=== PATIENT | male | born 1935 | race Caucasian/White ===

== ENCOUNTER 2016-05-31 16:35 | Observation (INO) | payer OTHER ==
[~2016-05-31] VITALS: Ht 180.3 cm; Wt 80.8 kg
[~2016-05-31 16:35] MED LIST: ASPEC325 PO; LISI-461 PO; OXYC-57 PO; SIMV10TA2 PO
[2016-05-31 17:05] LABS: BASO % 1.2 %; BASO ABS # 0.08 K/uL (0-0.2); COMPLETE YES; EOS % 6.4 %; HEMATOCRIT 39.4 % (42-52); IG% 0.3 %; LYMPH % 27.6 %; LYMPH ABS # 1.85 K/uL (1.2-3.4); MEAN CELL VOLUME 88.3 fL (80-100); MEAN CORPUSCULAR HEMOGLOBIN 29.6 pg (25-34); MEAN CORPUSCULAR HGB CONC 33.5 g/dl (32-36); MEAN PLATELET VOLUME 9.4 fL (7.4-10.4); MONO % 8.2 %; NEUT % 56.3 %; PLATELET COUNT 193 K/uL (130-400); RED BLOOD COUNT 4.46 M/uL (4.7-6.1)
[2016-05-31] MEDS ORDERED: ASPI81TA28 PO (17:20)
[2016-05-31] MEDS ORDERED: FEXO1TAB49 PO (17:20)
[2016-05-31] MEDS ORDERED: HYDR12.55 PO (17:20)
[2016-05-31] MEDS ORDERED: LOSA100T65 PO (17:20)
[2016-05-31] MEDS ORDERED: ATOR-24 PO (17:20)
[2016-05-31] MEDS ORDERED: METO-217 PO (17:20)
[2016-05-31 17:21] LABS: BLOOD UREA NITROGEN 20 mg/dl (7-18); CALCIUM 8.5 mg/dl (8.5-10.1); CARBON DIOXIDE 31 mmol/L (21-32); CHLORIDE 106 mmol/L (98-107); GLUCOSE 102 mg/dl (70-99); POTASSIUM 3.7 mmol/L (3.5-5.1); SODIUM 142 mmol/L (136-145)
[2016-05-31 17:22] LABS: BUN/CREATININE RATIO 15.3 (10-20)
--- NOTE | 2016-05-31 17:23 | EMERGENCY ROOM VISIT NOTE ---
History First contact with patient: 16:43 Chief Complaint: CHEST PAIN Stated Complaint: SOB, WEAKNESS, BALANCE, R FOOT TINGLY- REFERRED Nursing Triage Summary: Intermittent chest tightness for the past couple days, denies radiation of pain. SOB with exertion. Hx of abdominal aneurysm. Denies back pain. "Today my knees felt weak and like my balance is gone. My right toes tingle. My head feels woozy." History of Present Illness The patient is a 80 year old male former smoker with hx of Pulmonary Fibrosis (follows with Dr. Grimm) AAA (Follows with Dr. Rapp), Carotid a. stenosis, who presents to the Emergency Room with complaints of SOB on exertion. Patient was walking up some stairs this morning at a store and fell increasingly short of breath. HE also reports occasional Chest tightness for the last 2 wks with no known aggravating factors. Chest discomfort was central 1/10, intensity, non- pleuritic and would last a few minutes. Patient denies presyncope, syncope, Orthopnea, PNS. Patient took full dose ASA prior to arrival. Pt denies headache, change in vision, fevers, chills ,cough, nausea, vomiting, diarrhea, pain with urination, and melena. Prior to arrival today, He contacted Dr. Rapp due to lack of improvement with symptoms, who encouraged him to contact PCP. PCP advised him to go into ED for an EKG. Review of Systems See HPI for pertinent positives & negatives. A total of 10 systems reviewed and were otherwise negative. Past Medical/Surgical History Medical Problems: (1) Essential hypertension (2) History of abdominal aortic aneurysm (AAA) (3) History of coronary stenosis (4) History of pulmonary fibrosis (5) Hyperglycemia (6) Hyperlipidemia (7) Transient ischemic attack Social History Smoking Status: Former Smoker Alcohol Use: none Marital Status: Housing Status: lives alone Occupation Status: retired Current/Historical Medications Scheduled Aspirin (Aspirin Ec), 81 MG PO DAILY Atorvastatin (Lipitor), 40 MG PO DAILY Fexofenadine Hcl (Desiree Allergy), 1 TAB PO DAILY Hydrochlorothiazide (Hydrochlorothiazide), 1 TAB PO DAILY Losartan Potassium (Cozaar), 1 TAB PO DAILY Metoprolol Succinate (Toprol Xl), 50 MG PO DAILY Allergies Coded Allergies: No Known Allergies (Unverified , 05/31/16) Physical Exam Vital Signs Date Time Temp Pulse Resp B/P Pulse Ox O2 Delivery O2 Flow Rate FiO2 05/31/16 19:30 16 156/91 98 Room Air 05/31/16 17:41 98 Room Air 05/31/16 17:41 59 18 130/80 97 Room Air 05/31/16 16:53 66 05/31/16 16:40 36.9 70 18 151/88 97 Room Air Physical Exam GENERAL: alert, well appearing, well nourished, no distress, non-toxic EYE EXAM: normal conjunctiva, PERRL and EOM's grossly intact NECK: supple, no nuchal rigidity, no adenopathy, non-tender LUNGS: Clear to auscultation. Normal chest wall mechanics HEART: no murmurs, S1 normal and S2 normal ABDOMEN: abdomen soft, non-tender, normo-active bowel sounds, no masses, no rebound or guarding. SKIN: no rashes and no bruising UPPER EXTREMITIES: upper extremities are grossly normal. LOWER EXTREMITIES: No pitting edema. Medical Decision & Procedures ER Provider Diagnostic Interpretation: SINGLE VIEW CHEST CLINICAL HISTORY: Atypical chest pain. Dyspnea. FINDINGS: An AP, portable, upright chest radiograph is compared to study dated 08/04/2014 and correlated with chest CT dated 10/17/2014. The examination is degraded by portable technique and apical lordotic positioning. The heart is enlarged and there is atherosclerotic calcification of the thoracic aorta. Again seen are changes of chronic interstitial lung disease. Emphysema is also suspected. The interstitium appears markedly thickened as compared to previous, likely representing superimposed congestive failure and interstitial edema. Bibasilar airspace opacities are observed. No large pleural effusion or pneumothorax is seen. The skeletal structures are osteopenic. Degenerative changes noted throughout the thoracic spine and in the shoulders. IMPRESSION: 1. Again seen are changes of chronic interstitial lung disease and possibly emphysema. 2. Cardiomegaly. Superimposed congestive failure and interstitial edema is suspected. Clinical correlation will be required. 3. There are airspace opacities in the lower lobes. This could be related to pulmonary edema. Chronic clinically for evidence of a superimposed infectious/inflammatory pneumonitis. Laboratory Results 05/31/16 16:54 Red Blood Count 4.46, Mean Corpuscular Volume 88.3, Mean Corpuscular Hemoglobin 29.6, Mean Corpuscular Hemoglobin Concent 33.5, Mean Platelet Volume 9.4, Neutrophils (%) (Auto) 56.3, Lymphocytes (%) (Auto) 27.6, Monocytes (%) (Auto) 8.2, Eosinophils (%) (Auto) 6.4, Basophils (%) (Auto) 1.2, Neutrophils # (Auto) 3.77, Lymphocytes # (Auto) 1.85, Monocytes # (Auto) 0.55, Eosinophils # (Auto) 0.43, Basophils # (Auto) 0.08 05/31/16 16:54 Test 05/31/16 16:54 White Blood Count 6.70 K/uL (4.8-10.8) Red Blood Count 4.46 M/uL (4.7-6.1) Hemoglobin 13.2 g/dL (14.0-18.0) Hematocrit 39.4 % (42-52) Mean Corpuscular Volume 88.3 fL (80-100) Mean Corpuscular Hemoglobin 29.6 pg (25-34) Mean Corpuscular Hemoglobin Concent 33.5 g/dl (32-36) Platelet Count 193 K/uL (130-400) Mean Platelet Volume 9.4 fL (7.4-10.4) Neutrophils (%) (Auto) 56.3 % Lymphocytes (%) (Auto) 27.6 % Monocytes (%) (Auto) 8.2 % Eosinophils (%) (Auto) 6.4 % Basophils (%) (Auto) 1.2 % Neutrophils # (Auto) 3.77 K/uL (1.4-6.5) Lymphocytes # (Auto) 1.85 K/uL (1.2-3.4) Monocytes # (Auto) 0.55 K/uL (0.11-0.59) Eosinophils # (Auto) 0.43 K/uL (0-0.5) Basophils # (Auto) 0.08 K/uL (0-0.2) RDW Standard Deviation 46.1 fL (36.4-46.3) RDW Coefficient of Variation 14.2 % (11.5-14.5) Immature Granulocyte % (Auto) 0.3 % Immature Granulocyte # (Auto) 0.02 K/uL (0.00-0.02) Anion Gap 5.0 mmol/L (3-11) Est Creatinine Clear Calc Drug Dose 48.2 ml/min Estimated GFR () 59.7 Estimated GFR (Non- 51.5 BUN/Creatinine Ratio 15.3 (10-20) Calcium Level 8.5 mg/dl (8.5-10.1) Total Bilirubin 0.9 mg/dl (0.2-1) Direct Bilirubin 0.3 mg/dl (0-0.2) Aspartate Amino Transf (AST/SGOT) 14 U/L (15-37) Alanine Aminotransferase (ALT/SGPT) 21 U/L (12-78) Alkaline Phosphatase 109 U/L (45-117) Total Protein 7.3 gm/dl (6.4-8.2) Albumin 3.8 gm/dl (3.4-5.0) Medical Decision Differential diagnoses includes but is not limited to pneumonia, bronchitis, COPD/Asthma exacerbation, pneumothorax, pulmonary embolism, congestive heart failure, acute coronary syndrome, Pulmonary fibrosis 80 yo M p/w with acute worsening of SOB on exertion prior to arrival and 2 wk hx of mild episodic chest discomfort , afebrile, vss, EKG unremarkable Chest Discomfort, SOB on Exertion Troponin: negative CXR: chronic interstitial lung disease and possibly emphysema. There are airspace opacities in the lower lobes. This could be related to pulmonary edema CBC 13.2/39.4 within baseline range BMP: unremarkable -Chest discomfort does not appear to be due to ACS based on initial EKG an troponin. Based on exertional Chest pain, and multiple risk factors, Stable Angina cannot be ruled out.PE less likely based on presentation. Discussed case with Dr. Johnson on the inpatient service who agreed to admit Impression Primary Impression: Chest pain on exertion Additional Impression: Dyspnea on exertion Departure Information Dispostion Admitted as an inpatient Referrals Kiley Capellan, C.R.N.P. (PCP) Patient Instructions My [facility] Resident Tracking Resident Involvement: Resident Care Provided Care Provided: Adult ED Problem Qualifiers
--- NOTE | 2016-05-31 17:26 | DIAGNOSTIC IMAGING REPORT ---
SINGLE VIEW CHEST CLINICAL HISTORY: Atypical chest pain. Dyspnea. FINDINGS: An AP, portable, upright chest radiograph is compared to study dated 08/04/2014 and correlated with chest CT dated 10/17/2014. The examination is degraded by portable technique and apical lordotic positioning. The heart is enlarged and there is atherosclerotic calcification of the thoracic aorta. Again seen are changes of chronic interstitial lung disease. Emphysema is also suspected. The interstitium appears markedly thickened as compared to previous, likely representing superimposed congestive failure and interstitial edema. Bibasilar airspace opacities are observed. No large pleural effusion or pneumothorax is seen. The skeletal structures are osteopenic. Degenerative changes noted throughout the thoracic spine and in the shoulders. IMPRESSION: 1. Again seen are changes of chronic interstitial lung disease and possibly emphysema. 2. Cardiomegaly. Superimposed congestive failure and interstitial edema is suspected. Clinical correlation will be required. 3. There are airspace opacities in the lower lobes. This could be related to pulmonary edema. Chronic clinically for evidence of a superimposed infectious/inflammatory pneumonitis. Electronically signed by: Neal Ashley M.D. 05/31/2016 5:25 PM Dictated Date/Time: 05/31/2016 5:22 PM
[2016-05-31 17:30] LABS: ALKALINE PHOSPHATASE 109 U/L (45-117); ALT/SGPT 21 U/L (12-78); AST/SGOT 14 U/L (15-37); CKMB/CK RATIO 1.3 (0-3.0)
--- NOTE | 2016-05-31 19:35 | EMERGENCY ROOM VISIT NOTE ---
History Report prepared by Kellen: Erwin Trejo Under the Supervision of: Dr. Ilia Estrada D.O. First contact with patient: 16:43 Chief Complaint: CHEST PAIN Stated Complaint: SOB, WEAKNESS, BALANCE, R FOOT TINGLY- REFERRED Nursing Triage Summary: Intermittent chest tightness for the past couple days, denies radiation of pain. SOB with exertion. Hx of abdominal aneurysm. Denies back pain. "Today my knees felt weak and like my balance is gone. My right toes tingle. My head feels woozy." History of Present Illness The patient is a 80 year old male who presents to the Emergency Room with complaints of an episode of shortness of breath occurring earlier today. He notes he was walking up steps earlier when he became short of breath. He notes this was accompanied with chest tightness which he rates a 1/10 and notes it does not radiate. He reports he has been having off and on chest tightness like this over the last couple of weeks at rest and with exertion. The patient notes his knees felt weak earlier, but denies any LOC, arm or jaw pain, tingling in his arms or legs, or any urinary symptoms. He notes he feels at baseline currently. He admits to taking 81 mg of Aspirin everyday, and took a full dose today. The patient called Dr. Ledesma who recommended calling his PCP. His PCP recommended presenting to the ER for evaluation and an EKG. He reports a history of pulmonary fibrosis, coronary stenosis, and AAA. Source of History: patient Onset: earlier today Position: other (lungs) Quality: other (shortness of breath) Timing: other (episode) Modifying Factors (Worsening): exertion Modifying Factors (Relieving): rest Associated Symptoms: + chest pain (tightness), + weakness, No LOC, No numbness, No urinary symptoms Review of Systems See HPI for pertinent positives & negatives. A total of 10 systems reviewed and were otherwise negative. Past Medical & Surgical Medical Problems: (1) Essential hypertension (2) History of abdominal aortic aneurysm (AAA) (3) History of coronary stenosis (4) History of pulmonary fibrosis (5) Hyperglycemia (6) Hyperlipidemia (7) Transient ischemic attack Family History No pertinent family history stated. Social History Smoking Status: Former Smoker Marital Status: Current/Historical Medications Scheduled Aspirin (Aspirin Ec), 81 MG PO DAILY Atorvastatin (Lipitor), 40 MG PO DAILY Fexofenadine Hcl (Desiree Allergy), 1 TAB PO DAILY Hydrochlorothiazide (Hydrochlorothiazide), 1 TAB PO DAILY Losartan Potassium (Cozaar), 1 TAB PO DAILY Metoprolol Succinate (Toprol Xl), 50 MG PO DAILY Allergies Coded Allergies: No Known Allergies (Unverified , 05/31/16) Physical Exam Vital Signs Date Time Temp Pulse Resp B/P Pulse Ox O2 Delivery O2 Flow Rate FiO2 05/31/16 19:30 16 156/91 98 Room Air 05/31/16 17:41 98 Room Air 05/31/16 17:41 59 18 130/80 97 Room Air 05/31/16 16:53 66 05/31/16 16:40 36.9 70 18 151/88 97 Room Air Physical Exam GENERAL: Sitting up in bed, alert, well appearing, well nourished, no distress, non-toxic EYE EXAM: normal conjunctiva OROPHARYNX: no exudate, no erythema, lips, buccal mucosa, and tongue normal and mucous membranes are moist NECK: supple, no nuchal rigidity, no adenopathy, non-tender LUNGS: Clear to auscultation. Normal chest wall mechanics HEART: no murmurs, S1 normal and S2 normal ABDOMEN: abdomen soft, non-tender, normo-active bowel sounds, no masses, no rebound or guarding. BACK: Back is symmetrical on inspection and there is no deformity, no midline tenderness, no CVA tenderness. SKIN: no rashes and no bruising UPPER EXTREMITIES: Radial pulses are equal bilaterally. LOWER EXTREMITIES: No pitting edema. NEURO EXAM: Normal sensorium, cranial nerves II-XII grossly intact, normal speech, no gross weakness of arms, no gross weakness of legs. Gross sensation intact. Medical Decision & Procedures ER Provider Diagnostic Interpretation: Radiology results have been interpreted by the radiologist and reviewed by me. SINGLE VIEW CHEST FINDINGS: An AP, portable, upright chest radiograph is compared to study dated 08/04/2014 and correlated with chest CT dated 10/17/2014. The examination is degraded by portable technique and apical lordotic positioning. The heart is enlarged and there is atherosclerotic calcification of the thoracic aorta. Again seen are changes of chronic interstitial lung disease. Emphysema is also suspected. The interstitium appears markedly thickened as compared to previous, likely representing superimposed congestive failure and interstitial edema. Bibasilar airspace opacities are observed. No large pleural effusion or pneumothorax is seen. The skeletal structures are osteopenic. Degenerative changes noted throughout the thoracic spine and in the shoulders. IMPRESSION: 1. Again seen are changes of chronic interstitial lung disease and possibly emphysema. 2. Cardiomegaly. Superimposed congestive failure and interstitial edema is suspected. Clinical correlation will be required. 3. There are airspace opacities in the lower lobes. This could be related to pulmonary edema. Chronic clinically for evidence of a superimposed infectious/inflammatory pneumonitis. Electronically signed by: Neal Ashley M.D. 05/31/2016 5:25 PM Dictated Date/Time: 05/31/2016 5:22 PM Laboratory Results 05/31/16 16:54 Red Blood Count 4.46, Mean Corpuscular Volume 88.3, Mean Corpuscular Hemoglobin 29.6, Mean Corpuscular Hemoglobin Concent 33.5, Mean Platelet Volume 9.4, Neutrophils (%) (Auto) 56.3, Lymphocytes (%) (Auto) 27.6, Monocytes (%) (Auto) 8.2, Eosinophils (%) (Auto) 6.4, Basophils (%) (Auto) 1.2, Neutrophils # (Auto) 3.77, Lymphocytes # (Auto) 1.85, Monocytes # (Auto) 0.55, Eosinophils # (Auto) 0.43, Basophils # (Auto) 0.08 05/31/16 16:54 Test 05/31/16 16:54 White Blood Count 6.70 K/uL (4.8-10.8) Red Blood Count 4.46 M/uL (4.7-6.1) Hemoglobin 13.2 g/dL (14.0-18.0) Hematocrit 39.4 % (42-52) Mean Corpuscular Volume 88.3 fL (80-100) Mean Corpuscular Hemoglobin 29.6 pg (25-34) Mean Corpuscular Hemoglobin Concent 33.5 g/dl (32-36) Platelet Count 193 K/uL (130-400) Mean Platelet Volume 9.4 fL (7.4-10.4) Neutrophils (%) (Auto) 56.3 % Lymphocytes (%) (Auto) 27.6 % Monocytes (%) (Auto) 8.2 % Eosinophils (%) (Auto) 6.4 % Basophils (%) (Auto) 1.2 % Neutrophils # (Auto) 3.77 K/uL (1.4-6.5) Lymphocytes # (Auto) 1.85 K/uL (1.2-3.4) Monocytes # (Auto) 0.55 K/uL (0.11-0.59) Eosinophils # (Auto) 0.43 K/uL (0-0.5) Basophils # (Auto) 0.08 K/uL (0-0.2) RDW Standard Deviation 46.1 fL (36.4-46.3) RDW Coefficient of Variation 14.2 % (11.5-14.5) Immature Granulocyte % (Auto) 0.3 % Immature Granulocyte # (Auto) 0.02 K/uL (0.00-0.02) Anion Gap 5.0 mmol/L (3-11) Est Creatinine Clear Calc Drug Dose 48.2 ml/min Estimated GFR () 59.7 Estimated GFR (Non- 51.5 BUN/Creatinine Ratio 15.3 (10-20) Calcium Level 8.5 mg/dl (8.5-10.1) Total Bilirubin 0.9 mg/dl (0.2-1) Direct Bilirubin 0.3 mg/dl (0-0.2) Aspartate Amino Transf (AST/SGOT) 14 U/L (15-37) Alanine Aminotransferase (ALT/SGPT) 21 U/L (12-78) Alkaline Phosphatase 109 U/L (45-117) Total Protein 7.3 gm/dl (6.4-8.2) Albumin 3.8 gm/dl (3.4-5.0) Laboratory results per my review. ECG Indication: chest pain Rate (beats per minute): 66 Rhythm: sinus rhythm Findings: left axis deviation, no ectopy ED Course ED COURSE: Vital signs were reviewed and showed hypertensive. The patients medical record was reviewed The above diagnostic studies were performed and reviewed. ED treatments and interventions as stated above. 1707: The patient was evaluated in room A2. A complete history and physical examination was performed. 1818: I reviewed the patient's case with Dr. Johnson. She will evaluate the patient for further management. 1820: Upon reevaluation, the patient is doing well.I discussed my findings with the patient and he understands and agrees with the treatment plan. Based on the patients age, coexisting illnesses, exam and lab findings the decision to treat as an inpatient was made. The patient remained stable while under my care. The patient will be evaluated for further management. Medical Decision Differential diagnoses includes but is not limited to acute coronary syndrome, myocardial infarction, pericarditis, pulmonary embolus, aortic dissection, pneumonia, pneumothorax, musculoskeletal, shingles, esophageal. Patient is an 80-year-old male who present to the ER for exertional chest pain shortness breath. This started today while walking up the steps. He has been having chest pain which he notes is worsened with exertion or prominently over the past couple weeks. He denies any history of and CAD. Vitals are stable. EKG shows no obvious signs of ischemia. Troponin was negative. Hemoglobin was unremarkable. Patient was chest pain-free while here. He took aspirin prior to arrival. With his exertional symptoms I elected to discuss this patient with internal medicine for observation. Patient was seen in conjunction with my resident and I independently evaluated and obtain a history from him. Consults Time Called: 1804 Consulting Physician: Dr. Johnson, [facility] Returned Call: 1817 I reviewed the patient's case with Dr. Johnson. She will evaluate the patient for further management. Impression Primary Impression: Chest pain on exertion Additional Impressions: Dyspnea on exertion Precordial chest pain Scribe Attestation The scribe's documentation has been prepared under my direction and personally reviewed by me in its entirety. I confirm that the note above accurately reflects all work, treatment, procedures, and medical decision making performed by me. Departure Information Dispostion Being Evaluated By Hospitalist Referrals Kiley Capellan, C.R.N.P. (PCP) Patient Instructions My [facility] Problem Qualifiers
[2016-05-31] MEDS ORDERED: NITROGLYCERIN 0.4 MG SL PER TAB CHARGE SL PRN (20:30)
[2016-05-31] MEDS ORDERED: ACETAMINOPHEN 325 MG TAB PO PRN (20:30)
[2016-05-31] MEDS ORDERED: ONDANSETRON INJ 2 MG/ML 2 ML VIAL IV PRN (20:30)
[2016-05-31] MEDS ORDERED: ZOLPIDEM TARTRATE 5 MG TAB PO PRN (20:30)
[2016-05-31] MEDS ORDERED: LEVALBUTEROL/IPRATROPIUM NEB INH PRN (20:45)
[2016-05-31] MEDS ORDERED: IPRATROPIUM BROMIDE NEB SOLN 0.02% 2.5 ML VIAL INH PRN ×2 (21:15)
[2016-05-31] MEDS ORDERED: LEVALBUTEROL 1.25MG/0.5ML NEB INH PRN ×2 (21:15)
[2016-05-31] MEDS ORDERED: IV FLUIDS COMPLETED PRN (21:15)
[2016-05-31 21:25] LABS: CKMB/CK RATIO 1.7 (0-3.0)
--- NOTE | 2016-05-31 22:12 | History and Physical ---
History & Physical Date & Time of Service: May 31, 2016 at 22:12 Chief Complaint: Dyspnea On Exertion, Precordial Chest Pain Primary Care Physician: Kiley Capellan C.R.N.PEnriqueta History of Present Illness Source: patient The patient is an 80-year-old male who presents to the emergency department with shortness of breath, accompanied by chest tightness, that occurred while he was walking up steps earlier in the day. This has happened to him other times during the past few weeks, but the events of today were more significant as far as duration and intensity, and prompted him to call Dr. Rapp, who then recommended him calling his PCP, who then recommended him to come to the emergency department for evaluation. The patient reports he did have some transient generalized lower extremity weakness earlier in the day. He usually takes aspirin 81 mg daily, however, he took a full dose today. Past Medical/Surgical History Medical Problems: (1) Essential hypertension Status: Chronic (2) Hyperglycemia Status: Chronic (3) Hyperlipidemia Status: Chronic (4) Transient ischemic attack Status: Resolved Social History Smoking Status: Former Smoker Smokeless Tobacco Use: No Alcohol Use: none Drug Use: none Marital Status: Housing status: lives with family Occupational Status: retired Immunizations History of Influenza Vaccine: Unknown History of Tetanus Vaccine?: Unknown History of Pneumococcal: Unknown History of Hepatitis B Vaccine: Unknown Multi-Drug Resistant Organisms History of MDRO: No Allergies Coded Allergies: No Known Allergies (Unverified , 05/31/16) Home Medications Scheduled Aspirin (Aspirin Ec), 81 MG PO DAILY Atorvastatin (Lipitor), 40 MG PO DAILY Fexofenadine Hcl (Desiree Allergy), 1 TAB PO DAILY Hydrochlorothiazide (Hydrochlorothiazide), 1 TAB PO DAILY Losartan Potassium (Cozaar), 1 TAB PO DAILY Metoprolol Succinate (Toprol Xl), 50 MG PO DAILY Review of Systems The patient denies palpitations, lower extremity swelling, vision change, hearing change, sore throat, fevers, chills, sweats, weight change, fatigue, nausea, vomiting, abdominal pain, pelvic pain, blood in urine or stool, dysuria , urinary frequency or urgency, lightheadedness, dizziness, headache, memory loss, rash, abnormal bruising or bleeding, imbalance, focal weakness, numbness or tingling in arms or legs, arthralgias or myalgias, back or neck pain, night sweats, or allergy symptoms. The review of systems is otherwise negative other than for that already noted above, and at least 10 systems have been reviewed. Physical Exam Vital Signs Date Time Temp Pulse Resp B/P Pulse Ox O2 Delivery O2 Flow Rate FiO2 05/31/16 21:49 65 16 168/103 96 Room Air 05/31/16 20:57 57 05/31/16 20:39 58 12 174/96 98 Room Air 05/31/16 19:30 16 156/91 98 Room Air 05/31/16 17:41 98 Room Air 05/31/16 17:41 59 18 130/80 97 Room Air 05/31/16 16:53 66 05/31/16 16:40 36.9 70 18 151/88 97 Room Air The patient is awake, well-developed and adequately nourished, alert and oriented 3, normocephalic and atraumatic, lying in bed and in no acute distress. HEENT--PERRL, EOMI, mucous membranes and oropharynx normal. Neck--supple, no JVD or bruits, thyroid normal, trachea midline, no adenopathy. Heart--normal S1 and S2, no extra beats, no murmurs, rubs or gallops. Lungs--dry crackles at the bases correction up bilaterally, no respiratory distress , no accessory muscle use. Abdomen--normal bowel sounds and soft, nontender and nondistended, no hernias or masses, no organomegaly. Extremities--no cyanosis, clubbing or edema. There are good distal pulses b/l. Dermatologic--normal skin turgor, normal color, warm and dry, no abnormal lymph nodes, no rash. Neurologic--cranial nerves II through XII grossly intact, motor and sensory examination normal. Rheumatologic--normal range of motion, nontender, muscles and joints. Psychiatric--normal affect. Diagnostics Laboratory Results Results Past 24 Hours Test 05/31/16 16:54 05/31/16 20:56 Range/Units White Blood Count 6.70 4.8-10.8 K/uL Red Blood Count 4.46 4.7-6.1 M/uL Hemoglobin 13.2 14.0-18.0 g/dL Hematocrit 39.4 42-52 % Mean Corpuscular Volume 88.3 80-100 fL Mean Corpuscular Hemoglobin 29.6 25-34 pg Mean Corpuscular Hemoglobin Concent 33.5 32-36 g/dl Platelet Count 193 130-400 K/uL Mean Platelet Volume 9.4 7.4-10.4 fL Neutrophils (%) (Auto) 56.3 % Lymphocytes (%) (Auto) 27.6 % Monocytes (%) (Auto) 8.2 % Eosinophils (%) (Auto) 6.4 % Basophils (%) (Auto) 1.2 % Neutrophils # (Auto) 3.77 1.4-6.5 K/uL Lymphocytes # (Auto) 1.85 1.2-3.4 K/uL Monocytes # (Auto) 0.55 0.11-0.59 K/uL Eosinophils # (Auto) 0.43 0-0.5 K/uL Basophils # (Auto) 0.08 0-0.2 K/uL RDW Standard Deviation 46.1 36.4-46.3 fL RDW Coefficient of Variation 14.2 11.5-14.5 % Immature Granulocyte % (Auto) 0.3 % Immature Granulocyte # (Auto) 0.02 0.00-0.02 K/uL Sodium Level 142 136-145 mmol/L Potassium Level 3.7 3.5-5.1 mmol/L Chloride Level 106 98-107 mmol/L Carbon Dioxide Level 31 21-32 mmol/L Anion Gap 5.0 3-11 mmol/L Blood Urea Nitrogen 20 7-18 mg/dl Creatinine 1.30 0.60-1.40 mg/dl Est Creatinine Clear Calc Drug Dose 48.2 ml/min Estimated GFR () 59.7 Estimated GFR (Non- 51.5 BUN/Creatinine Ratio 15.3 10-20 Random Glucose 102 70-99 mg/dl Calcium Level 8.5 8.5-10.1 mg/dl Total Bilirubin 0.9 0.2-1 mg/dl Direct Bilirubin 0.3 0-0.2 mg/dl Aspartate Amino Transf (AST/SGOT) 14 15-37 U/L Alanine Aminotransferase (ALT/SGPT) 21 12-78 U/L Alkaline Phosphatase 109 45-117 U/L Total Creatine Kinase 54 48 39-308 U/L Creatine Kinase MB 0.7 0.8 0.5-3.6 ng/ml Creatine Kinase MB Ratio 1.3 1.7 0-3.0 Troponin I < 0.015 < 0.015 0-0.045 ng/ml Total Protein 7.3 6.4-8.2 gm/dl Albumin 3.8 3.4-5.0 gm/dl Diagnostic Radiology Patient Name: RITESH INTERIANO Unit Number: [id number] Dictated: 05/31/161721 Transcribed: 05/31/161721 EV Printed Date/Time: [~ rep prt dt]/[~ rep prt tm] [~ rep ct labl] - [~ rep ct ivnm] [facility] [place] [place] [address] Dictated: 05/31/161721 Transcribed: 05/31/161721 EV Printed Date/Time: [~ rep prt dt]/[~ rep prt tm] [~ rep ct labl] - [~ rep ct ivnm] SINGLE VIEW CHEST CLINICAL HISTORY: Atypical chest pain. Dyspnea. FINDINGS: An AP, portable, upright chest radiograph is compared to study dated 08/04/2014 and correlated with chest CT dated 10/17/2014. The examination is degraded by portable technique and apical lordotic positioning. The heart is enlarged and there is atherosclerotic calcification of the thoracic aorta. Again seen are changes of chronic interstitial lung disease. Emphysema is also suspected. The interstitium appears markedly thickened as compared to previous, likely representing superimposed congestive failure and interstitial edema. Bibasilar airspace opacities are observed. No large pleural effusion or pneumothorax is seen. The skeletal structures are osteopenic. Degenerative changes noted throughout the thoracic spine and in the shoulders. IMPRESSION: 1. Again seen are changes of chronic interstitial lung disease and possibly emphysema. 2. Cardiomegaly. Superimposed congestive failure and interstitial edema is suspected. Clinical correlation will be required. 3. There are airspace opacities in the lower lobes. This could be related to pulmonary edema. Chronic clinically for evidence of a superimposed infectious/inflammatory pneumonitis. Electronically signed by: Neal Ashley M.D. 05/31/2016 5:25 PM Dictated Date/Time: 05/31/2016 5:22 PM The status of this report is Signed. Draft = Not yet reviewed or approved by Radiologist. Signed = Reviewed and approved by Radiologist. <AttendingPhy></AttendingPhy> <FamilyPhy>Kiley Capellan C.REnriquetaNEnriquetaP.</FamilyPhy> <PrimaryPhy>Kiley Capellan C.R.N.P.</PrimaryPhy> <UnitNumber>[id number]</ UnitNumber> <VisitNumber>[id number]</VisitNumber> <PatientName>RITESH INTERIANO</PatientName> <DateOfBirth>1935</DateOfBirth> <Location>[facility]</ Location> <ServiceDate>05/31/16</ServiceDate> <MNE>ESINDI</MNE> <OrderingPhy> Mitul Segura MD</OrderingPhy> <OrderingPhyMNE>f rep ord dr lovett</OrderingPhyMNE > <DictatingPhyMNE>f rep dict dr lovett</DictatingPhyMNE> <CCListMNE>f rep ct mne</ CCListMNE> <AdmittingPhyMNE>f pt admit dr lovett</AdmittingPhyMNE> <AttendingPhyMNE >f pt attend dr lovett</AttendingPhyMNE> <ConsultingPhyMNE>f pt consult dr lovett</ConsultingPhyMNE> <FamilyPhyMNE>f pt fam dr lovett</FamilyPhyMNE> <OtherPhyMNE>f pt other dr lovett</OtherPhyMNE> < PrimaryPhyMNE>f pt prim care dr lovett</PrimaryPhyMNE> <ReferringPhyMNE>f pt referring dr lovett</ReferringPhyMNE> EKG EKG shows normal sinus rhythm at 66 bpm, left axis deviation, cannot rule out old inferior MO, no change compared to 04/07/2011 Impression Assessment and Plan Chest pressure/dyspnea on exertion/hypertension--the patient will be admitted to the telemetry unit for serial cardiac enzymes, cardiac rhythm monitoring and a 2-D echocardiogram with Dopplers. We'll continue metoprolol succinate 50 mg by mouth daily, losartan potassium 100 mg by mouth daily and aspirin 81 mg by mouth daily. Hold HCTZ. Pulmonary fibrosis--the patient looks and feels much better than his chest x- ray looks. Pulse ox was 98% on room air and he was resting comfortably when examined. His symptoms of chest tightness and dyspnea on exertion may be related to progressive pulmonary fibrosis. If his cardiac workup is negative, he would at the very least deserve a trial of inhalers prior to any exertional activity. Hypercholesterolemia--continue atorvastatin 40 mg by mouth daily. Seasonal allergy--continue fexofenadine 180 mg by mouth daily. Level of Care Telemetry Advanced Directives Existing Advance Directive: No Existing Living Will: No Existing Power of Fisheries Diver: No Resuscitation Status FULL RESUSCITATION VTE Prophylaxis VTE Risk Assessment Done? Y/N: Yes Risk Level: Moderate Given or contraindicated: SCD's
[2016-06-01 04:32] LABS: BASO % 0.8 %; BASO ABS # 0.06 K/uL (0-0.2); COMPLETE YES; EOS % 6.7 %; HEMATOCRIT 38.5 % (42-52); IG% 0.1 %; LYMPH % 20.9 %; LYMPH ABS # 1.66 K/uL (1.2-3.4); MEAN CELL VOLUME 86.5 fL (80-100); MEAN CORPUSCULAR HEMOGLOBIN 29.2 pg (25-34); MEAN CORPUSCULAR HGB CONC 33.8 g/dl (32-36); MEAN PLATELET VOLUME 9.3 fL (7.4-10.4); MONO % 8.1 %; NEUT % 63.4 %; PLATELET COUNT 171 K/uL (130-400); RED BLOOD COUNT 4.45 M/uL (4.7-6.1); WHITE BLOOD COUNT 7.94 K/uL (4.8-10.8)
[2016-06-01 04:47] LABS: BLOOD UREA NITROGEN 18 mg/dl (7-18); BUN/CREATININE RATIO 16.3 (10-20); CALCIUM 8.7 mg/dl (8.5-10.1); CARBON DIOXIDE 29 mmol/L (21-32); CHLORIDE 107 mmol/L (98-107); GLUCOSE 98 mg/dl (70-99); MAGNESIUM 2.1 mg/dl (1.8-2.4); POTASSIUM 3.7 mmol/L (3.5-5.1); SODIUM 142 mmol/L (136-145)
[2016-06-01 04:52] LABS: CKMB/CK RATIO 1.7 (0-3.0)
[2016-06-01 08:04] VITALS: BP 129/73; PULSE 71; TEMP 36.8; O2SAT 97; Ht 180.3 cm; Wt 80.8 kg
[2016-06-01] MEDS: LOSARTAN POTASSIUM 50 MG TAB PO SCH (08:55)
[2016-06-01] MEDS: FEXOFENADINE HCL 180 MG TAB PO SCH (08:55)
[2016-06-01] MEDS: METOPROLOL SUCC 50MG EXT REL TAB PO SCH (08:55)
[2016-06-01] MEDS: ASPIRIN 81 MG ECTAB PO SCH (08:55)
[2016-06-01] MEDS: ATORVASTATIN 40 MG TAB PO SCH (08:55)
[2016-06-01 12:15] VITALS: BP 131/78; PULSE 57; TEMP 36.6; O2SAT 96
--- NOTE | 2016-06-01 12:46 | ECHOCARDIOGRAM REPORT ---
*NOTICE TO RECEIVING DEMOCRAT AGENCY This information is strictly Confidential and protected under [place] law. [place] law prohibits you from making any further disclosure of this information unless further disclosure is expressly permitted by the written consent of the person to whom it pertains or is authorized by law. A general authorization for the release of medical or other information is not sufficient for this purpose. Hospital accepts no responsibility if the information is made available to any other person, INCLUDING THE PATIENT. Interpretation Summary * Name: RITESH INTERIANO Study Date: 06/01/2016 06:51 AM BP: 129/73 mmHg * Patient Location: C.EDINP\S\EDINP 1\S\12 HR: 63 * : 1935 (M/d/yyy) Gender: Male Height: 71 in * Age: 80 yrs Ethnicity: [place] Weight: 178 lb * Ordering Physician: Jesus Alberto Smith * Referring Physician: Kiley Capellan * Performed By: Myrna Peters RCS * * Reason For Study: CHEST PAIN * BSA: 2.0 m2 * -- Conclusions -- * There is mild concentric left ventricular hypertrophy. * Left ventricular systolic function is normal. * Grade I diastolic dysfunction, (abnormal relaxation pattern). * The left atrium is moderately dilated. * Mild to moderate aortic regurgitation. * Right ventricular systolic pressure is normal. * Mild aortic root dilatation. * Compared to a study from 09/2010, there is only minimal change Procedure Details * A complete two-dimensional transthoracic echocardiogram was performed (2D, M-mode, Doppler and color flow Doppler). Left Ventricle * The left ventricle is normal in size. * There is mild concentric left ventricular hypertrophy. * The basal septum is thickened and angulated consistent with sigmoid septum. * Left ventricular systolic function is normal. * Grade I diastolic dysfunction, (abnormal relaxation pattern). * Ejection Fraction = 55-60%. Right Ventricle * The right ventricle is grossly normal size. * The right ventricular systolic function is qualitatively normal. Atria * The left atrium is moderately dilated. * Right atrial size is normal. Mitral Valve * The mitral valve leaflets appear thickened, but open well. * There is trace mitral regurgitation. Tricuspid Valve * The tricuspid valve is not well visualized, but is grossly normal. * There is trace tricuspid regurgitation. * Right ventricular systolic pressure is normal. Aortic Valve * Left coronary cusp is calcified and poorly mobile * No hemodynamically significant valvular aortic stenosis. * Mild to moderate aortic regurgitation. Great Vessels * Mild aortic root dilatation. Pericardium/Pleural * There is no pericardial effusion. MMode 2D Measurements and Calculations IVSd 1.5 cm IVSs 1.6 cm LVIDd 3.6 cm LVIDs 2.8 cm LVPWd 1.5 cm LVPWs 1.5 cm IVS/LVPW 1.0 FS 22.0 % EDV(Teich) 56.2 ml ESV(Teich) 30.8 ml EF(Teich) 45.2 % EDV(cubed) 48.5 ml ESV(cubed) 23.1 ml EF(cubed) 52.5 % % IVS thick 7.6 % % LVPW thick 0.44 % LV mass(C)d 205.6 grams LV mass(C)dI 102.4 grams/m\S\2 LV mass(C)s 159.0 grams LV mass(C)sI 79.2 grams/m\S\2 SV(Teich) 25.4 ml SI(Teich) 12.6 ml/m\S\2 SV(cubed) 25.4 ml SI(cubed) 12.7 ml/m\S\2 Ao root diam 4.1 cm Ao root area 13.3 cm\S\2 LA dimension 4.5 cm LA/Ao 1.1 LVOT diam 2.5 cm LVOT area 4.9 cm\S\2 Doppler Measurements and Calculations MV E max jose 50.7 cm/sec MV A max jose 83.0 cm/sec MV E/A 0.61 MV P1/2t max jose 64.9 cm/sec MV P1/2t 70.0 msec MVA(P1/2t) 3.1 cm\S\2 MV dec slope 271.8 cm/sec\S\2 MV dec time 0.31 sec Ao V2 max 80.9 cm/sec Ao max PG 2.6 mmHg Ao max PG (full) 0.55 mmHg ROCÍO(V,A) 4.4 cm\S\2 ROCÍO(V,D) 4.4 cm\S\2 LV V1 max PG 2.1 mmHg LV V1 max 72.0 cm/sec PA V2 max 75.3 cm/sec PA max PG 2.3 mmHg TR max jose 260.7 cm/sec
--- NOTE | 2016-06-01 15:26 | Hospitalist Progress Note ---
Hospitalist Progress Note Date of Service Jun 01, 2016. Subjective Pt evaluation today including: conversation w/ patient, conversation w/ family , physical exam, chart review Voiding: no voiding problems All Other Systems: Reviewed and Negative Medications Medications (Trade) Dose Ordered Sig/Himanshu Route Start Time Stop Time Status Last Admin Dose Admin Aspirin (Ecotrin Tab) 81 mg DAILY PO 06/01/16 09:00 07/01/16 08:59 06/01/16 08:55 81 MG Atorvastatin Calcium (Lipitor Tab) 40 mg DAILY PO 06/01/16 09:00 07/01/16 08:59 06/01/16 08:55 40 MG Fexofenadine HCl (Desiree Tab) 180 mg DAILY PO 06/01/16 09:00 07/01/16 08:59 06/01/16 08:55 180 MG Losartan Potassium (coZAAR TAB) 100 mg DAILY PO 06/01/16 09:00 07/01/16 08:59 06/01/16 08:55 100 MG Metoprolol Succinate (Toprol Xl Tab) 50 mg DAILY PO 06/01/16 09:00 07/01/16 08:59 06/01/16 08:55 50 MG Objective Vital Signs Date Time Temp Pulse Resp B/P Pulse Ox O2 Delivery O2 Flow Rate FiO2 06/01/16 12:15 36.6 57 16 131/78 96 Room Air 06/01/16 10:39 56 06/01/16 08:04 36.8 71 18 129/73 97 Room Air 06/01/16 07:30 58 06/01/16 04:38 38.2 06/01/16 04:11 62 06/01/16 03:21 66 16 142/88 92 Room Air 06/01/16 00:19 73 05/31/16 23:23 63 18 149/85 98 Room Air 05/31/16 22:26 57 15 162/93 95 Room Air 05/31/16 21:49 65 16 168/103 96 Room Air 05/31/16 20:57 57 05/31/16 20:39 58 12 174/96 98 Room Air 05/31/16 19:30 16 156/91 98 Room Air 05/31/16 17:41 98 Room Air 05/31/16 17:41 59 18 130/80 97 Room Air 05/31/16 16:53 66 05/31/16 16:40 36.9 70 18 151/88 97 Room Air Physical Exam General Appearance: WD/WN, no apparent distress Eyes: normal inspection, PERRL ENT: normal ENT inspection, hearing grossly normal Neck: supple, no adenopathy Respiratory/Chest: chest non-tender, lungs clear, normal breath sounds Cardiovascular: regular rate, rhythm, no edema, no gallop Abdomen: normal bowel sounds, non tender, soft Extremities: normal range of motion, non-tender 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/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 as tested, oriented x 3 Laboratory Results Last 24 Hours Test 05/31/16 16:54 05/31/16 20:56 06/01/16 04:20 06/01/16 12:25 White Blood Count 6.70 K/uL 7.94 K/uL Red Blood Count 4.46 M/uL 4.45 M/uL Hemoglobin 13.2 g/dL 13.0 g/dL Hematocrit 39.4 % 38.5 % Mean Corpuscular Volume 88.3 fL 86.5 fL Mean Corpuscular Hemoglobin 29.6 pg 29.2 pg Mean Corpuscular Hemoglobin Concent 33.5 g/dl 33.8 g/dl Platelet Count 193 K/uL 171 K/uL Mean Platelet Volume 9.4 fL 9.3 fL Neutrophils (%) (Auto) 56.3 % 63.4 % Lymphocytes (%) (Auto) 27.6 % 20.9 % Monocytes (%) (Auto) 8.2 % 8.1 % Eosinophils (%) (Auto) 6.4 % 6.7 % Basophils (%) (Auto) 1.2 % 0.8 % Neutrophils # (Auto) 3.77 K/uL 5.04 K/uL Lymphocytes # (Auto) 1.85 K/uL 1.66 K/uL Monocytes # (Auto) 0.55 K/uL 0.64 K/uL Eosinophils # (Auto) 0.43 K/uL 0.53 K/uL Basophils # (Auto) 0.08 K/uL 0.06 K/uL RDW Standard Deviation 46.1 fL 44.2 fL RDW Coefficient of Variation 14.2 % 14.0 % Immature Granulocyte % (Auto) 0.3 % 0.1 % Immature Granulocyte # (Auto) 0.02 K/uL 0.01 K/uL Sodium Level 142 mmol/L 142 mmol/L Potassium Level 3.7 mmol/L 3.7 mmol/L Chloride Level 106 mmol/L 107 mmol/L Carbon Dioxide Level 31 mmol/L 29 mmol/L Anion Gap 5.0 mmol/L 6.0 mmol/L Blood Urea Nitrogen 20 mg/dl 18 mg/dl Creatinine 1.30 mg/dl 1.10 mg/dl Est Creatinine Clear Calc Drug Dose 48.2 ml/min 57.0 ml/min Estimated GFR () 59.7 73.1 Estimated GFR (Non- 51.5 63.1 BUN/Creatinine Ratio 15.3 16.3 Random Glucose 102 mg/dl 98 mg/dl Calcium Level 8.5 mg/dl 8.7 mg/dl Total Bilirubin 0.9 mg/dl Direct Bilirubin 0.3 mg/dl Aspartate Amino Transf (AST/SGOT) 14 U/L Alanine Aminotransferase (ALT/SGPT) 21 U/L Alkaline Phosphatase 109 U/L Total Creatine Kinase 54 U/L 48 U/L 42 U/L 41 U/L Creatine Kinase MB 0.7 ng/ml 0.8 ng/ml 0.7 ng/ml 0.8 ng/ml Creatine Kinase MB Ratio 1.3 1.7 1.7 2.0 Troponin I < 0.015 ng/ml < 0.015 ng/ml < 0.015 ng/ml < 0.015 ng/ml Total Protein 7.3 gm/dl Albumin 3.8 gm/dl Magnesium Level 2.1 mg/dl Diagnostic Results Interpretation Summary * Name: RITESH INTERIANO Study Date: 06/01/2016 06:51 AM BP: 129/73 mmHg * Patient [facility]: [facility] 1\S\12 HR: 63 * : 1935 (M/d/yyyy) Gender: Male Height: 71 in * Age: 80 yrs Ethnicity: [place] Weight: 178 lb * Ordering Physician: Jesus Alberto Smith * Referring Physician: Kiley Capellan * Performed By: Myrna Peters RCS * * Reason For Study: CHEST PAIN * BSA: 2.0 m2 * -- Conclusions -- * There is mild concentric left ventricular hypertrophy. * Left ventricular systolic function is normal. * Grade I diastolic dysfunction, (abnormal relaxation pattern). * The left atrium is moderately dilated. * Mild to moderate aortic regurgitation. * Right ventricular systolic pressure is normal. * Mild aortic root dilatation. * Compared to a study from 09/2010, there is only minimal change Procedure Details Assessment and Plan Chest pressure/dyspnea on exertion/hypertension--the patient will be admitted to the telemetry unit for serial cardiac enzymes, cardiac rhythm monitoring and a 2-D echocardiogram with Dopplers. We'll continue metoprolol succinate 50 mg by mouth daily, losartan potassium 100 mg by mouth daily and aspirin 81 mg by mouth daily. Hold HCTZ.. Serial trops are negative. Echo results noted. Will setup Exercise NST tomorrow. Pulmonary fibrosis--the patient looks and feels much better than his chest x- ray looks. Pulse ox was 98% on room air and he was resting comfortably when examined. His symptoms of chest tightness and dyspnea on exertion may be related to progressive pulmonary fibrosis. If his cardiac workup is negative, he would at the very least deserve a trial of inhalers prior to any exertional activity. Hypercholesterolemia--continue atorvastatin 40 mg by mouth daily. Seasonal allergy--continue fexofenadine 180 mg by mouth daily.
[2016-06-01 15:55] VITALS: BP 109/70; PULSE 60; TEMP 36.4; O2SAT 95
[2016-06-01 19:33] VITALS: BP 108/65; PULSE 62; TEMP 36.6; O2SAT 97
[2016-06-02 00:44] VITALS: BP 104/72; PULSE 55; TEMP 36.6; O2SAT 95
[2016-06-02 03:58] VITALS: BP 121/73; PULSE 62; TEMP 36.6; O2SAT 98
[2016-06-02 07:32] LABS: BASO % 1.1 %; BASO ABS # 0.08 K/uL (0-0.2); COMPLETE YES; EOS % 7.9 %; HEMATOCRIT 38.1 % (42-52); IG% 0.4 %; LYMPH % 26.3 %; LYMPH ABS # 1.99 K/uL (1.2-3.4); MEAN CELL VOLUME 87.6 fL (80-100); MEAN CORPUSCULAR HEMOGLOBIN 29.9 pg (25-34); MEAN CORPUSCULAR HGB CONC 34.1 g/dl (32-36); MEAN PLATELET VOLUME 9.5 fL (7.4-10.4); NEUT % 55.3 %; PLATELET COUNT 189 K/uL (130-400); RED BLOOD COUNT 4.35 M/uL (4.7-6.1); WHITE BLOOD COUNT 7.56 K/uL (4.8-10.8)
[2016-06-02 07:54] VITALS: BP 115/55; PULSE 58; TEMP 36.5; O2SAT 96
[2016-06-02 08:00] VITALS: O2SAT 96
[2016-06-02 08:04] LABS: CREATININE 1.1 mg/dl (0.60-1.40)
[2016-06-02 08:05] LABS: CALCIUM 8.7 mg/dl (8.5-10.1); POTASSIUM 3.8 mmol/L (3.5-5.1)
[2016-06-02] MEDS: ASPIRIN 81 MG ECTAB PO SCH (08:29)
[2016-06-02] MEDS: LOSARTAN POTASSIUM 50 MG TAB PO SCH (08:30)
[2016-06-02] MEDS: METOPROLOL SUCC 50MG EXT REL TAB PO SCH (08:30)
[2016-06-02] MEDS: FEXOFENADINE HCL 180 MG TAB PO SCH (08:30)
[2016-06-02] MEDS: ATORVASTATIN 40 MG TAB PO SCH (08:30)
--- NOTE | 2016-06-02 11:02 | Discharge Instructions ---
Discharge Instructions Date of Service Jun 02, 2016. Admission Reason for Admission: Dyspnea On Exertion, Precordial Chest Pain Discharge Discharge Diagnosis / Problem: Chest pain, Hyperlipidemia, Hypertension Benign Discharge Goals Goal(s): Learn about illness Activity Recommendations Activity Limitations: resume your previous activity Lifting Limitations: none Exercise/Sports Limitations: none May Resume Sexual Activity: when tolerated Shower/Bathe: no limitations Driving or Machine Use: no limitations . Instructions / Follow-Up Instructions / Follow-Up PCP in one week Current Hospital Diet Patient's current hospital diet: AHA Diet (Heart Healthy) Discharge Diet Recommended Diet: AHA Diet (Heart Healthy) Pending Studies Studies pending at discharge: no Laboratory Results 06/02/16 06:53 Red Blood Count 4.35, Mean Corpuscular Volume 87.6, Mean Corpuscular Hemoglobin 29.9, Mean Corpuscular Hemoglobin Concent 34.1, Mean Platelet Volume 9.5, Neutrophils (%) (Auto) 55.3, Lymphocytes (%) (Auto) 26.3, Monocytes (%) (Auto) 9.0, Eosinophils (%) (Auto) 7.9, Basophils (%) (Auto) 1.1, Neutrophils # (Auto) 4.18, Lymphocytes # (Auto) 1.99, Monocytes # (Auto) 0.68, Eosinophils # (Auto) 0.60, Basophils # (Auto) 0.08 06/02/16 06:53 Test 05/31/16 16:54 06/01/16 12:25 06/02/16 06:53 Total Bilirubin 0.9 mg/dl (0.2-1) Direct Bilirubin 0.3 mg/dl (0-0.2) Aspartate Amino Transf (AST/SGOT) 14 U/L (15-37) Alanine Aminotransferase (ALT/SGPT) 21 U/L (12-78) Alkaline Phosphatase 109 U/L (45-117) Total Protein 7.3 gm/dl (6.4-8.2) Albumin 3.8 gm/dl (3.4-5.0) Total Creatine Kinase 41 U/L (39-308) Creatine Kinase MB 0.8 ng/ml (0.5-3.6) Creatine Kinase MB Ratio 2.0 (0-3.0) Troponin I < 0.015 ng/ml (0-0.045) White Blood Count 7.56 K/uL (4.8-10.8) Red Blood Count 4.35 M/uL (4.7-6.1) Hemoglobin 13.0 g/dL (14.0-18.0) Hematocrit 38.1 % (42-52) Mean Corpuscular Volume 87.6 fL (80-100) Mean Corpuscular Hemoglobin 29.9 pg (25-34) Mean Corpuscular Hemoglobin Concent 34.1 g/dl (32-36) Platelet Count 189 K/uL (130-400) Mean Platelet Volume 9.5 fL (7.4-10.4) Neutrophils (%) (Auto) 55.3 % Lymphocytes (%) (Auto) 26.3 % Monocytes (%) (Auto) 9.0 % Eosinophils (%) (Auto) 7.9 % Basophils (%) (Auto) 1.1 % Neutrophils # (Auto) 4.18 K/uL (1.4-6.5) Lymphocytes # (Auto) 1.99 K/uL (1.2-3.4) Monocytes # (Auto) 0.68 K/uL (0.11-0.59) Eosinophils # (Auto) 0.60 K/uL (0-0.5) Basophils # (Auto) 0.08 K/uL (0-0.2) RDW Standard Deviation 45.5 fL (36.4-46.3) RDW Coefficient of Variation 14.1 % (11.5-14.5) Immature Granulocyte % (Auto) 0.4 % Immature Granulocyte # (Auto) 0.03 K/uL (0.00-0.02) Anion Gap 6.0 mmol/L (3-11) Est Creatinine Clear Calc Drug Dose 57.0 ml/min Estimated GFR () 73.1 Estimated GFR (Non- 63.1 BUN/Creatinine Ratio 17.0 (10-20) Calcium Level 8.7 mg/dl (8.5-10.1) Magnesium Level 2.0 mg/dl (1.8-2.4) Medical Emergencies . Who to Call and When: Medical Emergencies: If at any time you feel your situation is an emergency, please call 911 immediately. . Non-Emergent Contact Non-Emergency issues call your: Primary Care Provider . . "Provider Documentation" section prepared by Dhiraj Beal. VTE Core Measure Inpt VTE Proph given/why not?: SCD's
--- NOTE | 2016-06-02 11:07 | Discharge Summary ---
Discharge Summary Date of Service Jun 02, 2016. Discharge Summary Admission Date: May 31, 2016 at 20:31 Discharge Date: Jun 02, 2016 Discharge Disposition: Home Principal Diagnosis: Chest pain Problems/Secondary Diagnoses: Hyperlipidemia Hypertension Immunizations: Have You Had Influenza Vaccine: Unknown History of Tetanus Vaccine?: Unknown History of Pneumococcal: Unknown History of Hepatitis B Vaccine: Unknown Procedures: Interpretation Summary * Name: RITESH INTERIANO Study Date: 06/01/2016 06:51 AM BP: 129/73 mmHg * Patient Location: [facility]\S\EDINP 1\S\12 HR: 63 * : 1935 (M/d/yyyy) Gender: Male Height: 71 in * Age: 80 yrs Ethnicity: [place] Weight: 178 lb * Ordering Physician: Jesus Alberto Smith * Referring Physician: Kiley Capellan * Performed By: Myrna Peters RCS * * Reason For Study: CHEST PAIN * BSA: 2.0 m2 * -- Conclusions -- * There is mild concentric left ventricular hypertrophy. * Left ventricular systolic function is normal. * Grade I diastolic dysfunction, (abnormal relaxation pattern). * The left atrium is moderately dilated. * Mild to moderate aortic regurgitation. * Right ventricular systolic pressure is normal. * Mild aortic root dilatation. * Compared to a study from 09/2010, there is only minimal change Procedure Details * A complete two-dimensional transthoracic echocardiogram was performed (2D, M-mode, Doppler and color flow Doppler). Left Ventricle * The left ventricle is normal in size. * There is mild concentric left ventricular hypertrophy. * The basal septum is thickened and angulated consistent with sigmoid septum. * Left ventricular systolic function is normal. * Grade I diastolic dysfunction, (abnormal relaxation pattern). * Ejection Fraction = 55-60%. Right Ventricle * The right ventricle is grossly normal size. * The right ventricular systolic function is qualitatively normal. Atria * The left atrium is moderately dilated. * Right atrial size is normal. Mitral Valve * The mitral valve leaflets appear thickened, but open well. * There is trace mitral regurgitation. Tricuspid Valve * The tricuspid valve is not well visualized, but is grossly normal. * There is trace tricuspid regurgitation. * Right ventricular systolic pressure is normal. Aortic Valve * Left coronary cusp is calcified and poorly mobile * No hemodynamically significant valvular aortic stenosis. * Mild to moderate aortic regurgitation. Great Vessels * Mild aortic root dilatation. Pericardium/Pleural * There is no pericardial effusion. Consultations: Cardiology Medication Reconciliation Continued Medications: Aspirin (Aspirin Ec) 81 Mg Tab 81 MG PO DAILY Atorvastatin (Lipitor) 40 Mg Tab 40 MG PO DAILY, TAB Fexofenadine Hcl (Desiree Allergy) 180 Mg Tab 1 TAB PO DAILY for 14 Days, #14 TAB 2 Refills Hydrochlorothiazide (Hydrochlorothiazide) 12.5 Mg Tab 1 TAB PO DAILY for 90 Days, #90 TAB 3 Refills Losartan Potassium (Cozaar) 100 Mg Tab 1 TAB PO DAILY for 90 Days, #90 TAB 3 Refills Metoprolol Succinate (Toprol Xl) 50 Mg Tabcr 50 MG PO DAILY, #30 TAB Discharge Exam Physical Exam: General Appearance: WD/WN, no apparent distress Eyes: normal inspection, PERRL, EOMI ENT: normal ENT inspection, hearing grossly normal, TMs normal Neck: supple, no adenopathy, thyroid normal Respiratory/Chest: chest non-tender, lungs clear, normal breath sounds, no respiratory distress Cardiovascular: regular rate, rhythm, no edema, no gallop, no JVD, no murmur Abdomen / GI: normal bowel sounds, non tender, soft, no organomegaly Extremities: normal inspection, no calf tenderness 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 We'll continue metoprolol succinate 50 mg by mouth daily, losartan potassium 100 mg by mouth daily and aspirin 81 mg by mouth daily. Hold HCTZ.. Serial trops are negative. Echo results noted. Stress test was negative for ischemia. Pulmonary fibrosis--the patient looks and feels much better than his chest x- ray looks. Pulse ox was 98% on room air and he was resting comfortably when examined. His symptoms of chest tightness and dyspnea on exertion may be related to progressive pulmonary fibrosis. If his cardiac workup is negative, he would at the very least deserve a trial of inhalers prior to any exertional activity. Hypercholesterolemia--continue atorvastatin 40 mg by mouth daily. Seasonal allergy--continue fexofenadine 180 mg by mouth daily. Total Time Spent: Greater than 30 minutes This includes examination of the patient, discharge planning, medication reconciliation, and communication with other providers. Discharge Instructions Please refer to the electronic Patient Visit Report (Discharge Instructions) for additional information. Follow-Up PCP in one to two weeks
[2016-06-02 11:26] VITALS: BP 115/55; PULSE 58; TEMP 36.5; O2SAT 96
--- NOTE | 2016-06-02 17:55 | EXERCISE STRESS ECHO ---
*NOTICE TO RECEIVING [employer] This information is strictly Confidential and protected under [place] law. [place] law prohibits you from making any further disclosure of this information unless further disclosure is expressly permitted by the written consent of the person to whom it pertains or is authorized by law. A general authorization for the release of medical or other information is not sufficient for this purpose. Hospital accepts no responsibility if the information is made available to any other person, INCLUDING THE PATIENT. Interpretation Summary * Name: RITESH INTERIANO Study Date: 06/02/2016 09:00 AM BP: 150/93 mmHg * Patient Location: C.2T\S\E220\S\1 HR: 55 * : 1935 (M/d/yyy) Gender: Male Height: 71 in * Age: 80 yrs Ethnicity: CA Weight: 178 lb * Ordering Physician: Dhiraj Beal * Referring Physician: Kiley Capellan * Performed By: Myrna Peters RCS * * Reason For Study: CHEST PAIN * BSA: 2.0 m2 * -- Conclusions -- * No evidence of inducible ischemia at the workload achieved. Procedure Details * ECHOEX, CPT #29648 Stress Parameters * The stress portion of this study was personally supervised by the undersigned interpreting physician. * Rest heart rate was '55' BPM. * Rest blood pressure was '150/93' * Maximum heart rate achieved was 133 bpm. * Maximum heart rate was 95 % of maximum age-predicted heart rate. * Maximum blood pressure was '179/79' * Total exercise time was '04:07' * Maximum exercise MET level achieved was '5.90' METS * Maximum treadmill speed was '2.50' miles per hour. * Maximum treadmill elevation was '12.00'% grade. Left Ventricular Findings with Stress * Patient exercised for 4 minutes and achieved 95% of MPHR (5.9 METS) Normal baseline EKG without changes during exercise Normal baseline echocardiogram withotu inducible wall motion abnormalities No symptoms Normal BP response Low workload achieved Ramsey treadmill score: 4 (moderate risk)
== END 2016-06-02 11:45 | disposition home or self-care (01) ==
LOC: ENRESERVTM → ENRESERVDT → C.EDB 16:37 → C.EDINP 20:31 → C.2T 06-01 12:15
PROVIDERS: ADMIT Hospitalist; ATTEND Hospitalist
DX: R07.9 Chest pain, unspecified (principal); R06.00 Dyspnea, unspecified; E78.5 Hyperlipidemia, unspecified; J84.10 Pulmonary fibrosis, unspecified; E78.00 Pure hypercholesterolemia, unspecified; I10 Essential (primary) hypertension; Z86.73 Personal history of transient ischemic attack (TIA), and cerebral infarction without residual deficits; Z79.82 Long term (current) use of aspirin; Z87.891 Personal history of nicotine dependence

== ENCOUNTER → 2016-06-07 | Outpatient (CLI) | payer OTHER ==
[~2016-06-07] MED LIST changes: -ASPEC325 PO; +ASPI81TA28 PO; +ATOR-24 PO; +FEXO1TAB49 PO; +HYDR12.55 PO; -LISI-461 PO; +LOSA100T65 PO; +METO-217 PO; -OXYC-57 PO; -SIMV10TA2 PO
== END | disposition home or self-care (01) ==
LOC: C.LABBFT 08:53
PROVIDERS: ATTEND Nurse Practitioner
DX: E78.00 Pure hypercholesterolemia, unspecified (principal)

== ENCOUNTER → 2016-06-09 | Outpatient (CLI) | payer OTHER ==
[2016-06-09 13:00] LABS: BASO % 0.9 %; BASO ABS # 0.06 K/uL (0-0.2); COMPLETE YES; EOS % 8.3 %; HEMATOCRIT 39.5 % (42-52); IG% 0.1 %; LYMPH ABS # 1.61 K/uL (1.2-3.4); MEAN CORPUSCULAR HEMOGLOBIN 30.1 pg (25-34); MEAN CORPUSCULAR HGB CONC 34.2 g/dl (32-36); MEAN PLATELET VOLUME 9.7 fL (7.4-10.4); MONO % 7.7 %; PLATELET COUNT 221 K/uL (130-400); RED BLOOD COUNT 4.49 M/uL (4.7-6.1)
[2016-06-09 13:03] LABS: ALT/SGPT 17 U/L (12-78); AST/SGOT 13 U/L (15-37); BLOOD UREA NITROGEN 19 mg/dl (7-18); BUN/CREATININE RATIO 17.3 (10-20); CALCIUM 8.4 mg/dl (8.5-10.1); CARBON DIOXIDE 28 mmol/L (21-32); CHLORIDE 106 mmol/L (98-107); CHOLESTEROL 116 mg/dl (0-200); GLUCOSE 162 mg/dl (70-99); POTASSIUM 3.6 mmol/L (3.5-5.1); SODIUM 142 mmol/L (136-145); TRIGLYCERIDES 120 mg/dl (0-150); VERY LOW DENSITY LIPOPROT CALC 24 mg/dl
[2016-06-09 13:12] LABS: ALB/GLOB RATIO 1.2 (0.9-2); ALKALINE PHOSPHATASE 110 U/L (45-117); CHOLESTEROL/HDL RATIO 2.8; HDL CHOLESTEROL 42 mg/dl; LDL CHOLESTEROL CALCULATED 50 mg/dl
[2016-06-09 13:24] LABS: ESTIMATED AVERAGE GLUCOSE 126 mg/dl; HA1C FLAG Normal (Normal)
[2016-06-09 18:10] LABS: RATIO 6.9 mcg/mg (0-30.0)
== END | disposition home or self-care (01) ==
LOC: C.LABBFT 11:01
PROVIDERS: ATTEND Nurse Practitioner
DX: R73.01 Impaired fasting glucose (principal); R97.20 Elevated prostate specific antigen [PSA]; E07.9 Disorder of thyroid, unspecified; D64.9 Anemia, unspecified

== ENCOUNTER → 2016-07-11 | Outpatient (CLI) | payer OTHER ==
[~2016-07-11] MED LIST changes: +OPTIRAY 320 IV PRN
--- NOTE | 2016-07-11 09:24 | DIAGNOSTIC IMAGING REPORT ---
CT ANGIOGRAPHY OF THE ABDOMEN AND PELVIS WITH AND WITHOUT CONTRAST CT DOSE: 1294.15 mGy.cm CLINICAL HISTORY: Abdominal aortic aneurysm status post repair. TECHNIQUE: Unenhanced, arterial and delayed phase imaging of the abdomen and pelvis was performed. Injection of 119 cc Optiray 320 IV was uneventful. Sagittal and coronal reconstructions were viewed as well as maximal intensity projections on an independent 3-D workstation. COMPARISON STUDY: CTA of the abdomen and pelvis July 10, 2015. FINDINGS: Visualized portions of the lung bases demonstrate traction bronchiectasis with honeycombing. This is slightly increased. Groundglass opacities are noted. The heart is mildly enlarged. There is moderate coronary artery calcification. A hypervascular right hepatic lobe lesion is unchanged exam of November 28, 2011. This is considered benign. The spleen, adrenal glands, right kidney and pancreas are unremarkable. Scarring within the mid to lower pole of the left kidney is unchanged. There is no evidence for a bowel obstruction. There is no lymphadenopathy. There are post procedural finds consistent with placement of a bifurcated aortoiliac stent graft. Multiple foci of contrast are noted on the delayed images and are similar to exam of July 10, 2015. There is no evidence for rupture. The findings favor a type II endoleak in part due to a patent left lumbar artery. The aneurysm sac measures 5.5 x 5.4 cm. It previously measured 5.4 x 5.1 cm. The iliac limbs are patent. Skeletal structures are unremarkable. There is colonic diverticulosis without evidence for acute diverticulitis. Moderate stenosis at origin the right renal artery is similar to prior exam. Mild stenosis of the proximal left renal artery is unchanged. IMPRESSION: Status post placement of a bifurcated aortoiliac stent graft. 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 Slight increase in aneurysm sac size, now measuring 5.5 x 5.4 cm. No rupture. Electronically signed by: Gallo Frye M.D. 07/11/2016 9:22 AM Dictated Date/Time: 07/11/2016 9:05 AM
== END | disposition home or self-care (01) ==
LOC: C.CTS 08:39
PROVIDERS: ATTEND Surgery Vascular Surgery
DX: I71.4 Abdominal aortic aneurysm, without rupture (principal)

== ENCOUNTER → 2017-03-09 | Outpatient (CLI) | payer OTHER ==
[~2017-03-09] MED LIST changes: +DOXY100T PO; -OPTIRAY 320 IV PRN; +VNTHFA/IN INH
--- NOTE | 2017-03-09 15:26 | DIAGNOSTIC IMAGING REPORT ---
CHEST 2 VIEWS ROUTINE CLINICAL HISTORY: J06.9 Acute upper respiratory [id number] dyspnea COMPARISON STUDY: 05/31/2016 FINDINGS: Heart top limits normal in terms of size. Unchanging stable emphysematous change with diffuse interstitial fibrotic change throughout both hemithoraces. No well-defined focal infiltrative process. Diaphragms are improved in visibility compared to the prior study and appears smooth. IMPRESSION: Emphysematous and diffuse chronic fibrotic-type change. No acute process although it is possible that a superimposed interstitial inflammatory process may be present and obscured by the baseline chronic interstitial change The above report was generated using voice recognition software. It may contain grammatical, syntax or spelling errors. Electronically signed by: Dick Molina M.D. 03/09/2017 3:25 PM Dictated Date/Time: 03/09/2017 3:24 PM
== END | disposition home or self-care (01) ==
LOC: C.RAD1850 14:56
PROVIDERS: ATTEND Internal Medicine
DX: J02.9 Acute pharyngitis, unspecified (principal)

== ENCOUNTER 2017-03-20 15:07 | Inpatient (IN) | payer OTHER ==
[~2017-03-20] VITALS: Ht 180.3 cm; Wt 77.2 kg
[~2017-03-20 15:07] MED LIST changes: -DOXY100T PO; -VNTHFA/IN INH
[2017-03-20] MEDS ORDERED: VNTHFA/IN INH ×2 (15:47)
[2017-03-20] MEDS ORDERED: DOXY100T PO (15:47)
--- NOTE | 2017-03-20 16:13 | DIAGNOSTIC IMAGING REPORT ---
CHEST ONE VIEW PORTABLE CLINICAL HISTORY: pulm fibrosis, SOB, weak, WBC elevated COMPARISON STUDY: 03/09/2017 FINDINGS: The cardiac and mediastinal contours remain stable. There are bilateral diffuse interstitial fibrotic changes, similar to the preceding study. There are no pleural effusions. There are no acute focal areas of parenchymal consolidation.[ IMPRESSION: Radiographic evidence of chronic interstitial lung disease, similar to the preceding study. Electronically signed by: Homar Barfield M.D. 03/20/2017 4:12 PM Dictated Date/Time: 03/20/2017 4:10 PM
[2017-03-20] MEDS ORDERED: SODIUM CHLORIDE 0.9% 1000ML 1,000 ML IV STA (16:34)
--- NOTE | 2017-03-20 17:08 | EMERGENCY ROOM VISIT NOTE ---
History First contact with patient: 15:33 Chief Complaint: ABNORMAL LABS Stated Complaint: SENT BY LEE HUGO ABNORMAL LABS History of Present Illness The patient is a 81M who presents to the Emergency Room that was sent here by his PCP (Lee Hugo) for an elevated creatinine level. Creatinine was 2.43. Patient reports that he has been feeling sick since early March. By sick he means tired with decreased energy. He was started on oral steroid by his PCP for a possible pneumonia which he has completed at least 3 days prior. Since starting the Prednisone he reports an inability to sleep and some delirium at night. He is accompanied by his daughter and other family member who corroborate the history. The patient reports that his mouth is dry and that he may not be drinking enough water. According to his daughter he has been drinking one bottle of water per day as well as some Britney Cha. Patient cannot localize any specific body part that his bothering him. PT denies chest pain, denies cough, denies SOB, denies palpitations, denies fevers, denies chills, denies nausea, denies vomiting, denies diarrhea, denies dysuria, denies rash. PMHx: Pt is on 2LNC 24hours a day at home, this oxygen requirement has not changed. Meds: Taking his meds regularly which include HCTZ, Losartan and Metoprolol. Review of Systems See HPI for pertinent positives and negatives. A total of ten systems were reviewed and were otherwise negative. Constitutional: No fever, No chills Respiratory: + dyspnea on exertion (chronic, new new changes), No cough, No sputum Cardiovascular: No chest pain Abdomen: No pain, No nausea, No vomiting, No diarrhea, No constipation Musculoskeletal: No swelling, No calf pain Genitourinary - Male: No dysuria, No urinary frequency, No urinary urgency, No urinary hesitancy, No urinary retention Endocrine: + fatigue Integumentary: No rash Past Medical/Surgical History Medical Problems: (1) Essential hypertension (2) History of abdominal aortic aneurysm (AAA) (3) History of coronary stenosis (4) History of pulmonary fibrosis (5) Hyperglycemia (6) Hyperlipidemia (7) Transient ischemic attack Social History Smoking Status: Former Smoker Alcohol Use: none Drug Use: none Marital Status: Housing Status: lives alone Occupation Status: retired Current/Historical Medications Scheduled Aspirin (Aspirin Ec), 81 MG PO DAILY Atorvastatin (Lipitor), 40 MG PO HS Doxycycline Hyclate (Doxycycline Hyclate), 100 MG PO Q12 Fexofenadine Hcl (Desiree Allergy), 1 TAB PO DAILY Hydrochlorothiazide (Hydrochlorothiazide), 12.5 TAB PO QAM Losartan Potassium (Cozaar), 100 MG PO DAILY Metoprolol Succinate (Toprol Xl), 50 MG PO DAILY Scheduled PRN Albuterol Hfa (Ventolin Hfa), 2 PUFFS INH Q4 PRN for SOB/Wheezing Physical Exam Vital Signs Date Time Temp Pulse Resp B/P (MAP) Pulse Ox O2 Delivery O2 Flow Rate FiO2 03/20/17 15:11 36.2 59 20 101/64 100 Room Air Physical Exam Gen: No acute distress. Pleasant mood and affect. HEENT: Head - normocephalic and atraumatic. Pupils are equal, round, and reactive to light. Extraocular eye muscles are intact and sclera are anicteric. Ears - bilaterally patent canals with noninjected tympanic membranes and no evidence of hemotympanum. Nose - dry mucosa without discharge. Mouth - dry buccal mucosa. Oropharynx is nonerythematous and there is no tonsillar exudate or edema noted. Neck: Supple; no JVD, nuchal rigidity, cervical lymphadenopathy, or auscultated bruits. Heart: Regular rate and rhythm. There is a normal S1 and S2 with no murmurs, clicks, or gallops appreciated. Lungs: No wheezes, rales, or rhonchi in any lung field. Coarse lung sounds in all lung young. Abdomen: Soft, completely nontender, nondistended, with good bowel sounds. There are no palpable pulsatile masses or hepatosplenomegaly. There is no guarding, rigidity, or rebound noted. Extremities: No evidence of cyanosis, clubbing, or edema. There are easily palpable peripheral pulses. Neuro:The patient is awake and alert, oriented to day, time, and place. Muscle strength is 5/5 in all 4 extremities. The patient has equal brick carrier strength and equal pedal push and pull. There are no cerebellar signs. Medical Decision & Procedures ER Provider Diagnostic Interpretation: CHEST ONE VIEW PORTABLE CLINICAL HISTORY: pulm fibrosis, SOB, weak, WBC elevated COMPARISON STUDY: 03/09/2017 FINDINGS: The cardiac and mediastinal contours remain stable. There are bilateral diffuse interstitial fibrotic changes, similar to the preceding study. There are no pleural effusions. There are no acute focal areas of parenchymal consolidation.[ IMPRESSION: Radiographic evidence of chronic interstitial lung disease, similar to the preceding study. Medications Administered Medications (Trade) Dose Ordered Sig/Himanshu Route Start Time Stop Time Status Last Admin Dose Admin Sodium Chloride 1,000 ml @ 200 mls/hr Q5H STAT IV 03/20/17 16:34 03/20/17 21:33 03/20/17 17:11 200 MLS/HR Medical Decision The patient's care and disposition was discussed with Dr. Little, Attending ED Physician. This is a 81M with LYSSA 2/2 dehydration. Differential diagnosis include dehydration, prednisone induced LYSSA, hypotension and viral illness. Triage Nursing notes were reviewed. ED Course included an extensive history and physical exam, labs, and X-ray. Patient was given water and fluids in the ER. After an extensive discussion with the patient and family, the are agreeable to hospital admission for LYSSA. Elevated WBC is likely from recent Prednisone use. Last echo was in May 2016 with an EF of 55-60%. Recent laboratory work was also significant for a PSA of 9.3. X-ray showed continued evidence of an interstitial lung disease and no acute process. ABx were not started. UA pending, however patient has no urinary symptoms. The pt was informed about the findings as listed above. All questions were answered. Discussed the case with Dr. Philipp MONTEIRO hospitalist. Impression Primary Impression: Acute renal failure Departure Information Dispostion Admitted as an inpatient Referrals Lee Hugo C.R.N.PEnriqueta (PCP) Patient Instructions [facility] Resident Involvement: Resident Care Provided Care Provided: Adult Hospital Medicine
--- NOTE | 2017-03-20 17:35 | History and Physical ---
History & Physical Date & Time of Service: Mar 20, 2017 at 17:24 Chief Complaint: Sent By Kiley Capellan Abnormal Labs Primary Care Physician: Kiley Capellan, Cristela History of Present Illness Source: patient, family This is a 81 yo M with PMHx of pulmonary fibrosis, interstitial lung disease, AAA, HTN, HLD, IgG monoclonal gammopathy who presents after routine labwork and was sent by his PCPs office for elevated Cr of 2.43 up from baseline of 1.1- 1.3. The patient has been recently treated for URI with a week of medrol taper and doxycycline course x 10 days which finished this weekend. Pt does feel better since completing this therapeutic course in regards to breathing. He is maintained on 2 L O2 via NC at baseline. Pt has poor PO intake due to metallic taste in his mouth since the beginning of the URI. He denies any difficulty with swallowing, food sticking, or early satiety. He admits to drinking little to no water, and has been taking HCTZ 12.5 mg daily as scheduled. Here in the ER, CXR reviewed and shows pulmonary fibrosis. Cr. elevated 2.43. No other electrolyte abnormalities. Past Medical/Surgical History Medical Problems: (1) LYSSA (acute kidney injury) (2) Essential hypertension (3) History of abdominal aortic aneurysm (AAA) (4) History of coronary stenosis (5) History of pulmonary fibrosis (6) Hyperglycemia (7) Hyperlipidemia (8) Transient ischemic attack Social History Smoking Status: Former Smoker Smokeless Tobacco Use: No Alcohol Use: none Drug Use: none Marital Status: Housing status: lives alone Occupational Status: retired Immunizations History of Influenza Vaccine: Unknown History of Tetanus Vaccine?: Unknown History of Pneumococcal: Unknown History of Hepatitis B Vaccine: Unknown Multi-Drug Resistant Organisms History of MDRO: No Allergies Coded Allergies: No Known Allergies (Unverified , 03/20/17) Home Medications Scheduled Aspirin (Aspirin Ec), 81 MG PO DAILY Atorvastatin (Lipitor), 40 MG PO HS Fexofenadine Hcl (Desiree Allergy), 1 TAB PO DAILY Hydrochlorothiazide (Hydrochlorothiazide), 12.5 TAB PO QAM Losartan Potassium (Cozaar), 100 MG PO DAILY Metoprolol Succinate (Toprol Xl), 50 MG PO DAILY Scheduled PRN Albuterol Hfa (Ventolin Hfa), 2 PUFFS INH Q4 PRN for SOB/Wheezing Review of Systems Constitutional: + weight loss (15 lbs in past month), No fever, No chills, No weakness, No fatigue Eyes: No redness, No diplopia ENT: No nasal symptoms, No sore throat, No trouble swallowing Respiratory: No cough, No sputum, No wheezing, No shortness of breath, No dyspnea on exertion, No dyspnea at rest Cardiovascular: No chest pain, No edema Abdomen: No pain, No nausea, No vomiting, No diarrhea, No constipation Musculoskeletal: No joint pain, No swelling, No calf pain Genitourinary - Male: + problem reported (urine very dark), No hematuria, No urinary frequency, No urinary urgency Neurologic: No weakness, No numbness/tingling Psychiatric: No depression symptoms, No anxiety Endocrine: No fatigue Integumentary: No rash, No itch Physical Exam Vital Signs Date Time Temp Pulse Resp B/P (MAP) Pulse Ox O2 Delivery O2 Flow Rate FiO2 03/20/17 15:11 36.2 59 20 101/64 100 Room Air General Appearance: WD/WN, no apparent distress, + thin Head: normocephalic, atraumatic Eyes: PERRL, EOMI ENT: hearing grossly normal, pharynx normal Neck: supple, no JVD Respiratory/Chest: no respiratory distress, no accessory muscle use, + pertinent finding (on 2 L via NC, good aeration throughout, mild rhonchi in the Left base. ) Cardiovascular: regular rate, rhythm, no murmur Abdomen/GI: normal bowel sounds, non tender, soft Back: normal inspection Extremities/Musculoskelatal: normal inspection, no calf tenderness, no pedal edema Neurologic/Psych: alert, normal mood/affect, oriented x 3 Skin: normal color, warm/dry Diagnostics Diagnostic Radiology CHEST ONE VIEW PORTABLE CLINICAL HISTORY: pulm fibrosis, SOB, weak, WBC elevated COMPARISON STUDY: 03/09/2017 FINDINGS: The cardiac and mediastinal contours remain stable. There are bilateral diffuse interstitial fibrotic changes, similar to the preceding study. There are no pleural effusions. There are no acute focal areas of parenchymal consolidation.[ IMPRESSION: Radiographic evidence of chronic interstitial lung disease, similar to the preceding study. Electronically signed by: Homar Barfield M.D. 03/20/2017 4:12 PM Dictated Date/Time: 03/20/2017 4:10 PM The status of this report is Signed. Impression Assessment and Plan This is a 81 yo M with PMHx of pulmonary fibrosis, interstitial lung disease, AAA, HTN, HLD, IgG monoclonal gammopathy who presents after routine labwork and was sent by his PCPs office for elevated Cr of 2.43 up from baseline of 1.1- 1.3. The patient has been recently treated for URI with a week of medrol taper and doxycycline course x 10 days which finished this weekend. LYSSA on CKD stage III - Admit to med/surg - Cr elevated at 2.43 up from baseline of 1.1-1.3 - Continue on NSS at 150 mL/hr for 12 hr, follow am PRP Pulmonary Fibrosis, Interstitial lung disease, emphysema - Finished course of medrol dose pack and doxycycline this weekend - no need for further treatment - CXR reviewed - Can continue supportive care with O2 at 2L, incentive spirometry and flutter valve, ventolin - Follows with Dr. Leslie as an outpatient HTN Hx AAA Hx TIA - Hold HCTZ for now - Continue losartan 100 mg daily , metoprolol succ 50 mg QAM, asa 81 mg IgG monoclonal gammopathy- stable DVT ppx: teds, scds, ambulatory CODE STATUS: DNR Disposition: From home, lives alone, PT/OT to eval, likely can return home. Level of Care Med/Surg Resuscitation Status DO NOT RESUSCITATE VTE Prophylaxis VTE Risk Assessment Done? Y/N: Yes Risk Level: Low Given or contraindicated: T.E.D. Stockings, SCD's Note Attending Attestation & Admission Note: Pt seen/examined, chart reviewed, care plan d/w MITUL Godoy. I agree w/ the coulter components of her admission documentation except would HOLD losartan due to low-normal BPs and acute kidney injury. 81yo male with chronic hypoxic resp failure on home o2 due to pulmonary fibrosis and CKD stage 3 who presented after he was called that his creatinine was elevated on routine blood work. He reports he was just treated with doxycycline & prednisone for possible pneumonia / PF exacerbation. During my assessment he states that his pulmonary symptoms have improved after the abx/steroid course. He also mentioned that he ate a "good dinner" tonight in the hospital and that he is overall already feeling better. PMH, PSH, allergies, meds, sochx, famhx, ros - reviewed VSS except BPs low normal o2 sats stable on NC O2 gen - nad neck - no JVD heart - RRR lungs - basilar fine rales b/l, no wheeze, good airation abd - soft, NT ext - no edema Cr 2.4, previous 1.3 hemoglobin a1c noted to be 6.7% PSA noted to be 9.3 A/P: 1. acute kidney injury in setting of CKD stage 3 - LYSSA likely due to volume contraction in the setting of poor oral intake during recent illness, HCTZ use, ARB use. cannot rule out an obstructive cause from prostate issues. check renal u/s. gentle hydration. bmp in am. hold ARB and HCTZ. 2. HTN - bps are low normal likely due to volume contraction; hold ARB and HCTZ. 3. elevated hemoglobin a1c - this is c/w early T2DM. Check BSGs for now; institute novolog if needed. Doubt he will need oral meds at d/c. 4. chronic hypoxic resp failure 2nd to pulm fibrosis - stable on home o2 amount. Tano Segal MD
[2017-03-20] MEDS ORDERED: ACETAMINOPHEN 325 MG TAB PO PRN (17:45)
[2017-03-20] MEDS ORDERED: ALBUTEROL HFA 8 GM INHALER INH PRN (17:45)
[2017-03-20] MEDS ORDERED: POLYETHYLENE (MIRALAX) 17 GM PACK PO PRN (17:45)
[2017-03-20] MEDS ORDERED: ONDANSETRON INJ 2 MG/ML 2 ML VIAL IV PRN (17:45)
--- NOTE | 2017-03-20 18:27 | EMERGENCY ROOM VISIT NOTE ---
ED Visit Note First contact with patient: 15:31 The patient was seen and examined with the resident physician Dr. Watson. I agree with the history, physical and findings. Please see the note for disposition and details.
[2017-03-20 18:41] VITALS: BP 128/75; PULSE 66; TEMP 36.5; O2SAT 91
[2017-03-20] MEDS: SODIUM CHLORIDE 0.9% 1000ML 1,000 ML IV SCH (18:53)
[2017-03-20 19:18] VITALS: BP 128/75; PULSE 66; TEMP 36.5; O2SAT 92; Ht 180.3 cm; Wt 77.2 kg
[2017-03-20] MEDS: ATORVASTATIN 40 MG TAB PO SCH (21:21)
[2017-03-20 23:38] VITALS: BP 103/66; PULSE 67; TEMP 36.3; O2SAT 99
[2017-03-21] MEDS: SODIUM CHLORIDE 0.9% 1000ML 1,000 ML IV SCH ×2 (02:35→11:56)
[2017-03-21 06:59] LABS: BASO % 0.2 %; BASO ABS # 0.02 K/uL (0-0.2); EOS % 1.8 %; EOS ABS # 0.18 K/uL (0-0.5); HEMATOCRIT 39.1 % (42-52); IG# 0.04 K/uL (0.00-0.02); LYMPH % 19.5 %; LYMPH ABS # 1.91 K/uL (1.2-3.4); MEAN CELL VOLUME 88.9 fL (80-100); MEAN CORPUSCULAR HEMOGLOBIN 29.5 pg (25-34); MEAN CORPUSCULAR HGB CONC 33.2 g/dl (32-36); MEAN PLATELET VOLUME 10.5 fL (7.4-10.4); MONO ABS # 1.08 K/uL (0.11-0.59); NEUT % 67.1 %; NEUT ABS # 6.55 K/uL (1.4-6.5); PLATELET COUNT 186 K/uL (130-400); RED CELL DISTRIBUTION WIDTH CV 14.5 % (11.5-14.5); RED CELL DISTRIBUTION WIDTH SD 47.2 fL (36.4-46.3); WHITE BLOOD COUNT 9.78 K/uL (4.8-10.8)
[2017-03-21 07:28] LABS: CALCIUM 8.4 mg/dl (8.5-10.1); CREATININE 1.87 mg/dl (0.60-1.40); POTASSIUM 3.7 mmol/L (3.5-5.1)
[2017-03-21 07:49] VITALS: BP 98/62; PULSE 64; TEMP 36.2; O2SAT 98
[2017-03-21 08:40] VITALS: BP 117/70; PULSE 64
[2017-03-21] MEDS: FEXOFENADINE HCL 180 MG TAB PO SCH (08:43)
[2017-03-21] MEDS: METOPROLOL SUCC 50MG EXT REL TAB PO SCH (08:43)
[2017-03-21] MEDS: ASPIRIN 81 MG ECTAB PO SCH (08:43)
[2017-03-21] MEDS ORDERED: LOSARTAN POTASSIUM 50 MG TAB PO SCH (09:00)
[2017-03-21 10:59] VITALS: BP 115/72; PULSE 64; O2SAT 99
--- NOTE | 2017-03-21 12:36 | Hospitalist Progress Note ---
Hospitalist Progress Note Date of Service Mar 21, 2017. Objective Vital Signs Date Time Temp Pulse Resp B/P (MAP) Pulse Ox O2 Delivery O2 Flow Rate FiO2 03/21/17 08:40 64 117/70 (86) 03/21/17 08:20 Nasal Cannula 2.0 03/21/17 07:49 36.2 64 20 98/62 (74) 98 Nasal Cannula 2.0 03/21/17 00:00 Nasal Cannula 2.0 03/20/17 23:38 36.3 67 20 103/66 (78) 99 Room Air 03/20/17 19:18 36.5 66 22 128/75 92 Nasal Cannula 2.0 03/20/17 18:41 36.5 66 22 128/75 (92) 91 Nasal Cannula 2.0 03/20/17 18:11 61 18 113/68 99 Nasal Cannula 2.0 03/20/17 15:11 36.2 59 20 101/64 100 Room Air Laboratory Results Last 24 Hours Test 03/21/17 00:35 03/21/17 06:28 03/21/17 07:38 03/21/17 11:07 Urine Color YELLOW Urine Appearance CLEAR Urine pH 5.0 Urine Specific [place] 1.017 Urine Protein NEG Urine Glucose (UA) NEG Urine Ketones NEG Urine Occult Blood NEG Urine Nitrite NEG Urine Bilirubin NEG Urine Urobilinogen NEG Urine Leukocyte Esterase NEG Urine WBC (Auto) 1-5 /hpf Urine RBC (Auto) 0-4 /hpf Urine Hyaline Casts (Auto) 1-5 /lpf Urine Epithelial Cells (Auto) 0-5 /lpf Urine Bacteria (Auto) NEG White Blood Count 9.78 K/uL Red Blood Count 4.40 M/uL Hemoglobin 13.0 g/dL Hematocrit 39.1 % Mean Corpuscular Volume 88.9 fL Mean Corpuscular Hemoglobin 29.5 pg Mean Corpuscular Hemoglobin Concent 33.2 g/dl Platelet Count 186 K/uL Mean Platelet Volume 10.5 fL Neutrophils (%) (Auto) 67.1 % Lymphocytes (%) (Auto) 19.5 % Monocytes (%) (Auto) 11.0 % Eosinophils (%) (Auto) 1.8 % Basophils (%) (Auto) 0.2 % Neutrophils # (Auto) 6.55 K/uL Lymphocytes # (Auto) 1.91 K/uL Monocytes # (Auto) 1.08 K/uL Eosinophils # (Auto) 0.18 K/uL Basophils # (Auto) 0.02 K/uL RDW Standard Deviation 47.2 fL RDW Coefficient of Variation 14.5 % Immature Granulocyte % (Auto) 0.4 % Immature Granulocyte # (Auto) 0.04 K/uL Sodium Level 140 mmol/L Potassium Level 3.7 mmol/L Chloride Level 106 mmol/L Carbon Dioxide Level 31 mmol/L Anion Gap 3.0 mmol/L Blood Urea Nitrogen 54 mg/dl Creatinine 1.87 mg/dl Est Creatinine Clear Calc Drug Dose 33.0 ml/min Estimated GFR () 38.2 Estimated GFR (Non- 33.0 BUN/Creatinine Ratio 28.7 Random Glucose 100 mg/dl Calcium Level 8.4 mg/dl Bedside Glucose 104 mg/dl 114 mg/dl Assessment and Plan Mr. Estrada is an 81 year old man here for LYSSA LYSSA on CKD stage III - Cr elevated at 2.43 up from baseline of 1.1-1.3, trending down - Continue on NSS at 100 mL/hr and repeat prp in am Pulmonary Fibrosis, Interstitial lung disease, emphysema - Finished course of medrol dose pack and doxycycline this weekend - no need for further treatment - CXR reviewed - Can continue supportive care with O2 at 2L, incentive spirometry and flutter valve, ventolin - Follows with Dr. Leslie as an outpatient Hx TIA, AAA - Hold HCTZ, losartan for now - Continue metoprolol succ 50 mg QAM, asa 81 mg IgG monoclonal gammopathy- stable DVT ppx: teds, scds, ambulatory CODE STATUS: DNR Disposition: From home, lives alone, PT/OT to eval, likely can return home.
--- NOTE | 2017-03-21 13:35 | DIAGNOSTIC IMAGING REPORT ---
RENAL ULTRASOUND HISTORY: acute renal failure, eval for obstruction COMPARISON: Abdomen and pelvis CT 07/10/2015. FINDINGS: Right kidney: 10.3 cm. No hydronephrosis. Normal corticomedullary differentiation and cortical thickness. Left kidney: 10.7 cm. The lower pole is partially obscured by overlying bowel gas. No hydronephrosis. Normal corticomedullary differentiation and cortical thickness. Bladder: No bladder wall thickening. The bilateral ureteral jets were identified. Mildly enlarged prostate gland. IMPRESSION: No hydronephrosis. Electronically signed by: Pipe Matthews M.D. 03/21/2017 1:33 PM Dictated Date/Time: 03/21/2017 1:32 PM
[2017-03-21 14:54] VITALS: BP 96/65; PULSE 59; TEMP 36.7; O2SAT 100
[2017-03-21] MEDS ORDERED: NURSING VERBAL MED ORDER ONE (19:00)
[2017-03-21] MEDS: ATORVASTATIN 40 MG TAB PO SCH (21:07)
[2017-03-21 23:54] VITALS: BP 115/63; PULSE 54; TEMP 36.4; O2SAT 99
[2017-03-22 06:03] LABS: BASO % 0.3 %; BASO ABS # 0.03 K/uL (0-0.2); EOS % 1.9 %; EOS ABS # 0.17 K/uL (0-0.5); HEMATOCRIT 38.6 % (42-52); HEMOGLOBIN 12.8 g/dL (14.0-18.0); IG# 0.02 K/uL (0.00-0.02); LYMPH % 20.9 %; LYMPH ABS # 1.86 K/uL (1.2-3.4); MEAN CELL VOLUME 89.4 fL (80-100); MEAN CORPUSCULAR HEMOGLOBIN 29.6 pg (25-34); MEAN CORPUSCULAR HGB CONC 33.2 g/dl (32-36); MEAN PLATELET VOLUME 10.6 fL (7.4-10.4); MONO % 12.2 %; MONO ABS # 1.08 K/uL (0.11-0.59); NEUT % 64.5 %; NEUT ABS # 5.72 K/uL (1.4-6.5); PLATELET COUNT 166 K/uL (130-400); RED CELL DISTRIBUTION WIDTH CV 14.4 % (11.5-14.5); RED CELL DISTRIBUTION WIDTH SD 47.5 fL (36.4-46.3); WHITE BLOOD COUNT 8.88 K/uL (4.8-10.8)
[2017-03-22 06:38] LABS: CALCIUM 8.4 mg/dl (8.5-10.1); CREATININE 1.67 mg/dl (0.60-1.40); POTASSIUM 3.7 mmol/L (3.5-5.1)
[2017-03-22 07:31] VITALS: BP 124/79; PULSE 60
[2017-03-22] MEDS: METOPROLOL SUCC 50MG EXT REL TAB PO SCH (07:32)
[2017-03-22] MEDS: ASPIRIN 81 MG ECTAB PO SCH (07:33)
[2017-03-22] MEDS: FEXOFENADINE HCL 180 MG TAB PO SCH (07:33)
[2017-03-22 08:04] VITALS: BP 123/78; PULSE 59; TEMP 36.5; O2SAT 95
--- NOTE | 2017-03-22 09:46 | Discharge Instructions ---
Discharge Instructions Date of Service Mar 22, 2017. Admission Reason for Admission: LYSSA Discharge Discharge Diagnosis / Problem: LYSSA Discharge Goals Goal(s): Improve disease control Activity Recommendations Activity Limitations: resume your previous activity . Instructions / Follow-Up Instructions / Follow-Up Please have your blood work drawn tomorrow, results will go to your primary care provider. Please keep your appointments next week with your pcp and tail board man as you will need to follow up with them within about a week. Please hold your losartan and hctz until 01/22 and then call your primary care provider's office to see if they would like you to restart the medications based on the results of your lab work. Current Hospital Diet Patient's current hospital diet: AHA Diet (Heart Healthy) Discharge Diet Recommended Diet: AHA Diet (Heart Healthy) Procedures Procedures Performed: chest x ray renal US Pending Studies Studies pending at discharge: no Laboratory Results Hemoglobin A1c Test 03/20/17 09:45 Range/Units Estimated Average Glucose 146 mg/dl Hemoglobin A1c 6.7 H 4.5-5.6 % Lipid Panel Test 03/20/17 09:45 Range/Units Triglycerides Level 114 0-150 mg/dl Cholesterol Level 84 0-200 mg/dl HDL Cholesterol 41 mg/dl Cholesterol/HDL Ratio 2.0 LDL Cholesterol, Calculated 20 mg/dl Medical Emergencies . Who to Call and When: Medical Emergencies: If at any time you feel your situation is an emergency, please call 911 immediately. . Non-Emergent Contact Non-Emergency issues call your: Primary Care Provider Call Non-Emergent contact if: you have any medication questions . Past History Medical & Surgical History: (1) LYSSA (acute kidney injury) . "Provider Documentation" section prepared by Shruthi Roque. . VTE Core Measure Inpt VTE Proph given/why not?: Yunior Dotson, SCD's
[2017-03-22 11:23] VITALS: BP 123/78; PULSE 59; TEMP 36.5; O2SAT 95
--- NOTE | 2017-03-22 16:40 | Discharge Summary ---
Discharge Summary Date of Service Mar 22, 2017. Discharge Summary Admission Date: Mar 20, 2017 at 18:22 Discharge Date: Mar 22, 2017 Discharge Disposition: Home Principal Diagnosis: LYSSA Problems/Secondary Diagnoses: LYSSA on CKD stage III, Pulmonary Fibrosis, Interstitial lung disease, emphysema, Hx TIA, AAA, IgG monoclonal gammopathy- stable DVT ppx: teds, scds, ambulatory CODE STATUS: DNR Immunizations: Have You Had Influenza Vaccine: Unknown History of Tetanus Vaccine?: Unknown History of Pneumococcal: Unknown History of Hepatitis B Vaccine: Unknown Procedures: CHEST ONE VIEW PORTABLE CLINICAL HISTORY: pulm fibrosis, SOB, weak, WBC elevated COMPARISON STUDY: 03/09/2017 FINDINGS: The cardiac and mediastinal contours remain stable. There are bilateral diffuse interstitial fibrotic changes, similar to the preceding study. There are no pleural effusions. There are no acute focal areas of parenchymal consolidation.[ IMPRESSION: Radiographic evidence of chronic interstitial lung disease, similar to the preceding study. RENAL ULTRASOUND HISTORY: acute renal failure, eval for obstruction COMPARISON: Abdomen and pelvis CT 07/10/2015. FINDINGS: Right kidney: 10.3 cm. No hydronephrosis. Normal corticomedullary differentiation and cortical thickness. Left kidney: 10.7 cm. The lower pole is partially obscured by overlying bowel gas. No hydronephrosis. Normal corticomedullary differentiation and cortical thickness. Bladder: No bladder wall thickening. The bilateral ureteral jets were identified. Mildly enlarged prostate gland. IMPRESSION: No hydronephrosis. Medication Reconciliation Continued Medications: Albuterol Hfa (Ventolin Hfa) 200 Puffs/09320 Mcg Aers 2 PUFFS INH Q4 PRN for SOB/Wheezing Aspirin (Aspirin Ec) 81 Mg Tab 81 MG PO DAILY Atorvastatin (Lipitor) 40 Mg Tab 40 MG PO HS Fexofenadine Hcl (Desiree Allergy) 180 Mg Tab 1 TAB PO DAILY for 14 Days, #14 TAB 2 Refills Metoprolol Succinate (Toprol Xl) 50 Mg Tabcr 50 MG PO DAILY, #30 TAB Discontinued Medications: Hydrochlorothiazide (Hydrochlorothiazide) 12.5 Mg Tab 12.5 TAB PO QAM Losartan Potassium (Cozaar) 100 Mg Tab 100 MG PO DAILY Discharge Exam ROS Constitutional: no chills, aches, sweats or fever Respiratory: no sob,cough, sputum, or wheezing Cardiac: no chest pain, palpitations, edema, orthopnea or lightheadedness GI: no abdominal pain, nausea, vomiting, diarrhea or constipation : no dysuria or hesitancy Extremities: no joint pain or weakness Skin: no rash All other systems reviewed and negative PE General: no distress Eyes: normal inspection, PERLL Respiratory: chest non tender, clear to auscultation, normal breath sounds, no respiratory distress, no accessory muscle use Cardiac: regular rate and rhythm, no rub or gallop, no murmur, no edema, no jvd GI/: active bowel sounds, no abd pain or tenderness, soft, non distended Extremities: normal range of motion, normal strength, non tender Neuro/Psych: alert and oriented x 3, normal mood and affect Skin: normal color, dry Hospital Course This is a 81 yo M with PMHx of pulmonary fibrosis, interstitial lung disease, AAA, HTN, HLD, IgG monoclonal gammopathy who presented after routine lab work and was sent by his PCP's office for elevated Cr of 2.43 up from baseline of 1.1 -1.3. The patient has been recently treated for URI with a week of medrol taper and doxycycline course x 10 days which finished this weekend. Pt does feel better since completing this therapeutic course in regards to breathing. He is maintained on 2 L O2 via NC at baseline. Pt has poor PO intake due to metallic taste in his mouth since the beginning of the URI. He denies any difficulty with swallowing, food sticking, or early satiety. He admits to drinking little to no water, and has been taking HCTZ 12.5 mg daily as scheduled. LYSSA on CKD stage III - Cr elevated at 2.43 up from baseline of 1.1-1.3, trending down after IVF - 1.67 today - given script for repeat prp 03/24 with results to primary - renal ultrasound was unremarkable Pulmonary Fibrosis, Interstitial lung disease, emphysema - Finished course of medrol dose pack and doxycycline this weekend - no need for further treatment - CXR reviewed - Supportive care with O2 at 2L, patient wears 2L at night, no longer requiring daytime O2 at discharge - incentive spirometry and flutter valve, ventolin - Follows with Dr. Leslie as an outpatient Hx TIA, AAA - Hold HCTZ, losartan for now - can resume after repeat labwork and discussing with primary - Continue metoprolol succ 50 mg QAM, asa 81 mg IgG monoclonal gammopathy- stable Total Time Spent: Greater than 30 minutes This includes examination of the patient, discharge planning, medication reconciliation, and communication with other providers. Discharge Instructions Please refer to the electronic Patient Visit Report (Discharge Instructions) for additional information. Follow-Up Patient verbalized that he had follow up appts with his primary and pulmonology providers next week. Additional Copies To Marco A Leslie DO; Kiley Capellan, C[email or web address].
== END 2017-03-22 14:21 | disposition home or self-care (01) | DRG 683 ==
LOC: C.EDB 15:08 → ENRESERV 18:00 → C.MS2W 18:22
PROVIDERS: ADMIT Internal Medicine; ATTEND Hospitalist
DX: N17.9 Acute kidney failure, unspecified (principal); J96.11 Chronic respiratory failure with hypoxia; I12.9 Hypertensive chronic kidney disease with stage 1 through stage 4 chronic kidney disease, or unspecified chronic kidney disease; I71.4 Abdominal aortic aneurysm, without rupture; Z86.73 Personal history of transient ischemic attack (TIA), and cerebral infarction without residual deficits; J84.10 Pulmonary fibrosis, unspecified; E78.5 Hyperlipidemia, unspecified; D47.2 Monoclonal gammopathy; N18.3 Chronic kidney disease, stage 3 (moderate); J43.9 Emphysema, unspecified

== ENCOUNTER → 2017-03-20 | Outpatient (CLI) | payer OTHER ==
[2017-03-20 12:59] LABS: BASO % 0.2 %; BASO ABS # 0.02 K/uL (0-0.2); EOS % 1.2 %; EOS ABS # 0.15 K/uL (0-0.5); HEMATOCRIT 46.4 % (42-52); HEMOGLOBIN 15.4 g/dL (14.0-18.0); IG# 0.09 K/uL (0.00-0.02); LYMPH % 15.4 %; LYMPH ABS # 1.89 K/uL (1.2-3.4); MEAN CELL VOLUME 89.9 fL (80-100); MEAN CORPUSCULAR HEMOGLOBIN 29.8 pg (25-34); MEAN CORPUSCULAR HGB CONC 33.2 g/dl (32-36); MEAN PLATELET VOLUME 10.7 fL (7.4-10.4); MONO ABS # 1.11 K/uL (0.11-0.59); NEUT % 73.5 %; NEUT ABS # 9.05 K/uL (1.4-6.5); PLATELET COUNT 249 K/uL (130-400); RED CELL DISTRIBUTION WIDTH CV 14.7 % (11.5-14.5); RED CELL DISTRIBUTION WIDTH SD 48.3 fL (36.4-46.3); WHITE BLOOD COUNT 12.31 K/uL (4.8-10.8)
[2017-03-20 13:00] LABS: HEMOGLOBIN A1C 6.7 % (4.5-5.6)
[2017-03-20 13:09] LABS: BLOOD UREA NITROGEN 67 mg/dl (7-18); CALCIUM 9.4 mg/dl (8.5-10.1); CARBON DIOXIDE 29 mmol/L (21-32); CREATININE 2.43 mg/dl (0.60-1.40); GLUCOSE 147 mg/dl (70-99); POTASSIUM 3.9 mmol/L (3.5-5.1); SODIUM 138 mmol/L (136-145)
[2017-03-20 13:17] LABS: CHOLESTEROL 84 mg/dl (0-200); LDL CHOLESTEROL CALCULATED 20 mg/dl
== END | disposition home or self-care (01) ==
LOC: C.LABBFT 09:42
PROVIDERS: ATTEND Nurse Practitioner
DX: I65.29 Occlusion and stenosis of unspecified carotid artery (principal); R97.20 Elevated prostate specific antigen [PSA]; R73.01 Impaired fasting glucose; D64.9 Anemia, unspecified

== ENCOUNTER → 2017-03-23 | Outpatient (CLI) | payer OTHER ==
[~2017-03-23] MED LIST changes: +DOXY100T PO; +VNTHFA/IN INH
[2017-03-23 18:23] LABS: BLOOD UREA NITROGEN 33 mg/dl (7-18); CARBON DIOXIDE 28 mmol/L (21-32); CREATININE 1.63 mg/dl (0.60-1.40); GLUCOSE 171 mg/dl (70-99); POTASSIUM 3.9 mmol/L (3.5-5.1); SODIUM 139 mmol/L (136-145)
== END | disposition home or self-care (01) ==
LOC: C.LABBFT 11:42
PROVIDERS: ATTEND Nurse Practitioner Family
DX: N17.9 Acute kidney failure, unspecified (principal)

== ENCOUNTER → 2017-03-29 | Outpatient (CLI) | payer OTHER ==
[~2017-03-29] MED LIST changes: -DOXY100T PO; -HYDR12.55 PO; -LOSA100T65 PO
[2017-03-29 13:04] LABS: BLOOD UREA NITROGEN 14 mg/dl (7-18); CALCIUM 8.2 mg/dl (8.5-10.1); CARBON DIOXIDE 31 mmol/L (21-32); CREATININE 1.27 mg/dl (0.60-1.40); GLUCOSE 92 mg/dl (70-99); POTASSIUM 3.7 mmol/L (3.5-5.1); SODIUM 138 mmol/L (136-145)
== END | disposition home or self-care (01) ==
LOC: C.LABBFT 09:51
PROVIDERS: ATTEND Nurse Practitioner
DX: N17.9 Acute kidney failure, unspecified (principal)

== ENCOUNTER → 2017-04-02 | Outpatient (CLI) | payer OTHER ==
--- NOTE | 2017-04-03 06:27 | PAP/PSG TECHNICIAN REPORT ---
[facility] Pan Washer Hand Polysomnogram Report Study name: None Report date: 04/03/2017 Study date: 04/02/2017 Referring Physician: Dr. Leslie Name: RITESH ESTRADA Interpreting Physician: Marco A Leslie D.O. Date of : 1935 Pan Washer Hand: Leon Bustillo RPSGT. Sex: Male Age: 81 StudyType: PSG Weight: 179 lbs Height: 81 years, Height 5' 11" BMI: 24.96 Medications: ASPIRIN 81 MG, ATORVASTATIN CALCIUM 40 MG, FEXOFENADINE HCL 180 MG, METOPROLOL SUCCINATE ER 50 MG, VENTOLIN HFA 108 90 BASE Patient History PATIENT HAS HISTORY OF PULMONARY FIBROSIS, FATIGUE, SNORING AND DAYTIME SLEEPINESS. HE HAD A 6 MINUTE WALK TEST WHERE HIS OXYGEN LEVEL WENT DOWN TO 86 PERCENT. HE IS HERE TODAY FOR AN EVALUATION FOR MARK. ESS = 17 RM 8 Parameters Monitored NPSG: E1-M2, E2-M1, Fp1-M2, Fp2-M1, F3-M2, F4-M2, F4-M1, C3-M2, C4-M2, C4-M1, O1-M2, O2-M2, O2-M1, T3-M2, T4-M1, P3-M2, P4-M1, CHIN1, CHIN2, HR, EKG, Legs, PFLOW, SNOR, FLOW, CFLOW, Tidal Volume, THOR, ABDO, SpO2, PLTH, CPRESS, ETCO2 Wave, ETCO2, pH Sleep Architecture Sleep Stages Time at Lights Off 9:51:52 PM STAGES Time (min.) TST (%) Time at Lights On 5:30:22 AM Wake 179.0 -- Total Recording Time (TRT) 459.00 min. N1 11.5 4 Total Sleep Period (TSP) 429.0 min. N2 185.0 66 Total Sleep Time (TST) 279.5min. N3 0.0 0 Awake Time 179.0 min. REM 83.0 30 Wake after Sleep Onset 149.5 min. Sleep Efficiency (SE) 61 % Sleep Onset Latency (FREDERICK) 29.5 min. Number of Stage 1 Shifts None Awakenings 12 Stage Changes 39 Number of REM periods 3 REM 83.0 30 REM Latency 121.0 min. NREM 196.5 70 Body Position Analysis Supine Right Left Side Prone Vertical Total Sleep Time (min.) 1.4 196.0 83.5 279.50 0.0 0.0 Total Sleep Time (%) 0% 70% 30% 100 0% N/A% Total Sleep Time REM (min.) 0.0 56.0 27.0 None 0.0 0.0 Total Sleep Time NREM (min.) 0.0 140.0 56.5 None 0.0 0.0 Intermittent Wake (min.) 1.4 104.0 73.6 None 0.0 0.0 Total Sleep Period (%) 0% None None None None None Arousals Myoclonus (PLM) * Events Count Index Events Count Index Spontaneous 25 5 Events Awake (PLMW) 126 42.2 Respiratory 4 0.9 Events Asleep w/ Arousal (PLMA) 11 2.4 PLM 11 2 Events Asleep w/o Arousal (PLMS) 322 69.1 Snoring 3 1 Total Asleep 333 71.5 Total 43 9 Total 459 60 Respiratory Analysis * CA OA MA CH H RERA Total Count 0 0 0 0 75 0 75 Index 0.0 0.0 0.0 0 16.1 0 16.1 Mean Duration 0.0 0.0 0.0 0.00 21.1 0.0 21.1 Longest Duration 0.0 0.0 0.0 0.00 0.0 0.0 58.0 Respiratory Event Summary Total Supine ~Supine Right Left Prone REM NREM Apneas Count 0 N/A 0 0 0 N/A 0 0 Index 0.0 N/A 0 0.0 0.0 N/A 0 0 Hypopneas (4% Desat) Count 75 N/A 75 29 46 N/A 29 46 Index 16.1 N/A 16 8.9 33.1 N/A 21.0 14.0 Apneas & All Hypopneas Count 75 N/A 75 29 46 N/A 29 46 Index 16.1 N/A 16 9 33 N/A 21.0 14.0 Respiratory Events (Tank [employer] Engine [employer]+All Hyp+RERA) Count 75 N/A 75 29 46 N/A 29 46 Index 16.1 N/A 16 8.9 33.1 N/A 21.0 14.0 Respiratory Related Arousal Count 4 N/A 4 0 4 N/A 1 3 Index 0.9 N/A 1 0 3 N/A 1 1 Snoring Analysis Supine Right Left Prone REM NREM Total Snore duration 4.6 min Snores count N/A 34 106 N/A 30 110 140 Snore mean duration 2.0 Sec Snores index N/A 10 76 N/A 21.7 33.6 30.1 TST with snoring (%) 1.6% Desaturation Event Summary: Minimum %SpO2 Event Count Mean/Min/Max Duration(sec.) Desaturation Index % Time In Bed > 90 28 33.8 / 12.5 / 74.3 51.1 7.5 86 - 90 76 30.9 / 9.8 / 95.7 15.1 69.2 81 - 85 12 27.1 / 10.5 / 79.4 7.9 20.9 76 - 80 2 39.3 / 16.0 / 62.5 13.1 2.1 71 - 75 0 N/A 0.0 0.4 66 - 70 0 N/A 0.0 0.0 61 - 65 0 N/A 0.0 0.0 56 - 60 0 N/A 0.0 0.0 51 - 55 0 N/A 0.0 0.0 < 50 0 N/A 0.0 0.0 Total REM NREM Awake <50% 0.0 min. 0.0 min. 0.0 min. 0.0 min. 51 - 60% 0.0 min. 0.0 min. 0.0 min. 0.0 min. 61 - 70% 0.0 min. 0.0 min. 0.0 min. 0.0 min. 71 - 80% 10.8 min. 5.1 min. 1.6 min. 4.1 min. 81 - 90% 394.3 min. 75.4 min. 192.2 min. 126.7 min. 91 - 100% 32.9 min. 2.4 min. 2.7 min. 27.7 min. Average 87 85 87 88 Minimum SpO2 72 73 77 72 Desaturation Event Index 12.7 20.2 14.4 7.4 # Desat. Events below 89% 95 28 47 20 Time(%) with Saturation below 89% 73.5 16.0 36.1 21.3 Time(min.) with Saturation below 89% 321.8 70.2 158.3 93.3 Time (mins) REM (mins) NREM (mins) % of TST SpO2 Below 90% 75 28 N47 93.9 SpO2 Below 88% 42 0 0 59 Heart Rate Analysis Min (bpm) Max (bpm) Average (bpm) Awake 39 155 74 NREM 60 83 70 REM 60 83 71 Overall 60 83 70 Supplemental O2 Values Minimum O2 level: None Value Start Time End Time Pan Washer Hand Comments Mr. Estrada slept in the right, left and supine positions. PVC's and PAC's noted. Leg movements noted. No bruxism noted. Snoring was noted and scored as a 2 on a scale of 1 through 5. (0=no snoring, 5=snoring loud enough to be heard through a closed door or down the hill way) Mr. Estrada awoke to use the restroom 3 times during the night. Mr. Estrada stated I did not sleep as well as I do when I am in my own bed. The final report will be interpreted and signed by a sleep physician. The completed physician report will then be placed in the patient medical record. Therapy (cm H2O) 0 TIB (min.) 458.5 TST (min.) 279.5 Sleep Onset (min.) 29.5 REM Onset From Sleep (min.) 121.0 Sleep Efficiency % 61 Wakefulness (%) 39 Wakefulness (min.) 179.0 NREM 1 (%) 4 NREM 1 (min.) 11.5 NREM 2 (%) 66 NREM 2 (min.) 185.0 NREM 3 (%) 0 NREM 3 (min.) 0.0 REM (%) 30 REM (min.) 83.0 # Arousals 43 Arousal Index 9 # Snore 140 Snore Index 30.1 AHI 16.1 AHI Supine N/A AHI Non-Supine 16 NREM AHI 14.0 REM AHI 21.0 RDI 16.1 # Obstructive Apnea 0 # Central Apnea 0 # Mixed Apnea 0 # Hypopneas 75 RERAs 0 Total Respiratory Events 76 Time Below SpO2 89% (min.) 228.5 Mean NREM SpO2 (%) 87 Mean REM SpO2 (%) 85 Mean Sleep SpO2 (%) 87 Min NREM SpO2 (%) 77 Min REM SpO2 (%) 73 Position Supine (min.) 1.4 Position Non-supine (min.) 279.5 LM Index Sleep 71.5 LM Index NREM 88.2 LM Index REM 31.8 Mean Heart Rate (bpm) 70 Min Heart Rate (bpm) 60
--- NOTE | 2017-04-05 07:30 | Sleep Study ---
Sleep Study Report Date of Service: 04/02/2017 Sleep Study Report CLINICAL DATA: The patient is an 81-year-old male who has snoring, fatigue, and daytime somnolence. His [place] Sleepiness Scale score is 17. He has a known history of nocturnal hypoxia. This was an in-lab overnight polysomnography. SLEEP ARCHITECTURE: The total sleep period was 429 minutes. The total sleep time was 279.5 minutes. The sleep efficiency was moderately reduced to 61 percent. The sleep latency was prolonged to 29.5 minutes. Wake after sleep onset was increased to 149.5 minutes. The REM latency was increased to 121 minutes. Sleep consisted of stage N1 4 percent, stage N2 66 percent, stage N3 0 percent, stage REM 30 percent. AROUSAL DATA: The patient had 43 arousals including 25 spontaneous arousals, 4 respiratory arousals, 11 PLM arousals, and 3 snoring arousals. The arousal index was 9. PLM DATA: Patient had a total of 333 periodic limb movements for a PLM index of 71.5. There were 11 arousals associated with limb movements for a PLM arousal index of 2.4. EKG: The underlying cardiac rhythm was normal sinus. There was a mild number of extrasystoles that included some PACs and PVCs. The cardiac rates 60-83 beats per minute with an average of 70 beats per minute. RESPIRATORY DATA: The patient had a total of 75 respiratory events, all hypopneas. Hypopneas were scored according to the 4 percent desaturation rule. The mean duration of the hypopneas was 21.1. The apnea-hypopnea index was 16.1. This represents moderate sleep apnea. OXIMETRY DATA: The average saturation for the night was 87 percent. The minimum saturation was 72 percent. There was a total of 321.8 minutes with saturations less than 89 percent. CRITICAL CARE SPECIALIST COMMENTS: The patient slept in the right, left, and supine positions. PVCs and PACs noted. Leg movements noted. No bruxism noted. Snoring was noted and scored as a 2 on a scale of 1 through 5. The patient awaken to use the restroom 3 times during the night. IMPRESSIONS: 1. Moderate obstructive sleep apnea 2. Periodic limb movement disorder COMMENTS: The patient had poor sleep efficiency. He had delayed sleep onset and increased awakenings during the night. His sleep was restless. He did have frequent periodic limb movements but with few arousals. He did have moderate apnea with the majority occurring in the 2nd half of the night. His oxygen saturations were low for most of the night. Some of that may be related to his underlying pulmonary disease but it is suspected sleep apnea contributes to that. RECOMMENDATIONS: 1. It is advised that the patient be given a trial of nasal CPAP. 2. No treatment is necessary at present for the underlying limb movements. Sleep apnea should be treated 1st. Then further evaluation and clinical correlation can be done regarding the limb movements. Copies To 1: Marco A Leslie DO; Kiley Capellan, C.R.N.P.
== END | disposition home or self-care (01) ==
LOC: C.NEUR 21:00
PROVIDERS: ATTEND Internal Medicine Pulmonary Disease
DX: G47.33 Obstructive sleep apnea (adult) (pediatric) (principal); G47.61 Periodic limb movement disorder

== ENCOUNTER → 2017-04-21 | Outpatient (CLI) | payer OTHER ==
[2017-04-21 12:31] LABS: BLOOD UREA NITROGEN 16 mg/dl (7-18); CARBON DIOXIDE 31 mmol/L (21-32); CREATININE 1.35 mg/dl (0.60-1.40); GLUCOSE 113 mg/dl (70-99); POTASSIUM 3.7 mmol/L (3.5-5.1); SODIUM 139 mmol/L (136-145)
== END | disposition home or self-care (01) ==
LOC: C.LAB1850 10:20
PROVIDERS: ATTEND Internal Medicine Cardiovascular Disease
DX: I10 Essential (primary) hypertension (principal); E78.00 Pure hypercholesterolemia, unspecified; N17.9 Acute kidney failure, unspecified; R60.9 Edema, unspecified; R06.09 Other forms of dyspnea

== ENCOUNTER → 2017-05-29 | Outpatient (CLI) | payer OTHER | END | disposition home or self-care (01) | LOC: C.LAB1850 10:53 | PROVIDERS: ATTEND Urology | DX: R97.20 Elevated prostate specific antigen [PSA] (principal); N40.1 Benign prostatic hyperplasia with lower urinary tract symptoms ==

== ENCOUNTER → 2017-07-19 | Outpatient (CLI) | payer OTHER ==
[~2017-07-19] MED LIST changes: +OPTIRAY 320 IV PRN
--- NOTE | 2017-07-19 09:06 | DIAGNOSTIC IMAGING REPORT ---
CT ANGIOGRAM OF THE ABDOMEN AND PELVIS COMBO CLINICAL HISTORY: Followup abdominal aortic aneurysm repair. COMPARISON STUDY: CT angiogram of the abdomen and pelvis dated 07/11/2016. TECHNIQUE: Before and following the IV administration of 92 cc of Optiray-320, CT angiogram of the abdomen and pelvis was performed from the lung bases to the proximal femurs. Images are reviewed in the axial, sagittal, and coronal planes. IV contrast was administered without complication. 3-D reformats were created and assessed. A dose lowering protocol was utilized adhering to the principles of ALARA FINDINGS: Lower chest: The heart is enlarged and without pericardial effusion. The coronary arteries are densely calcified. Fibrotic changes with traction bronchiectasis, subpleural reticulation common trunk or septal thickening, and groundglass changes are again seen at both lung bases. No superimposed airspace consolidation or pleural effusion is identified. There is a small hiatal hernia. Liver: The contrast-enhanced liver is normal in size, contour, and attenuation. A 12 mm hypervascular focus in the inferior right lobe of the liver seen on image #125 and likely represents a flash filling hemangioma. This is unchanged from prior studies. A similar appearing 4 mm focus of hyper enhancement is identified in the left lobe on image #95. There is no intrahepatic biliary ductal dilation. The hepatic veins and portal veins are patent. Gallbladder: Unremarkable. Spleen: Normal in size and attenuation. Pancreas: Unremarkable. Adrenal glands: Unremarkable. Kidneys: No renal calculi are identified on the unenhanced images. The kidneys are atrophic, with cortical scarring in the left lower pole. No hydronephrosis is seen. There is symmetric renal cortical enhancement and contrast excretion. Bowel: No bowel obstruction is identified. There is advanced sigmoid diverticulosis without CT evidence of acute diverticulitis. The appendix is well-visualized and normal. Peritoneum: There is no intraperitoneal free air or abdominal ascites. There is a small fat containing umbilical hernia. Abdominal aorta and iliac vessels: There is advanced atherosclerotic disease identified involving abdominal aorta. The patient is status post aortobiiliac stent graft repair of an infrarenal abdominal aneurysm. The residual aneurysm sac measures 5.7 x 5.8 cm. The stent graft is widely patent. There is a type II endoleak identified, likely related to a left lumbar vessel seen on axial postcontrast arterial phase image #213. There is also a large type II endoleak seen related to the inferior mesenteric artery on image #204. There is significant contrast within the aneurysm sac on the delayed phase images, and the sac has clearly enlarged as compared to earlier prior examinations.. The iliac vessels are widely patent. Major branches of the abdominal aorta: The celiac trunk and superior mesenteric artery are widely patent. Hepatic arterial anatomy is conventional. The splenic artery is patent. Inferior mesenteric artery may fill via retrograde flow. A single right renal artery is widely patent. There are 2 left renal arteries. The more superior artery is widely patent. The more inferior left renal artery is thrombosed at its origin with distal reconstitution. Adenopathy: None. Pelvic viscera: The prostate gland is enlarged and heterogeneous, measuring 5.4 cm in transverse diameter. There is median lobe hypertrophy. The bladder wall is thickened and trabeculated indicating chronic outlet obstruction. Skeletal structures: The skeletal structures are osteopenic. There is moderate lumbosacral spondylosis. No lytic or blastic lesions are seen. IMPRESSION: 1. Again seen are postoperative changes from aortobiiliac stent graft repair of an abdominal aortic aneurysm. The aneurysm sac measures 5.7 x 5.8 cm and has progressively enlarged as compared to prior examinations. 2. There are large type II endoleaks as detailed above, likely related to a left lumbar vessel and the inferior mesenteric artery. 3. 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 4. Cardiomegaly and fibrotic changes at both lung bases are unchanged. 5. Advanced sigmoid diverticulosis without CT evidence of acute diverticulitis. 6. Additional findings as above. Electronically signed by: Neal Ashley M.D. 07/19/2017 9:05 AM Dictated Date/Time: 07/19/2017 8:38 AM
== END | disposition home or self-care (01) ==
LOC: C.CTS 07:49
PROVIDERS: ATTEND Physician Assistant
DX: I71.4 Abdominal aortic aneurysm, without rupture (principal); Z95.828 Presence of other vascular implants and grafts; K57.30 Diverticulosis of large intestine without perforation or abscess without bleeding; N28.0 Ischemia and infarction of kidney; I51.7 Cardiomegaly

== ENCOUNTER → 2017-07-26 | Outpatient (CLI) | payer OTHER ==
[~2017-07-26] MED LIST changes: -OPTIRAY 320 IV PRN
[2017-07-26 12:24] LABS: HEMATOCRIT 40.9 % (42-52); HEMOGLOBIN 13.5 g/dL (14.0-18.0); MEAN CELL VOLUME 89.1 fL (80-100); MEAN CORPUSCULAR HEMOGLOBIN 29.4 pg (25-34); MEAN PLATELET VOLUME 9.9 fL (7.4-10.4); PLATELET COUNT 219 K/uL (130-400); RED CELL DISTRIBUTION WIDTH CV 14.6 % (11.5-14.5); RED CELL DISTRIBUTION WIDTH SD 47.4 fL (36.4-46.3); WHITE BLOOD COUNT 8.86 K/uL (4.8-10.8)
[2017-07-26 12:45] LABS: BLOOD UREA NITROGEN 14 mg/dl (7-18); CARBON DIOXIDE 30 mmol/L (21-32); CREATININE 1.31 mg/dl (0.60-1.40); GLUCOSE 114 mg/dl (70-99); POTASSIUM 3.9 mmol/L (3.5-5.1); SODIUM 139 mmol/L (136-145)
== END | disposition home or self-care (01) ==
LOC: C.LABBFT 09:34
PROVIDERS: ATTEND Nurse Practitioner
DX: I10 Essential (primary) hypertension (principal)

== ENCOUNTER 2020-12-19 12:19 | Inpatient (IN) ==
--- NOTE | 2020-12-19 12:28 | Emergency Department Note ---
Impression & Plan Acute dehydration, Thrombocytopenia, Lymphoma, Weakness ED Provider Note NAME: RITESH INTERIANO AGE: 85 SEX: M : 1935 ARRIVES VIA: Ambulance INFORMANT: Patient, ED PROVIDER(S): Te Little MD Chief Complaint: Weakness HPI: She does present with daughter at bedside due to concern for weakness. The patient does have chronic weakness but is felt more fatigued over the last week. The patient was noted to have lower hemoglobin and thus had a transfusion completed and thought that he would have significant improvement. He has not. The patient did have recent chemotherapy on Monday. Patient does follow with oncology as the patient does have a history of lymphoma. Patient's daughter believes that the patient is not drinking as much. The patient has been more sedentary but this has been secondary to his weakness. Patient does have history of pulmonary fibrosis and is on 3 L chronically. The patient did receive a Lupron injection pack post chemotherapy. Patient denies any vomiting. Patient denies any cough. He is vaccinated for Covid. Patient denies any diarrhea or difficulty with urination. Patient denies any abdominal pain or chest pain. The patient does have chronic shortness of breath. ROS: See HPI for pertinent positives and negatives. A total of 10 systems were reviewed and otherwise negative. Past medical history: See below Surgical history: See below Social history: See below Physical Exam: GENERAL: Thin in appearance, NAD, wearing glasses, wearing a mask, non-toxic. Nasal cannula in place. EYE EXAM: Normal conjunctiva. PERRL, no anisocoria and EOM's grossly intact w/o pain. NECK: Supple, no nuchal rigidity, no adenopathy, non-tender. No signs of meningi smus. LUNGS: Crackles throughout. Normal chest wall mechanics. HEART: NSR, no MRG. ABDOMEN: Abdomen soft, non-tender, normo-active bowel sounds, no masses, no rebound or guarding. BACK: No CVA TTP. SKIN: No rashes and no bruising. UPPER EXTREMITIES: Upper extremities are grossly normal. LOWER EXTREMITIES: Grossly normal, no edema. NEURO EXAM: A&O x3, cranial nerves II-XII grossly intact, normal speech, moves all 4 extremities on command w/o issue. Differential diagnoses: Infection, dehydration, metabolic abnormality, hypo/hyperglycemia, electrolyte disturbance, anemia, hypoxia, cardiac sources, intracerebral event, toxicologic, neurologic, as well as other pathologies. Course: Patient was seen and evaluated the bedside. Full history physical exam was performed. Imaging Studies: See Below Cardiac monitoring: An order was placed for continuous cardiac monitoring. The monitor shows a rate of 92 with sinus rhythm. EKG interpreted by me Normal sinus rhythm, rate of 78, normal intervals, right axis deviation. Change in axis from comparison EKG September 01, 2020. MDM: Patient did present due to concern for weakness. Blood work is obtained. Patient does have a significant white count but the patient did receive Lupron. The patient denies infectious symptoms and has no abdominal pain. The patient does have some anemia this appears improved compared to 4 days ago. Patient does have thrombocytopenia which is an acute change. Patient is not complained of any easy bruising or bleeding. The patient does have prerenal azotemia. The patient did receive IV fluids. Mild hypokalemia. Patient troponin is not detectable. Pro-Uriel is borderline elevated. Urinalysis does not show evidence of obvious infection. Covid negative. Chest x-ray does not show any acute change. I did speak with the on-call hospitalist after discussion with the patient the patient's family member. I did discuss that it would be important to discuss goals of care as well as outpatient PT/OT versus possible placement. Past Med/Surg History Medical History Allergic rhinitis Benign prostatic hyperplasia with urinary obstruction and other lower urinary tract symptoms Carotid artery stenosis monitors annually, follows with Dr. 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 History of cataract surgery RT/LEFT History of colonoscopy History of tonsillectomy and adenoidectomy History of tooth extraction History of vascular surgery Aortogram with embolization of internal iliac arteries S/P AAA repair S/p AAA repair using bifurcation graft PEVAR initially in 2011 S/P lymph node biopsy (05/26/20) Right Groin Excisional Lymph Node Biopsy (05/26/20): MAC at [facility] Family History Father Alzheimer disease Lung disease Brother Bone cancer Cancer Grandmother Diabetes Aunt Diabetes Mother Carotid artery disease Other No family history of adverse response to anesthesia Social History Smoking Status: Former smoker Tobacco Type: Smokeless Tobacco (Dip or Chew) Age Quit Using Tobacco: 55; packs per day: 1; Years Smoked: 30; Second Hand Exposure: No; Hx Alcohol Use: No Hx Substance Use: No Preferred Language: Maori Communication Ability: Effective Hearing Ability: Use of Hearing Aid Assistant Shift Supervisor Required: No Beliefs That Will Affect Care: None marital status: Current Living Situation: Alone current occupational status: retired Feels Safe at Home: Yes caffeine: Yes during the past year weight has: decreased > 10 lbs Physical Activity Frequency: 1-2 Times per Week Seatbelt Use: always Sunscreen Use: No Assistive Devices: Denture - Upper, Glasses, Hearing Aid - Left and Oxygen - at Night Allergies Allergies Allergy/AdvReac Type Severity Reaction Status Date / Time No Known Allergies Allergy Verified 12/19/20 15:01 Home Meds Home Medications Medication Instructions Recorded Confirmed aspirin 81 mg tablet,delayed 81 mg PO QAM #0 05/31/16 12/19/20 release (Aspirin Low Dose) prednisone 20 mg tablet 100 mg PO DAILY 12/16/20 12/19/20 amlodipine 2.5 mg tablet 2.5 mg PO DAILY 12/19/20 12/19/20 Previous Rx's Medication Instructions Recorded albuterol sulfate 90 mcg/actuation 2 puff INHALATION Q4H PRN #6.7 g 03/09/20 aerosol inhaler (Ventolin HFA) losartan 100 mg tablet 100 mg PO QAM #90 tab 06/18/20 metoprolol succinate 50 mg 75 mg PO QAM #90 tab 10/23/20 tablet,extended release 24 hr atorvastatin 40 mg tablet 40 mg PO PM #90 tab 11/24/20 Results & Data (ED) Vital Signs Vital Signs - 24 hr 12/19/20 12:20 12/19/20 12:29 12/19/20 12:34 Temperature 36.7 C Temperature Source Oral Pulse Rate 84 76 Pulse Rate from SpO2 Sensor 74 Respiratory Rate 21 19 Respiratory Effort / Characteristics Non-Labored Spontaneous Respiratory Depth Normal Respiratory Pattern Regular Blood Pressure 134/73 Blood Pressure Mean 93 Blood Pressure Position Sitting Pulse Oximetry 99 99 98 Oxygen Delivery Method Nasal Cannula Nasal Cannula Nasal Cannula Oxygen Flow Rate 3 3 3 Sepsis Recent Fever Within 48 Hours No Sepsis New/Unexplained Change in Mental Status No Sepsis Action Taken by Nursing No Action Required 12/19/20 12:40 12/19/20 12:48 12/19/20 12:50 Temperature Temperature Source Pulse Rate 79 82 84 Pulse Rate from SpO2 Sensor 73 83 Respiratory Rate 22 18 19 Respiratory Effort / Characteristics Respiratory Depth Respiratory Pattern Blood Pressure Blood Pressure Mean Blood Pressure Position Pulse Oximetry 98 99 93 Oxygen Delivery Method Nasal Cannula Nasal Cannula Nasal Cannula Oxygen Flow Rate 3 3 3 Sepsis Recent Fever Within 48 Hours Sepsis New/Unexplained Change in Mental Status Sepsis Action Taken by Nursing 12/19/20 13:00 12/19/20 13:10 12/19/20 13:20 Temperature Temperature Source Pulse Rate 78 79 79 Pulse Rate from SpO2 Sensor 78 78 79 Respiratory Rate 20 19 14 Respiratory Effort / Characteristics Respiratory Depth Respiratory Pattern Blood Pressure Blood Pressure Mean Blood Pressure Position Pulse Oximetry 98 99 96 Oxygen Delivery Method Nasal Cannula Nasal Cannula Nasal Cannula Oxygen Flow Rate 3 3 3 Sepsis Recent Fever Within 48 Hours Sepsis New/Unexplained Change in Mental Status Sepsis Action Taken by Nursing 12/19/20 13:30 12/19/20 13:40 12/19/20 13:50 Temperature Temperature Source Pulse Rate 79 78 75 Pulse Rate from SpO2 Sensor 79 78 75 Respiratory Rate Respiratory Effort / Characteristics Respiratory Depth Respiratory Pattern Blood Pressure 139/77 Blood Pressure Mean 97 Blood Pressure Position Pulse Oximetry 95 96 99 Oxygen Delivery Method Nasal Cannula Nasal Cannula Nasal Cannula Oxygen Flow Rate 3 3 3 Sepsis Recent Fever Within 48 Hours Sepsis New/Unexplained Change in Mental Status Sepsis Action Taken by Nursing 12/19/20 14:00 12/19/20 14:10 12/19/20 14:20 Temperature Temperature Source Pulse Rate 81 101 H Pulse Rate from SpO2 Sensor 81 90 101 H Respiratory Rate Respiratory Effort / Characteristics Respiratory Depth Respiratory Pattern Blood Pressure Blood Pressure Mean Blood Pressure Position Pulse Oximetry 97 95 82 L Oxygen Delivery Method Nasal Cannula Nasal Cannula Oxygen Flow Rate 3 3 Sepsis Recent Fever Within 48 Hours Sepsis New/Unexplained Change in Mental Status Sepsis Action Taken by Nursing 12/19/20 14:30 12/19/20 14:40 12/19/20 14:50 Temperature Temperature Source Pulse Rate 91 H 90 85 Pulse Rate from SpO2 Sensor 91 H 89 78 Respiratory Rate 22 22 21 Respiratory Effort / Characteristics Respiratory Depth Respiratory Pattern Blood Pressure Blood Pressure Mean Blood Pressure Position Pulse Oximetry 90 96 97 Oxygen Delivery Method Nasal Cannula Nasal Cannula Nasal Cannula Oxygen Flow Rate 4 3 3 Sepsis Recent Fever Within 48 Hours Sepsis New/Unexplained Change in Mental Status Sepsis Action Taken by Nursing 12/19/20 15:00 12/19/20 15:10 12/19/20 15:20 Temperature Temperature Source Pulse Rate 90 104 H 81 Pulse Rate from SpO2 Sensor 86 82 Respiratory Rate 15 20 20 Respiratory Effort / Characteristics Respiratory Depth Respiratory Pattern Blood Pressure Blood Pressure Mean Blood Pressure Position Pulse Oximetry 93 96 97 Oxygen Delivery Method Nasal Cannula Nasal Cannula Nasal Cannula Oxygen Flow Rate 3 3 3 Sepsis Recent Fever Within 48 Hours Sepsis New/Unexplained Change in Mental Status Sepsis Action Taken by Nursing 12/19/20 15:30 12/19/20 15:40 12/19/20 15:50 Temperature Temperature Source Pulse Rate 81 85 84 Pulse Rate from SpO2 Sensor 82 86 84 Respiratory Rate 16 20 21 Respiratory Effort / Characteristics Respiratory Depth Respiratory Pattern Blood Pressure 137/81 Blood Pressure Mean 99 Blood Pressure Position Pulse Oximetry 100 100 99 Oxygen Delivery Method Nasal Cannula Nasal Cannula Oxygen Flow Rate 3 3 Sepsis Recent Fever Within 48 Hours Sepsis New/Unexplained Change in Mental Status Sepsis Action Taken by Nursing 12/19/20 16:00 12/19/20 16:10 12/19/20 16:20 Temperature Temperature Source Pulse Rate 82 84 87 Pulse Rate from SpO2 Sensor 80 84 87 Respiratory Rate 21 22 24 Respiratory Effort / Characteristics Respiratory Depth Respiratory Pattern Blood Pressure Blood Pressure Mean Blood Pressure Position Pulse Oximetry 100 100 99 Oxygen Delivery Method Nasal Cannula Nasal Cannula Nasal Cannula Oxygen Flow Rate 3 3 3 Sepsis Recent Fever Within 48 Hours Sepsis New/Unexplained Change in Mental Status Sepsis Action Taken by Nursing 12/19/20 16:30 12/19/20 16:40 12/19/20 16:50 Temperature Temperature Source Pulse Rate 86 87 90 Pulse Rate from SpO2 Sensor 87 Respiratory Rate 23 19 16 Respiratory Effort / Characteristics Respiratory Depth Respiratory Pattern Blood Pressure Blood Pressure Mean Blood Pressure Position Pulse Oximetry 96 96 96 Oxygen Delivery Method Nasal Cannula Nasal Cannula Nasal Cannula Oxygen Flow Rate 3 3 3 Sepsis Recent Fever Within 48 Hours Sepsis New/Unexplained Change in Mental Status Sepsis Action Taken by Correction Medications Current Medication List: was personally reviewed by me Laboratory Data Attestation: I reviewed the patient's lab results. Result diagrams: 12/19/20 13:10 12/19/20 13:10 Lab Results 12/19/20 12/19/20 12/19/20 Range/Units 13:10 13:10 14:25 WBC 25.68 H (4.8-10.8) K/uL RBC 3.33 L (4.7-6.1) M/uL Hgb 9.7 L (14.0-18.0) g/dL Hct 30.8 L (42-52) % MCV 92.5 (80-100) fL MCH 29.1 (25-34) pg MCHC 31.5 L (32-36) g/dL RDW Std Deviation 55.8 H (36.4-46.3) fL RDW Coeff of Bello 16.4 H (11.5-14.5) % Plt Count 46 L (130-400) K/uL MPV 10.4 (7.4-10.4) fL Neutrophils % (Manual) 98.2 % Lymphocytes % (Manual) 0.9 % Monocytes % (Manual) 0.9 % Neutrophils # (Manual) 25.22 H (1.4-6.5) K/uL Total Absolute Neuts 25.22 H (1.4-6.5) K/uL Lymphocytes # (Manual) 0.23 L (1.2-3.4) K/uL Total Abs Lymphocytes 0.23 L (1.2-3.4) K/uL Monocytes # (Manual) 0.23 (0.11-0.59) K/uL Platelet Estimate Decreased L (Normal) Echinocytes 1+ Sodium 142 (136-145) mmol/L Potassium 3.4 L (3.5-5.1) mmol/L Chloride 109 H (98-107) mmol/L Carbon Dioxide 31 (21-32) mmol/L Anion Gap 2.0 L (3-11) BUN 28 H (7-18) mg/dl Creatinine 0.74 (0.6-1.4) mg/dl Est Cr Clr Drug Dosing 71.3 ml/min Est GFR ( Amer) 97.5 ml/min Est GFR (Non-Af Amer) 84.1 ml/min BUN/Creatinine Ratio 37.9 H (10-20) Glucose 177 H (70-99) mg/dl Calcium 8.3 L (8.5-10.1) mg/dl Magnesium 1.6 L (1.8-2.4) mg/dl Total Bilirubin 1.1 H (0.2-1) mg/dl AST 24 (15-37) U/L ALT 13 (12-78) U/L Alkaline Phosphatase 119 H (45-117) U/L Total Creatine Kinase (39-308) U/L Troponin I < 0.015 (0-0.045) ng/ml C-Reactive Protein (0-0.29) mg/dl Total Protein 4.7 L (6.4-8.2) gm/dl Albumin 2.2 L (3.4-5.0) gm/dl Globulin 2.5 (2.5-4.0) gm/dl Albumin/Globulin Ratio 0.9 (0.9-2) Procalcitonin (0-0.5) ng/ml TSH 0.963 (0.300-4.500) uIu/ml Urine Color Yellow Urine Appearance Clear (Clear) Urine pH 6.0 (4.5-7.5) Ur Specific [place] 1.014 (1.000-1.030) Urine Protein Negative (Negative) Urine Glucose (UA) Negative (Negative) Urine Ketones Negative (Negative) Urine Blood 1+ H (Negative) Urine Nitrite Negative (Negative) Urine Bilirubin Negative (Negative) Urine Urobilinogen Negative (Negative) Ur Leukocyte Esterase Negative (Negative) Urine WBC (Auto) 1-5 (0-5) /hpf Urine RBC (Auto) 5-10 H (0-4) /hpf U Hyaline Cast (Auto) 0 (0-5) /lpf U Epithel Cells (Auto) 5-10 H (0-5) /lpf Urine Bacteria (Auto) Negative (Negative) COVID-19 Eval Order SARS-CoV-2 (PCR) (Negative) 12/19/20 12/19/20 12/19/20 Range/Units 15:29 15:29 15:30 WBC (4.8-10.8) K/uL RBC (4.7-6.1) M/uL Hgb (14.0-18.0) g/dL Hct (42-52) % MCV (80-100) fL MCH (25-34) pg MCHC (32-36) g/dL RDW Std Deviation (36.4-46.3) fL RDW Coeff of Bello (11.5-14.5) % Plt Count (130-400) K/uL MPV (7.4-10.4) fL Neutrophils % (Manual) % Lymphocytes % (Manual) % Monocytes % (Manual) % Neutrophils # (Manual) (1.4-6.5) K/uL Total Absolute Neuts (1.4-6.5) K/uL Lymphocytes # (Manual) (1.2-3.4) K/uL Total Abs Lymphocytes (1.2-3.4) K/uL Monocytes # (Manual) (0.11-0.59) K/uL Platelet Estimate (Normal) Echinocytes Sodium (136-145) mmol/L Potassium (3.5-5.1) mmol/L Chloride (98-107) mmol/L Carbon Dioxide (21-32) mmol/L Anion Gap (3-11) BUN (7-18) mg/dl Creatinine (0.6-1.4) mg/dl Est Cr Clr Drug Dosing ml/min Est GFR ( Amer) ml/min Est GFR (Non-Af Amer) ml/min BUN/Creatinine Ratio (10-20) Glucose (70-99) mg/dl Calcium (8.5-10.1) mg/dl Magnesium (1.8-2.4) mg/dl Total Bilirubin (0.2-1) mg/dl AST (15-37) U/L ALT (12-78) U/L Alkaline Phosphatase (45-117) U/L Total Creatine Kinase 27 L (39-308) U/L Troponin I (0-0.045) ng/ml C-Reactive Protein 8.83 H (0-0.29) mg/dl Total Protein (6.4-8.2) gm/dl Albumin (3.4-5.0) gm/dl Globulin (2.5-4.0) gm/dl Albumin/Globulin Ratio (0.9-2) Procalcitonin 1.27 H (0-0.5) ng/ml TSH (0.300-4.500) uIu/ml Urine Color Urine Appearance (Clear) Urine pH (4.5-7.5) Ur Specific [place] (1.000-1.030) Urine Protein (Negative) Urine Glucose (UA) (Negative) Urine Ketones (Negative) Urine Blood (Negative) Urine Nitrite (Negative) Urine Bilirubin (Negative) Urine Urobilinogen (Negative) Ur Leukocyte Esterase (Negative) Urine WBC (Auto) (0-5) /hpf Urine RBC (Auto) (0-4) /hpf U Hyaline Cast (Auto) (0-5) /lpf U Epithel Cells (Auto) (0-5) /lpf Urine Bacteria (Auto) (Negative) COVID-19 Eval Order Covid19 at [facility] SARS-CoV-2 (PCR) (Negative) 12/19/20 Range/Units 15:30 WBC (4.8-10.8) K/uL RBC (4.7-6.1) M/uL Hgb (14.0-18.0) g/dL Hct (42-52) % MCV (80-100) fL MCH (25-34) pg MCHC (32-36) g/dL RDW Std Deviation (36.4-46.3) fL RDW Coeff of Bello (11.5-14.5) % Plt Count (130-400) K/uL MPV (7.4-10.4) fL Neutrophils % (Manual) % Lymphocytes % (Manual) % Monocytes % (Manual) % Neutrophils # (Manual) (1.4-6.5) K/uL Total Absolute Neuts (1.4-6.5) K/uL Lymphocytes # (Manual) (1.2-3.4) K/uL Total Abs Lymphocytes (1.2-3.4) K/uL Monocytes # (Manual) (0.11-0.59) K/uL Platelet Estimate (Normal) Echinocytes Sodium (136-145) mmol/L Potassium (3.5-5.1) mmol/L Chloride (98-107) mmol/L Carbon Dioxide (21-32) mmol/L Anion Gap (3-11) BUN (7-18) mg/dl Creatinine (0.6-1.4) mg/dl Est Cr Clr Drug Dosing ml/min Est GFR ( Amer) ml/min Est GFR (Non-Af Amer) ml/min BUN/Creatinine Ratio (10-20) Glucose (70-99) mg/dl Calcium (8.5-10.1) mg/dl Magnesium (1.8-2.4) mg/dl Total Bilirubin (0.2-1) mg/dl AST (15-37) U/L ALT (12-78) U/L Alkaline Phosphatase (45-117) U/L Total Creatine Kinase (39-308) U/L Troponin I (0-0.045) ng/ml C-Reactive Protein (0-0.29) mg/dl Total Protein (6.4-8.2) gm/dl Albumin (3.4-5.0) gm/dl Globulin (2.5-4.0) gm/dl Albumin/Globulin Ratio (0.9-2) Procalcitonin (0-0.5) ng/ml TSH (0.300-4.500) uIu/ml Urine Color Urine Appearance (Clear) Urine pH (4.5-7.5) Ur Specific [place] (1.000-1.030) Urine Protein (Negative) Urine Glucose (UA) (Negative) Urine Ketones (Negative) Urine Blood (Negative) Urine Nitrite (Negative) Urine Bilirubin (Negative) Urine Urobilinogen (Negative) Ur Leukocyte Esterase (Negative) Urine WBC (Auto) (0-5) /hpf Urine RBC (Auto) (0-4) /hpf U Hyaline Cast (Auto) (0-5) /lpf U Epithel Cells (Auto) (0-5) /lpf Urine Bacteria (Auto) (Negative) COVID-19 Eval Order SARS-CoV-2 (PCR) NEGATIVE (Negative) Administered Medications Magnesium Sulfate/Dextrose (Magnesium Sulfate / D5w) 1 gm in 100 mls @ 50 mls/hr IV Q2H JESSICA Stop: 12/19/20 19:59 Last Admin: 12/19/20 16:01 Dose: 50 mls/hr Documented by: [id number] Discontinued Medications Sodium Chloride (Nss 1000ml) 1,000 mls @ 999 mls/hr IV .Q1H1M JESSICA Stop: 12/19/20 14:00 Last Infusion: 12/19/20 14:12 Dose: 0 mls/hr Documented by: [id number] Admin: 12/19/20 13:11 Dose: 999 mls/hr Documented by: [id number] Sodium Chloride (Nss 1000ml) 1,000 mls @ 999 mls/hr IV .Q1H1M ONE Stop: 12/19/20 16:05 Last Admin: 12/19/20 16:06 Dose: Not Given Documented by: [id number] Imaging Data Radiologist's Impression: Chest X-Ray 12/19/20 12:46 XR chest 1V portable HISTORY: weakness COMPARISON: Chest CT 10/27/2020. FINDINGS: No pneumothorax. No pleural effusions. The heart remains borderline enlarged. There is a left subclavian Port-A-Cath which terminates at the distal SVC. This remains unchanged. Diffuse interstitial thickening most pronounced within the lung bases persists and is consistent with chronic fibrotic change. No new focal lung consolidations to suggest pneumonia. No evidence for pulmonary edema. IMPRESSION: No significant change compared to the prior study. No acute process. Chronic fibrotic change persists. ACT 112: Negative or not required by law. Electronically signed by: Pipe Matthews M.D. 12/19/2020 12:59 PM Discharge Plan Visit Data Chief Complaint: Weakness Stated Complaint: WEAKNESS ED Provider: Te Little Discharge Problem: Acute dehydration, Thrombocytopenia, Lymphoma, Weakness Patient Disposition: Admitted As Inpatient Forms Stand Alone Forms: [facility] Prescriptions Prescriptions: No Action aspirin [Aspirin Low Dose] 81 mg Tablet,Delayed Release (Dr/Ec) 81 mg PO QAM Qty: 0 RF: 0 albuterol sulfate [Ventolin HFA] 90 mcg/actuation HFA aerosol inhaler 2 puff INHALATION Q4H PRN (Reason: Shortness Of Breath Or Wheezing) Qty: 6.7 RF: 5 losartan 100 mg tablet 100 mg PO QAM Qty: 90 RF: 3 metoprolol succinate 50 mg tablet extended release 24 hr 75 mg PO QAM Qty: 90 RF: 3 atorvastatin 40 mg tablet 40 mg PO PM Qty: 90 RF: 3 prednisone 20 mg tablet 100 mg PO DAILY RF: 0 amlodipine 2.5 mg tablet 2.5 mg PO DAILY RF: 0 Referrals Referrals: Kiley Azul CRNP [Primary Care Provider] -
[2020-12-19] MEDS ORDERED: SODIUM CHLORIDE 0.9% 1000ML 1,000 ML IV SCH (13:00)
--- NOTE | 2020-12-19 13:01 | XRay Report ---
XR chest 1V portable HISTORY: weakness COMPARISON: Chest CT 10/27/2020. FINDINGS: No pneumothorax. No pleural effusions. The heart remains borderline enlarged. There is a le ft subclavian Port-A-Cath which terminates at the distal SVC. This remains unchanged. Diffuse interst itial thickening most pronounced within the lung bases persists and is consistent with chronic fibrot ic change. No new focal lung consolidations to suggest pneumonia. No evidence for pulmonary edema. IMPRESSION: No significant change compared to the prior study. No acute process. Chronic fibrotic change persists . ACT 112: Negative or not required by law. Electronically signed by: Pipe Matthews M.D. 12/19/2020 12:59 PM
[2020-12-19 13:46] LABS: Alanine Aminotransferase 13 U/L (12-78); Albumin Level 2.2 gm/dl (3.4-5.0); Aspartate Aminotransferase 24 U/L (15-37); BUN Creatinine Ratio 37.9 (10-20); Bilirubin,Total 1.1 mg/dl (0.2-1); Blood Urea Nitrogen 28 mg/dl (7-18); Calcium 8.3 mg/dl (8.5-10.1); Carbon Dioxide 31 mmol/L (21-32); Chloride 109 mmol/L (98-107); Creatinine Clr Calc Pharmacy 71.3 ml/min; Est GFR (African American) 97.5 ml/min; Est GFR (Non-African American) 84.1 ml/min; Glucose 177 mg/dl (70-99); Magnesium 1.6 mg/dl (1.8-2.4); Potassium 3.4 mmol/L (3.5-5.1); Sodium 142 mmol/L (136-145)
[2020-12-19 13:52] LABS: ALC (manual) 0.23 K/uL (1.2-3.4); ANC (manual) 25.22 K/uL (1.4-6.5); Echinocytes 1+; Hematocrit (blood only) 30.8 % (42-52); Hemoglobin 9.7 g/dL (14.0-18.0); Lymphocytes # (manual) 0.23 K/uL (1.2-3.4); Lymphocytes % (manual) 0.9 %; Mean Corpuscular Hemoglobin 29.1 pg (25-34); Mean Corpuscular Hgb Conc 31.5 g/dL (32-36); Mean Corpuscular Volume 92.5 fL (80-100); Mean Platelet Volume 10.4 fL (7.4-10.4); Monocytes # (manual) 0.23 K/uL (0.11-0.59); Monocytes % (manual) 0.9 %; Neutrophils # (manual) 25.22 K/uL (1.4-6.5); Neutrophils % (manual) 98.2 %; Platelet Count 46 K/uL (130-400); Platelet Estimate Decreased (Normal); RDW Coefficient of Variation 16.4 % (11.5-14.5); RDW Standard Deviation 55.8 fL (36.4-46.3); Red Blood Count 3.33 M/uL (4.7-6.1); White Blood Count 25.68 K/uL (4.8-10.8)
[2020-12-19 13:57] LABS: Albumin Globulin Ratio 0.9 (0.9-2); Alkaline Phosphatase 119 U/L (45-117); Globulin 2.5 gm/dl (2.5-4.0); Thyroid Stimulating Hormone 0.963 uIu/ml (0.300-4.500); Total Protein 4.7 gm/dl (6.4-8.2); Troponin I < 0.015 ng/ml (0-0.045)
[2020-12-19 14:48] LABS: Appearance Urine Clear (Clear); Bacteria Urine Automated Negative (Negative); Bilirubin Urine Negative (Negative); Blood Urine 1+ (Negative); Cast Urine Automated 0 /lpf (0-5); Color Urine Yellow; Glucose Urine UA Negative (Negative); Ketones Urine Negative (Negative); Leukocyte Esterase Urine Negative (Negative); Nitrite Urine Negative (Negative); Protein Urine Negative (Negative); Specific Gravity Urine 1.014 (1.000-1.030); Urobilinogen Urine Negative (Negative)
[2020-12-19] MEDS ORDERED: SODIUM CHLORIDE 0.9% 1000ML 1,000 ML IV ONE (15:05)
--- NOTE | 2020-12-19 15:26 | History & Physical Report ---
Date of Service December 19, 2020 Assessment & Plan (1) Weakness: Plan: Most likely chemotherapy induced and should improve over the next 1-2 days. But given he has tolerated chemotherapy well thus far and leucocytosis with elevated procalcitonin will cover for infection (see below). No infective signs or symptoms therefore isf not bacteremia would assume it is safe to stop antibiotics. PT/OT (2) Leucocytosis: Plan: Suspect secondary to Udencya + prednisone however given weakness blood cultures and procalcitonin added. Given procalcitonin elevated and patient has a port will cover with empiric antibiotics (Vancomycin and cefepime) pending blood culture negative @ 48 hours. Patient is not septic (3) Thrombocytopenia: Plan: Suspect secondary to his R-CHOP chemotherapy. Will hold off anticoagulation for VTE Prophylaxis while Plt < 50. (4) Hypertension: Plan: Continue his routine amlodipine losartan and metoprolol (5) Rectal cancer: Plan: Underwent chemoradiation with Xeloda on 05/24, completed 07/24, deemed unresectable (6) Lymphoma: Plan: Now finished R-chop therapy as above (7) Pulmonary fibrosis, unspecified: Plan: Baseline 3LPM O2. Do not suspect exacerbation of this currently (8) Chronic respiratory failure with hypoxia: Plan: Baseline 3LPM O2 as above Plan: VTE Prophylaxis - SCDs, chemical deferred due to thrombocytopenia Diet - regular, boost nutrition drinks per dietary recommendations Disposition - admit to med/tele Admission and Anticipated Discharge Date Admission Date: December 19, 2020 History of Present Illness Chief Complaint: Generalized weakness Primary Care Provider: ALEKSANDRA Vargas Josiah Estrada is an 85 year old male with pulmonary fibrosis, rectal cancer and B cell lymphoma who presents to the ER with generalized weakness and fatigue. patient seen in the ER with his daughter who provides the majority of his history. He was seen by his oncologist 4 days ago for the same and was felt to be secondary to anemia from the chemotherapy but despite 2 units RBC transfusion he feels no better than before and his generalized weakness and fatigue have become worse. he has a left sided mediport in place for his chemotherapy. He is currently undergoing R-CHOP chemotherapy for the B cell lymphoma after prior chemoradiation for his rectal cancer in May to July this year. Started R-CHOP in August and had his last cycle this week. He receives Udenyca the day after he finished chemotherapy (he thinks , 2 days ago). He also takes prednisone 100mg PO after the chemotherapy but reports his last dose of that was today. He denies any fever, chills, change in hearing, vision, speech or one sided weaknses. No change in his peripheral neuropathy. No diarrhea, abdominal pain, nausea, vomiting, nasal congestion, sinus pain or urinary symptoms. He has a chronic cough with his pulmonary fibrosis but it is no worse than usual. Mainly weakn in upper > lower limbs but also having difficulty walking. Usually uses a cane to walk. Allergies Allergy/AdvReac Type Severity Reaction Status Date / Time No Known Allergies Allergy Verified 12/19/20 15:01 Home Medications Medication Instructions Recorded Confirmed Type aspirin 81 mg tablet,delayed 81 mg PO QAM #0 05/31/16 12/19/20 History release (Aspirin Low Dose) albuterol sulfate 90 mcg/actuation 2 puff INHALATION Q4H PRN #6.7 g 03/09/20 12/19/20 Rx aerosol inhaler (Ventolin HFA) losartan 100 mg tablet 100 mg PO QAM #90 tab 06/18/20 12/19/20 Rx metoprolol succinate 50 mg 75 mg PO QAM #90 tab 10/23/20 12/19/20 Rx tablet,extended release 24 hr atorvastatin 40 mg tablet 40 mg PO PM #90 tab 11/24/20 12/19/20 Rx prednisone 20 mg tablet 100 mg PO DAILY 12/16/20 12/19/20 History amlodipine 2.5 mg tablet 2.5 mg PO DAILY 12/19/20 12/19/20 History Past Med/Surg History Medical History (Updated 12/19/20 @ 19:03 by Tano Sanon MD) Allergic rhinitis Benign prostatic hyperplasia with urinary obstruction and other lower urinary tract symptoms Carotid artery stenosis monitors annually, follows with Dr. 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 History of cataract surgery RT/LEFT History of colonoscopy History of tonsillectomy and adenoidectomy History of tooth extraction History of vascular surgery Aortogram with embolization of internal iliac arteries S/P AAA repair S/p AAA repair using bifurcation graft PEVAR initially in 2011 S/P lymph node biopsy (05/26/20) Right Groin Excisional Lymph Node Biopsy (05/26/20): MAC at [facility] Family History Father Alzheimer disease Lung disease Brother Bone cancer Cancer Grandmother Diabetes Aunt Diabetes Mother Carotid artery disease Other No family history of adverse response to anesthesia Social History Smoking Status: Former smoker Tobacco Type: Smokeless Tobacco (Dip or Chew) Age Quit Using Tobacco: 55; packs per day: 1; Years Smoked: 30; Second Hand Exposure: No; Hx Alcohol Use: No Hx Substance Use: No Preferred Language: [place]rugu[place] Communication Ability: Effective Hearing Ability: Use of Hearing Aid Academic Success Coordinator Required: No Beliefs That Will Affect Care: None marital status: Current Living Situation: Alone current occupational status: retired Other Information That Helps Us Care for You: No Feels Safe at Home: Yes caffeine: Yes during the past year weight has: decreased > 10 lbs Physical Activity Frequency: 1-2 Times per Week Seatbelt Use: always Sunscreen Use: No Assistive Devices: Cane Review of Systems Review of Systems: All systems reviewed & are unremarkable except as noted in HPI & below Physical Exam Constitutional: well developed and + frail appearing; no acute distress Eyes: PERRL, conjunctivae normal, anicteric sclerae Neck: trachea midline, no thyromegaly Respiratory: normal respiratory effort Auscultation: + crackles (fine throughout, loudest bases); no diminished lung sounds, no rhonchi and no wheezes Cardiovascular: Rate/Rhythm: regular rate and regular rhythm Heart Sounds: normal S1 and normal S2 Vessels: posterior tibial pulses present, dorsalis pedis pulses present and radial pulses present; no JVD Extremities: + edema (2+ b/l equal to knees) Gastrointestinal (Abdomen): normal bowel sounds, soft, nontender, no hepat osplenomegaly Musculoskeletal: Extremities: + clubbing; full ROM of extremities, no cyanosis and no petechiae Skin: no rashes, warm and dry (no areas of cellulitis) Neurologic: moves all extremities and awake; no focal motor deficits and not confused Psychiatric: A+Ox3, euthymic affect Genitourinary: no CVA tenderness Lymphatic: no cervical or axillary lymphadenopathy Results & Data Results & Data ([facility]) Vital Signs (Past 12 Hours) Vital Signs Temp Pulse Resp BP Pulse Ox 12/19/20 14:40 90 22 96 12/19/20 14:30 91 H 22 90 12/19/20 14:20 101 H 82 L 12/19/20 14:10 95 12/19/20 14:00 81 97 12/19/20 13:50 75 99 12/19/20 13:40 78 96 12/19/20 13:30 79 139/77 95 12/19/20 13:20 79 14 96 12/19/20 13:10 79 19 99 12/19/20 13:00 78 20 98 12/19/20 12:50 84 19 93 12/19/20 12:48 82 18 99 12/19/20 12:40 79 22 98 12/19/20 12:34 76 19 98 12/19/20 12:29 99 12/19/20 12:20 36.7 C 84 21 134/73 99 Diagnostic Findings XR chest 1V portable HISTORY: weakness COMPARISON: Chest CT 10/27/2020. FINDINGS: No pneumothorax. No pleural effusions. The heart remains borderline enlarged. There is a left subclavian Port-A-Cath which terminates at the distal SVC. This remains unchanged. Diffuse interstitial thickening most pronounced within the lung bases persists and is consistent with chronic fibrotic change. No new focal lung consolidations to suggest pneumonia. No evidence for pulmonary edema. IMPRESSION: No significant change compared to the prior study. No acute process. Chronic fibrotic change persists. Medications Administered ER medications Given: NSS 1L bolus ECG Indication: altered mental status Rate (beats per minute): 78 Rhythm: normal sinus Findings: + other (right axis deviation) Comparison ECG Date: from (September 01, 2020) Change: the following changes noted (axis shifted right) Code Status & VTE Plan Code Status DNR/DNI per patient wishes VTE Prophylaxis Plan VTE Prophylaxis will be ordered: Yes Reason for no VTE drug order: Contraindicated PG Care Time/CCT Total # of Minutes Spent Total Time Spent with Patient: Total time spent is greater than 50% in coordination of care (as documented) at patient's floor/unit and/or counseling patient: Coding Level of Care Code 51829 Initial Inpt Care Lvl 3 Diagnoses Leucocytosis D72.829 Thrombocytopenia D69.6 Weakness R53.1 Hypertension I10 Rectal cancer C20 Lymphoma C85.90 Lymphoma site: unspecified region Lymphoma type: unspecified type Pulmonary fibrosis, unspecified J84.10 Chronic respiratory failure with hypoxia J96.11 (1) Lymphoma Lymphoma site: unspecified region Lymphoma type: unspecified type Qualified Code(s): C85.90 - Non-Hodgkin lymphoma, unspecified, unspecified site
[2020-12-19] MEDS: MAGNESIUM SULFATE / D5W 1 GM/100 ML BAG IV SCH ×2 (16:01→18:17)
[2020-12-19 16:08] LABS: C Reactive Protein 8.83 mg/dl (0-0.29)
[2020-12-19] MEDS ORDERED: VANCOMYCIN CONSULT ACTIVE PRN (18:57)
[2020-12-19] MEDS ORDERED: VANCOMYCIN HCL 1,500 MG in SODIUM CHLORIDE 0.9% 500 ML IV STA (19:19)
[2020-12-19] MEDS ORDERED: CEFEPIME 2,000 MG in SYRINGE 0 ML IV STA (19:20)
--- NOTE | 2020-12-19 21:51 | Pharmacy Report ---
Pharmacy Abx Initial Consult - Date of Service December 19, 2020 - Pharmacy Dosing Scope Date of Consult: 12/19/20 Consultation requested by: Dr. Sanon Pharmacy is consulted to initiate VANCOMYCIN IV dosing therapy, order appropriate labs and adjust drug dose/frequency. - Subjective The patient is a 85 year old M admitted on . - Objective Height: 5 ft 10 in Weight: 69.1 kg Vital Signs (Past 12hrs): Vital Signs Temp Pulse Resp BP Pulse Ox 12/19/20 19:40 78 22 94 12/19/20 19:30 83 21 92 12/19/20 19:20 80 20 97 12/19/20 19:10 79 18 95 12/19/20 19:00 79 19 94 12/19/20 18:50 83 18 92 12/19/20 18:42 107 H 28 H 72 L 12/19/20 18:30 91 H 20 92 12/19/20 18:20 83 22 91 12/19/20 18:10 85 21 92 12/19/20 18:00 83 19 124/87 92 12/19/20 17:50 80 19 92 12/19/20 17:40 87 23 96 12/19/20 17:30 89 20 130/73 96 12/19/20 17:20 91 H 21 98 12/19/20 17:10 86 18 96 12/19/20 17:00 86 20 96 12/19/20 16:50 90 16 96 12/19/20 16:40 87 19 96 12/19/20 16:30 86 23 96 12/19/20 16:20 87 24 99 12/19/20 16:10 84 22 100 12/19/20 16:00 82 21 100 12/19/20 15:50 84 21 99 12/19/20 15:40 85 20 100 12/19/20 15:30 81 16 137/81 100 12/19/20 15:20 81 20 97 12/19/20 15:10 104 H 20 96 12/19/20 15:00 90 15 93 12/19/20 14:50 85 21 97 12/19/20 14:40 90 22 96 12/19/20 14:30 91 H 22 90 12/19/20 14:20 101 H 82 L 12/19/20 14:10 95 12/19/20 14:00 81 97 12/19/20 13:50 75 99 10/16/21 13:40 78 96 12/19/20 13:30 79 139/77 95 12/19/20 13:20 79 14 96 12/19/20 13:10 79 19 99 12/19/20 13:00 78 20 98 12/19/20 12:50 84 19 93 12/19/20 12:48 82 18 99 12/19/20 12:40 79 22 98 12/19/20 12:34 76 19 98 12/19/20 12:29 99 12/19/20 12:20 36.7 C 84 21 134/73 99 Lab Results (24hrs): Laboratory Tests (24 Hours) 12/19/20 12/19/20 12/19/20 15:29 15:29 13:10 WBC Creatinine 0.74 Est Cr Clr Drug Dosing 71.3 Total Creatine Kinase 27 L C-Reactive Protein 8.83 H Procalcitonin 1.27 H 12/19/20 13:10 WBC 25.68 H Creatinine Est Cr Clr Drug Dosing Total Creatine Kinase C-Reactive Protein Procalcitonin Micro Results: 12/19/20 15:35 Aerobic Blood Culture - Pending Blood Anaerobic Blood Culture - Pending 12/19/20 15:29 Aerobic Blood Culture - Pending Blood Anaerobic Blood Culture - Pending - Risk Factors for Resistance * Immunocompromised (chronic steroid therapy, chemotherapy, immunomodulators) - Assessment & Plan Assessment 85 year old M ordered VANCOMYCIN for empiric coverage. Presents with weakness s/p recent chemo. Plan Vancomycin IV * Loading dose: 1500mg (22 mg/kg) * Maintenance dose: 750 mg IV (11 mg/kg) every 12 hours * Trough level ordered for 12/21/20 @ 0800. * AUC/KANIKA is the preferred PK/PD target for vancomycin * AUC guided dosing is effective and associated with decreased risk of nephrotoxicity compared to traditional trough targets * The above maintenance dose is predicted to achieve target AUC/KANIKA of 400-600 mg/L.hr and may be associated with a ~10% risk of nephrotoxicity Pharmacy will continue to follow and will adjust dose/frequency as necessary. Thank you.
[2020-12-19] MEDS ORDERED: CEFEPIME CONSULT ACTIVE PRN (23:29)
[2020-12-19] MEDS ORDERED: ACETAMINOPHEN 325 MG TAB PO PRN (23:29)
[2020-12-20] MEDS: ATORVASTATIN 40 MG TAB PO SCH ×2 (01:28→20:35)
[2020-12-20] MEDS: CEFEPIME 2,000 MG in SYRINGE 0 ML IV SCH ×3 (05:13→20:41)
[2020-12-20 07:08] LABS: Hematocrit (blood only) 31.7 % (42-52); Mean Corpuscular Hemoglobin 29.5 pg (25-34); Mean Corpuscular Hgb Conc 31.5 g/dL (32-36); Mean Corpuscular Volume 93.5 fL (80-100); Mean Platelet Volume 10.8 fL (7.4-10.4); Platelet Count 33 K/uL (130-400); RDW Coefficient of Variation 16.2 % (11.5-14.5); RDW Standard Deviation 55.3 fL (36.4-46.3); Red Blood Count 3.39 M/uL (4.7-6.1); White Blood Count 10.79 K/uL (4.8-10.8)
[2020-12-20 07:10] LABS: ALC (manual) 0.19 K/uL (1.2-3.4); Dohle Bodies 1+; Lymphocytes # (manual) 0.19 K/uL (1.2-3.4); Lymphocytes % (manual) 1.8 %; Neutrophils % (manual) 98.2 %; Platelet Estimate Decreased (Normal)
[2020-12-20 07:33] LABS: BUN Creatinine Ratio 28.9 (10-20); Calcium 8.1 mg/dl (8.5-10.1); Creatinine Clr Calc Pharmacy 64.4 ml/min; Est GFR (African American) 93.5 ml/min; Est GFR (Non-African American) 80.6 ml/min; Phosphorus 2.3 mg/dl (2.5-4.9)
[2020-12-20] MEDS: amLODIPine BESYLATE 5 MG TAB PO SCH (07:46)
[2020-12-20] MEDS: METOPROLOL SUCC 25MG EXT REL TAB PO SCH (07:46)
[2020-12-20] MEDS: LOSARTAN POTASSIUM 50 MG TAB PO SCH (07:46)
[2020-12-20] MEDS: ASPIRIN 81 MG ECTAB PO SCH (07:46)
[2020-12-20 08:03] LABS: Magnesium 1.7 mg/dl (1.8-2.4); Potassium 3.5 mmol/L (3.5-5.1)
[2020-12-20] MEDS: VANCOMYCIN HCL 750 MG in SODIUM CHLORIDE 0.9% 250 ML IV SCH ×2 (09:11→20:42)
--- NOTE | 2020-12-20 09:49 | Electrocardiogram Report ---
Test Reason : Blood Pressure : / mmHG Vent. Rate : 078 BPM Atrial Rate : 078 BPM P-R Int : 152 ms QRS Dur : 090 ms QT Int : 368 ms P-R-T Axes : 030 092 045 degrees QTc Int : 419 ms Normal sinus rhythm Rightward axis Borderline ECG When compared with ECG of 01-SEP-2020 16:59, QRS axis Shifted right Confirmed by Jose Miranda ([id number]) on 12/20/2020 9:49:28 AM Referred By: REFERRED SELF Confirmed By:Jose Miranda
[2020-12-20] MEDS: HEPARIN 100 UNIT/ML 5ML FLUSH FLUSH PRN ×2 (10:56→22:17)
--- NOTE | 2020-12-20 22:01 | Hospitalist Progress Note ---
Date of Service December 20, 2020 Assessment & Plan (1) Bacteremia: Plan: 1 of 4 sets positive, aerobic, gram positive in clusters continue both Vanco and Cefepime for now follow up final blood culture results, see if other culture becomes positive repeat blood cultures tomorrow, draw one from port WBC down to 10k from 26k (leukocytosis could have been due to Prednisone and Udencya) consult ID no obvious source of infection other than maybe skin and being immunocompromised on chemotherapy (2) Weakness: Plan: Most likely chemotherapy induced, could be due to bacteremia PT/OT consulted (3) Leucocytosis: Plan: Suspect secondary to Udencya + prednisone now more likely due to bacteremia if it is not a contaminant (4) Thrombocytopenia: Plan: Suspect secondary to his R-CHOP chemotherapy. Will hold off anticoagulation for VTE Prophylaxis while Plt < 50. plts 33k today (5) Hypertension: Plan: Continue his routine amlodipine losartan and metoprolol (6) Rectal cancer: Plan: Underwent chemoradiation with Xeloda on 05/24, completed 07/24, deemed unresectable (7) Lymphoma: Plan: Now finished R-chop therapy as above (8) Pulmonary fibrosis, unspecified: Plan: Baseline 3LPM O2. Do not suspect exacerbation of this currently he is on 5L, no distress (9) Chronic respiratory failure with hypoxia: Plan: Baseline 3LPM O2 as above Plan: VTE Prophylaxis - SCDs, chemical deferred due to thrombocytopenia Diet - regular, boost nutrition drinks per dietary recommendations Disposition - admit to med/tele Admission and Anticipated Discharge Date Admission Date: December 19, 2020 Subjective patient feels a lot better today, more strength, breathing well, no fever eating well, no BM today, no nausea reviewed chart, 1 set of blood cultures positive for gram positive cocci in clusters could be infected port? skin around port is not erythematous, not tender no cough, always short of breath with fibrosis of lungs, on 3L chronically updated his daughter over the phone, will plan for repeat blood cultures, one from port, ID consult Review of Systems Review of Systems: All systems reviewed & are unremarkable except as noted in Subjective Constitutional: + fatigue and + weakness; no fever and no sweats Respiratory: + cough and + dyspnea on exertion; no dyspnea and no sputum production Cardiovascular: + edema; no chest pain Gastrointestinal: no abdominal pain, no nausea, no vomiting, no constipation and no diarrhea/loose stools Physical Exam Physical Exam: General: well developed, thin male, frail appearing, no acute distress, comfortable Neck: supple, trachea midline, normal thyroid Lungs: dry crackles bilaterally, decreased breath sounds, normal respiratory effort, no accessory muscle use, no distress Heart: regular S1 and S2, no murmur, peripheral pulses normal, capillary refill normal, no edema Abdomen: soft, NT, ND, + BS, no hepatomegaly, normal to percussion Extremities: normal in appearance, no cyanosis, no petechiae, strength is 5/5 bilaterally Neuro: awake, cooperative, moves all extremities, no focal motor deficits, CN II-XII intact, sensation in extremities intact, normal speech Skin: warm, dry, no rash, normal turgor, specifically no signs of cellulitis around port Psych: Awake, alert oriented x 3, euthymic affect Results & Data Results & Data ([facility]) Vital Signs (Past 12 Hours) Vital Signs Temp Pulse Pulse Resp BP Pulse Ox 12/20/20 19:14 36.3 C L 84 16 103/63 93 12/20/20 15:39 36.7 C 88 20 122/77 90 12/20/20 15:00 83 Laboratory Results Laboratory Results - last 24 hr 12/19/20 12/20/20 12/20/20 15:29 05:56 05:56 WBC 10.79 D RBC 3.39 L Hgb 10.0 L Hct 31.7 L MCV 93.5 MCH 29.5 MCHC 31.5 L RDW Std Deviation 55.3 H RDW Coeff of Bello 16.2 H Plt Count 33 L MPV 10.8 H Neutrophils % (Manual) 98.2 Lymphocytes % (Manual) 1.8 Neutrophils # (Manual) 10.60 H Total Absolute Neuts 10.60 H Lymphocytes # (Manual) 0.19 L Total Abs Lymphocytes 0.19 L Hypersegmented Neuts 1+ Dohle Bodies 1+ Platelet Estimate Decreased L Sodium 143 Potassium Chloride 108 H Carbon Dioxide 31 Anion Gap 4.0 BUN 24 H Creatinine 0.82 Est Cr Clr Drug Dosing 64.4 Est GFR ( Amer) 93.5 Est GFR (Non-Af Amer) 80.6 BUN/Creatinine Ratio 28.9 H Glucose 172 H Calcium 8.1 L Phosphorus 2.3 L Magnesium Bld Cult Staph aureus PCR Negative Blood Culture MRSA PCR Negative 12/20/20 07:36 WBC RBC Hgb Hct MCV MCH MCHC RDW Std Deviation RDW Coeff of Bello Plt Count MPV Neutrophils % (Manual) Lymphocytes % (Manual) Neutrophils # (Manual) Total Absolute Neuts Lymphocytes # (Manual) Total Abs Lymphocytes Hypersegmented Neuts Dohle Bodies Platelet Estimate Sodium Potassium 3.5 Chloride Carbon Dioxide Anion Gap BUN Creatinine Est Cr Clr Drug Dosing Est GFR ( Amer) Est GFR (Non-Af Amer) BUN/Creatinine Ratio Glucose Calcium Phosphorus Magnesium 1.7 L Bld Cult Staph aureus PCR Blood Culture MRSA PCR Microbiology 12/19/20 15:29 Blood Aerobic Blood Culture - Preliminary Gram positive cocci clusters 12/19/20 15:29 Blood Anaerobic Blood Culture - Preliminary No growth in Anaerobic bottle after 24 hours. 12/19/20 15:35 Blood Aerobic Blood Culture - Preliminary No growth in Aerobic bottle after 24 hours. 12/19/20 15:35 Blood Anaerobic Blood Culture - Preliminary No growth in Anaerobic bottle after 24 hours. Medications Administered Current Inpatient Medications Acetaminophen (Acetaminophen 325 Mg Tab) 650 mg PO Q4H PRN PRN Reason: Pain or Fever Stop: 01/18/21 23:28 Amlodipine Besylate (Amlodipine Besylate 5 Mg Tab) 2.5 mg PO DAILY JESSICA Stop: 01/19/21 08:59 Last Admin: 12/20/20 07:46 Dose: 2.5 mg Documented by: Aspirin (Aspirin 81 Mg Ectab) 81 mg PO QAM JESSICA Stop: 01/19/21 08:59 Last Admin: 12/20/20 07:46 Dose: 81 mg Documented by: Atorvastatin Calcium (Atorvastatin 40 Mg Tab) 40 mg PO PM JESSICA Stop: 01/18/21 23:28 Last Admin: 12/20/20 20:35 Dose: 40 mg Documented by: Heparin Sodium (Porcine) (Heparin 100 Unit/Ml 5ml Flush) 5 ml FLUSH PRN PRN PRN Reason: Flush Stop: 01/19/21 10:45 Last Admin: 12/20/20 10:56 Dose: 5 ml Documented by: Vancomycin HCl 750 mg/ Sodium (Chloride) 265 mls @ 200 mls/hr IV Q12H JESSICA Stop: 12/22/20 07:59 Last Admin: 12/20/20 20:42 Dose: 200 mls/hr Documented by: Cefepime HCl 2,000 mg/ Syringe 20 mls @ 5 mls/min IV Q8H [facility]; Protocol Stop: 12/22/20 03:59 Last Admin: 12/20/20 20:41 Dose: 5 mls/min Documented by: Losartan Potassium (Losartan Potassium 50 Mg Tab) 100 mg PO QAM [facility] Stop: 01/19/21 08:59 Last Admin: 12/20/20 07:46 Dose: 100 mg Documented by: Metoprolol Succinate (Metoprolol Succ 25mg Ext Rel Tab) 75 mg PO QAM [facility] Stop: 01/19/21 08:59 Last Admin: 12/20/20 07:46 Dose: 75 mg Documented by: Miscellaneous Information (Vancomycin Consult Active) 1 ea N/A UD PRN PRN Reason: Consult Stop: 01/18/21 18:56 Miscellaneous Information (Cefepime Consult Active) 0 ea N/A UD PRN PRN Reason: Consult Stop: 01/18/21 23:28 PG Care Time/CCT Total # of Minutes Spent Total Time Spent with Patient: Total time spent is greater than 50% in coordination of care (as documented) at patient's floor/unit and/or counseling patient: Coding Level of Care Code 31306 Subseq Hosp Care Lvl 2 Diagnoses Weakness R53.1 Leucocytosis D72.829 Thrombocytopenia D69.6 Hypertension I10 Rectal cancer C20 Lymphoma C85.90 Lymphoma site: unspecified region Lymphoma type: unspecified type Pulmonary fibrosis, unspecified J84.10 Chronic respiratory failure with hypoxia J96.11 Bacteremia R78.81 (1) Lymphoma Lymphoma site: unspecified region Lymphoma type: unspecified type Qualified Code(s): C85.90 - Non-Hodgkin lymphoma, unspecified, unspecified site
[2020-12-21] MEDS: CEFEPIME 2,000 MG in SYRINGE 0 ML IV SCH ×3 (04:39→19:43)
[2020-12-21] MEDS: HEPARIN 100 UNIT/ML 5ML FLUSH FLUSH PRN ×4 (04:39→21:23)
[2020-12-21] MEDS ORDERED: VANCOMYCIN TROUGH ONE (07:30)
[2020-12-21] MEDS: VANCOMYCIN HCL 750 MG in SODIUM CHLORIDE 0.9% 250 ML IV SCH ×2 (08:04→19:55)
[2020-12-21] MEDS: amLODIPine BESYLATE 5 MG TAB PO SCH (08:05)
[2020-12-21] MEDS: ASPIRIN 81 MG ECTAB PO SCH (08:05)
[2020-12-21] MEDS: LOSARTAN POTASSIUM 50 MG TAB PO SCH (08:05)
[2020-12-21] MEDS: METOPROLOL SUCC 25MG EXT REL TAB PO SCH (08:06)
[2020-12-21 08:46] LABS: Hematocrit (blood only) 26.9 % (42-52); Hemoglobin 8.4 g/dL (14.0-18.0); Mean Corpuscular Hgb Conc 31.2 g/dL (32-36); Mean Corpuscular Volume 92.8 fL (80-100); Mean Platelet Volume 11.5 fL (7.4-10.4); RDW Coefficient of Variation 15.9 % (11.5-14.5); RDW Standard Deviation 53.7 fL (36.4-46.3); White Blood Count 1.25 K/uL (4.8-10.8)
[2020-12-21 08:49] LABS: BUN Creatinine Ratio 28.9 (10-20); Calcium 8.3 mg/dl (8.5-10.1); Creatinine Clr Calc Pharmacy 69.7 ml/min; Est GFR (African American) 97.5 ml/min; Est GFR (Non-African American) 84.1 ml/min; Potassium 2.9 mmol/L (3.5-5.1)
[2020-12-21 09:02] LABS: Platelet Count 27 K/uL (130-400)
[2020-12-21 09:03] LABS: ALC (manual) 0.09 K/uL (1.2-3.4); ANC (manual) 1.08 K/uL (1.4-6.5); Eosinophils # (manual) 0.08 K/uL (0-0.5); Eosinophils % (manual) 6.1 %; Lymphocytes # (manual) 0.09 K/uL (1.2-3.4); Monocytes # (manual) 0.01 K/uL (0.11-0.59); Monocytes % (manual) 0.9 %; Neutrophils # (manual) 1.08 K/uL (1.4-6.5); Platelet Estimate SIGNIFIC DECREASED (Normal)
--- NOTE | 2020-12-21 09:21 | Pharmacy Report ---
Pharmacy Vanc AUC Short Note - Date of Service December 21, 2020 - Assessment & Plan Assessment 85 year old M receiving vancomycin for treatment of positive blood cultures. Pertinent microbiologic data includes: blood culture (12/19) culture growing Staph species. Serology is negative for MSSA or MRSA. Day # 3 of antimicrobial therapy. Plan Vancomycin * AUC/KANIKA is the preferred PK/PD target for vancomycin * AUC guided dosing is effective and associated with decreased risk of nephrotoxicity compared to traditional trough targets * Trough level of 13.2 mcg/mL is predicted to achieve target AUC/KANIKA of 400-600 mg/L.hr and may be associated with a 11 % risk of nephrotoxicity * Continue dose of 750 mg IV every 12 hours * Trough to be ordered based upon clinical picture Pharmacy will continue to follow and will adjust dose/frequency as necessary. Thank you.
[2020-12-21] MEDS ORDERED: MAGNESIUM SULFATE / D5W 1 GM/100 ML BAG IV ONE (10:10)
[2020-12-21] MEDS: POTASSIUM CHLORIDE CRTAB 20 MEQ TABCR PO SCH ×2 (10:59→19:58)
--- NOTE | 2020-12-21 17:18 | Hospitalist Progress Note ---
Date of Service December 21, 2020 Assessment & Plan (1) Weakness: Plan: Most likely chemotherapy induced, hemoglobin is dropping lowered to 8.4 May also be related to hypokalemia which is being replaced PT/OT consulted-recommend rehab if weakness not improving by the time of discharge Encouraged continued p.o. intake (2) Bacteremia: Plan: Cultures from admission with 1 of 4 sets positive, aerobic, Staphylococcus species, PCR is negative for MSSA or MRSA Repeat blood cultures-no growth to date on 12/21 Most likely a contaminant, remains afebrile continue both Vanco and Cefepime for now, but can discontinue cefepime tomorrow if original cultures remain negative for gram-negative rods. Continue vancomycin until repeat blood cultures are no growth to date x48 hours WBC down to normal from 26k (leukocytosis could have been due to Prednisone and Udencya) consult ID-pending no obvious source of infection (3) Leucocytosis: Plan: Suspect secondary to Udencya + prednisone Now resolved Could be due to bacteremia if applicable species in blood turns out to not be a contaminant (4) Pancytopenia due to antineoplastic chemotherapy: Plan: All cell line counts continue to drop today, secondary to recent chemotherapy Transfusional support as needed if hemoglobin drops less than 8 or if platelets less than 15,000 or has bleeding before then Follow CBC (5) Hypokalemia: Plan: Potassium level down to 2.9 today, unclear reason as he reports that he is eating and drinking well Replace with potassium chloride 40 mEq p.o. twice daily today Follow BMP and magnesium in the morning Also give 1 g magnesium sulfate (6) Thrombocytopenia: Plan: Suspect secondary to his R-CHOP chemotherapy. Will hold off anticoagulation for VTE Prophylaxis while Plt < 50. plts down further to 27 k today Hold aspirin (7) Hypertension: Plan: Blood pressures are normal to low normal Continue his routine amlodipine losartan and metoprolol with hold parameters (8) Rectal cancer: Plan: Underwent chemoradiation with Xeloda on 05/24, completed 07/24, deemed unresectable (9) Lymphoma: Plan: Now finished R-chop therapy as above Follow blood counts and transfuse as needed (10) Pulmonary fibrosis, unspecified: Plan: Baseline 3LPM O2. Do not suspect exacerbation of this currently he is on 5L, no distress-could probably be weaned down (11) Chronic respiratory failure with hypoxia: Plan: Baseline 3LPM O2 as above Plan: VTE Prophylaxis - SCDs, chemical deferred due to thrombocytopenia Diet - regular, boost nutrition drinks per dietary recommendations Disposition -, but can downgrade to medical/surgical floor Admission and Anticipated Discharge Date Admission Date: December 19, 2020 Subjective Patient reports feeling better today than yesterday. He is little bit stronger. Denies chest pains or shortness of breath, no cough, no abdominal pain or nausea. He has not moved his bowels in 3 or 4 days. He is eating well and drinking, making urine. He remains afebrile. Telemetry with normal sinus rhythm with rates in the 70s and PVCs. Review of Systems Review of Systems: All systems reviewed & are unremarkable except as noted in HPI & below (no bleeding from anywhere) Physical Exam Constitutional: WD/WN, vitals as above Eyes: PERRL, conjunctivae normal, anicteric sclerae ENMT: external ear and nose normal, oropharynx normal Neck: trachea midline, no thyromegaly Respiratory: normal respiratory effort, lungs clear to auscultation Cardiovascular: RRR, no murmur, no edema Chest (Breasts): Chest: normal inspection of chest Gastrointestinal (Abdomen): normal bowel sounds, soft, nontender, no hepatosplenomegaly Musculoskeletal: Extremities: extremities normal to inspection; no cyanosis and no clubbing Skin: no rashes, warm and dry Neurologic: moves all extremities and awake; no focal motor deficits Psychiatric: A+Ox3, euthymic affect Lymphatic: no lymphedema Results & Data Results & Data ([facility]) Vital Signs (Past 12 Hours) Vital Signs Temp Pulse Pulse Resp BP Pulse Ox 12/21/20 15:19 36.8 C 84 20 100/57 L 100 12/21/20 14:19 77 12/21/20 11:16 36.8 C 80 17 124/78 96 12/21/20 07:48 37.0 C 83 18 121/72 98 12/21/20 06:17 72 Laboratory Results 12/21/20 12/21/20 12/21/20 Range/Units 07:41 07:41 07:41 WBC 1.25 L (4.8-10.8) K/uL RBC 2.90 L (4.7-6.1) M/uL Hgb 8.4 L (14.0-18.0) g/dL Hct 26.9 L (42-52) % MCV 92.8 (80-100) fL MCH 29.0 (25-34) pg MCHC 31.2 L (32-36) g/dL RDW Std Deviation 53.7 H (36.4-46.3) fL RDW Coeff of Bello 15.9 H (11.5-14.5) % Plt Count 27 L* (130-400) K/uL MPV 11.5 H (7.4-10.4) fL Neutrophils % (Manual) 86.0 % Lymphocytes % (Manual) 7.0 % Monocytes % (Manual) 0.9 % Eosinophils % (Manual) 6.1 % Neutrophils # (Manual) 1.08 L (1.4-6.5) K/uL Total Absolute Neuts 1.08 L (1.4-6.5) K/uL Lymphocytes # (Manual) 0.09 L (1.2-3.4) K/uL Total Abs Lymphocytes 0.09 L (1.2-3.4) K/uL Monocytes # (Manual) 0.01 L (0.11-0.59) K/uL Eosinophils # (Manual) 0.08 (0-0.5) K/uL Hypersegmented Neuts 1+ Platelet Estimate SIGNIFIC DECREASED (Normal) Sodium 143 (136-145) mmol/L Potassium 2.9 L D (3.5-5.1) mmol/L Chloride 107 (98-107) mmol/L Carbon Dioxide 32 (21-32) mmol/L Anion Gap 5.0 (3-11) BUN 22 H (7-18) mg/dl Creatinine 0.74 (0.6-1.4) mg/dl Est Cr Clr Drug Dosing 69.7 ml/min Est GFR ( Amer) 97.5 ml/min Est GFR (Non-Af Amer) 84.1 ml/min BUN/Creatinine Ratio 28.9 H (10-20) Glucose 160 H (70-99) mg/dl Calcium 8.3 L (8.5-10.1) mg/dl Vancomycin Trough 13.2 (See Comment) mcg/ml PG Care Time/CCT Total # of Minutes Spent Total Time Spent with Patient: Total time spent is greater than 50% in coordination of care (as documented) at patient's floor/unit and/or counseling patient: Coding Level of Care Code 84651 Subseq Hosp Care Lvl 3 Diagnoses Bacteremia R78.81 Weakness R53.1 Leucocytosis D72.829 Thrombocytopenia D69.6 Hypertension I10 Rectal cancer C20 Lymphoma C85.90 Lymphoma site: unspecified region Lymphoma type: unspecified type Pulmonary fibrosis, unspecified J84.10 Chronic respiratory failure with hypoxia J96.11 Hypokalemia E87.6 Pancytopenia due to antineoplastic chemotherapy D61.810; T45.1X5A (1) Lymphoma Lymphoma site: unspecified region Lymphoma type: unspecified type Qualified Code(s): C85.90 - Non-Hodgkin lymphoma, unspecified, unspecified site
[2020-12-21] MEDS ORDERED: ALBUTEROL HFA 8 GM INHALER INH PRN (17:55)
[2020-12-21] MEDS: ATORVASTATIN 40 MG TAB PO SCH (21:26)
[2020-12-22] MEDS: HEPARIN 100 UNIT/ML 5ML FLUSH FLUSH PRN ×4 (08:20→22:28)
[2020-12-22] MEDS: amLODIPine BESYLATE 5 MG TAB PO SCH (08:35)
[2020-12-22] MEDS: LOSARTAN POTASSIUM 50 MG TAB PO SCH (08:36)
[2020-12-22] MEDS: METOPROLOL SUCC 25MG EXT REL TAB PO SCH (08:36)
[2020-12-22] MEDS: VANCOMYCIN HCL 750 MG in SODIUM CHLORIDE 0.9% 250 ML IV SCH ×2 (08:43→20:55)
[2020-12-22 09:25] LABS: Mean Platelet Volume 11.9 fL (7.4-10.4); Platelet Count 24 K/uL (130-400)
[2020-12-22 09:27] LABS: Hematocrit (blood only) 23.6 % (42-52); Hemoglobin 7.4 g/dL (14.0-18.0); Mean Corpuscular Hgb Conc 31.4 g/dL (32-36); Mean Corpuscular Volume 92.5 fL (80-100); RDW Coefficient of Variation 15.5 % (11.5-14.5); Red Blood Count 2.55 M/uL (4.7-6.1); White Blood Count 0.19 K/uL (4.8-10.8)
[2020-12-22 09:37] LABS: BUN Creatinine Ratio 30.3 (10-20); Calcium 8.2 mg/dl (8.5-10.1); Creatinine Clr Calc Pharmacy 72.6 ml/min; Est GFR (African American) 99.2 ml/min; Est GFR (Non-African American) 85.6 ml/min; Potassium 3.3 mmol/L (3.5-5.1)
[2020-12-22] MEDS ORDERED: POTASSIUM CHLORIDE CRTAB 20 MEQ TABCR PO STA (09:40)
[2020-12-22] MEDS ORDERED: SODIUM CHLORIDE 0.9% 250 ML IV PRN (09:43)
[2020-12-22] MEDS ORDERED: INFLUENZA VACCINE HIGH DOSE PF 65+ 0.7 ML SYR IM ONE (12:00)
--- NOTE | 2020-12-22 12:22 | Hospitalist Progress Note ---
Date of Service December 22, 2020 Assessment & Plan (1) Weakness: Plan: Most likely chemotherapy induced, hemoglobin is dropping even lower down to 7.4 today and he is feeling worse May also be related to hypokalemia which is still being replaced PT/OT consulted-recommend rehab if weakness not improving by the time of discharge-we will have to reassess after blood transfusion Encouraged continued p.o. intake (2) Bacteremia: Plan: Cultures from admission with 1 of 4 sets positive, aerobic, Staphylococcus species, PCR is negative for MSSA or MRSA Repeat blood cultures-no growth to date from 12/21 Most likely a contaminant, remains afebrile We will now discontinue Vanco and Cefepime WBC was 26k on admission (leukocytosis could have been due to Prednisone and Udencya) and he now has leukopenia consult ID-pending no obvious source of infection (3) Leucocytosis: Plan: Suspect secondary to Udencya + prednisone Now resolved and actually with leukopenia secondary to chemotherapy (4) Pancytopenia due to antineoplastic chemotherapy: Plan: All cell line counts continue to drop today, secondary to recent chemotherapy on 12/15 We will provide transfusional support today with 1 unit PRBCs as hemoglobin dropped down to 7.4 -Transfuse platelets if less than 15,000 or has bleeding before then-of note, he does have an endovascular leak from his AAA that is known and followed by vascular surgery Consider repeat imaging of the abdomen if develops abdominal pain or hemoglobin drops more than expected Follow CBC (5) Hypokalemia: Plan: Potassium level down to 2.9 for unclear reason as he reports that he is eating and drinking well Improved somewhat but still mildly low today after replacement Give another potassium chloride 40 mEq p.o. x1 Replace with potassium chloride 40 mEq p.o. twice daily today Follow BMP and magnesium in the morning (6) Thrombocytopenia: Plan: Suspect secondary to his R-CHOP chemotherapy. Will hold off anticoagulation for VTE Prophylaxis while Plt < 50. plts stabilized today at 24K Continue to hold aspirin (7) Hypertension: Plan: Blood pressures are normal to low normal Continue his routine amlodipine losartan and metoprolol with hold parameters (8) Rectal cancer: Plan: Underwent chemoradiation with Xeloda on 05/24, completed 07/24, deemed unr esectable (9) Lymphoma: Plan: Now finished R-chop therapy as above Follow blood counts and transfuse as needed (10) Pulmonary fibrosis, unspecified: Plan: Baseline 3LPM O2. Do not suspect exacerbation of this currently he is on 5L, no distress-could probably be weaned down (11) Chronic respiratory failure with hypoxia: Plan: Baseline 3LPM O2 as above (12) History of abdominal aortic aneurysm (AAA): Plan: With type II endovascular leak noted on vascular surgery notes from 09/2020 Plan is to repeat duplex of the aorta in 6 months unless he develops symptoms of worsening week before then such as abdominal pain, sudden pain in the lower extremities, blue toes, etc. CT abdomen/pelvis in 10/27/2020 showed abdominal aortic aneurysm sac was similar in size to previous, however did show a large leak Will discuss with his vascular surgeon, Dr. Rapp to see if any role to repeat imaging of the abdomen now as his platelet count is low and hemoglobin dropping Plan: VTE Prophylaxis - SCDs, chemical deferred due to thrombocytopenia Diet - regular, boost nutrition drinks per dietary recommendations Disposition-continued stay on medical/surgical floor, will need repeat PT/OT evaluation tomorrow to see if needs SNF versus home with home health. He does live alone but his daughters live nearby and come to check on him every day Admission and Anticipated Discharge Date Admission Date: December 19, 2020 Subjective Patient feeling weaker today. No abdominal pains, no chest pains. His daughter was at the bedside. We discussed the history of his AAA and multiple repairs. Remains afebrile. Review of Systems Review of Systems: All systems reviewed & are unremarkable except as noted in HPI & below Physical Exam Constitutional: + thin; no acute distress Neck: trachea midline, no thyromegaly Respiratory: normal respiratory effort Auscultation: + crackles (Bibasilar); no wheezes Cardiovascular: RRR, no murmur, no edema Chest (Breasts): Chest: normal inspection of chest Gastrointestinal (Abdomen): normal bowel sounds, soft, nontender, no hepatosplenomegaly Percussion/Palpation: no abdominal mass Musculoskeletal: Extremities: extremities normal to inspection; no cyanosis and no clubbing Skin: no rashes, warm and dry Neurologic: moves all extremities and awake; no focal motor deficits Psychiatric: A+Ox3, euthymic affect Lymphatic: no lymphedema Results & Data Results & Data ([facility]) Vital Signs (Past 12 Hours) Vital Signs Temp Pulse Pulse Resp BP BP Pulse Ox 12/22/20 11:54 36.5 C 80 18 104/64 94 12/22/20 11:39 37.0 C 86 18 97/58 L 90 12/22/20 11:19 36.8 C 88 18 92/55 L 97 12/22/20 07:57 36.7 C 78 16 113/64 100 Laboratory Results 12/22/20 08:21 12/22/20 08:21 PG Care Time/CCT Total # of Minutes Spent Total Time Spent with Patient: Total time spent is greater than 50% in coordination of care (as documented) at patient's floor/unit and/or counseling patient: Coding Level of Care Code 72632 Subseq Hosp Care Lvl 3 Diagnoses Weakness R53.1 Bacteremia R78.81 Leucocytosis D72.829 Pancytopenia due to antineoplastic chemotherapy D61.810; T45.1X5A Hypokalemia E87.6 Thrombocytopenia D69.6 Hypertension I10 Rectal cancer C20 Lymphoma C85.90 Lymphoma site: unspecified region Lymphoma type: unspecified type Pulmonary fibrosis, unspecified J84.10 Chronic respiratory failure with hypoxia J96.11 History of abdominal aortic aneurysm (AAA) Z86.79 (1) Lymphoma Lymphoma site: unspecified region Lymphoma type: unspecified type Qualified Code(s): C85.90 - Non-Hodgkin lymphoma, unspecified, unspecified site
[2020-12-22] MEDS: ATORVASTATIN 40 MG TAB PO SCH (21:04)
[2020-12-23 06:58] LABS: Hematocrit (blood only) 26.5 % (42-52); Hemoglobin 8.5 g/dL (14.0-18.0); Mean Corpuscular Hgb Conc 32.1 g/dL (32-36); Mean Corpuscular Volume 90.4 fL (80-100); Platelet Count 26 K/uL (130-400); RDW Coefficient of Variation 15.1 % (11.5-14.5); RDW Standard Deviation 50.4 fL (36.4-46.3); Red Blood Count 2.93 M/uL (4.7-6.1); White Blood Count 0.21 K/uL (4.8-10.8)
[2020-12-23 07:04] LABS: BUN Creatinine Ratio 26.8 (10-20); Calcium 8.2 mg/dl (8.5-10.1); Creatinine Clr Calc Pharmacy 74.7 ml/min; Est GFR (African American) 100.3 ml/min; Est GFR (Non-African American) 86.6 ml/min; Magnesium 1.4 mg/dl (1.8-2.4); Potassium 3.6 mmol/L (3.5-5.1)
[2020-12-23] MEDS: VANCOMYCIN HCL 750 MG in SODIUM CHLORIDE 0.9% 250 ML IV SCH ×2 (08:23→21:06)
[2020-12-23] MEDS ORDERED: POTASSIUM CHLORIDE CRTAB 20 MEQ TABCR PO STA (09:18)
[2020-12-23] MEDS: METOPROLOL SUCC 25MG EXT REL TAB PO SCH (09:27)
[2020-12-23] MEDS ORDERED: FILGRASTIM 480 MCG/1.6 ML VIAL SC ONE (09:30)
[2020-12-23] MEDS: HEPARIN 100 UNIT/ML 5ML FLUSH FLUSH PRN ×3 (10:08→22:59)
[2020-12-23] MEDS: MAGNESIUM SULFATE / D5W 1 GM/100 ML BAG IV SCH ×2 (11:04→13:19)
--- NOTE | 2020-12-23 12:06 | Hospitalist Progress Note ---
Date of Service December 23, 2020 Assessment & Plan (1) Weakness: Plan: Most likely chemotherapy induced, hemoglobin dropped down to 7.4 and he was feeling worse--> now improvement with PRBC transfusion x 1 unit on 12/22 May also be related to hypokalemia which was replaced PT/OT consulted-recommend rehab if weakness not improving by the time of discharge-we will have to reassess after blood transfusion-awaiting re- evaluation but suspect needs rehab and he is agreeable to this Encouraged continued p.o. intake (2) Bacteremia: Plan: Cultures from admission with 1 of 4 sets positive, aerobic, Staphylococcus species, PCR is negative for MSSA or MRSA Repeat blood cultures-no growth to date from 12/21 Most likely a contaminant, remains afebrile Have since discontinued Cefepime ID consult recommends obtaining BCx from port as first set of cultures not labeled as to source--> drawn on 12/22 and NGTD -continue IV Vanco until BCxs neg x 48 hrs from port Port does not appear infected Check ECHO WBC was 26k on admission (leukocytosis could have been due to Prednisone and Udencya) and he now has leukopenia no obvious source of infection (3) Leucocytosis: Plan: Suspect secondary to Udencya + prednisone Now resolved and actually with leukopenia secondary to chemotherapy (4) Pancytopenia due to antineoplastic chemotherapy: Plan: All cell line counts continued to drop, secondary to recent chemotherapy on 12/15 received 1 unit PRBC 12/22 and hgb up to 8.5 today Plts remain low but stable at 26k and no bleeding -Transfuse platelets if less than 15,000 or has bleeding before then-of note, he does have an endovascular leak from his AAA that is known and followed by vascular surgery--> discussed case with Vascular Surgery PA who said he is not considered to be bleeding from this type of leak and does not need platelet transfusion for this Consider repeat imaging of the abdomen if develops abdominal pain or other symptoms of enlarging AAA sac -give Neupogen 480mcg SQ x 1 today as per my d/w Dr. Richardson Follow CBC (5) Hypokalemia: Plan: Potassium level down to 2.9 for unclear reason as he reports that he is eating and drinking well Improved now after replacement Follow BMP and magnesium in the morning (6) Thrombocytopenia: Plan: Suspect secondary to his R-CHOP chemotherapy. Will hold off anticoagulation for VTE Prophylaxis while Plt < 50. plts stabilized today at 26K Continue to hold aspirin (7) Hypertension: Plan: Blood pressures are normal to low normal HOLD amlodipine and losartan and continue metoprolol with hold parameters (8) Rectal cancer: Plan: Underwent chemoradiation with Xeloda on 05/24, completed 07/24, deemed unresectable (9) Lymphoma: Plan: Now finished R-chop therapy as above Follow blood counts and transfuse as needed f/u with Oncology after discharge (10) Pulmonary fibrosis, unspecified: Plan: Baseline 3LPM O2. Do not suspect exacerbation of this currently he is on 5L, no distress-could probably be weaned down (11) Chronic respiratory failure with hypoxia: Plan: Baseline 3LPM O2 as above (12) History of abdominal aortic aneurysm (AAA): Plan: With type II endovascular leak noted on vascular surgery notes from 09/2020 Plan is to repeat duplex of the aorta in 6 months unless he develops symptoms of worsening week before then such as abdominal pain, sudden pain in the lower extremities, blue toes, etc. CT abdomen/pelvis in 10/27/2020 showed abdominal aortic aneurysm sac was similar in size to previous, however did show a large leak I did discuss with his vascular surgeon PA as above, no eval needed at this time as is asymptomatic Plan: VTE Prophylaxis - SCDs, chemical deferred due to thrombocytopenia and AAA with endovascular leak Diet - regular, boost nutrition drinks per dietary recommendations Disposition-continued stay on medical/surgical floor, will need repeat PT/OT evaluation today but likely needs acute rehab-discussed [facility] Assistant Curator Admission and Anticipated Discharge Date Admission Date: December 19, 2020 Subjective Pt reports feeling a little better today but still very weak all over, is agreeable to rehab placement. He is eating and drinking , moving his bowels No abd pain or foot pain Review of Systems Review of Systems: All systems reviewed & are unremarkable except as noted in HPI & below Physical Exam Constitutional: WD/WN, vitals as above + thin; no acute distress Neck: trachea midline, no thyromegaly Respiratory: normal respiratory effort Auscultation: + crackles (Bibasilar); no wheezes Cardiovascular: RRR, no murmur, no edema Chest (Breasts): Chest: normal inspection of chest Gastrointestinal (Abdomen): normal bowel sounds, soft, nontender, no hepatosplenomegaly Percussion/Palpation: no abdominal mass Musculoskeletal: Extremities: extremities normal to inspection; no cyanosis and no clubbing Skin: no rashes, warm and dry Neurologic: moves all extremities and awake; no focal motor deficits Psychiatric: A+Ox3, euthymic affect Lymphatic: no lymphedema Results & Data Results & Data ([facility]) Vital Signs (Past 12 Hours) Vital Signs Temp Pulse Resp BP Pulse Ox 12/23/20 09:10 93 H 101/68 12/23/20 08:39 95 12/23/20 08:38 100 H 105/71 88 L 12/23/20 07:24 37.1 C 89 18 100/56 L 98 Laboratory Results 12/23/20 12/23/20 12/22/20 Range/Units 06:03 06:03 10:10 WBC 0.21 L* (4.8-10.8) K/uL RBC 2.93 L (4.7-6.1) M/uL Hgb 8.5 L (14.0-18.0) g/dL Hct 26.5 L (42-52) % MCV 90.4 (80-100) fL MCH 29.0 (25-34) pg MCHC 32.1 (32-36) g/dL RDW Std Deviation 50.4 H (36.4-46.3) fL RDW Coeff of Bello 15.1 H (11.5-14.5) % Plt Count 26 L* (130-400) K/uL MPV 12.0 H (7.4-10.4) fL Immature Gran % (Auto) Cancelled Neut % (Auto) Cancelled Lymph % (Auto) Cancelled Towns % (Auto) Cancelled Eos % (Auto) Cancelled Baso % (Auto) Cancelled Neut # (Auto) Cancelled Lymph # (Auto) Cancelled Towns # (Auto) Cancelled Eos # (Auto) Cancelled Baso # (Auto) Cancelled Immature Gran # (Auto) Cancelled Neutrophils % (Manual) Cancelled Band Neutrophils % Cancelled Lymphocytes % (Manual) Cancelled Prolymphocyte % Cancelled Reactive Lymphs % (Man) Cancelled Monocytes % (Manual) Cancelled Eosinophils % (Manual) Cancelled Basophils % (Manual) Cancelled Metamyelocytes % (Man) Cancelled Myelocytes % (Man) Cancelled Promyelocytes % (Man) Cancelled Blast Cells % (Manual) Cancelled Plasma Cell % (Manual) Cancelled Other Cells % Cancelled Nucleated RBC % Cancelled Neutrophils # (Manual) Cancelled Band Neutrophils # Cancelled Total Absolute Neuts Cancelled Lymphocytes # (Manual) Cancelled Prolymphocyte # Cancelled Reactive Lymphs # Cancelled Total Abs Lymphocytes Cancelled Monocytes # (Manual) Cancelled Eosinophils # (Manual) Cancelled Basophils # (Manual) Cancelled Metamyelocytes # (Man) Cancelled Myelocytes # (Manual) Cancelled Promyelocytes # (Man) Cancelled Blast Cells # (Man) Cancelled Plasma Cell # (Manual) Cancelled Other Cells # Cancelled Nucleated RBCs # (Man) Cancelled Hypersegmented Neuts Cancelled Hyposegmented Neuts Cancelled Hypogranular Neuts Cancelled Large Granular Lymphs Cancelled # Lrg Granular Lymphs Cancelled Hairy Cells Cancelled Smudge Cells Cancelled Toxic Granulation Cancelled Toxic Vacuolation Cancelled Dohle Bodies Cancelled Emanuel Rods Cancelled Hypogranular Platelets Cancelled Clumped Platelets Cancelled Giant Platelets Cancelled Platelet Satelliting Cancelled RBC Morphology Cancelled Polychromasia Cancelled Hypochromasia Cancelled Poikilocytosis Cancelled Basophilic Stippling Cancelled Anisocytosis Cancelled Microcytosis Cancelled Macrocytosis Cancelled Spherocytes Cancelled Pappenheimer Bodies Cancelled Sickle Cells Cancelled Target Cells Cancelled Tear Drop Cells Cancelled Ovalocytes Cancelled Stomatocytes Cancelled [place] Bodies Cancelled Echinocytes Cancelled Acanthocytes (Spur) Cancelled Rouleaux Cancelled RBC Agglutinates Cancelled Schistocytes Cancelled RBC Morph Comment Cancelled Sezary Cell Cancelled Sodium 138 (136-145) mmol/L Potassium 3.6 (3.5-5.1) mmol/L Chloride 104 (98-107) mmol/L Carbon Dioxide 33 H (21-32) mmol/L Anion Gap 1.0 L (3-11) BUN 18 (7-18) mg/dl Creatinine 0.69 (0.6-1.4) mg/dl Est Cr Clr Drug Dosing 74.7 ml/min Est GFR ( Amer) 100.3 ml/min Est GFR (Non-Af Amer) 86.6 ml/min BUN/Creatinine Ratio 26.8 H (10-20) Glucose 122 H (70-99) mg/dl Calcium 8.2 L (8.5-10.1) mg/dl Magnesium 1.4 L (1.8-2.4) mg/dl Crossmatch See Detail PG Care Time/CCT Total # of Minutes Spent Total Time Spent with Patient: Total time spent is greater than 50% in coordination of care (as documented) at patient's floor/unit and/or counseling patient: Coding Level of Care Code 92136 Subseq Hosp Care Lvl 2 Diagnoses Weakness R53.1 Bacteremia R78.81 Leucocytosis D72.829 Pancytopenia due to antineoplastic chemotherapy D61.810; T45.1X5A Hypokalemia E87.6 Thrombocytopenia D69.6 Hypertension I10 Rectal cancer C20 Lymphoma C85.90 Lymphoma site: unspecified region Lymphoma type: unspecified type Pulmonary fibrosis, unspecified J84.10 Chronic respiratory failure with hypoxia J96.11 History of abdominal aortic aneurysm (AAA) Z86.79 (1) Lymphoma Lymphoma site: unspecified region Lymphoma type: unspecified type Qualified Code(s): C85.90 - Non-Hodgkin lymphoma, unspecified, unspecified site
--- NOTE | 2020-12-23 15:01 | XCELERA ---
[id number]
[2020-12-23] MEDS ORDERED: VANCOMYCIN TROUGH ONE (19:30)
[2020-12-23] MEDS: LOSARTAN POTASSIUM 50 MG TAB PO SCH (20:32)
[2020-12-23] MEDS: amLODIPine BESYLATE 5 MG TAB PO SCH (20:32)
[2020-12-23] MEDS: ATORVASTATIN 40 MG TAB PO SCH (21:07)
--- NOTE | 2020-12-23 21:46 | Pharmacy Report ---
Pharmacy Abx Dose Short Note - Date of Service December 23, 2020 - Assessment & Plan Assessment * 85 year old M receiving VANCOMYCIN IV for treatment of CoN staph bacteremia possible port infection * 1 bottle of 1 set of BLCXs from 12/19 growing CoN staph not lungdunensis, repeat cx's from 12/21 showing no growth to date * Today is Day # 4 IV vanco * Renal fxn stable Plan Vancomycin * Trough level of 22.5 mcg/mL is supratherapeutic. Level was drawn at the appropriate time. Prior dose hung on schedule * Will change dose to 1000mg IV Q 18 hours * New maint dose should prodcue a trough of 15-20 and AUC/KANIKA of ~519 * Will recheck level in 2-3 days if therapy to continue Pharmacy will continue to follow and will adjust dose/frequency as necessary. Thank you.
[2020-12-23 22:35] VITALS: O2SAT 92
[2020-12-24 07:08] VITALS: TEMP 97.7
[2020-12-24] MEDS ORDERED: VANCOMYCIN TROUGH ONE (07:30)
[2020-12-24 09:32] VITALS: BP 93/56; PULSE 93
[2020-12-24] MEDS: METOPROLOL SUCC 25MG EXT REL TAB PO SCH (09:32)
[2020-12-24 09:33] LABS: Hematocrit (blood only) 26.5 % (42-52); Hemoglobin 8.4 g/dL (14.0-18.0); Mean Corpuscular Hgb Conc 31.7 g/dL (32-36); Mean Corpuscular Volume 91.4 fL (80-100); RDW Coefficient of Variation 15.3 % (11.5-14.5); RDW Standard Deviation 50.9 fL (36.4-46.3); White Blood Count 1.19 K/uL (4.8-10.8)
[2020-12-24 09:34] LABS: Mean Platelet Volume 11.3 fL (7.4-10.4); Platelet Count 36 K/uL (130-400)
[2020-12-24 09:58] LABS: BUN Creatinine Ratio 24.7 (10-20); Calcium 8.3 mg/dl (8.5-10.1); Creatinine Clr Calc Pharmacy 67.8 ml/min; Est GFR (African American) 96.4 ml/min; Est GFR (Non-African American) 83.2 ml/min; Magnesium 1.9 mg/dl (1.8-2.4); Potassium 3.8 mmol/L (3.5-5.1)
[2020-12-24 10:26] LABS: Toxic Granulation 2+
[2020-12-24 10:49] LABS: ALC (manual) 0.12 K/uL (1.2-3.4); Basophils # (manual) 0.05 K/uL (0-0.2); Basophils % (manual) 4.4 %; Eosinophils # (manual) 0.05 K/uL (0-0.5); Eosinophils % (manual) 4.4 %; Lymphocytes # (manual) 0.12 K/uL (1.2-3.4); Lymphocytes % (manual) 10.5 %; Metamyelocytes # (manual) 0.01 K/uL (0-0); Metamyelocytes % (manual) 0.9 %; Monocytes # (manual) 0.15 K/uL (0.11-0.59); Monocytes % (manual) 12.3 %; Neutrophils % (manual) 67.5 %
--- NOTE | 2020-12-24 13:46 | Discharge Summary ---
Date of Service December 24, 2020 Admission HPI Per Admitting Provider Josiah Estrada is an 85 year old male with pulmonary fibrosis, rectal cancer and B cell lymphoma who presents to the ER with generalized weakness and fatigue. patient seen in the ER with his daughter who provides the majority of his history. He was seen by his oncologist 4 days ago for the same and was felt to be secondary to anemia from the chemotherapy but despite 2 units RBC transfusion he feels no better than before and his generalized weakness and fatigue have become worse. he has a left sided mediport in place for his chemotherapy. He is currently undergoing R-CHOP chemotherapy for the B cell lymphoma after prior chemoradiation for his rectal cancer in May to July this year. Started R-CHOP in August and had his last cycle this week. He receives Udenyca the day after he finished chemotherapy (he thinks , 2 days ago). He also takes prednisone 100mg PO after the chemotherapy but reports his last dose of that was today. He denies any fever, chills, change in hearing, vision, speech or one sided weaknses. No change in his peripheral neuropathy. No diarrhea, abdominal pain, nausea, vomiting, nasal congestion, sinus pain or urinary symptoms. He has a chronic cough with his pulmonary fibrosis but it is no worse than usual. Mainly weakn in upper > lower limbs but also having difficulty walking. Usually uses a cane to walk. Principal Diagnosis Generalized weakness, Pancytopenia secondary to antineoplastic therapy Discharge Exam Constitutional WD/WN, vitals as above + thin; no acute distress Neck trachea midline, no thyromegaly Respiratory normal respiratory effort Auscultation: + crackles (Bibasilar); no wheezes Cardiovascular RRR, no murmur, no edema Chest (Breasts) Chest: normal inspection of chest Gastrointestinal (Abdomen) normal bowel sounds, soft, nontender, no hepatosplenomegaly Percussion/Palpation: no abdominal mass Musculoskeletal Extremities: extremities normal to inspection; no cyanosis and no clubbing Skin no rashes, warm and dry Neurologic moves all extremities and awake; no focal motor deficits Psychiatric A+Ox3, euthymic affect Lymphatic no lymphedema Discharge Data Allergies Allergy/AdvReac Type Severity Reaction Status Date / Time No Known Allergies Allergy Verified 12/19/20 15:01 Consultations 12/19/20 15:04 ED Decision to Admit Stat 12/20/20 22:01 Consult Infectious Diseases Routine Hospital Course (1) Weakness: Most likely chemotherapy induced, hemoglobin dropped down to 7.4 and he was feeling worse--> now improvement with PRBC transfusion x 1 unit on 12/22 May also be related to hypokalemia which was replaced PT/OT consulted-recommend rehab as weakness not improved (2) Bacteremia: Cultures from admission with 1 of 4 sets Coag neg Staphylococcus species, PCR is negative for MSSA or MRSA Repeat blood cultures-no growth to date from 12/21 and a repeat BCx from port on 12/22 also negative rowth to date ECHO without obvious vegetation Port does not appear infected Most likely a contaminant, remains afebrile Have since discontinued Cefepime and now can discontinue Vanco ID consult appreciated WBC was 26k on admission (leukocytosis could have been due to Prednisone and Udencya) and he now has leukopenia no obvious source of infection (3) Leucocytosis: Suspect secondary to Udencya + prednisone Now resolved and actually with leukopenia secondary to chemotherapy (4) Pancytopenia due to antineoplastic chemotherapy: All cell line counts continued to drop, secondary to recent chemotherapy on 12/15 Now counts recovering received 1 unit PRBC 12/22 and hgb up to 8.4 Plts remain low but improving up to 36 on day of discharge--> no bleeding -Transfuse platelets if less than 15,000 or has bleeding before then-of note, he does have an endovascular leak from his AAA that is known and followed by vascular surgery--> discussed case with Vascular Surgery PA who said he is not considered to be bleeding from this type of leak and does not need platelet transfusion for this Consider repeat imaging of the abdomen if develops abdominal pain or other symptoms of enlarging AAA sac -gave Neupogen 480mcg SQ x 1 and WBC count now improving Follow CBC in 2-3 days as outpt Maintain neutropenic precautions (5) Hypokalemia: Potassium level down to 2.9 for unclear reason as he reports that he is eating and drinking well Improved now after replacement (6) Thrombocytopenia: Suspect secondary to his R-CHOP chemotherapy. Will hold off anticoagulation for VTE Prophylaxis while Plt < 50. plts improving as above Continue to hold aspirin until plts>50k (7) Hypertension: Blood pressures are normal to low normal HOLD amlodipine and losartan and continue metoprolol with hold parameters (8) Rectal cancer: Underwent chemoradiation with Xeloda on 05/24, completed 07/24, deemed unresectable (9) Lymphoma: Now finished R-chop therapy as above Follow blood counts and transfuse as needed f/u with Oncology after discharge Pt and family not interested in Palliative Medicine consultation at this time (10) Pulmonary fibrosis, unspecified: Baseline 3LPM O2. Do not suspect exacerbation of this currently he is on 5L, no distress-could probably be weaned down (11) Chronic respiratory failure with hypoxia: Baseline 3LPM O2 as above (12) History of abdominal aortic aneurysm (AAA): With type II endovascular leak noted on vascular surgery notes from 09/2020 Plan is to repeat duplex of the aorta in 6 months(03/2021) unless he develops symptoms of worsening week before then such as abdominal pain, sudden pain in the lower extremities, blue toes, etc. CT abdomen/pelvis in 10/27/2020 showed abdominal aortic aneurysm sac was similar in size to previous, however did show a large leak I did discuss with his vascular surgeon PA as above, no eval needed at this time as is asymptomatic VTE Prophylaxis - SCDs, chemical deferred due to thrombocytopenia and AAA with endovascular leak Diet - regular, boost nutrition drinks per dietary recommendations Disposition-dc to acute rehab Total Time Total Time Spent Total Time Spent (In Minutes): 40 min Discharge Plan Discharge Items Patient Disposition: Transfer Inpatient Rehab Fac Reason For Visit: SIRS, GENERALIZED WEAKNESS Discharge Diagnosis: Generalized weakness, pancytopenia secondary to antineoplastic therapy Condition on Discharge: Fair Activity: As commented below Lifting: Gradually increase as tolerated Bathing: No limitations Exercise/Sports: Gradually increase as tolerated Weightbearing: Full weightbearing Non-emergency contact: Primary Care Provider and Oncologist Call non-emergency contact if: you have any medication questions and your symptoms worsen Follow-up/Referrals: Kiley Azul CRNP [Primary Care Provider] - (Follow up after discharge from rehab.) Diet: Regular Addtl Attending Provider Instructions: Please check a CBC in 2-3 days. Follow up with Oncology within 1 week. Please HOLD your blood pressure medications except for the metoprolol until your blood pressure increases. It is low due to your low blood count. Also, please HOLD your aspirin until your platelets come back up above 50. Pending Studies at Discharge: Yes (Final blood cultures) Stand-Alone Forms: My [facility] Skilled Items Patient informed of condition?: Yes DNR: Yes Discharge Level of Care: Acute rehab Communicable Disease: No Discharge Prognosis: Improving Lines: None Urinary Catheter: No Medications and DC Order Prescriptions: Continued albuterol sulfate [Ventolin HFA] 90 mcg/actuation HFA aerosol inhaler 2 puff INHALATION Q4H PRN (Reason: Shortness Of Breath Or Wheezing) Qty: 6.7 RF: 5 metoprolol succinate 50 mg tablet extended release 24 hr 75 mg PO QAM Qty: 90 RF: 3 atorvastatin 40 mg tablet 40 mg PO PM Qty: 90 RF: 3 Discontinued aspirin [Aspirin Low Dose] 81 mg Tablet,Delayed Release (Dr/Ec) 81 mg PO QAM Qty: 0 RF: 0 losartan 100 mg tablet 100 mg PO QAM Qty: 90 RF: 3 prednisone 20 mg tablet 100 mg PO DAILY RF: 0 amlodipine 2.5 mg tablet 2.5 mg PO DAILY RF: 0 Discharge Orders: Discharge Order (Routine); Ordered 12/24/20 Ordered By: Erlinda Johnson Admission Data Admit Date/Time: 12/19/20 15:34 Attending Provider: Erlinda Johnson Admit Provider: Tano Sanon Primary Care Provider: Kiley Azul Other Providers: Tano Sanon ; Eriberto Astorga ; Daniel Michel ; Tyrone Justice I. ; Kareem Duran II ; Gayle Torres ; Dick Styles ; Cole Velazco ; [facility] Coding Level of Care Code D/C DAY MANAGEMENT >30 MINS Diagnoses Weakness R53.1 Bacteremia R78.81 Leucocytosis D72.829 Pancytopenia due to antineoplastic chemotherapy D61.810; T45.1X5A Hypokalemia E87.6 Thrombocytopenia D69.6 Hypertension I10 Rectal cancer C20 Lymphoma C85.90 Lymphoma site: unspecified region Lymphoma type: unspecified type Pulmonary fibrosis, unspecified J84.10 Chronic respiratory failure with hypoxia J96.11 History of abdominal aortic aneurysm (AAA) Z86.79
[2020-12-24] MEDS ORDERED: VANCOMYCIN HCL 1,000 MG in SODIUM CHLORIDE 0.9% 250 ML IV SCH (14:00)
--- NOTE | 2021-01-08 06:46 | Coding Query ---
PRESENT ON ADMISSION QUERY To promote full compliance with coding requirements relating to pateint care, physician participation is requested in all cases of counter top maker uncertainty. Please assist us with the question(s) below: Please place an X within the parenthesis (x). The following diagnosis listed in this patient's medical record require physician assistance to determine if they were present on admission (POA) or not. Please advise for each diagnosis whether it was present on admission, not present on admission, or if it was clinically undetermined. 1. PANCYTOPENIA (x ) Present On Admission ( ) Not Present On Admission ( ) Clinically Undetermined Thank you Dakota Khanna *Definition of the present on admission (POA)-Present on admission is defined as present at the time the order for inpatient admission occurs. Conditions that develop during an outpatient encounter prior to a written order for inpatient admission (including emergency department, observation, or outpatient surgery) are considered present on admission. VANCED
== END 2020-12-24 16:36 | DRG 809 ==
LOC: ED 12:19 → 2N 15:34 → SUATTDRO 15:34 → 2N 22:22 → 3E 12-21 22:30

== ENCOUNTER 2020-12-24 20:31 | Inpatient (IN) ==
[2020-12-24] MEDS ORDERED: SODIUM CHLORIDE 0.9% 1000ML 2,000 ML IV ONE (20:50)
[2020-12-24] MEDS ORDERED: ACETAMINOPHEN 1,000 MG/100 ML VIAL IV STA (20:50)
[2020-12-24] MEDS ORDERED: CEFEPIME 2,000 MG/20 ML VIAL IV STA (20:52)
[2020-12-24] MEDS ORDERED: VANCOMYCIN CONSULT ACTIVE PRN (20:52)
[2020-12-24] MEDS ORDERED: VANCOMYCIN HCL 1,250 MG in SODIUM CHLORIDE 0.9% 500 ML IV ONE (20:52)
[2020-12-24] MEDS ORDERED: HYDROCORTISONE SOD SUCCINATE 100 MG/2 ML VIAL IV STA (21:07)
[2020-12-24 21:11] LABS: Hematocrit (blood only) 29.5 % (42-52); Hemoglobin 9.3 g/dL (14.0-18.0); Mean Corpuscular Hemoglobin 29.1 pg (25-34); Mean Corpuscular Hgb Conc 31.5 g/dL (32-36); Mean Corpuscular Volume 92.2 fL (80-100); RDW Coefficient of Variation 15.4 % (11.5-14.5); RDW Standard Deviation 52.3 fL (36.4-46.3); White Blood Count 2.76 K/uL (4.8-10.8)
[2020-12-24 21:13] LABS: HCO3 VBG 26 mmol/L; PCO2 VBG 43 mmHg (38-50); PO2 VBG 18 mmHg
[2020-12-24 21:14] LABS: Oxygen Saturation VBG < 60.0 %
[2020-12-24 21:18] LABS: iSTAT Hemoglobin 8.5 g/dl (14.0-18.0); iSTAT Ionized Calcium 1.11 mmol/l (1.12-1.32); iSTAT Potassium 4.3 mmol/L (3.3-5.0)
[2020-12-24 21:25] LABS: INR 1.3 (0.9-1.1); Partial Thromboplastin Ratio 1.1; Partial Thromboplastin Time 28.2 Seconds (21.0-31.0); Prothrombin Time 13.3 Seconds (9.0-12.0)
[2020-12-24] MEDS ORDERED: OPTIRAY 320 125ml IV ONE ×2 (21:26→21:38)
[2020-12-24 21:33] LABS: BUN Creatinine Ratio 21.8 (10-20); Calcium 8.3 mg/dl (8.5-10.1); Creatinine Clr Calc Pharmacy 38.5 ml/min; Est GFR (African American) 72.2 ml/min; Est GFR (Non-African American) 62.3 ml/min; Magnesium 1.6 mg/dl (1.8-2.4); Potassium 4.4 mmol/L (3.5-5.1)
[2020-12-24 21:38] LABS: Albumin Globulin Ratio 0.7 (0.9-2); Bilirubin,Total 1.1 mg/dl (0.2-1); Troponin I 0.231 ng/ml (0-0.045)
[2020-12-24 21:59] LABS: Mean Platelet Volume 11.4 fL (7.4-10.4); Platelet Count 49 K/uL (130-400)
[2020-12-24 22:09] LABS: Adenovirus PCR Not Detected (NotDetected); Bordetella parapertussis PCR Not Detected (NotDetected); Bordetella pertussis PCR Not Detected (NotDetected); Chlamydia pneumoniae PCR Not Detected (NotDetected); Coronavirus 229E PCR Not Detected (NotDetected); Coronavirus CoV-2 (COVID19)PCR Not Detected (NotDetected); Coronavirus HKU1 PCR Not Detected (NotDetected); Coronavirus NL63 PCR Not Detected (NotDetected); Coronavirus OC43PCR Not Detected (NotDetected); Human Metapneumovirus PCR Not Detected (NotDetected); Influenza A PCR Not Detected (NotDetected); Influenza B PCR Not Detected (NotDetected); Mycoplasma pneumoniae PCR Not Detected (NotDetected); Parainfluenza Virus 1 PCR Not Detected (NotDetected); Parainfluenza Virus 2 PCR Not Detected (NotDetected); Parainfluenza Virus 3 PCR Not Detected (NotDetected); Parainfluenza Virus 4 PCR Not Detected (NotDetected); Respiratory Syncytial VirusPCR Not Detected (NotDetected); Rhinovirus/Enterovirus PCR Not Detected (NotDetected)
[2020-12-24] MEDS ORDERED: STAT IV Infusion **Titration per Protocol STA ×2 (22:10→23:38)
[2020-12-24] MEDS ORDERED: SODIUM CHLORIDE 0.9% 1000ML 1,000 ML IV SCH (22:15)
[2020-12-24] MEDS ORDERED: NOREPINEPHRINE/D5W 8 MG/508 ML BAG IV SCH (22:15)
[2020-12-24 22:16] LABS: ALC (manual) 0.19 K/uL (1.2-3.4); ANC (manual) 2.45 K/uL (1.4-6.5); Basophils # (manual) 0.02 K/uL (0-0.2); Basophils % (manual) 0.9 %; Dohle Bodies 1+; Lymphocytes # (manual) 0.19 K/uL (1.2-3.4); Monocytes % (manual) 3.5 %; Neutrophils # (manual) 2.45 K/uL (1.4-6.5); Neutrophils % (manual) 88.6 %; Toxic Granulation 1+
[2020-12-24 22:30] LABS: Appearance Urine Cloudy (Clear); Bacteria Urine Automated Negative (Negative); Bilirubin Urine Negative (Negative); Blood Urine Negative (Negative); Color Urine Dark Yellow; Epithelial Cell Urine Auto >30 /lpf (0-5); Glucose Urine UA Negative (Negative); Ketones Urine Trace (Negative); Leukocyte Esterase Urine Trace (Negative); Nitrite Urine Negative (Negative); Protein Urine 2+ (Negative); RBC Urine Automated 0-4 /hpf (0-4); Specific Gravity Urine 1.023 (1.000-1.030); Urobilinogen Urine Negative (Negative); pH Urine 5.5 (4.5-7.5)
[2020-12-24 22:58] LABS: Renal Epithelial Cells Urine 0-5 /lpf (0-5)
[2020-12-24] MEDS ORDERED: PHENYLEPHRINE 100MCG/ML 5ML SYR IV PRN (23:07)
[2020-12-24] MEDS: ALBUMIN 25% 12.5 GM/50 ML VIAL IV SCH ×2 (23:28→23:58)
--- NOTE | 2020-12-24 23:35 | History & Physical Report ---
Date of Service December 24, 2020 Assessment & Plan (1) Septic shock: Plan: Septic shock- Continue IV fluid resuscitation Continue Levophed begun in the ED Broad-spectrum antibiotic coverage with vancomycin IV and Zosyn IV Follow blood cultures and sensitivity Follow urine culture and sensitivity Virus panel negative, including negative for COVID-19 Consult rn clinical quality and ICU team (2) History of abdominal aortic aneurysm (AAA): Plan: Appears stable on CT angiography (3) Pneumonia: Plan: Empiric broad-spectrum IV antibiotics as noted above (4) Hypoxia: Plan: Patient is a DNR/DNI. Presently 93% on high flow nasal cannula 30 L/min and FiO2 ratio 50 (5) Pancytopenia due to antineoplastic chemotherapy: Plan: Broad-spectrum antibiotic coverage as noted above (6) Pulmonary fibrosis, unspecified: Plan: See above (7) Rectal cancer: (8) Lymphoma: (9) Elevated troponin I level: Plan: Troponin 0.231 upon admission. Most recent echocardiogram at last admission showed ejection fraction of 60% Likely a type II MD due to supply demand mismatch due to septic shock and tachycardia Follow laboratory serially History of Present Illness Chief Complaint: The patient is brought to the emergency department with productive cough, shortness of breath and generalized weakness. Primary Care Provider: ALEKSANDRA Vargas The patient is an 85-year-old male with a past medical history of pancytopenia due to antineoplastic chemotherapy, bacteremia, chronic respiratory failure with hypoxia, pulmonary fibrosis, thrombocytopenia, weakness, hypertension, rectal cancer and lymphoma. He was most recently admitted to [facility] from 12/19- 12/24. His family reports that when he got home he quickly declined, and was brought back into the ED with the above symptoms. In the emergency department he was found to be in sepsis with low blood pressure. He responded partially to IV fluid rehydration, was placed on Levophed, and will be admitted to the ICU. The patient is a DNR/DNI. In addition in the ED he was administered vancomycin IV and cefepime IV Allergies Allergy/AdvReac Type Severity Reaction Status Date / Time No Known Allergies Allergy Verified 12/19/20 15:01 Home Medications Medication Instructions Recorded Confirmed Type albuterol sulfate 90 mcg/actuation 2 puff INHALATION Q4H PRN #6.7 g 03/09/20 12/24/20 Rx aerosol inhaler (Ventolin HFA) metoprolol succinate 50 mg 75 mg PO QAM #90 tab 10/23/20 12/24/20 Rx tablet,extended release 24 hr atorvastatin 40 mg tablet 40 mg PO PM #90 tab 11/24/20 12/24/20 Rx Past Med/Surg History Medical History Allergic rhinitis Benign prostatic hyperplasia with urinary obstruction and other lower urinary tract symptoms Carotid artery stenosis monitors annually, follows with Dr. 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 History of cataract surgery RT/LEFT History of colonoscopy History of tonsillectomy and adenoidectomy History of tooth extraction History of vascular surgery Aortogram with embolization of internal iliac arteries S/P AAA repair S/p AAA repair using bifurcation graft PEVAR initially in 2011 S/P lymph node biopsy (05/26/20) Right Groin Excisional Lymph Node Biopsy (05/26/20): MAC at [facility] Family History Father Alzheimer disease Lung disease Brother Bone cancer Cancer Grandmother Diabetes Aunt Diabetes Mother Carotid artery disease Other No family history of adverse response to anesthesia Social History Smoking Status: Unknown if ever smoked Tobacco Type: Smokeless Tobacco (Dip or Chew) Age Quit Using Tobacco: 55; packs per day: 1; Years Smoked: 30; Second Hand Exposure: No; Hx Alcohol Use: No Hx Substance Use: No Preferred Language: Djiboutian Communication Ability: Effective Hearing Ability: Use of Hearing Aid Financial Report Service Sales Agent Required: No Beliefs That Will Affect Care: None marital status: Current Living Situation: Alone current occupational status: retired Feels Safe at Home: Yes caffeine: Yes during the past year weight has: decreased > 10 lbs Physical Activity Frequency: 1-2 Times per Week Seatbelt Use: always Sunscreen Use: No Assistive Devices: Denture - Upper, Glasses and Oxygen - Continuous Review of Systems Review of Systems: The patient was not able to contribute significantly to his HPI or review of systems due to severity of illness and lethargy Physical Exam Physical Exam: The patient is awake, lethargic, normocephalic and atraumatic, lying in bed and in no acute distress. HEENT--PERRL, EOMI, mucous membranes and oropharynx dry. Neck--supple. No JVD. No bruits. Thyroid normal, trachea midline, no adenopathy. Heart--tachycardic, normal S1 and S2. No murmurs, rubs or gallops. Lungs--coarse breath sounds bilaterally. No respiratory distress, no accessory muscle use. Abdomen--normal bowel sounds and soft. Nontender, nondistended. Extremities--no cyanosis or clubbing. No edema. Dermatologic--skin is dry Neurologic--cranial nerves II through XII grossly intact. Rheumatologic--limited exam Psychiatric--lethargic. Results & Data Results & Data ([facility]) Vital Signs (Past 12 Hours) Vital Signs Temp Pulse Pulse Resp BP BP Pulse Ox 12/24/20 23:30 117 H 21 91/63 L 96 12/24/20 23:25 117 H 22 89/66 L 93 12/24/20 23:23 92 H 22 117 H 12/24/20 23:20 114 H 24 82/62 L 92 12/24/20 23:15 108 H 27 H 53/42 L 89 L 12/24/20 23:10 116 H 22 77/54 L 89 L 12/24/20 23:05 115 H 33 H 80/54 L 96 12/24/20 23:00 113 H 25 H 69/50 L 94 12/24/20 22:55 115 H 25 H 64/48 L 95 12/24/20 22:54 60/42 L 12/24/20 22:50 115 H 29 H 60/44 L 94 12/24/20 22:45 116 H 23 55/41 L 95 12/24/20 22:40 114 H 32 H 57/42 L 95 12/24/20 22:35 113 H 20 94 12/24/20 22:30 113 H 26 H 51/39 L 94 12/24/20 22:19 114 H 22 82/40 L 93 12/24/20 22:15 113 H 17 60/44 L 92 12/24/20 22:00 122 H 23 85/63 L 90 12/24/20 21:45 124 H 25 H 94/63 L 95 12/24/20 21:38 125 H 26 H 82/54 L 12/24/20 21:37 128 H 20 85/59 L 100 12/24/20 21:15 133 H 25 H 97 12/24/20 21:12 136 H 25 H 92/61 L 97 12/24/20 21:03 137 H 20 97 12/24/20 21:00 136 H 23 97 12/24/20 20:45 139 H 30 H 98 12/24/20 20:43 98.4 F 143 H 23 75/55 L 96 Laboratory Results Laboratory Results WBC 6.71 K/uL (4.8-10.8) 12/25/20 05:22 RBC 2.98 M/uL (4.7-6.1) L 12/25/20 05:22 Hgb 8.6 g/dL (14.0-18.0) L 12/25/20 05:22 POC Hgb 8.5 g/dl (14.0-18.0) L 12/24/20 21:07 Hct 27.3 % (42-52) L 12/25/20 05:22 POC Hct 25 % (42-52) L 12/24/20 21:07 MCV 91.6 fL (80-100) 12/25/20 05:22 MCH 28.9 pg (25-34) 12/25/20 05:22 MCHC 31.5 g/dL (32-36) L 12/25/20 05:22 RDW Std Deviation 52.8 fL (36.4-46.3) H 12/25/20 05:22 RDW Coeff of Bello 15.7 % (11.5-14.5) H 12/25/20 05:22 Plt Count 49 K/uL (130-400) L 12/24/20 20:55 MPV 11.4 fL (7.4-10.4) H 12/24/20 20:55 Neutrophils % (Manual) 88.6 % 12/24/20 20:55 Lymphocytes % (Manual) 7.0 % 12/24/20 20:55 Monocytes % (Manual) 3.5 % 12/24/20 20:55 Basophils % (Manual) 0.9 % 12/24/20 20:55 Neutrophils # (Manual) 2.45 K/uL (1.4-6.5) 12/24/20 20:55 Total Absolute Neuts 2.45 K/uL (1.4-6.5) 12/24/20 20:55 Lymphocytes # (Manual) 0.19 K/uL (1.2-3.4) L 12/24/20 20:55 Total Abs Lymphocytes 0.19 K/uL (1.2-3.4) L 12/24/20 20:55 Monocytes # (Manual) 0.10 K/uL (0.11-0.59) L 12/24/20 20:55 Basophils # (Manual) 0.02 K/uL (0-0.2) 12/24/20 20:55 Toxic Granulation 1+ 12/24/20 20:55 Dohle Bodies 1+ 12/24/20 20:55 PT 13.3 Seconds (9.0-12.0) H 12/24/20 20:55 INR 1.3 (0.9-1.1) H 12/24/20 20:55 APTT 28.2 Seconds (21.0-31.0) 12/24/20 20:55 PTT Ratio 1.1 12/24/20 20:55 VBG pH 7.40 (7.36-7.41) 12/24/20 20:55 VBG pCO2 43 mmHg (38-50) 12/24/20 20:55 VBG pO2 18 mmHg 12/24/20 20:55 VBG HCO3 26 mmol/L 12/24/20 20:55 VBG O2 Saturation < 60.0 % 12/24/20 20:55 VBG Base Excess 1.0 mEq/L 12/24/20 20:55 Barometric Pressure 726.5 mm/Hg 12/24/20 20:55 POC Sodium 137 mmol/L (135-144) 12/24/20 21:07 Sodium 139 mmol/L (136-145) 12/24/20 20:55 POC Potassium 4.3 mmol/L (3.3-5.0) 12/24/20 21:07 Potassium 4.4 mmol/L (3.5-5.1) D 12/24/20 20:55 POC Chloride 94 mmol/L (101-112) L 12/24/20 21:07 Chloride 103 mmol/L (98-107) 12/24/20 20:55 Carbon Dioxide 26 mmol/L (21-32) 12/24/20 20:55 POC Total CO2 24 mmol/L (24-31) 12/24/20 21:07 Anion Gap 10.0 (3-11) 12/24/20 20:55 POC Anion Gap 24.0 mmol/L (16-25) 12/24/20 21:07 POC BUN 21 mg/dl (7-18) H 12/24/20 21:07 BUN 24 mg/dl (7-18) H 12/24/20 20:55 Creatinine 1.08 mg/dl (0.6-1.4) 12/24/20 20:55 POC Creatinine 1.0 mg/dl (0.6-1.3) 12/24/20 21:07 Est Cr Clr Drug Dosing 38.5 ml/min 12/24/20 20:55 Est GFR ( Amer) 72.2 ml/min 12/24/20 20:55 Est GFR (Non-Af Amer) 62.3 ml/min 12/24/20 20:55 BUN/Creatinine Ratio 21.8 (10-20) H 12/24/20 20:55 Glucose 152 mg/dl (70-99) H 12/24/20 20:55 POC Glucose (other) 146 mg/dl (70-99) H 12/24/20 21:07 Lactate 5.4 mmol/L (0.4-2.0) H* 12/25/20 00:58 Calcium 8.3 mg/dl (8.5-10.1) L 12/24/20 20:55 POC Ioniz Calcium Crystal 1.11 mmol/l (1.12-1.32) L 12/24/20 21:07 Magnesium 1.6 mg/dl (1.8-2.4) L 12/24/20 20:55 Total Bilirubin 1.1 mg/dl (0.2-1) H 12/24/20 20:55 AST 25 U/L (15-37) 12/24/20 20:55 ALT 21 U/L (12-78) 12/24/20 20:55 Alkaline Phosphatase 92 U/L (45-117) 12/24/20 20:55 Troponin I 0.645 ng/ml (0-0.045) H* 12/25/20 00:58 Total Protein 5.0 gm/dl (6.4-8.2) L 12/24/20 20:55 Albumin 2.0 gm/dl (3.4-5.0) L 12/24/20 20:55 Globulin 3.0 gm/dl (2.5-4.0) 12/24/20 20:55 Albumin/Globulin Ratio 0.7 (0.9-2) L 12/24/20 20:55 Procalcitonin 1.37 ng/ml (0-0.5) H 12/24/20 20:55 Urine Color Dark Yellow 12/24/20 22:02 Urine Appearance Cloudy (Clear) A 12/24/20 22:02 Urine pH 5.5 (4.5-7.5) 12/24/20 22:02 Ur Specific [place] 1.023 (1.000-1.030) 12/24/20 22:02 Urine Protein 2+ (Negative) H 12/24/20 22:02 Urine Glucose (UA) Negative (Negative) 12/24/20 22:02 Urine Ketones Trace (Negative) H 12/24/20 22:02 Urine Blood Negative (Negative) 12/24/20 22:02 Urine Nitrite Negative (Negative) 12/24/20 22:02 Urine Bilirubin Negative (Negative) 12/24/20 22:02 Urine Urobilinogen Negative (Negative) 12/24/20 22:02 Ur Leukocyte Esterase Trace (Negative) H 12/24/20 22:02 Urine WBC (Auto) 5-10 /hpf (0-5) H 12/24/20 22:02 Urine RBC (Auto) 0-4 /hpf (0-4) 12/24/20 22:02 U Hyaline Cast (Auto) 1-5 /lpf (0-5) 12/24/20 22:02 U Epithel Cells (Auto) >30 /lpf (0-5) H 12/24/20 22:02 Urine Bacteria (Auto) Negative (Negative) 12/24/20 22:02 Ur Renal Epithelial Cell 0-5 /lpf (0-5) 12/24/20 22:02 Urine Yeast Not Reportable 12/24/20 22:02 Nasal Screen MRSA (PCR) Negative (Negative) 12/25/20 00:58 Adenovirus (PCR) Not Detected (NotDetected) 12/24/20 21:12 B. pertussis DNA (PCR) Not Detected (NotDetected) 12/24/20 21:12 B.parapertussis DNA PCR Not Detected (NotDetected) 12/24/20 21:12 C. pneumoniae DNA (PCR) Not Detected (NotDetected) 12/24/20 21:12 Coronavirus OC43 (PCR) Not Detected (NotDetected) 12/24/20 21:12 Coronavirus HKU1 (PCR) Not Detected (NotDetected) 12/24/20 21:12 Coronavirus 229E (PCR) Not Detected (NotDetected) 12/24/20 21:12 COVID-19 Eval Order RESPNP at [facility] 12/24/20 21:12 SARS-CoV-2 (PCR) Not Detected (NotDetected) 12/24/20 21:12 Coronavirus NL63 (PCR) Not Detected (NotDetected) 12/24/20 21:12 Human Metapneumovir PCR Not Detected (NotDetected) 12/24/20 21:12 Influenza Type A (PCR) Not Detected (NotDetected) 12/24/20 21:12 Influenza Type B (PCR) Not Detected (NotDetected) 12/24/20 21:12 M. pneumoniae (PCR) Not Detected (NotDetected) 12/24/20 21:12 Parainfluenza 1 (PCR) Not Detected (NotDetected) 12/24/20 21:12 Parainfluenza 2 (PCR) Not Detected (NotDetected) 12/24/20 21:12 Parainfluenza 3 (PCR) Not Detected (NotDetected) 12/24/20 21:12 Parainfluenza 4 (PCR) Not Detected (NotDetected) 12/24/20 21:12 RSV (PCR) Not Detected (NotDetected) 12/24/20 21:12 Entero/Rhino (PCR) Not Detected (NotDetected) 12/24/20 21:12 Blood Type AB Positive 12/24/20 21:38 Antibody Screen NEGATIVE 12/24/20 21:38 Diagnostic Findings [facility] Patient: RITESH INTERIANO (Male) : 35 Status: ER Date: 12/24/20 21:40 Room #: History: D1B SEPSIS SOB Slices: [phone] Priors: Tech: Hamlet Kahn @ [id number] Exams: CTA CHEST Contrast: IV Amt: 120 Accession Numbers: [id number] Referring Physician: ZENIA HENDERSON Preliminary Findings Only See Final Report For Complete Findings CTA CHEST: Comparison: CT chest with contrast 10/27/20 No acute pulmonary embolism is visualized. Mild bilateral groundglass opacities throughout both lungs may represent alveolar pulmonary edema versus an acute infectious or inflammatory process such as pneumonia, which may include Covid pneumonia. 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 Left subclavian central venous catheter terminates in the SVC. Prominence of the pulmonary vasculature raises the possibility of primary pulmonary hypertension. Atherosclerotic calcifications of the aorta and arch vessels. Coronary artery calcifications. Radiologist: Chelsea Pineda M.D. Study ready at 21:42 and initial results transmitted at 22:52 *This report constitutes a preliminary interpretation only. Non-acute findings felt to be unrelated to the clinical presentation may not be discussed in this report. The study will be interpreted and a final report will be generated by the local Radiologist the following shift. To reach the hospital radiology department call [phone]. If a discrepancy is found between the preliminary and final interpretations of this study, please notify us via our Client Portal at [email or web address].You can also fax this report with a description of the discrepancy, or include the final report, to our daytime fax number [phone].If faxing, please indicate the severity of discrepancy using one of the following categories: [ ] 1 - Agree/Informational [ ] 2 - Unlikely to Affect Management [ ] 3 - Possible Eventual Change of Management [ ] 4 - Probable Immediate Change of Management For all other patient related information, please fax us at [phone]. [id number] [facility] Patient: RITESH INTERIANO (Male) : 35 Status: ER Date: 12/24/20 21:42 Room #: History: hypotensive hx AAA repair and known endoleak Slices: [phone] Priors: Tech: Hamlet Kahn @ [id number] Exams: CTA ABDOMEN & PELVIS With Contrast Contrast: IV Amt: 120 Accession Numbers: [id number] Referring Physician: ZENIA HENDERSON Preliminary Findings Only See Final Report For Complete Findings CTA ABDOMEN & PELVIS With Contrast: Comparison: CT abdomen pelvis with contrast 10/07/which would allow No acute findings in the abdomen or pelvis. An infrarenal abdominal aortobiiliac stent graft is in place with stable size of a large infrarenal abdominal aortic aneurysm measuring 8.1 x 6.0 cm in greatest axial dimension compared to 8.3 x 6.2 cm previously. Trace hyperdensity the visualized in the hernia sac, consistent with known history of an endoleak, which is not optimally assessed on this single phase exam. 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 A small amount of fluid is visualized in the right inguinal canal. Prostatomegaly. Mild cervical ventral wall thickening of the urinary bladder which could be correlated with urinalysis to evaluate for urinary tract infection. Radiologist: Chelsea Pineda M.D. Study ready at 22:01 and initial results transmitted at 23:05 *This report constitutes a preliminary interpretation only. Non-acute findings felt to be unrelated to the clinical presentation may not be discussed in this report. The study will be interpreted and a final report will be generated by the local Radiologist the following shift. To reach the hospital radiology department call [phone]. If a discrepancy is found between the preliminary and final interpretations of t his study, please notify us via our Client Portal at [email or web address].You can also fax this report with a description of the discrepancy, or include the final report, to our daytime fax number [phone].If faxing, please indicate the severity of discrepancy using one of the following categories: [ ] 1 - Agree/Informational [ ] 2 - Unlikely to Affect Management [ ] 3 - Possible Eventual Change of Management [ ] 4 - Probable Immediate Change of Management For all other patient related information, please fax us at [phone]. Code Status & VTE Plan Code Status DNR/DNI VTE Prophylaxis Plan VTE Prophylaxis will be ordered: Yes Critical Care Time 50 minutes PG Care Time/CCT Total # of Minutes Spent Total Time Spent with Patient: Total time spent is greater than 50% in coordination of care (as documented) at patient's floor/unit and/or counseling patient: Coding Level of Care Code 24231 Initial Inpt Care Lvl 3 Diagnoses Septic shock A41.9; R65.21 History of abdominal aortic aneurysm (AAA) Z86.79 Pneumonia J18.9 Hypoxia R09.02 Pancytopenia due to antineoplastic chemotherapy D61.810; T45.1X5A Pulmonary fibrosis, unspecified J84.10 Rectal cancer C20 Lymphoma C85.90 Elevated troponin I level R77.8
[2020-12-24] MEDS: VASOPRESSIN 20 UNITS in 0.9 % SODIUM CHLORIDE 100 ML IV SCH (23:59)
[2020-12-25] MEDS ORDERED: VANCOMYCIN CONSULT ACTIVE PRN (00:11)
[2020-12-25] MEDS ORDERED: PIPERACILL/TAZOBAC CONSULT ACTIVE PRN (00:11)
[2020-12-25] MEDS ORDERED: ICU PROTOCOL FOR HYPERGLYCEMIA PRN (00:11)
[2020-12-25] MEDS ORDERED: PIPERACILLIN/TAZOBACTAM 4.5 GM in DEXTROSE 5% 100 ML IV ONE (00:30)
[2020-12-25] MEDS ORDERED: NSS + 20MEQ KCL 20 MEQ/1,000 ML BAG IV SCH (00:30)
[2020-12-25] MEDS ORDERED: CALCIUM CHLORIDE 10% 1,000 MG in SODIUM CHLORIDE 0.9% 50 ML IV STA (00:31)
--- NOTE | 2020-12-25 00:35 | Critical Care Consultation ---
Date of Consultation December 25, 2020 Assessment & Plan (1) Septic shock: Reason Critically Ill: 85-year-old male with pulmonary fibrosis and B-cell lymphoma who recently finished chemotherapy and is pancytopenic, presents to the ICU in septic shock requiring vasopressor support. Neuro - [facility] ICU: Negative Cardiac - Septic shockpatient with hypotension unresponsive to fluid resuscitation and now requiring vasopressor support in the setting of sepsis -Patient did receive stress dose steroids in the emergency department without improvement in blood pressure -Currently on Levophed and vasopressin to maintain maps greater than 65, wean as tolerated -Echo 12/23 with normal EF without significant valvular disease -CTA chest negative for PE -See ID treatment for sepsis below -Continuous monitor on telemetry Respiratory - Acute on chronic hypoxic respiratory failurepatient with history of pulmonary fibrosis and chronically on 3 L nasal cannula -CTA chest negative for PE but concerning for pneumonia with bilateral groundglass opacities -Currently on high flow nasal cannula, wean as tolerated -Appears euvolemic on exam no history of heart failure, will hold on diuresis given hypotension -Continuous monitoring pulse ox -Currently undergoing treatment with broad-spectrum antibiotics for pulmonary coverage GI - N.p.o. RENAL/LYTES - Creatinine stable, monitor electrolytes and replete as indicated Lactic acidosisinitial lactate 7 in the setting of bacteremia/hypotension. Improving -Continue with IV fluid resuscitation to maintain maps greater than 65 -No indication for bicarb at this time -Trend - Strict I's and O's ENDO - ICU hyperglycemic protocol HEME - Pancytopeniafollowing chemotherapy administration x1 week -Appears to be improving compared with most recent studies from last admission -No indication for transfusion at this time -Continue to monitor with routine CBC ID - Sepsis elevated lactate and procalcitonin and hypotensive and immunocompromise patient -Likely pulmonary source given CT chest findings with bilateral groundglass opacities -Blood cultures and urine culture pending -Continue broad-spectrum antibiotics vancomycin and cefepime LINES/IV ACCESS - Central venous port, peripheral IVs DVT PROPHYLAXIS - SCDs, Lovenox CODE STATUSDNR/DNI -Palliative care consulted I have personally spent 50 minutes of critical care time in the direct management of this patient. This is a life/limb threatening event. This includes time spent evaluating patient, direct bedside care, chart review, placing orders, interpretation of diagnostic studies, discussion with consultants, patient, and family members, as well as other required patient management activities. This time is exclusive of all separately billable procedures, and teaching time and separate from and in addition to any other critical care service time. Thank you for allowing us to participate in the care of this patient. Please refer to my attending physician's documentation for any further recommendations. (2) History of abdominal aortic aneurysm (AAA): (3) Pancytopenia due to antineoplastic chemotherapy: (4) Chronic respiratory failure with hypoxia: (5) Pulmonary fibrosis, unspecified: (6) Thrombocytopenia: (7) Weakness: (8) Rectal cancer: (9) Lymphoma: (10) Pneumonia: History of Present Illness Attending Physician: Jesus Alberto Smith MD History of Present Illness Patient is a 85-year-old male with past medical history of pulmonary fibrosis, rectal cancer and B-cell lymphoma (recently finished [facility] chemotherapy 1 weeks ago following chemoradiation in May and July of this year). He was recently admitted with weakness, pancytopenia, and anemia requiring blood transfusion and was treated for bacteremia. He was discharged to rehab yesterday but represented to the emergency department with hypoxia and hypotension. Sepsis alert was initiated and patient received appropriate fluid resuscitation but remained hypotensive requiring vasopressors. His initial lactate was 7.0, and he had elevated procalcitonin and was pancytopenic. CT abdomen pelvis was negative for acute findings, and chest CTA was negative for PE but did show bilateral groundglass opacities. COVID-19 bio fire negative. Patient received broad-spectrum antibiotics and blood cultures and urine culture pending. He is receiving vasopressors through his port, patient is DNR/DNI in the event of cardiac arrest. On arrival to the ICU the patient was alert and oriented. Patient states that he is 85 years old and recently was independent, but now requires a wheelchair. He expressed concerns that he may not want this level of treatment and may prefer to be allowed to . He states that he is currently comfortable and is agreeable to continue with current therapy until the morning. Palliative care has been consulted to assist with defining patient's goals of care and wishes. He reports feeling weak and tired. He denies headache, dizziness, syncope, shortness of breath, chest pain, palpitations, nausea or vomiting or diarrhea, or abdominal pain. Patient remained in ICU for further management at this time. Allergies Allergy/AdvReac Type Severity Reaction Status Date / Time No Known Allergies Allergy Verified 12/19/20 15:01 Home Medications Medication Instructions Recorded Confirmed Type albuterol sulfate 90 mcg/actuation 2 puff INHALATION Q4H PRN #6.7 g 03/09/20 Rx aerosol inhaler (Ventolin HFA) metoprolol succinate 50 mg 75 mg PO QAM #90 tab 10/23/20 12/24/20 Rx tablet,extended release 24 hr atorvastatin 40 mg tablet 40 mg PO PM #90 tab 11/24/20 12/24/20 Rx Patient History Medical History Allergic rhinitis Benign prostatic hyperplasia with urinary obstruction and other lower urinary tract symptoms Carotid artery stenosis monitors annually, follows with Dr. 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 History of cataract surgery RT/LEFT History of colonoscopy History of tonsillectomy and adenoidectomy History of tooth extraction History of vascular surgery Aortogram with embolization of internal iliac arteries S/P AAA repair S/p AAA repair using bifurcation graft PEVAR initially in 2011 S/P lymph node biopsy (05/26/20) Right Groin Excisional Lymph Node Biopsy (05/26/20): [facility] at [facility] Family History Father Alzheimer disease Lung disease Brother Bone cancer Cancer Grandmother Diabetes Aunt Diabetes Mother Carotid artery disease Other No family history of adverse response to anesthesia Social History Smoking Status: Unknown if ever smoked Tobacco Type: Smokeless Tobacco (Dip or Chew) Age Quit Using Tobacco: 55; packs per day: 1; Years Smoked: 30; Second Hand Exposure: No; Hx Alcohol Use: No Hx Substance Use: No Preferred Language: Citizen Of [place] Communication Ability: Effective Hearing Ability: Use of Hearing Aid 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: No Beliefs That Will Affect Care: None marital status: Current Living Situation: Alone current occupational status: retired Feels Safe at Home: Yes caffeine: Yes during the past year weight has: decreased > 10 lbs Physical Activity Frequency: 1-2 Times per Week Seatbelt Use: always Sunscreen Use: No Assistive Devices: Denture - Upper, Glasses and Oxygen - Continuous Review of Systems Review of Systems: All systems reviewed & are unremarkable except as noted in HPI & below Physical Exam Constitutional: cooperative and comfortable Eyes: PERRL, conjunctivae normal, anicteric sclerae ENMT: external ear and nose normal, oropharynx normal Neck: trachea midline, no thyromegaly Respiratory: normal respiratory effort and symmetric chest movement; no la bored breathing, no cough, not tachypneic and no stridor Auscultation: + rhonchi (Auscultated bilaterally in all lobes); no crackles and no wheezes Gastrointestinal (Abdomen): normal bowel sounds, soft, nontender, no hepatosplenomegaly Skin: no rashes, warm and dry Neurologic: PERRL, EOMI, accommodation nl, no face palsy, no dysarthria Psychiatric: A+Ox3, euthymic affect Results & Data Results & Data ([facility]) Vital Signs (Past 12 Hours) Vital Signs Temp Pulse Pulse Resp BP BP Pulse Ox 12/25/20 00:06 115 H 22 98/68 L 94 12/24/20 23:54 118 H 24 82/58 L 97 12/24/20 23:30 117 H 21 91/63 L 96 12/24/20 23:25 117 H 22 89/66 L 93 12/24/20 23:23 92 H 22 117 H 12/24/20 23:20 114 H 24 82/62 L 92 12/24/20 23:15 108 H 27 H 53/42 L 89 L 12/24/20 23:10 116 H 22 77/54 L 89 L 12/24/20 23:05 115 H 33 H 80/54 L 96 12/24/20 23:00 113 H 25 H 69/50 L 94 12/24/20 22:55 115 H 25 H 64/48 L 95 12/24/20 22:54 60/42 L 12/24/20 22:50 115 H 29 H 60/44 L 94 12/24/20 22:45 116 H 23 55/41 L 95 12/24/20 22:40 114 H 32 H 57/42 L 95 12/24/20 22:35 113 H 20 94 12/24/20 22:30 113 H 26 H 51/39 L 94 12/24/20 22:19 114 H 22 82/40 L 93 12/24/20 22:15 113 H 17 60/44 L 92 12/24/20 22:00 122 H 23 85/63 L 90 12/24/20 21:45 124 H 25 H 94/63 L 95 12/24/20 21:38 125 H 26 H 82/54 L 12/24/20 21:37 128 H 20 85/59 L 100 12/24/20 21:15 133 H 25 H 97 12/24/20 21:12 136 H 25 H 92/61 L 97 12/24/20 21:03 137 H 20 97 12/24/20 21:00 136 H 23 97 12/24/20 20:45 139 H 30 H 98 12/24/20 20:43 36.9 C 143 H 23 75/55 L 96 Coding Level of Care Code Critical Care 1st 30-74 mins Diagnoses Septic shock A41.9; R65.21 History of abdominal aortic aneurysm (AAA) Z86.79 Pancytopenia due to antineoplastic chemotherapy D61.810; T45.1X5A Chronic respiratory failure with hypoxia J96.11 Pulmonary fibrosis, unspecified J84.10 Thrombocytopenia D69.6 Weakness R53.1 Rectal cancer C20 Lymphoma C85.90 Lymphoma site: unspecified region Lymphoma type: unspecified type Pneumonia J18.9 (1) Lymphoma Lymphoma site: unspecified region Lymphoma type: unspecified type Qualified Code(s): C85.90 - Non-Hodgkin lymphoma, unspecified, unspecified site
[2020-12-25] MEDS: FAMOTIDINE 20 MG in SYRINGE 3 ML IV SCH ×2 (00:45→08:19)
[2020-12-25] MEDS: ALBUMIN 25% 12.5 GM/50 ML VIAL IV SCH ×4 (00:45→14:30)
[2020-12-25] MEDS: ENOXAPARIN INJ 30 MG/0.3 ML SYR SQ SCH ×2 (00:48→21:25)
[2020-12-25] MEDS: MAGNESIUM SULFATE / D5W 1 GM/100 ML BAG IV SCH ×2 (00:48→02:44)
[2020-12-25] MEDS: NORMOSOL-R 1,000 ML IV SCH ×3 (03:32→20:13)
--- NOTE | 2020-12-25 03:58 | Emergency Department Note ---
History of Present Illness General Chief complaint: Shortness of Breath/Dyspnea Stated complaint: ILLNESS, SOB, WEAKNESS Time Seen by Provider: 12/24/20 20:49 History of Present Illness Provider complaint: Shortness of breath weakness Onset (ago): day(s) 1 Associated symptoms: + cough, + shortness of breath and + weakness; no chest pain 85-year-old male presents emergency department from EMS for shortness of breath weakness. EMS reports that the patient had a mild fever at the detention. They report he has been short of breath. They state he is hypoxic in the 80s on room air. To him on nonrebreather mask. He is also hypotensive. They report that the patient was discharged from the hospital today. Home Medications Medication Instructions Recorded Confirmed Type albuterol sulfate 90 mcg/actuation 2 puff INHALATION Q4H PRN #6.7 g 03/09/20 12/24/20 Rx aerosol inhaler (Ventolin HFA) metoprolol succinate 50 mg 75 mg PO QAM #90 tab 10/23/20 12/24/20 Rx tablet,extended release 24 hr atorvastatin 40 mg tablet 40 mg PO PM #90 tab 11/24/20 12/24/20 Rx Allergies Allergy/AdvReac Type Severity Reaction Status Date / Time No Known Allergies Allergy Verified 12/19/20 15:01 Past Med/Surg History Medical History Allergic rhinitis Benign prostatic hyperplasia with urinary obstruction and other lower urinary tract symptoms Carotid artery stenosis monitors annually, follows with Dr. 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 History of cataract surgery RT/LEFT History of colonoscopy History of tonsillectomy and adenoidectomy History of tooth extraction History of vascular surgery Aortogram with embolization of internal iliac arteries S/P AAA repair S/p AAA repair using bifurcation graft PEVAR initially in 2012 S/P lymph node biopsy (05/26/20) Right Groin Excisional Lymph Node Biopsy (05/26/20): [facility] at [facility] Family History Father Alzheimer disease Lung disease Brother Bone cancer Cancer Grandmother Diabetes Aunt Diabetes Mother Carotid artery disease Other No family history of adverse response to anesthesia Social History Smoking Status: Unknown if ever smoked Tobacco Type: Smokeless Tobacco (Dip or Chew) Age Quit Using Tobacco: 55; packs per day: 1; Years Smoked: 30; Second Hand Exposure: No; Hx Alcohol Use: No Hx Substance Use: No Preferred Language: Moroccan Communication Ability: Effective Hearing Ability: Use of Hearing Aid Stakeholder Manager Required: No Beliefs That Will Affect Care: None marital status: Current Living Situation: Alone current occupational status: retired Feels Safe at Home: Yes caffeine: Yes during the past year weight has: decreased > 10 lbs Physical Activity Frequency: 1-2 Times per Week Seatbelt Use: always Sunscreen Use: No Assistive Devices: Denture - Upper, Glasses and Oxygen - Continuous Review of Systems A total of 10 systems reviewed and were otherwise negative Physical Exam Vital Signs Vital Signs - 24 hr 12/24/20 20:43 12/24/20 20:45 12/24/20 21:00 Temperature 36.9 C Temperature Source Oral Pulse Rate 143 H 139 H 136 H Pulse Rate [Right Apical] Pulse Rate from SpO2 Sensor 137 H 137 H Respiratory Rate 23 30 H 23 Respiratory Effort / Characteristics Respiratory Depth Respiratory Pattern Blood Pressure 75/55 L Blood Pressure [Right Arm] Blood Pressure Mean 61 Blood Pressure Mean [Right Arm] Blood Pressure Position Lying Pulse Oximetry 96 98 97 Oxygen Delivery Method Non-rebreather Oxygen Flow Rate Fraction of Inspired Oxygen Sepsis Recent Fever Within 48 Hours Yes Sepsis New/Unexplained Change in Mental Status Yes Sepsis Action Taken by Nursing Previously Notified 12/24/20 21:03 12/24/20 21:12 12/24/20 21:15 Temperature Temperature Source Pulse Rate 133 H Pulse Rate [Right Apical] 137 H 136 H Pulse Rate from SpO2 Sensor 133 H Respiratory Rate 20 25 H 25 H Respiratory Effort / Characteristics Non-Labored Spontaneous Respiratory Depth Respiratory Pattern Blood Pressure Blood Pressure [Right Arm] 92/61 L Blood Pressure Mean Blood Pressure Mean [Right Arm] 71 Blood Pressure Position Pulse Oximetry 97 97 97 Oxygen Delivery Method High Flow Nasal Cannula High Flow Nasal Cannula Oxygen Flow Rate 30 Fraction of Inspired Oxygen 60 Sepsis Recent Fever Within 48 Hours Sepsis New/Unexplained Change in Mental Status Sepsis Action Taken by Nursing 12/24/20 21:19 12/24/20 21:37 12/24/20 21:38 Temperature Temperature Source Pulse Rate 128 H 125 H Pulse Rate [Right Apical] Pulse Rate from SpO2 Sensor 130 H 125 H Respiratory Rate 20 26 H Respiratory Effort / Characteristics Accessory Muscle Use Respiratory Depth Normal Respiratory Pattern Regular Blood Pressure 85/59 L 82/54 L Blood Pressure [Right Arm] Blood Pressure Mean 67 63 Blood Pressure Mean [Right Arm] Blood Pressure Position Pulse Oximetry 100 Oxygen Delivery Method High Flow Nasal Cannula Oxygen Flow Rate Fraction of Inspired Oxygen Sepsis Recent Fever Within 48 Hours Sepsis New/Unexplained Change in Mental Status Sepsis Action Taken by Nursing 12/24/20 21:45 12/24/20 22:00 12/24/20 22:15 Temperature Temperature Source Pulse Rate 124 H 122 H 113 H Pulse Rate [Right Apical] Pulse Rate from SpO2 Sensor 123 H 121 H 106 H Respiratory Rate 25 H 23 17 Respiratory Effort / Characteristics Respiratory Depth Respiratory Pattern Blood Pressure 94/63 L 85/63 L 60/44 L Blood Pressure [Right Arm] Blood Pressure Mean 73 70 49 Blood Pressure Mean [Right Arm] Blood Pressure Position Pulse Oximetry 95 90 92 Oxygen Delivery Method High Flow Nasal Cannula Oxygen Flow Rate Fraction of Inspired Oxygen Sepsis Recent Fever Within 48 Hours Sepsis New/Unexplained Change in Mental Status Sepsis Action Taken by Nursing 12/24/20 22:19 12/24/20 22:30 12/24/20 22:35 Temperature Temperature Source Pulse Rate 113 H 113 H Pulse Rate [Right Apical] 114 H Pulse Rate from SpO2 Sensor 113 H 113 H Respiratory Rate 22 26 H 20 Respiratory Effort / Characteristics Respiratory Depth Respiratory Pattern Blood Pressure 51/39 L Blood Pressure [Right Arm] 82/40 L Blood Pressure Mean 43 Blood Pressure Mean [Right Arm] 54 Blood Pressure Position Pulse Oximetry 93 94 94 Oxygen Delivery Method High Flow Nasal Cannula High Flow Nasal Cannula High Flow Nasal Cannula Oxygen Flow Rate Fraction of Inspired Oxygen Sepsis Recent Fever Within 48 Hours Sepsis New/Unexplained Change in Mental Status Sepsis Action Taken by Nursing 12/24/20 22:40 12/24/20 22:45 12/24/20 22:50 Temperature Temperature Source Pulse Rate 114 H 116 H 115 H Pulse Rate [Right Apical] Pulse Rate from SpO2 Sensor 114 H 116 H 117 H Respiratory Rate 32 H 23 29 H Respiratory Effort / Characteristics Respiratory Depth Respiratory Pattern Blood Pressure 57/42 L 55/41 L 60/44 L Blood Pressure [Right Arm] Blood Pressure Mean 47 45 49 Blood Pressure Mean [Right Arm] Blood Pressure Position Pulse Oximetry 95 95 94 Oxygen Delivery Method High Flow Nasal Cannula Oxygen Flow Rate Fraction of Inspired Oxygen Sepsis Recent Fever Within 48 Hours Sepsis New/Unexplained Change in Mental Status Sepsis Action Taken by Nursing 12/24/20 22:54 12/24/20 22:55 12/24/20 23:00 Temperature Temperature Source Pulse Rate 115 H 113 H Pulse Rate [Right Apical] Pulse Rate from SpO2 Sensor 115 H 113 H Respiratory Rate 25 H 25 H Respiratory Effort / Characteristics Respiratory Depth Respiratory Pattern Blood Pressure 64/48 L 69/50 L Blood Pressure [Right Arm] 60/42 L Blood Pressure Mean 53 56 Blood Pressure Mean [Right Arm] 48 Blood Pressure Position Pulse Oximetry 95 94 Oxygen Delivery Method Oxygen Flow Rate Fraction of Inspired Oxygen Sepsis Recent Fever Within 48 Hours Sepsis New/Unexplained Change in Mental Status Sepsis Action Taken by Nursing 12/24/20 23:05 12/24/20 23:10 12/24/20 23:15 Temperature Temperature Source Pulse Rate 115 H 116 H 108 H Pulse Rate [Right Apical] Pulse Rate from SpO2 Sensor 115 H 116 H 109 H Respiratory Rate 33 H 22 27 H Respiratory Effort / Characteristics Respiratory Depth Respiratory Pattern Blood Pressure 80/54 L 77/54 L 53/42 L Blood Pressure [Right Arm] Blood Pressure Mean 62 61 45 Blood Pressure Mean [Right Arm] Blood Pressure Position Pulse Oximetry 96 89 L 89 L Oxygen Delivery Method Oxygen Flow Rate Fraction of Inspired Oxygen Sepsis Recent Fever Within 48 Hours Sepsis New/Unexplained Change in Mental Status Sepsis Action Taken by Nursing 12/24/20 23:20 12/24/20 23:23 12/24/20 23:25 Temperature Temperature Source Pulse Rate 114 H 117 H Pulse Rate [Right Apical] 92 H Pulse Rate from SpO2 Sensor 114 H 122 H Respiratory Rate 24 22 22 Respiratory Effort / Characteristics Spontaneous Respiratory Depth Respiratory Pattern Blood Pressure 82/62 L 89/66 L Blood Pressure [Right Arm] Blood Pressure Mean 68 73 Blood Pressure Mean [Right Arm] Blood Pressure Position Pulse Oximetry 92 117 H 93 Oxygen Delivery Method High Flow Nasal Cannula Oxygen Flow Rate 30 Fraction of Inspired Oxygen 60 Sepsis Recent Fever Within 48 Hours Sepsis New/Unexplained Change in Mental Status Sepsis Action Taken by Nursing 12/24/20 23:30 Temperature Temperature Source Pulse Rate 117 H Pulse Rate [Right Apical] Pulse Rate from SpO2 Sensor 117 H Respiratory Rate 21 Respiratory Effort / Characteristics Respiratory Depth Respiratory Pattern Blood Pressure 91/63 L Blood Pressure [Right Arm] Blood Pressure Mean 72 Blood Pressure Mean [Right Arm] Blood Pressure Position Pulse Oximetry 96 Oxygen Delivery Method Oxygen Flow Rate Fraction of Inspired Oxygen Sepsis Recent Fever Within 48 Hours Sepsis New/Unexplained Change in Mental Status Sepsis Action Taken by Nursing Physical Exam GENERAL: Ill-appearing. EYES: Conjunctivae and EOM are normal. Pupils are equal, round, and reactive to light. Right eye exhibits no discharge. Left eye exhibits no discharge. No scleral icterus. NECK: Normal range of motion. Neck supple. No JVD present. No spinous process tenderness present. No carotid bruit present. No rigidity. No tracheal deviation and normal range of motion present. No Brudzinski's sign and no Kernig's sign noted. CV: Tachycardic rate, regular rhythm, normal heart sounds and intact distal pulses. There is no peripheral edema. Palpable radial pulses bue. PULM/CHEST: Rhonchi bilaterally. - Chest Wall: Mediport in place. ABD: The abdomen is soft. MUSC/SKEL: Normal range of motion. There is no peripheral edema, tenderness or deformity. LYMPH: No cervical adenopathy. NEURO: Motor and sensation grossly intact. SKIN: Pale. Course Course 2048: The patient was evaluated in room B10. A complete history and physical exam was performed Cardiac monitoring: An order was placed for continuous cardiac monitoring. The monitor shows a rate of 150 with sinus tachycardia rhythm Patient hypotensive and tachycardic on arrival. Code sepsis called. EMR reviewed. Patient was discharged from the hospital today. Patient was admitted for possible sepsis. 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 Last pinky motherapy was on December 15. During the hospital stay the patient was transfused 1 unit packed red blood cells. 2 L IV fluid started in the patient wide open. Patient is on high flow oxygen via nasal cannula Labs done today showed white blood cell count 1.19, hemoglobin 8.4, platelet count 36, and neutrophils of 0.8. Given this patient will be treated with broad-spectrum antibiotics vancomycin and cefepime. Patient is DNR/DNI 2120: Blood pressure improved with IV fluid. Will take the patient for CTA of the chest and abdomen given the patient's history of AAA and endovascular leak. 5: Patient becoming hypotensive again. Repeat IV fluid bolus ordered. Hydrocortisone 100 mg IV and Levophed also ordered for the patient. 2310: CTA of the chest showed no PE but does show bilateral groundglass opacities. CTA of the abdomen shows no acute findings the infrarenal abdominal aorta biiliac stent graft is in place with stable size of the abdominal aortic aneurysm and there is an endoleak again seen. 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 Labs showed a white blood cell count of 2.76 up from 1.19 earlier today. Hemoglobin 9.3 up from 8.4 today. Platelet count 49 up from 36 today. Patient is not neutropenic right now. VBG within normal limits. Lactic acid is elevated at 7. Troponin elevated 0.231. Procalcitonin elevated 1.37.We will continue to titrate norepinephrine drip to improve map. 0010: Blood pressure improving with increasing Levophed drip. [facility] Patient will be admitted to the ICU. Administered Medications Enoxaparin Sodium (Enoxaparin Inj 30 Mg/0.3 Ml Syr) 30 mg SQ HS [facility] Stop: 01/24/21 00:29 Last Admin: 12/25/20 00:48 Dose: 30 mg Documented by: [id number] Norepinephrine Bitartrate (Levophed/D5w) 8 mg in 508 mls @ 41.529 mls/hr IV .[id number] JESSICA; Protocol Stop: 01/23/21 22:14 Last Titration: 12/25/20 02:52 Dose: 0.2 mcg/kg/min, 41.5 mls/hr Documented by: [id number] Titration: 12/25/20 01:30 Dose: 0.22 mcg/kg/min, 45.7 mls/hr Documented by: [id number] Titration: 12/24/20 23:21 Dose: 0.24 mcg/kg/min, 49.8 mls/hr Documented by: [id number] Titration: 12/24/20 23:07 Dose: 0.22 mcg/kg/min, 45.7 mls/hr Documented by: [id number] Titration: 12/24/20 23:02 Dose: 0.2 mcg/kg/min, 41.5 mls/hr Documented by: [id number] Titration: 12/24/20 22:56 Dose: 0.15 mcg/kg/min, 31.1 mls/hr Documented by: [id number] Titration: 12/24/20 22:48 Dose: 0.09 mcg/kg/min, 18.7 mls/hr Documented by: [id number] Titration: 12/24/20 22:40 Dose: 0.07 mcg/kg/min, 14.5 mls/hr Documented by: [id number] Admin: 12/24/20 22:33 Dose: 0.05 mcg/kg/min, 10.4 mls/hr Documented by: [id number] Cosigned by: [id number] Vasopressin 20 units/ Sodium (Chloride) 101 mls @ 12.12 mls/hr IV .[id number] JESSICA Stop: 01/23/21 23:44 Last Admin: 12/24/20 23:59 Dose: 0.04 unit/min, 12.1 mls/hr Documented by: [id number] Cosigned by: [id number] Famotidine 20 mg/ Syringe 5 mls @ 2.5 mls/min IV BID JESSICA Stop: 01/24/21 00:29 Last Admin: 12/25/20 00:45 Dose: 2.5 mls/min Documented by: [id number] Magnesium Sulfate/Dextrose (Magnesium Sulfate / D5w) 1 gm in 100 mls @ 50 mls/hr IV Q2H JESSICA Stop: 12/25/20 04:29 Last Admin: 12/25/20 02:44 Dose: 50 mls/hr Documented by: [id number] Infusion: 12/25/20 02:43 Dose: 0 mls/hr Documented by: [id number] Admin: 12/25/20 00:48 Dose: 50 mls/hr Documented by: [id number] Parenteral Electrolytes (Normosol-R) 1,000 mls @ 125 mls/hr IV .Q8H JESSICA Stop: 01/24/21 03:29 Last Admin: 12/25/20 03:32 Dose: 125 mls/hr Documented by: [id number] Discontinued Medications Hydrocortisone Sodium Succinate (Hydrocortisone Sod Succinate 100 Mg/2 Ml Vial) 100 mg IV NOW STA Stop: 12/24/20 21:08 Last Admin: 12/24/20 21:41 Dose: 100 mg Documented by: [id number] Sodium Chloride (Nss 1000ml) 2,000 mls @ 999 mls/hr IV .Q2H1M ONE Stop: 12/24/20 22:50 Last Infusion: 12/24/20 22:17 Dose: 0 mls/hr Documented by: [id number] Admin: 12/24/20 21:22 Dose: 999 mls/hr Documented by: [id number] Acetaminophen (Ofirmev) 1,000 mg in 100 mls @ 400 mls/hr IV NOW STA Stop: 12/24/20 21:04 Last Infusion: 12/24/20 21:56 Dose: 0 mls/hr Documented by: [id number] Admin: 12/24/20 21:41 Dose: 400 mls/hr Documented by: [id number] Cefepime HCl (Maxipime) 2,000 mg in 20 mls @ 5 mls/min IV NOW STA; Protocol Stop: 12/24/20 20:55 Last Admin: 12/24/20 21:23 Dose: 5 mls/min Documented by: [id number] Vancomycin HCl 1,250 mg/ (Sodium Chloride) 525 mls @ 200 mls/hr IV NOW ONE Stop: 12/24/20 23:29 Last Infusion: 12/25/20 00:30 Dose: 0 mls/hr Documented by: [id number] Admin: 12/24/20 21:41 Dose: 200 mls/hr Documented by: [id number] Sodium Chloride (Nss 1000ml) 1,000 mls @ 100 mls/hr IV .Q10H JESSICA Stop: 01/23/21 22:14 Last Infusion: 12/24/20 23:29 Dose: 0 mls/hr Documented by: [id number] Admin: 12/24/20 22:15 Dose: 100 mls/hr Documented by: [id number] Albumin Human (Albumin 25%) 12.5 gm in 50 mls @ 50 mls/hr IV Q1H JESSICA Stop: 12/25/20 03:14 Last Infusion: 12/25/20 02:16 Dose: 0 mls/hr Documented by: [id number] Admin: 12/25/20 01:16 Dose: 50 mls/hr Documented by: [id number] Infusion: 12/25/20 01:15 Dose: 0 mls/hr Documented by: [id number] Infusion: 12/25/20 01:11 Dose: 0 mls/hr Documented by: [id number] Admin: 12/25/20 00:45 Dose: 50 mls/hr Documented by: [id number] Infusion: 12/25/20 00:45 Dose: 50 mls/hr Documented by: [id number] Admin: 12/24/20 23:58 Dose: 50 mls/hr Documented by: [id number] Infusion: 12/24/20 23:53 Dose: 0 mls/hr Documented by: [id number] Admin: 12/24/20 23:28 Dose: 50 mls/hr Documented by: [id number] Potassium Chloride/Sodium Chloride (Normal Saline W/20 Meq Kcl) 20 meq in 1,000 mls @ 125 mls/hr IV .Q8H JESSICA Stop: 01/24/21 00:29 Last Infusion: 12/25/20 03:31 Dose: 0 mls/hr Documented by: [id number] Admin: 12/25/20 00:45 Dose: 125 mls/hr Documented by: [id number] Piperacillin Sod/Tazobactam (Sod 4.5 gm/ Dextrose) 120 mls @ 240 mls/hr IV ONE ONE; Protocol Stop: 12/25/20 00:59 Last Infusion: 12/25/20 01:17 Dose: 0 mls/hr Documented by: [id number] Admin: 12/25/20 00:44 Dose: 240 mls/hr Documented by: [id number] Calcium Chloride 1,000 mg/ (Sodium Chloride) 60 mls @ 240 mls/hr IV NOW STA Stop: 12/25/20 00:45 Last Infusion: 12/25/20 01:17 Dose: 0 mls/hr Documented by: [id number] Admin: 12/25/20 00:48 Dose: 240 mls/hr Documented by: [id number] Ioversol (Optiray 320 125ml) 120 ml IV ONCE ONE Stop: 12/24/20 21:27 Last Admin: 12/25/20 01:18 Dose: Not Given Documented by: [id number] Ioversol (Optiray 320 125ml) 120 ml IV ONCE ONE Stop: 12/24/20 21:39 Last Admin: 12/24/20 21:38 Dose: 120 ml Documented by: [id number] Miscellaneous (Stat Iv Infusion Titration Per Protocol) 1 ea N/A NOW STA Stop: 12/24/20 22:11 Last Admin: 12/25/20 00:47 Dose: Not Given Documented by: [id number] Critical Care Time Critical Care Time: Yes Total Critical Care Time: 122 I have personally spent greater than 122 minutes of critical care time in the direct management of this patient. This includes bedside care, interpretation of diagnostic studies, and testing, discussion with consultants, patient, and family members, and other required patient management activities. This 122 minutes is in excess of all separately billable procedures. Medical Decision Making Laboratory Data Result diagrams: 12/24/20 20:55 12/24/20 20:55 Lab Results 12/24/20 12/24/20 12/24/20 Range/Units 20:55 20:55 20:55 WBC 2.76 L (4.8-10.8) K/uL RBC 3.20 L (4.7-6.1) M/uL Hgb 9.3 L (14.0-18.0) g/dL POC Hgb (14.0-18.0) g/dl Hct 29.5 L (42-52) % POC Hct (42-52) % MCV 92.2 (80-100) fL MCH 29.1 (25-34) pg MCHC 31.5 L (32-36) g/dL RDW Std Deviation 52.3 H (36.4-46.3) fL RDW Coeff of Bello 15.4 H (11.5-14.5) % Plt Count 49 L (130-400) K/uL MPV 11.4 H (7.4-10.4) fL Neutrophils % (Manual) 88.6 % Lymphocytes % (Manual) 7.0 % Monocytes % (Manual) 3.5 % Basophils % (Manual) 0.9 % Neutrophils # (Manual) 2.45 (1.4-6.5) K/uL Total Absolute Neuts 2.45 (1.4-6.5) K/uL Lymphocytes # (Manual) 0.19 L (1.2-3.4) K/uL Total Abs Lymphocytes 0.19 L (1.2-3.4) K/uL Monocytes # (Manual) 0.10 L (0.11-0.59) K/uL Basophils # (Manual) 0.02 (0-0.2) K/uL Toxic Granulation 1+ Dohle Bodies 1+ PT 13.3 H (9.0-12.0) Seconds INR 1.3 H (0.9-1.1) APTT 28.2 (21.0-31.0) Seconds PTT Ratio 1.1 VBG pH (7.36-7.41) VBG pCO2 (38-50) mmHg VBG pO2 mmHg VBG HCO3 mmol/L VBG O2 Saturation % VBG Base Excess mEq/L Barometric Pressure mm/Hg POC Sodium (135-144) mmol/L Sodium 139 (136-145) mmol/L POC Potassium (3.3-5.0) mmol/L Potassium 4.4 D (3.5-5.1) mmol/L POC Chloride (101-112) mmol/L Chloride 103 (98-107) mmol/L Carbon Dioxide 26 (21-32) mmol/L POC Total CO2 (24-31) mmol/L Anion Gap 10.0 (3-11) POC Anion Gap (16-25) mmol/L POC BUN (7-18) mg/dl BUN 24 H (7-18) mg/dl Creatinine 1.08 (0.6-1.4) mg/dl POC Creatinine (0.6-1.3) mg/dl Est Cr Clr Drug Dosing 38.5 ml/min Est GFR ( Amer) 72.2 ml/min Est GFR (Non-Af Amer) 62.3 ml/min BUN/Creatinine Ratio 21.8 H (10-20) Glucose 152 H (70-99) mg/dl POC Glucose (other) (70-99) mg/dl Lactate (0.4-2.0) mmol/L Calcium 8.3 L (8.5-10.1) mg/dl POC Ioniz Calcium Crystal (1.12-1.32) mmol/l Magnesium 1.6 L (1.8-2.4) mg/dl Total Bilirubin 1.1 H (0.2-1) mg/dl AST 25 (15-37) U/L ALT 21 (12-78) U/L Alkaline Phosphatase 92 (45-117) U/L Troponin I 0.231 H* (0-0.045) ng/ml Total Protein 5.0 L (6.4-8.2) gm/dl Albumin 2.0 L (3.4-5.0) gm/dl Globulin 3.0 (2.5-4.0) gm/dl Albumin/Globulin Ratio 0.7 L (0.9-2) Procalcitonin (0-0.5) ng/ml Urine Color Urine Appearance (Clear) Urine pH (4.5-7.5) Ur Specific [place] (1.000-1.030) Urine Protein (Negative) Urine Glucose (UA) (Negative) Urine Ketones (Negative) Urine Blood (Negative) Urine Nitrite (Negative) Urine Bilirubin (Negative) Urine Urobilinogen (Negative) Ur Leukocyte Esterase (Negative) Urine WBC (Auto) (0-5) /hpf Urine RBC (Auto) (0-4) /hpf U Hyaline Cast (Auto) (0-5) /lpf U Epithel Cells (Auto) (0-5) /lpf Urine Bacteria (Auto) (Negative) Ur Renal Epithelial Cell (0-5) /lpf Urine Yeast Adenovirus (PCR) (NotDetected) B. pertussis DNA (PCR) (NotDetected) B.parapertussis DNA PCR (NotDetected) C. pneumoniae DNA (PCR) (NotDetected) Coronavirus OC43 (PCR) (NotDetected) Coronavirus HKU1 (PCR) (NotDetected) Coronavirus 229E (PCR) (NotDetected) COVID-19 Eval Order SARS-CoV-2 (PCR) (NotDetected) Coronavirus NL63 (PCR) (NotDetected) Human Metapneumovir PCR (NotDetected) Influenza Type A (PCR) (NotDetected) Influenza Type B (PCR) (NotDetected) M. pneumoniae (PCR) (NotDetected) Parainfluenza 1 (PCR) (NotDetected) Parainfluenza 2 (PCR) (NotDetected) Parainfluenza 3 (PCR) (NotDetected) Parainfluenza 4 (PCR) (NotDetected) RSV (PCR) (NotDetected) Entero/Rhino (PCR) (NotDetected) Blood Type Antibody Screen 12/24/20 12/24/20 12/24/20 Range/Units 20:55 20:55 20:55 WBC (4.8-10.8) K/uL RBC (4.7-6.1) M/uL Hgb (14.0-18.0) g/dL POC Hgb (14.0-18.0) g/dl Hct (42-52) % POC Hct (42-52) % MCV (80-100) fL MCH (25-34) pg MCHC (32-36) g/dL RDW Std Deviation (36.4-46.3) fL RDW Coeff of Bello (11.5-14.5) % Plt Count (130-400) K/uL MPV (7.4-10.4) fL Neutrophils % (Manual) % Lymphocytes % (Manual) % Monocytes % (Manual) % Basophils % (Manual) % Neutrophils # (Manual) (1.4-6.5) K/uL Total Absolute Neuts (1.4-6.5) K/uL Lymphocytes # (Manual) (1.2-3.4) K/uL Total Abs Lymphocytes (1.2-3.4) K/uL Monocytes # (Manual) (0.11-0.59) K/uL Basophils # (Manual) (0-0.2) K/uL Toxic Granulation Dohle Bodies PT (9.0-12.0) Seconds INR (0.9-1.1) APTT (21.0-31.0) Seconds PTT Ratio VBG pH 7.40 (7.36-7.41) VBG pCO2 43 (38-50) mmHg VBG pO2 18 mmHg VBG HCO3 26 mmol/L VBG O2 Saturation < 60.0 % VBG Base Excess 1.0 mEq/L Barometric Pressure 726.5 mm/Hg POC Sodium (135-144) mmol/L Sodium (136-145) mmol/L POC Potassium (3.3-5.0) mmol/L Potassium (3.5-5.1) mmol/L POC Chloride (101-112) mmol/L Chloride (98-107) mmol/L Carbon Dioxide (21-32) mmol/L POC Total CO2 (24-31) mmol/L Anion Gap (3-11) POC Anion Gap (16-25) mmol/L POC BUN (7-18) mg/dl BUN (7-18) mg/dl Creatinine (0.6-1.4) mg/dl POC Creatinine (0.6-1.3) mg/dl Est Cr Clr Drug Dosing ml/min Est GFR ( Amer) ml/min Est GFR (Non-Af Amer) ml/min BUN/Creatinine Ratio (10-20) Glucose (70-99) mg/dl POC Glucose (other) (70-99) mg/dl Lactate 7.0 H* (0.4-2.0) mmol/L Calcium (8.5-10.1) mg/dl POC Ioniz Calcium Crystal (1.12-1.32) mmol/l Magnesium (1.8-2.4) mg/dl Total Bilirubin (0.2-1) mg/dl AST (15-37) U/L ALT (12-78) U/L Alkaline Phosphatase (45-117) U/L Troponin I (0-0.045) ng/ml Total Protein (6.4-8.2) gm/dl Albumin (3.4-5.0) gm/dl Globulin (2.5-4.0) gm/dl Albumin/Globulin Ratio (0.9-2) Procalcitonin 1.37 H (0-0.5) ng/ml Urine Color Urine Appearance (Clear) Urine pH (4.5-7.5) Ur Specific [place] (1.000-1.030) Urine Protein (Negative) Urine Glucose (UA) (Negative) Urine Ketones (Negative) Urine Blood (Negative) Urine Nitrite (Negative) Urine Bilirubin (Negative) Urine Urobilinogen (Negative) Ur Leukocyte Esterase (Negative) Urine WBC (Auto) (0-5) /hpf Urine RBC (Auto) (0-4) /hpf U Hyaline Cast (Auto) (0-5) /lpf U Epithel Cells (Auto) (0-5) /lpf Urine Bacteria (Auto) (Negative) Ur Renal Epithelial Cell (0-5) /lpf Urine Yeast Adenovirus (PCR) (NotDetected) B. pertussis DNA (PCR) (NotDetected) B.parapertussis DNA PCR (NotDetected) C. pneumoniae DNA (PCR) (NotDetected) Coronavirus OC43 (PCR) (NotDetected) Coronavirus HKU1 (PCR) (NotDetected) Coronavirus 229E (PCR) (NotDetected) COVID-19 Eval Order SARS-CoV-2 (PCR) (NotDetected) Coronavirus NL63 (PCR) (NotDetected) Human Metapneumovir PCR (NotDetected) Influenza Type A (PCR) (NotDetected) Influenza Type B (PCR) (NotDetected) M. pneumoniae (PCR) (NotDetected) Parainfluenza 1 (PCR) (NotDetected) Parainfluenza 2 (PCR) (NotDetected) Parainfluenza 3 (PCR) (NotDetected) Parainfluenza 4 (PCR) (NotDetected) RSV (PCR) (NotDetected) Entero/Rhino (PCR) (NotDetected) Blood Type Antibody Screen 12/24/20 12/24/20 12/24/20 Range/Units 21:07 21:12 21:12 WBC (4.8-10.8) K/uL RBC (4.7-6.1) M/uL Hgb (14.0-18.0) g/dL POC Hgb 8.5 L (14.0-18.0) g/dl Hct (42-52) % POC Hct 25 L (42-52) % MCV (80-100) fL MCH (25-34) pg MCHC (32-36) g/dL RDW Std Deviation (36.4-46.3) fL RDW Coeff of Bello (11.5-14.5) % Plt Count (130-400) K/uL MPV (7.4-10.4) fL Neutrophils % (Manual) % Lymphocytes % (Manual) % Monocytes % (Manual) % Basophils % (Manual) % Neutrophils # (Manual) (1.4-6.5) K/uL Total Absolute Neuts (1.4-6.5) K/uL Lymphocytes # (Manual) (1.2-3.4) K/uL Total Abs Lymphocytes (1.2-3.4) K/uL Monocytes # (Manual) (0.11-0.59) K/uL Basophils # (Manual) (0-0.2) K/uL Toxic Granulation Dohle Bodies PT (9.0-12.0) Seconds INR (0.9-1.1) APTT (21.0-31.0) Seconds PTT Ratio VBG pH (7.36-7.41) VBG pCO2 (38-50) mmHg VBG pO2 mmHg VBG HCO3 mmol/L VBG O2 Saturation % VBG Base Excess mEq/L Barometric Pressure mm/Hg POC Sodium 137 (135-144) mmol/L Sodium (136-145) mmol/L POC Potassium 4.3 (3.3-5.0) mmol/L Potassium (3.5-5.1) mmol/L POC Chloride 94 L (101-112) mmol/L Chloride (98-107) mmol/L Carbon Dioxide (21-32) mmol/L POC Total CO2 24 (24-31) mmol/L Anion Gap (3-11) POC Anion Gap 24.0 (16-25) mmol/L POC BUN 21 H (7-18) mg/dl BUN (7-18) mg/dl Creatinine (0.6-1.4) mg/dl POC Creatinine 1.0 (0.6-1.3) mg/dl Est Cr Clr Drug Dosing ml/min Est GFR ( Amer) ml/min Est GFR (Non-Af Amer) ml/min BUN/Creatinine Ratio (10-20) Glucose (70-99) mg/dl POC Glucose (other) 146 H (70-99) mg/dl Lactate (0.4-2.0) mmol/L Calcium (8.5-10.1) mg/dl POC Ioniz Calcium Crystal 1.11 L (1.12-1.32) mmol/l Magnesium (1.8-2.4) mg/dl Total Bilirubin (0.2-1) mg/dl AST (15-37) U/L ALT (12-78) U/L Alkaline Phosphatase (45-117) U/L Troponin I (0-0.045) ng/ml Total Protein (6.4-8.2) gm/dl Albumin (3.4-5.0) gm/dl Globulin (2.5-4.0) gm/dl Albumin/Globulin Ratio (0.9-2) Procalcitonin (0-0.5) ng/ml Urine Color Urine Appearance (Clear) Urine pH (4.5-7.5) Ur Specific [place] (1.000-1.030) Urine Protein (Negative) Urine Glucose (UA) (Negative) Urine Ketones (Negative) Urine Blood (Negative) Urine Nitrite (Negative) Urine Bilirubin (Negative) Urine Urobilinogen (Negative) Ur Leukocyte Esterase (Negative) Urine WBC (Auto) (0-5) /hpf Urine RBC (Auto) (0-4) /hpf U Hyaline Cast (Auto) (0-5) /lpf U Epithel Cells (Auto) (0-5) /lpf Urine Bacteria (Auto) (Negative) Ur Renal Epithelial Cell (0-5) /lpf Urine Yeast Adenovirus (PCR) Not Detected (NotDetected) B. pertussis DNA (PCR) Not Detected (NotDetected) B.parapertussis DNA PCR Not Detected (NotDetected) C. pneumoniae DNA (PCR) Not Detected (NotDetected) Coronavirus OC43 (PCR) Not Detected (NotDetected) Coronavirus HKU1 (PCR) Not Detected (NotDetected) Coronavirus 229E (PCR) Not Detected (NotDetected) COVID-19 Eval Order [facility] at [facility] SARS-CoV-2 (PCR) Not Detected (NotDetected) Coronavirus NL63 (PCR) Not Detected (NotDetected) Human Metapneumovir PCR Not Detected (NotDetected) Influenza Type A (PCR) Not Detected (NotDetected) Influenza Type B (PCR) Not Detected (NotDetected) M. pneumoniae (PCR) Not Detected (NotDetected) Parainfluenza 1 (PCR) Not Detected (NotDetected) Parainfluenza 2 (PCR) Not Detected (NotDetected) Parainfluenza 3 (PCR) Not Detected (NotDetected) Parainfluenza 4 (PCR) Not Detected (NotDetected) RSV (PCR) Not Detected (NotDetected) Entero/Rhino (PCR) Not Detected (NotDetected) Blood Type Antibody Screen 12/24/20 12/24/20 12/24/20 Range/Units 21:38 22:02 22:49 WBC (4.8-10.8) K/uL RBC (4.7-6.1) M/uL Hgb (14.0-18.0) g/dL POC Hgb (14.0-18.0) g/dl Hct (42-52) % POC Hct (42-52) % MCV (80-100) fL MCH (25-34) pg MCHC (32-36) g/dL RDW Std Deviation (36.4-46.3) fL RDW Coeff of Bello (11.5-14.5) % Plt Count (130-400) K/uL MPV (7.4-10.4) fL Neutrophils % (Manual) % Lymphocytes % (Manual) % Monocytes % (Manual) % Basophils % (Manual) % Neutrophils # (Manual) (1.4-6.5) K/uL Total Absolute Neuts (1.4-6.5) K/uL Lymphocytes # (Manual) (1.2-3.4) K/uL Total Abs Lymphocytes (1.2-3.4) K/uL Monocytes # (Manual) (0.11-0.59) K/uL Basophils # (Manual) (0-0.2) K/uL Toxic Granulation Dohle Bodies PT (9.0-12.0) Seconds INR (0.9-1.1) APTT (21.0-31.0) Seconds PTT Ratio VBG pH (7.36-7.41) VBG pCO2 (38-50) mmHg VBG pO2 mmHg VBG HCO3 mmol/L VBG O2 Saturation % VBG Base Excess mEq/L Barometric Pressure mm/Hg POC Sodium (135-144) mmol/L Sodium (136-145) mmol/L POC Potassium (3.3-5.0) mmol/L Potassium (3.5-5.1) mmol/L POC Chloride (101-112) mmol/L Chloride (98-107) mmol/L Carbon Dioxide (21-32) mmol/L POC Total CO2 (24-31) mmol/L Anion Gap (3-11) POC Anion Gap (16-25) mmol/L POC BUN (7-18) mg/dl BUN (7-18) mg/dl Creatinine (0.6-1.4) mg/dl POC Creatinine (0.6-1.3) mg/dl Est Cr Clr Drug Dosing ml/min Est GFR ( Amer) ml/min Est GFR (Non-Af Amer) ml/min BUN/Creatinine Ratio (10-20) Glucose (70-99) mg/dl POC Glucose (other) (70-99) mg/dl Lactate 5.2 H* (0.4-2.0) mmol/L Calcium (8.5-10.1) mg/dl POC Ioniz Calcium Crystal (1.12-1.32) mmol/l Magnesium (1.8-2.4) mg/dl Total Bilirubin (0.2-1) mg/dl AST (15-37) U/L ALT (12-78) U/L Alkaline Phosphatase (45-117) U/L Troponin I (0-0.045) ng/ml Total Protein (6.4-8.2) gm/dl Albumin (3.4-5.0) gm/dl Globulin (2.5-4.0) gm/dl Albumin/Globulin Ratio (0.9-2) Procalcitonin (0-0.5) ng/ml Urine Color Dark Yellow Urine Appearance Cloudy A (Clear) Urine pH 5.5 (4.5-7.5) Ur Specific [place] 1.023 (1.000-1.030) Urine Protein 2+ H (Negative) Urine Glucose (UA) Negative (Negative) Urine Ketones Trace H (Negative) Urine Blood Negative (Negative) Urine Nitrite Negative (Negative) Urine Bilirubin Negative (Negative) Urine Urobilinogen Negative (Negative) Ur Leukocyte Esterase Trace H (Negative) Urine WBC (Auto) 5-10 H (0-5) /hpf Urine RBC (Auto) 0-4 (0-4) /hpf U Hyaline Cast (Auto) 1-5 (0-5) /lpf U Epithel Cells (Auto) >30 H (0-5) /lpf Urine Bacteria (Auto) Negative (Negative) Ur Renal Epithelial Cell 0-5 (0-5) /lpf Urine Yeast Not Reportable Adenovirus (PCR) (NotDetected) B. pertussis DNA (PCR) (NotDetected) B.parapertussis DNA PCR (NotDetected) C. pneumoniae DNA (PCR) (NotDetected) Coronavirus OC43 (PCR) (NotDetected) Coronavirus HKU1 (PCR) (NotDetected) Coronavirus 229E (PCR) (NotDetected) COVID-19 Eval Order SARS-CoV-2 (PCR) (NotDetected) Coronavirus NL63 (PCR) (NotDetected) Human Metapneumovir PCR (NotDetected) Influenza Type A (PCR) (NotDetected) Influenza Type B (PCR) (NotDetected) M. pneumoniae (PCR) (NotDetected) Parainfluenza 1 (PCR) (NotDetected) Parainfluenza 2 (PCR) (NotDetected) Parainfluenza 3 (PCR) (NotDetected) Parainfluenza 4 (PCR) (NotDetected) RSV (PCR) (NotDetected) Entero/Rhino (PCR) (NotDetected) Blood Type AB Positive Antibody Screen NEGATIVE Imaging Data Radiologist's Impression: CTA ABDOMEN & PELVIS With Contrast: Comparison: CT abdomen pelvis with contrast which would allow No acute findings in the abdomen or pelvis. An infrarenal abdominal aortobiiliac stent graft is in place with stable size of a large infrarenal abdominal aortic aneurysm measuring 8.1 x 6.0 cm in greatest axial dimension compared to 8.3 x 6.2 cm previously. Trace hyperdensity the visualized in the hernia sac, consistent with known history of an endoleak, which is not optimally assessed on this single phase exam. 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 A small amount of fluid is visualized in the right inguinal canal. Prostatomegaly. Mild cervical ventral wall thickening of the urinary bladder which could be correlated with urinalysis to evaluate for urinary tract infection. Radiologist: Chelsea Pineda M.D. Study ready at 22:01 and initial results transmitted at 23:05 Comparison: CT chest with contrast 10/27/20 No acute pulmonary embolism is visualized. Mild bilateral groundglass opacities throughout both lungs may represent alveolar pulmonary edema versus an acute infectious or inflammatory process such as pneumonia, which may include Covid pneumonia. 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 Left subclavian central venous catheter terminates in the SVC. Prominence of the pulmonary vasculature raises the possibility of primary pulmonary hypertension. Atherosclerotic calcifications of the aorta and arch vessels. Coronary artery calcifications. Radiologist: Chelsea Pineda M.D. Study ready at 21:42 and initial results transmitted at 22:52 ECG Data Indication: + SOB/dyspnea Rate (beats per minute): 134 Rhythm: + sinus tachycardia ECG Intervals/blocks: + Normal QRS, + Normal MD and + Normal QT-c ECG ST segments: + Normal ST segments ECG Findings: + PVCs MDM Narrative 2048: The patient was evaluated in room B10. A complete history and physical exam was performed Cardiac monitoring: An order was placed for continuous cardiac monitoring. The monitor shows a rate of 150 with sinus tachycardia rhythm Patient hypotensive and tachycardic on arrival. Code sepsis called. EMR reviewed. Patient was discharged from the hospital today. Patient was admitted for possible sepsis. 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 Last chemotherapy was on December 15. During the hospital stay the patient was transfused 1 unit packed red blood cells. 2 L IV fluid started in the patient wide open. Patient is on high flow oxygen via nasal cannula Labs done today showed white blood cell count 1.19, hemoglobin 8.4, platelet count 36, and neutrophils of 0.8. Given this patient will be treated with broad-spectrum antibiotics vancomycin and cefepime. Patient is DNR/DNI 2120: Blood pressure improved with IV fluid. Will take the patient for CTA of the chest and abdomen given the patient's history of AAA and endovascular leak. 5: Patient becoming hypotensive again. Repeat IV fluid bolus ordered. Hydrocortisone 100 mg IV and Levophed also ordered for the patient. 2310: CTA of the chest showed no PE but does show bilateral groundglass opacities. CTA of the abdomen shows no acute findings the infrarenal abdominal aorta biiliac stent graft is in place with stable size of the abdominal aortic aneurysm and there is an endoleak again seen. 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 Labs showed a white blood cell count of 2.76 up from 1.19 earlier today. Hemoglobin 9.3 up from 8.4 today. Platelet count 49 up from 36 today. Patient is not neutropenic right now. VBG within normal limits. Lactic acid is elevated at 7. Troponin elevated 0.231. Procalcitonin elevated 1.37.We will continue to titrate norepinephrine drip to improve map. 0010: Blood pressure improving with increasing Levophed drip. [facility] Patient will be admitted to the ICU. Impression & Plan Septic shock, Pulmonary fibrosis, unspecified, Rectal cancer, Lymphoma, History of abdominal aortic aneurysm (AAA), Hypoxia Discharge Plan Visit Data Chief Complaint: Shortness of Breath/Dyspnea Stated Complaint: ILLNESS, SOB, WEAKNESS Discharge Problem: Septic shock, Pulmonary fibrosis, unspecified, Rectal cancer, Lymphoma, History of abdominal aortic aneurysm (AAA), Hypoxia Patient Disposition: Admitted As Inpatient Discharge Instructions Interventions: ED Discharge Assessment Last Done: 12/25/20 00:08
[2020-12-25 05:34] LABS: Hematocrit (blood only) 27.3 % (42-52); Hemoglobin 8.6 g/dL (14.0-18.0); Mean Corpuscular Hemoglobin 28.9 pg (25-34); Mean Corpuscular Hgb Conc 31.5 g/dL (32-36); Mean Corpuscular Volume 91.6 fL (80-100); RDW Coefficient of Variation 15.7 % (11.5-14.5); RDW Standard Deviation 52.8 fL (36.4-46.3); Red Blood Count 2.98 M/uL (4.7-6.1); White Blood Count 6.71 K/uL (4.8-10.8)
[2020-12-25 06:01] LABS: Mean Platelet Volume 11.7 fL (7.4-10.4); Platelet Count 55 K/uL (130-400)
[2020-12-25 06:04] LABS: BUN Creatinine Ratio 22.2 (10-20); Calcium 8.1 mg/dl (8.5-10.1); Est GFR (African American) 66.9 ml/min; Est GFR (Non-African American) 57.7 ml/min; Magnesium 2.2 mg/dl (1.8-2.4); Phosphorus 2.6 mg/dl (2.5-4.9); Potassium 4.6 mmol/L (3.5-5.1)
[2020-12-25] MEDS: PIPERACILLIN/TAZOBACTAM 4.5 GM in DEXTROSE 5% 100 ML IV SCH ×3 (06:06→21:24)
[2020-12-25 06:38] LABS: ALC (manual) 0.12 K/uL (1.2-3.4); ANC (manual) 5.94 K/uL (1.4-6.5); Dohle Bodies 1+; Giant Platelets 1+; Lymphocytes # (manual) 0.12 K/uL (1.2-3.4); Lymphocytes % (manual) 1.8 %; Metamyelocytes % (manual) 4.4 %; Monocytes # (manual) 0.23 K/uL (0.11-0.59); Monocytes % (manual) 3.5 %; Myelocytes # (manual) 0.12 K/uL (0-0); Myelocytes % (manual) 1.8 %; Neutrophils # (manual) 5.94 K/uL (1.4-6.5); Neutrophils % (manual) 88.5 %; Polychromasia 1+; Toxic Granulation 2+
[2020-12-25] MEDS: VASOPRESSIN 20 UNITS in 0.9 % SODIUM CHLORIDE 100 ML IV SCH (07:59)
--- NOTE | 2020-12-25 08:09 | XRay Report ---
XR chest 1V portable HISTORY: SEPSIS COMPARISON: Chest 12/19/2020. FINDINGS: Progressive diffuse interstitial thickening and hazy bibasilar airspace opacities. No pneum othorax. No pleural effusions. The heart remains enlarged. Left subclavian Port-A-Cath terminates at the distal SVC. IMPRESSION: Progressive diffuse interstitial thickening with hazy bibasilar airspace opacity. This could be due t o a pneumonia or pulmonary edema. ACT 112: Negative or not required by law. Electronically signed by: Pipe Matthews M.D. 12/25/2020 8:07 AM
--- NOTE | 2020-12-25 08:14 | CT Scan Report ---
CT ANGIOGRAPHY OF THE ABDOMEN AND PELVIS CLINICAL HISTORY: Hypotension. Hx AAA repair and known endoleak. COMPARISON STUDY: CTA of the abdomen and pelvis September 11, 2020. CT of the abdomen and pelvis October. TECHNIQUE: Helical axial images of the abdomen and pelvis were obtained during arterial phase followi ng intravenous injection of 120 cc Optiray 320 IV. Sagittal and coronal reconstructions were viewed a s well as maximal intensity projections on an independent 3-D workstation. Automated exposure control was utilized for the study. A dose lowering technique was utilized adhering to the principles of AL TICO. FINDINGS: Please note that the chest CT will be reported separately. UIP pattern of pulmonary fibrosi s is again noted. There are ground glass opacities within the lungs. No pneumatosis, free air or port al venous gas is present. Aortoiliac endovascular stent graft is in place. Residual aneurysm sac is u nchanged since CT of October 27, 2020, measuring 8.2 x 6.3 cm. Contrast within the posterior aspect of the sac represents endoleak, better depicted on prior exam. There is no evidence for rupture. Dissec tion within the right external iliac artery is unchanged. The bilateral iliac limbs are patent. A sma ll amount of fluid within the right inguinal canal is noted. There is no evidence for a bowel obstruc tion. Arterial phase images of the liver, spleen, adrenal glands and pancreas are unremarkable. There is multifocal left renal scarring. A cyst within the lower pole the left kidney is noted. The append ix is normal. A small amount of fluid within the pelvis is noted. Mild bladder wall thickening. No ac [place] fracture or suspicious lesion is identified within the visualized skeletal structures. IMPRESSION: 1. No change in appearance of the aortoiliac stent graft and residual aneurysm sac which measures 8.2 x 6.3 cm. Redemonstration of an endoleak. No rupture. 2. Small amount of fluid within the pelvis and right inguinal canal. 3. No bowel obstruction. 4. Redemonstration of a dissection within the right external iliac artery. ACT 112: Negative or not required by law. Electronically signed by: Gallo Frye M.D. 12/25/2020 8:13 AM
[2020-12-25] MEDS: HYDROCORTISONE SOD 50 MG in SYRINGE 0 ML IV SCH ×3 (08:56→21:25)
--- NOTE | 2020-12-25 09:25 | CT Scan Report ---
CT ANGIOGRAM OF THE CHEST CLINICAL HISTORY: Sepsis. COMPARISON STUDY: Chest CT dated 10/27/2020. TECHNIQUE: Following the IV administration of 120 cc of Optiray 320, CT angiogram of the chest was pe rformed from the upper abdomen to the thoracic inlet utilizing the pulmonary embolus protocol. Images are reviewed in the axial, sagittal, and coronal planes. 3-D MIPS images are created and assessed. I V contrast was administered without complication. A dose lowering technique was utilized adhering to the principles of ALARA. CT DOSE: 417.83 mGy.cm FINDINGS: Thyroid: Imaged portions of the thyroid gland are normal in size and attenuation. Thoracic aorta: There is atherosclerotic calcification of the thoracic aorta. There is mild aneurysma l dilatation of the ascending thoracic aorta which measures up to 4.1 cm in diameter. The remainder o f the thoracic aorta is normal in caliber, and the arch demonstrates standard 3-vessel anatomy. No di ssection is seen. Pulmonary vasculature: The pulmonary trunk is dilated, measuring 4.2 cm in diameter. This suggests pu lmonary artery hypertension. There are no filling defects identified in the main, lobar, or segmental pulmonary arteries to suggest pulmonary embolus. Heart: A left subclavian central venous infusion port is in place. The heart is enlarged and without pericardial effusion. The coronary arteries are densely calcified. Lungs and pleural spaces: There is emphysema in conjunction with changes of chronic interstitial lung disease. Traction bronchiectasis and honeycombing is noted throughout the lower lobes. Mild ground g lass opacities throughout both lungs have increased as compared 10/27/2020 and there is associated coa rsening of interstitium. No lobar consolidation is identified. Trace left pleural effusion is noted. Mediastinum: Mediastinal lymphadenopathy is similar to previous. A precarinal node measures 1.5 cm in short axis. Keisha: There is bilateral hilar adenopathy. Hilar nodes measure up to 1.9 cm short axis. Axillae: There are mildly enlarged right axillary nodes. A node on image #64 measures 1.9 x 1.0 cm. T here are subcentimeter left axillary nodes. Upper abdomen: A small hiatal hernia is noted. Partially visualized upper abdominal viscera is otherw ise within normal limits. Skeletal structures: The skeletal structures are osteopenic. Degenerative change and hyperkyphosis is noted in the thoracic spine. No lytic or blastic bony lesions are seen. IMPRESSION: 1. There is no evidence of pulmonary embolus in the main, lobar, or segmental pulmonary arteries. 2. Findings of emphysema and chronic interstitial lung disease are similar to previous. 3. Numerous groundglass opacities with coarsening of interstitium have increased as compared to the e [facility] 2420 examination. Correlate clinically for evidence of a superimposed infectious/inflammatory p neumonitis or possibly fluid overload/edema. 4. Trace left pleural effusion. 5. Cardiomegaly. 6. Mediastinal and hilar adenopathy are unchanged and likely due to chronic lung disease. 7. Additional findings as above. ACT 112: Negative or not required by law. Electronically signed by: Neal Ashley M.D. 12/25/2020 9:24 AM
--- NOTE | 2020-12-25 09:41 | Communication Note ---
Date of Service: December 25, 2020 Add thiamine 100 mg daily for lactic acid acidosis I suspect that this is secondary to the severe sepsis. Still requiring vasoactive medications. Immun ocompromise secondary to chemotherapy agents waiting for nicolasa in blood counts, continue broad-spectrum antibiotics Zosyn and vancomycin blood cultures pending supplemental hydrocortisone random cortisol within adequate limits. Cannot exclude superimposed infection with history of pulmonary fibrosis Thrombocytopenia likely secondary to chemotherapeutic agents Palliative care consult patient DNR/DNI may desire to transition to comfort however he might be nadired in his chemotherapeutic effect Patient was discussed in multidisciplinary rounds I have personally spent 25 minutes of critical care time in the direct management of this patient. This is a life/limb threatening event. This includes time spent evaluating patient, direct bedside care, chart review, placing orders, interpretation of diagnostic studies, discussion with consultants, patient, and/or family members regarding treatment decisions, as well as other required patient management activities. This time is exclusive of all separately billable procedures, and teaching time and separate from and in addition to any other critical care service time. Coding Level of Care Code Critical Care jordana lyonst'l 30 min
--- NOTE | 2020-12-25 10:26 | Consultation Report ---
MEDICAL ONCOLOGY CONSULTATION DATE OF SERVICE: 12/25/2020. REASON FOR CONSULTATION: An 85-year-old gentleman with concurrent rectal cancer and diffuse large B- cell lymphoma, admitted for hypotension. HISTORY OF PRESENT ILLNESS: Mr. Josiah Estrada is a very pleasant 85-year-old gentleman well known to [facility], currently under my care, recently completed his sixth and final cycle of R-CHOP chemotherapy for diffuse large B-cell lymphoma. This gentleman also has concurrent history of rectal cancer, comp leted chemoradiation and was treated in sequential fashion, chemoradiation first followed by diffuse large B-cell lymphoma regimen. He completed his sixth and final cycle on 12/15/2020. Keep in mind p art of the R-CHOP regimen includes high-dose steroids for 5 days. Thus some patients can experience transient Addisonian-type symptomatology. He was recently admitted to [facility] a nd diagnosed with a Staph aureus bacteremia, which was negative for MRSA. He was discharged yesterda y to [facility] and quickly decompensated necessitating readmission to hospital. He is present ly in the ICU, verbalizes recognized me, presently on Levophed. CTA of the chest was repeated on adm ission, has not been officially interpreted; however, viewed the films with the ICU resident. Clearl y, there are some patchy infiltrates intermixed with numerous small bullae. Laboratories reveal a WB C count of 6710, hemoglobin 8.6, and platelet count of 55,000. I have been asked to assist in Mr. Nafisa good's care as he recovers from cycle #6 R-CHOP chemotherapy. 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 PAST SURGICAL HISTORY: Includes right groin excisional lymph node biopsy, status post AAA repair, ao rtogram, and embolization of internal iliac arteries, tooth extraction, tonsillectomy/adenoidectomy, colonoscopy, cataract surgery, and Endoleak endovascular aneurysm repair. MEDICATIONS PRIOR TO ADMISSION: Atorvastatin 40 mg p.o. daily, metoprolol 75 mg p.o. daily, albutero l sulfate 2 puffs inhaled q. 4 hours p.r.n. ALLERGIES: No known drug allergies. FAMILY HISTORY: Father succumbed to pulmonary disease and Alzheimer's. He has a brother with metast atic osseous cancer. Grandmother with diabetes mellitus. SOCIAL HISTORY: The patient is retired. He lives independently. He is a reformed smoker. Negative for alcohol or illicit substances. REVIEW OF SYSTEMS: CONSTITUTIONAL: Positive for generalized weakness, asthenia, disambulation. No fevers, chills or sw eats. SKIN: No rashes or lesions. No history of dermatoses. HEENT: Negative for headaches. Positive for lightheadedness. He denies vertigo. No acute visual d isturbances. He wears corrective lenses. No worsening conductive hearing loss. No sinus symptoms, sore throat, or dysphagia at present. LYMPHATICS: Positive for diffuse large B-cell lymphoma, recently completed six cycles of R-CHOP chem otherapy. CARDIAC: Negative for angina or palpitations. Echocardiogram with ejection fraction in excess of 60 % performed on 12/23/2020. RESPIRATORY: History of pulmonary fibrosis, history of hypoxia. No current cough. He is on high-fl ow oxygen at present. Denies hemoptysis. GASTROINTESTINAL: Negative for abdominal pain, nausea, vomiting, diarrhea, or constipation. GENITOURINARY: History of BPH. No current hematuria, dysuria, urinary incontinence. PSYCHIATRIC: Negative for anxiety, depression, or psychoses. ENDOCRINE: Negative for thyroid disease or diabetes mellitus. MUSCULOSKELETAL: Positive for generalized weakness. No focality. No arthralgias or myalgias. NEUROLOGIC: Negative for seizure, stroke, or migraine headache. HEMATOLOGIC: Positive for residual anemia and thrombocytopenia. Neutrophils have recovered. PHYSICAL EXAMINATION: GENERAL: A very pleasant 85-year-old, awake, alert and appropriate, in no acute distress VITAL SIGNS: Temperature 36.5, pulse rate 99, respiratory rate 18, blood pressure 129/86. His O2 sat is 91% on high-flow oxygen. SKIN: Warm, dry, noncyanotic without petechiae, rash or ecchymosis. HEENT: Head atraumatic, normocephalic. Eyes: PERRLA. EOMI. Sclerae are nonicteric. No conjunctiv al injection. Nares patent without rhinorrhea or discharge. Throat clear. Dentures are loose. No buccal lesions or ulcerations. NECK: Supple. HEART: Tachycardic, but regular. LUNGS: Bibasilar crackles. ABDOMEN: Soft, nontender, nondistended. EXTREMITIES: No clubbing, cyanosis, or edema. MUSCULOSKELETAL: Strength and pulses are equal in all 4 quadrants. NEUROLOGIC: He is awake, alert and oriented x3. LABORATORY DATA: WBC count 6710, hemoglobin 8.6, platelet count 55,000, absolute neutrophil count 59 40. PT slightly increased at 13.3 seconds. Sodium 136, potassium 4.6, chloride 104, carbon dioxide 23, BUN 26, creatinine 1.15. Lactate 5.5, albumin 2.0, procalcitonin 1.37. IMPRESSION AND PLAN: 1. Hypotension. 2. Diffuse large B-cell lymphoma, status post 3 cycles of R-CHOP chemotherapy. 3. Adenocarcinoma of the rectum, completed chemoradiation earlier this summer. 4. Hypoalbuminemia. 5. 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 It was my pleasure to visit with Josiah, an 85-year-old gentleman well known to me at [facility]. This gen tleman carries a concurrent diagnosis of rectal cancer and diffuse large B-cell lymphoma. He complet ed chemoradiation utilizing capecitabine as radiosensitizer. Surgery was deferred and thus with conc urrent lymphoma proceeded to six cycles of R-CHOP chemotherapy, which for most part went pretty well early in his course; however, after cycle #6 not surprisingly, he was admitted to hospital, diagnosed with bacteremia and effectively treated and perhaps discharged may be a bit prematurely. He was sen t to [facility] yesterday and completely decompensated necessitating readmission to the hospital. The patient was profoundly hypotensive and was appropriately fluid resuscitated and given hydrocortisone . When I first heard of Mr. Estrada's readmission and blood pressure issues, my immediate concern wa s possible Addisonianism brought on by high-dose steroids as part of R-CHOP. He was in good spirits at bedside. His neutrophil count has completely recovered. We looked at his most recent echocardiog bridget, his ejection fraction is within normal limits, which also was of concern considering he received Adriamycin. I have made contact with the patient's daughter and discussed my thoughts. I agree wit h medical management at this point to panculture, treat empirically, and adjust antibiotics as approp riate moving forward. I would like to keep his hemoglobin around 9 g/dL. Perhaps a single unit of b lood at some point may prove to be helpful. I am also concerned with Mr. Estrada's albumin and would like him to receive perhaps albumin over the next couple of days. I will ensure appropriate followu p and perhaps this time when he is discharged, instead of the [facility], perhaps may be [facility] or one of the nursing homes to do a more scaled back rehabilitation. Thank you very much for allowing me to participate in his care. If you have any questions or concern s, feel free to contact me at any time. Job ID: [id number]
[2020-12-25] MEDS ORDERED: THIAMINE HCL 100 MG in SYRINGE 9 ML IV SCH (10:30)
--- NOTE | 2020-12-25 10:30 | Palliative Care Consultation ---
Date of Consultation December 25, 2020 Assessment & Plan (1) Palliative care encounter: Ms. Estrada is an 85 year old male who was recently discharged from [facility] on 12/24 following an admission stay of 6 days. He has an unfortunate medical history that includes chronic respiratory failure, pulmonary fibrosis, thrombocytopenia, hypertension, lymphoma and rectal cancer. He is a patient of Dr. Haque and received his last chemotherapy on December 15. It is suspected that this individual has adrenal insufficiency related to the steroids that he has recently received and also immunocompromised secondary to chemotherapy agents. He has been started on broad-spectrum antibiotics Zosyn and vancomycin. Thrombocytopenia also likely secondary to chemotherapeutic agents. Due to his hypotension and increased O2 needs, he was admitted in the ICU and is on two vasoactive medications and hi-flow O2. The patient is an established DNR/DNI. Palliative Medicine has been consulted to assist with establishing goals of care. I met with the patient in room 111 in the ICU. He was awake, and in no apparent distress. He was able to hold a conversation and follow simple commands and answer some questions; however, overall goals of care and understanding the complexity of his illness are not reliable. He reportedly lives by himself and his daughter, Fabby, per the patient, lives just [address] He stated that she is the person that provides him care if he needs it. He states that prior to this last hospitalization he was able to vacuum, clean and care for himself. When I asked him if he could summarize why he thinks he is in the hospital, he stated "my mouth is watery, my nose is running and my gums have shrunk". Nursing has stated that he has been cognitively 'wifty'. I was able to call his daughter Fabby at [phone]; however, she was clear that she did not want palliative medicine involved with her father despite explaining how we can be involved in his care in a variety of ways. She expressed numerous concerns and frustrations and indicated that she wants palliative care removed from her fathers care and in addition indicated she would like a different hospitalist for her father. The above was communicated with her care team. Please feel free to re-involve palliative care should the family and patient request conversation or require symptom management. (2) Hypoxia: He is on hi-flow oxygen 50% 30L. Patient does have a soft voice and is hoarse with conversation. He becomes SOB and winded with general conversation when speaking in sentences. SpO2 ranging 89-93%. (3) General weakness: History of Present Illness Reason for Consultation: Goals of care Requesting Physician: Scotty [place] Attending Physician: Erlinda Johnson MD History of Present Illness Ms. Estrada is an 85 year old male who was recently discharged from [facility] on 12/24 following an admission stay of 6 days. He has an unfortunate medical history that includes chronic respiratory failure, pulmonary fibrosis, thrombocytopenia, hypertension, lymphoma and rectal cancer. He is a patient of Dr. Haque and received his last chemotherapy on December 15. It is suspected that this individual has adrenal insufficiency related to the steroids that he has recently received and also immunocompromised secondary to chemotherapy agents. He has been started on broad-spectrum antibiotics Zosyn and vancomycin. Thrombocytopenia also likely secondary to chemotherapeutic agents. Due to his hypotension and increased O2 needs, he was admitted in the ICU and is on two vasoactive medications and hi-flow O2. The patient is an established DNR/DNI. Palliative Medicine has been consulted to assist with establishing goals of care. Please see A/P for further details. Thanks for involving palliative medicine with this individual. Allergies Allergy/AdvReac Type Severity Reaction Status Date / Time No Known Allergies Allergy Verified 12/19/20 15:01 Home Medications Medication Instructions Recorded Confirmed Type albuterol sulfate 90 mcg/actuation 2 puff INHALATION Q4H PRN #6.7 g 03/09/20 12/24/20 Rx aerosol inhaler (Ventolin HFA) metoprolol succinate 50 mg 75 mg PO QAM #90 tab 10/23/20 12/24/20 Rx tablet,extended release 24 hr atorvastatin 40 mg tablet 40 mg PO PM #90 tab 11/24/20 12/24/20 Rx Patient History Medical History (Updated 12/25/20 @ 10:28 by ALEKSANDRA Mcallister) Allergic rhinitis Benign prostatic hyperplasia with urinary obstruction and other lower urinary tract symptoms Carotid artery stenosis monitors annually, follows with Dr. Rapp Per 12/03/19 vascular note: right ICA 60-69% (unchanged) Elevated prostate specific antigen (PSA) Essential hypertension General weakness Hearing loss History of abdominal aortic aneurysm (AAA) S/p AAA repair using bifurcation graft > endoleak being monitoring by vascular with recommendation to repeat study ~09/2020 Hyperlipidemia Hypertension Hypoxemia Hypoxia IgG monoclonal gammopathy of uncertain significance Impaired fasting glucose Palliative care encounter Pulmonary fibrosis, unspecified Sleep apnea 3L O2 HS Stroke 2009 Transient ischemic attack (TIA) ~2014 Surgical History Endoleak post (EVAR) endovascular aneurysm repair 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 History of cataract surgery RT/LEFT History of colonoscopy History of tonsillectomy and adenoidectomy History of tooth extraction History of vascular surgery Aortogram with embolization of internal iliac arteries S/P AAA repair S/p AAA repair using bifurcation graft PEVAR initially in 2011 S/P lymph node biopsy (05/26/20) Right Groin Excisional Lymph Node Biopsy (05/26/20): MAC at [facility] Family History Father Alzheimer disease Lung disease Brother Bone cancer Cancer Grandmother Diabetes Aunt Diabetes Mother Carotid artery disease Other No family history of adverse response to anesthesia Social History Smoking Status: Unknown if ever smoked Tobacco Type: Smokeless Tobacco (Dip or Chew) Age Quit Using Tobacco: 55; packs per day: 1; Years Smoked: 30; Second Hand Exposure: No; Hx Alcohol Use: No Hx Substance Use: No Preferred Language: Tamazight Communication Ability: Effective Hearing Ability: Use of Hearing Aid Rug Cutter Required: No Beliefs That Will Affect Care: None marital status: Current Living Situation: Alone current occupational status: retired Feels Safe at Home: Yes caffeine: Yes during the past year weight has: decreased > 10 lbs Physical Activity Frequency: 1-2 Times per Week Seatbelt Use: always Sunscreen Use: No Assistive Devices: Denture - Upper, Glasses and Oxygen - Continuous Review of Systems Review of Systems: Casey System Assessment Scale: Pain: 0/3 SOB: 2/3 Anxiety: 0/3 Lack of Appetite: 1/3 Nausea: 0/3 palliative performance scale: 30% Physical Exam Constitutional: + frail appearing, cooperative and comfortable ENMT: Mouth: + muffled voice Respiratory: + labored breathing Cardiovascular: Rate/Rhythm: regular rate and regular rhythm Extremities: normal capillary refill; no edema Gastrointestinal (Abdomen): Inspection/Auscultation: abdomen normal to inspection Percussion/Palpation: abdomen soft Skin: + pallor Psychiatric: Orientation: alert, oriented x 3 and cooperative Insight: + limited insight Judgement: + limited judgement Results & Data ([facility]) Vital Signs (Past 12 Hours) Vital Signs Temp Pulse Pulse Resp BP BP Pulse Ox 12/25/20 09:00 91 H 18 120/84 93 12/25/20 08:30 95 H 21 129/99 91 12/25/20 08:25 36.5 C 12/25/20 08:00 100 H 21 103/75 94 12/25/20 07:30 92 H 20 112/75 96 12/25/20 07:26 99 H 18 91 12/25/20 07:00 86 17 142/90 H 88 L 12/25/20 06:30 98 H 18 129/86 90 12/25/20 06:00 97 H 27 H 105/73 95 12/25/20 05:30 97 H 21 132/95 96 12/25/20 05:00 99 H 16 131/93 93 12/25/20 04:30 97 H 22 133/95 94 12/25/20 04:00 98 H 16 115/77 91 12/25/20 03:38 101 H 20 93 12/25/20 03:30 27 H 100 12/25/20 03:15 100 H 16 127/85 98 12/25/20 03:00 99 H 16 98/63 L 98 12/25/20 02:45 101 H 18 131/91 96 12/25/20 02:30 101 H 19 105/68 95 12/25/20 02:15 101 H 19 120/86 96 12/25/20 02:00 107 H 14 104/82 98 12/25/20 01:45 105 H 19 100 12/25/20 01:30 107 H 24 100 12/25/20 01:15 107 H 19 122/82 100 12/25/20 01:00 111 H 19 91/63 L 99 12/25/20 00:55 36.9 C 112 H 24 91/63 L 93 12/25/20 00:45 113 H 37 H 122/82 92 12/25/20 00:30 114 H 14 96 12/25/20 00:06 115 H 22 98/68 L 94 12/25/20 00:00 118 H 24 91/63 L 94 12/24/20 23:54 118 H 24 82/58 L 97 12/24/20 23:45 118 H 36 H 97 12/24/20 23:30 117 H 21 91/63 L 96 12/24/20 23:25 117 H 22 89/66 L 93 12/24/20 23:23 92 H 22 117 H 12/24/20 23:20 114 H 24 82/62 L 92 12/24/20 23:15 108 H 27 H 53/42 L 89 L 12/24/20 23:10 116 H 22 77/54 L 89 L 12/24/20 23:05 115 H 33 H 80/54 L 96 12/24/20 23:00 113 H 25 H 69/50 L 94 12/24/20 22:55 115 H 25 H 64/48 L 95 12/24/20 22:54 60/42 L 12/24/20 22:50 115 H 29 H 60/44 L 94 12/24/20 22:45 116 H 23 55/41 L 95 12/24/20 22:40 114 H 32 H 57/42 L 95 12/24/20 22:35 113 H 20 94 12/24/20 22:30 113 H 26 H 51/39 L 94 PG Care Time/CCT Total # of Minutes Spent Total Time Spent with Patient: Total time spent is greater than 50% in coordination of care (as documented) at patient's floor/unit and/or counseling patient: 100 minutes with >50% of that time spent assessing the patient, discussing goals of care with the patient and family, addressing symptom management needs and collaboarting with the IDT. Coding Level of Care Code 48964 Initial Inpt Care Lvl 3 Diagnoses Palliative care encounter Z51.5 Hypoxia R09.02 General weakness R53.1 Time Spent (min) 100
--- NOTE | 2020-12-25 10:32 | Electrocardiogram Report ---
Test Reason : Blood Pressure : / mmHG Vent. Rate : 134 BPM Atrial Rate : 134 BPM P-R Int : 146 ms QRS Dur : 082 ms QT Int : 350 ms P-R-T Axes : 032 -48 040 degrees QTc Int : 522 ms Sinus tachycardia with occasional Premature ventricular complexes Left atrial enlargement Left anterior fascicular block Abnormal ECG When compared with ECG of 19-DEC-2020 12:27, Premature ventricular complexes are now Present Vent. rate has increased BY 56 BPM QRS axis Shifted left Confirmed by Anselmo Murcia ([id number]) on 12/25/2020 10:32:05 AM Referred By: REFERRED SELF Confirmed By:Anselmo Murcia
--- NOTE | 2020-12-25 10:33 | XRay Report ---
XR chest 1V portable CLINICAL HISTORY: Respiratory failure. COMPARISON STUDY: Chest radiograph December 19, [address] December 24, 2020. FINDINGS: Left subclavian [id number] is in place. There is no pneumothorax or pleural effusion. Di ffuse interstitial thickening is noted. This is increased when compared to chest radiograph December 042020. This represents pulmonary fibrosis with suspected superimposed pulmonary edema. Cardiomegaly is noted. IMPRESSION: Findings suggestive of pulmonary edema superimposed upon pulmonary fibrosis. ACT 112: Negative or not required by law. Electronically signed by: Gallo Frye M.D. 12/25/2020 10:31 AM
[2020-12-25] MEDS: INSULIN ASPART 100 UNITS/ML 3 ML PEN SC SCH ×4 (11:20→21:10)
[2020-12-25] MEDS: THIAMINE HCL 100 MG in SYRINGE 9 ML IV SCH (12:41)
--- NOTE | 2020-12-25 14:20 | Pharmacy Report ---
Pharmacy Abx Dose Short Note - Date of Service December 25, 2020 - Assessment & Plan Assessment 85 year old M receiving zosyn/vancomycin for empiric treatment of sepsis. Patient was discharged from our facility on 12/24, he was being treated with vancomycin and received cefepime for 3 days at beginning of stay. SCr has increased, drop in urine output, will put vancomycin on hold and get random level this evening prior to next dose as trough level on 12/23 was above 20. Plan Vancomycin * Random level tonight @ 1800 * Depending on level can resume 1 gm q24 h Pharmacy will continue to follow and will adjust dose/frequency as necessary. Thank you.
--- NOTE | 2020-12-25 16:06 | Hospitalist Progress Note ---
Date of Service December 25, 2020 Assessment & Plan (1) Septic shock: Plan: Septic shock-resuscitation did receive fluids and was on vasopressin asnd levophed, now tapered off pressors Broad-spectrum antibiotic coverage with vancomycin IV and Zosyn IV Follow blood cultures and urine culture and sensitivity Virus panel negative, including negative for COVID-19 followed by maintenance inspector and ICU team (2) History of abdominal aortic aneurysm (AAA): Plan: aortoiliac graft stent. Appears stable on CT angiography 8.2x6.3 similar to before, suggests endoleak with contrast in the posterior aspect of the aneurysm sac (3) Pneumonia: Plan: CTA shows ground glass changes and coarse interstitium, Empiric broad-spectrum IV antibiotics as noted above, will add atypical coverage and with immunosuppression consider antifungal if not improving (4) Hypoxia: Plan: Patient is a DNR/DNI. Presently 93% on high flow nasal cannula 30 L/min and FiO2 ratio 50 (5) Pancytopenia due to antineoplastic chemotherapy: Plan: Broad-spectrum antibiotic coverage as noted above (6) Pulmonary fibrosis, unspecified: Plan: See above, structural lung disease places at risk for gram negative pneumonia (7) Rectal cancer: Plan: history of rectal cancer, completed chemoradiation (8) Lymphoma: Plan: recently completed his sixth and final cycle of R-CHOP chemotherapy for diffuse large B-cell lymphoma. (9) Elevated troponin I level: Plan: Troponin 0.231 upon admission. Most recent echocardiogram at last admission showed ejection fraction of 60% Likely due to demand ischemia Admission and Anticipated Discharge Date Admission Date: December 24, 2020 Subjective pt is pleasant and mildly confused, but complains of profound weakness, has been weaned off pressors, still concern for sepsis Review of Systems Review of Systems: moderate distress and fatigue no headache, no visual changes loosened dentures some cough with drinking no chest pain, pressure or palpitations some shortness of breath at rest no abdominal pain, nausea or vomiting, diarrhea or constipation no dysuria, hematuria or frequency no focal joint pain le swelling no back pain, CVA tenderness or radicular pain no bruising, bleeding or rashes no focal signs of weakness or numbness or altered sensation no complaints of anxiety or depression.. Physical Exam Physical Exam: The patient appeared chronically ill and weakened Vital signs as documented. Head exam is normocephalic atraumatic Neck is without JVD, thyromegaly, or carotid bruits. Lungs are decreased at the bases Cardiac exam, Rhythm is regular.. No murmurs, rubs or gallops. Abdominal exam reveals normal bowel sounds, soft non mild suprapubic tenderness Extremities are 1 edematous and both LE have skin changes of chronic venous stasis Neurologic exam is alert and orientedx2, no focal loss of strength or sensation Skin is without bruises or rashes Results & Data Results & Data ([facility]) Vital Signs (Past 12 Hours) Vital Signs Temp Pulse Pulse Resp BP Pulse Ox 12/25/20 15:14 90 18 91 12/25/20 13:01 96 H 21 124/77 92 12/25/20 12:00 96 H 21 115/75 92 12/25/20 11:40 96 H 18 91 12/25/20 11:00 91 H 18 115/81 90 12/25/20 10:00 86 22 112/86 89 L 12/25/20 09:00 91 H 18 120/84 93 12/25/20 08:30 95 H 21 129/99 91 12/25/20 08:25 97.7 F 12/25/20 08:00 100 H 21 103/75 94 12/25/20 07:30 92 H 20 112/75 96 12/25/20 07:26 99 H 18 91 12/25/20 07:00 86 17 142/90 H 88 L 12/25/20 06:30 98 H 18 129/86 90 12/25/20 06:00 97 H 27 H 105/73 95 12/25/20 05:30 97 H 21 132/95 96 12/25/20 05:00 99 H 16 131/93 93 12/25/20 04:30 97 H 22 133/95 94 PG Care Time/CCT Total # of Minutes Spent Total Time Spent with Patient: Total time spent is greater than 50% in coordination of care (as documented) at patient's floor/unit and/or counseling patient: Coding Level of Care Code 27213 Subseq Hosp Care Lvl 3 Diagnoses Septic shock A41.9; R65.21 History of abdominal aortic aneurysm (AAA) Z86.79 Pneumonia J18.9 Hypoxia R09.02 Pancytopenia due to antineoplastic chemotherapy D61.810; T45.1X5A Pulmonary fibrosis, unspecified J84.10 Rectal cancer C20 Lymphoma C85.90 Elevated troponin I level R77.8
[2020-12-25] MEDS: AZITHROMYCIN 500 MG in DEXTROSE 5% 250 ML IV SCH (17:10)
[2020-12-25] MEDS ORDERED: VANCOMYCIN HCL 1,000 MG in SODIUM CHLORIDE 0.9% 250 ML IV SCH (18:00)
[2020-12-25] MEDS ORDERED: OPTIRAY 320 100ml IV ONE (18:02)
--- NOTE | 2020-12-25 18:31 | CT Scan Report ---
CT head/brain wo/w con CLINICAL HISTORY: eval for metastatic TECHNIQUE: Contiguous axial CT images of the head from the base of the skull to the vertex before and after intravenous administration of IV contrast and submitted for interpretation. Automated dose low ering techniques and/or adjustment according to patient size were utilized for this examination. COMPARISON: Comparison is made to CT head 09/01/2020 FINDINGS: Areas of decreased attenuation are present in the periventricular and subcortical white matter bilate rally consistent with small vessel ischemic disease. Generalized cerebral atrophy with commensurate e nlargement of the ventricles, sulci, and cisterns is also present. There is no acute intracranial hem orrhage or evidence of acute territorial infarction. No shift of the midline structures, mass effect, or extra-axial abnormalities are shown. Atherosclerotic calcifications are present in the intracran ial segments of the internal carotid arteries. Imaged portions of the paranasal sinuses and mastoid air cells are clear. The orbits appear normal. There are no acute fractures of the calvaria or scalp swelling. IMPRESSION: No acute process and in particular no evidence of vasogenic edema or enhancing lesion to suggest metastatic disease. ACT 112: Negative or not required by law. Electronically signed by: Chuy Rivero M.D. 12/25/2020 6:30 PM
[2020-12-25] MEDS ORDERED: HYDROCORTISONE SOD 100 MG in SYRINGE 0 ML IV SCH (21:00)
[2020-12-25] MEDS ORDERED: VANCOMYCIN HCL 1,000 MG in SODIUM CHLORIDE 0.9% 250 ML IV ONE (21:30)
[2020-12-26] MEDS: INSULIN ASPART 100 UNITS/ML 3 ML PEN SC SCH ×6 (00:22→20:19)
[2020-12-26] MEDS ORDERED: HEPARIN 100 UNIT/ML 5ML FLUSH FLUSH PRN (00:37)
[2020-12-26] MEDS ORDERED: NICOTINE 14 MG/24 HR PATCH TD ONE (01:11)
[2020-12-26] MEDS: NORMOSOL-R 1,000 ML IV SCH ×3 (04:01→20:18)
[2020-12-26] MEDS: HYDROCORTISONE SOD 50 MG in SYRINGE 0 ML IV SCH ×4 (04:01→20:24)
[2020-12-26] MEDS: PIPERACILLIN/TAZOBACTAM 4.5 GM in DEXTROSE 5% 100 ML IV SCH ×3 (06:23→22:08)
[2020-12-26 06:43] LABS: BUN Creatinine Ratio 26.1 (10-20); Calcium 8.3 mg/dl (8.5-10.1); Creatinine Clr Calc Pharmacy 61.4 ml/min; Est GFR (African American) 88.8 ml/min; Est GFR (Non-African American) 76.6 ml/min; Magnesium 2.3 mg/dl (1.8-2.4); Phosphorus 2.7 mg/dl (2.5-4.9); Potassium 3.6 mmol/L (3.5-5.1)
[2020-12-26 06:46] LABS: Hematocrit (blood only) 24.3 % (42-52); Hemoglobin 7.7 g/dL (14.0-18.0); Mean Corpuscular Hemoglobin 28.7 pg (25-34); Mean Corpuscular Hgb Conc 31.7 g/dL (32-36); Mean Corpuscular Volume 90.7 fL (80-100); Mean Platelet Volume 12.7 fL (7.4-10.4); Nucleated RBC # (auto) 0.04 K/uL (0-0); Nucleated RBC % (auto) 0.7 %; Platelet Count 51 K/uL (130-400); RDW Coefficient of Variation 15.6 % (11.5-14.5); RDW Standard Deviation 51.3 fL (36.4-46.3); Red Blood Count 2.68 M/uL (4.7-6.1); White Blood Count 5.95 K/uL (4.8-10.8)
[2020-12-26 07:06] LABS: ALC (manual) 0.15 K/uL (1.2-3.4); ANC (manual) 5.54 K/uL (1.4-6.5); Dohle Bodies 1+; Giant Platelets 1+; Lymphocytes # (manual) 0.15 K/uL (1.2-3.4); Lymphocytes % (manual) 2.6 %; Monocytes % (manual) 1.7 %; Myelocytes % (manual) 1.7 %; Neutrophils # (manual) 5.54 K/uL (1.4-6.5); Neutrophils % (manual) 93.1 %; Polychromasia 1+; Promyelocytes # (manual) 0.05 K/uL (0-0); Promyelocytes % (manual) 0.9 %; Toxic Granulation 1+
[2020-12-26] MEDS ORDERED: SODIUM CHLORIDE 0.9% 250 ML IV PRN (07:14)
--- NOTE | 2020-12-26 07:20 | Hospitalist Progress Note ---
Date of Service December 26, 2020 Assessment & Plan (1) Septic shock: Plan: Septic shock-resuscitation did receive fluids and was on vasopressin and levophed, now tapered off pressors Broad-spectrum antibiotic coverage with vancomycin IV Zosyn IV and Azithromycin CTA does have acute on chronic parenchymal lung changes Follow blood cultures and urine culture and sensitivity Biofire Virus panel negative, including negative for COVID-19 (2) Anemia: Plan: certainly concern for acute blood loss anemia, will stop lovenox, did have eval of AAA and no leak on admission, no other signs of obvious blood loss, started protonix, if not augmenting with transfusion will check for hemolysis (3) History of abdominal aortic aneurysm (AAA): Plan: aortoiliac graft stent. Appears stable on CT angiography 8.2x6.3 similar to before, suggests endoleak with contrast in the posterior aspect of the aneurysm sac (4) Pneumonia: Plan: CTA shows ground glass changes and coarse interstitium, Empiric broad-spectrum IV antibiotics as noted above, will add atypical coverage and with immunosuppression consider antifungal if not improving. sputum culture negative (5) Hypoxia: Plan: Patient is a DNR/DNI. 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 last dose was 12/15/20, did recieve gcsf post treatement (10) Elevated troponin I level: Plan: Troponin 0.231 up to 1.4 continue to trend, ecg non acute, still consider demand ischemia Most recent echocardiogram at last admission showed ejection fraction of 60% Plan: Daughter peter updated at bedside Admission and Anticipated Discharge Date Admission Date: December 24, 2020 Subjective this pt is awake and alert, he still appears frail, having some respiratory difficulty Review of Systems Review of Systems: moderate distress and fatigue no headache, no visual changes loosened dentures some cough with drinking no chest pain, pressure or palpitations shortness of breath at rest and with speaking no abdominal pain, nausea or vomiting,poor appetite no dysuria, hematuria or frequency no focal joint pain le swelling no back pain, CVA tenderness or radicular pain no bruising, bleeding or rashes no focal signs of weakness or numbness or altered sensation no complaints of anxiety or depression.. Physical Exam Physical Exam: The patient appeared chronically ill and weakened Vital signs as documented. Head exam is normocephalic atraumatic Neck is without JVD, thyromegaly, or carotid bruits. Lungs are decreased at the bases Cardiac exam, Rhythm is regular.. No murmurs, rubs or gallops. Abdominal exam reveals normal bowel sounds, soft non mild suprapubic tenderness Extremities are 1 edematous and both LE have skin changes of chronic venous stasis Neurologic exam is alert and orientedx2, no focal loss of strength or sensation Skin is without bruises or rashes Results & Data Results & Data ([facility]) Vital Signs (Past 12 Hours) Vital Signs Temp Pulse Pulse Resp BP BP Pulse Ox 12/26/20 07:05 55 L 21 12/26/20 07:00 101 H 27 H 12/26/20 06:55 84 33 H 12/26/20 06:45 95 H 27 H 94 12/26/20 06:40 24 12/26/20 06:35 72 21 93 12/26/20 06:30 89 31 H 87 L 12/26/20 06:25 98 H 15 88 L 12/26/20 06:20 97 H 25 H 91 12/26/20 06:15 99 H 27 H 148/95 H 12/26/20 06:10 97 H 17 12/26/20 06:05 57 L 18 12/26/20 05:55 92 H 29 H 99 12/26/20 05:50 90 27 H 100 12/26/20 05:45 87 17 97 12/26/20 05:40 85 19 100 12/26/20 05:35 84 16 100 12/26/20 05:30 85 16 100 12/26/20 05:25 85 17 99 12/26/20 05:20 87 22 95 12/26/20 05:15 84 15 94 12/26/20 05:10 83 17 100 12/26/20 05:05 86 15 99 12/26/20 05:00 88 18 99 12/26/20 04:55 88 20 97 12/26/20 04:50 96 H 24 94 12/26/20 04:45 92 H 22 98 12/26/20 04:40 88 29 H 95 12/26/20 04:35 86 14 100 12/26/20 04:30 79 14 100 12/26/20 04:25 87 27 H 99 12/26/20 04:20 89 17 98 12/26/20 04:15 82 16 97 12/26/20 04:10 87 24 98 12/26/20 04:05 92 H 23 12/26/20 04:00 88 18 12/26/20 03:55 87 16 12/26/20 03:50 86 14 12/26/20 03:45 85 96 H 16 91 12/26/20 03:40 78 22 12/26/20 03:35 104 H 23 12/26/20 03:30 91 H 25 H 100 12/26/20 03:25 83 21 100 12/26/20 03:20 89 19 100 12/26/20 03:10 72 24 95 12/26/20 03:05 70 20 93 12/26/20 03:00 103 H 20 94 12/26/20 00:50 93 H 43 H 92 12/26/20 00:45 93 H 19 96 12/26/20 00:40 93 H 23 91 12/26/20 00:35 92 H 24 96 12/26/20 00:30 98 H 16 85 L 12/26/20 00:25 90 16 87 L 12/26/20 00:20 94 H 21 100 12/26/20 00:15 96 H 18 92 12/26/20 00:10 99 H 18 89 L 12/26/20 00:05 91 H 20 98 12/26/20 00:00 91 H 17 98 12/25/20 23:55 105 H 24 85 L 12/25/20 23:50 107 H 23 92 12/25/20 23:45 103 H 94 H 17 92 12/25/20 23:40 20 12/25/20 23:35 113 H 20 12/25/20 23:30 103 H 18 12/25/20 23:25 92 H 21 12/25/20 23:20 92 H 24 12/25/20 23:16 99 H 22 149/96 H 12/25/20 23:10 94 H 17 96 12/25/20 23:05 93 H 21 96 12/25/20 23:00 93 H 31 H 92 12/25/20 22:55 95 H 18 95 12/25/20 22:50 108 H 20 85 L 12/25/20 22:45 18 12/25/20 22:41 85 L 12/25/20 22:30 94 12/25/20 22:25 93 12/25/20 22:20 89 L 12/25/20 22:16 103 H 23 122/71 88 L 12/25/20 22:10 110 H 27 H 91 12/25/20 22:05 104 H 25 H 91 12/25/20 22:00 95 H 18 94 12/25/20 21:55 94 H 17 96 12/25/20 21:50 21 96 12/25/20 21:45 26 H 94 12/25/20 21:40 22 92 12/25/20 21:35 96 H 17 95 12/25/20 21:30 95 H 20 94 12/25/20 21:25 96 H 22 90 12/25/20 21:20 100 H 26 H 92 12/25/20 21:16 101 H 25 H 138/88 99 12/25/20 21:10 96 H 24 98 12/25/20 21:05 94 H 22 94 12/25/20 21:00 95 H 21 96 12/25/20 20:55 95 H 18 96 12/25/20 20:50 101 H 24 96 12/25/20 20:45 100 H 22 94 12/25/20 20:40 109 H 28 H 92 12/25/20 20:00 97.5 F L 93 H 18 137/95 96 PG Care Time/CCT Total # of Minutes Spent Total Time Spent with Patient: Total time spent is greater than 50% in coordination of care (as documented) at patient's floor/unit and/or counseling patient: Coding Level of Care Code 65230 Subseq Hosp Care Lvl 3 Diagnoses Septic shock A41.9; R65.21 History of abdominal aortic aneurysm (AAA) Z86.79 Pneumonia J18.9 Hypoxia R09.02 Pancytopenia due to antineoplastic chemotherapy D61.810; T45.1X5A Pulmonary fibrosis, unspecified J84.10 Rectal cancer C20 Lymphoma C85.90 Elevated troponin I level R77.8 Anemia D64.9
[2020-12-26] MEDS ORDERED: POTASSIUM CHLORIDE / WTR 20 MEQ/100 ML PLCT IV ONE (07:30)
[2020-12-26] MEDS: PANTOprazole 40 MG in SYRINGE 0 ML IV SCH ×2 (08:06→20:24)
[2020-12-26] MEDS: NICOTINE 14 MG/24 HR PATCH TD SCH (08:19)
[2020-12-26] MEDS: THIAMINE HCL 100 MG in SYRINGE 9 ML IV SCH (08:19)
--- NOTE | 2020-12-26 08:36 | Critical Care Progress Note ---
Date of Service December 26, 2020 Assessment & Plan (1) Septic shock: Plan: Reason Critically Ill: 85-year-old male with pulmonary fibrosis and B-cell lymphoma who recently finished chemotherapy and is pancytopenic, presents to the ICU in septic shock requiring vasopressor support. Neuro - [facility] ICU: Negative Cardiac - Hypotension: Resolved -Patient did receive stress dose steroids in the emergency department without improvement in blood pressure -Currently on Levophed and vasopressin to maintain maps greater than 65, wean as tolerated -Echo 12/23 with normal EF without significant valvular disease -CTA chest negative for PE -Continuous monitor on telemetry Respiratory - Acute on chronic hypoxic respiratory failurepatient with history of pulmonary fibrosis and chronically on 3 L nasal cannula -CTA chest negative for PE but concerning for pneumonia with bilateral groundglass opacities -Currently on high flow nasal cannula, wean as tolerated -Appears euvolemic on exam no history of heart failure, will hold on diuresis given hypotension -Continuous monitoring pulse ox -Currently undergoing treatment with broad-spectrum antibiotics for pulmonary coverage GI - Restart minced and moist diet RENAL/LYTES - Creatinine stable, monitor electrolytes and replete as indicated Lactic acidosisimproved -Supplement with thiamine - Strict I's and O's ENDO - ICU hyperglycemic protocol HEME - Pancytopeniafollowing chemotherapy administration x1 week -Appears to be improving compared with most recent studies from last admission -Decreased H&H will transfuse 1 unit packed red blood cells ID - SepsisI am less concerned of sepsis is a more of a addisonian type crisis with recent high-dose steroid use -Likely pulmonary source given CT chest findings with bilateral groundglass opacities -Blood cultures and urine culture pending -Continue broad-spectrum antibiotics vancomycin and cefepime for another day and then likely de-escalate LINES/IV ACCESS - Central venous port, peripheral IVs DVT PROPHYLAXIS - SCDs, Lovenox CODE STATUSDNR/DNI -Palliative care consulted Patient is stable for downgrade out of ICU. (2) History of abdominal aortic aneurysm (AAA): (3) Pancytopenia due to antineoplastic chemotherapy: (4) Chronic respiratory failure with hypoxia: (5) Pulmonary fibrosis, unspecified: (6) Thrombocytopenia: (7) Weakness: (8) Rectal cancer: (9) Lymphoma: (10) Pneumonia: Admission and Anticipated Discharge Date Admission Date: December 24, 2020 Subjective No overnight events Physical Exam Physical Exam: General: Alert. nontoxic. Skin: Warm, dry, Head: Atraumatic Ears, nose, mouth and throat: airway patent Cardiovascular: Normal peripheral perfusion Respiratory: no respiratory distress Gastrointestinal: Non distended Musculoskeletal: No deformity Results & Data Results & Data ([facility]) Vital Signs (Past 12 Hours) Vital Signs Pulse Pulse Resp BP Pulse Ox 12/26/20 07:37 88 20 92 12/26/20 07:05 55 L 21 12/26/20 07:00 101 H 27 H 12/26/20 06:55 84 33 H 12/26/20 06:45 95 H 27 H 94 12/26/20 06:40 24 12/26/20 06:35 72 21 93 12/26/20 06:30 89 31 H 87 L 12/26/20 06:25 98 H 15 88 L 12/26/20 06:20 97 H 25 H 91 12/26/20 06:15 99 H 27 H 148/95 H 12/26/20 06:10 97 H 17 12/26/20 06:05 57 L 18 12/26/20 05:55 92 H 29 H 99 12/26/20 05:50 90 27 H 100 12/26/20 05:45 87 17 97 12/26/20 05:40 85 19 100 12/26/20 05:35 84 16 100 12/26/20 05:30 85 16 100 12/26/20 05:25 85 17 99 12/26/20 05:20 87 22 95 12/26/20 05:15 84 15 94 12/26/20 05:10 83 17 100 12/26/20 05:05 86 15 99 12/26/20 05:00 88 18 99 12/26/20 04:55 88 20 97 12/26/20 04:50 96 H 24 94 12/26/20 04:45 92 H 22 98 12/26/20 04:40 88 29 H 95 12/26/20 04:35 86 14 100 12/26/20 04:30 79 14 100 12/26/20 04:25 87 27 H 99 12/26/20 04:20 89 17 98 12/26/20 04:15 82 16 97 12/26/20 04:10 87 24 98 12/26/20 04:05 92 H 23 12/26/20 04:00 88 18 12/26/20 03:55 87 16 12/26/20 03:50 86 14 12/26/20 03:45 85 96 H 16 91 12/26/20 03:40 78 22 12/26/20 03:35 104 H 23 12/26/20 03:30 91 H 25 H 100 12/26/20 03:25 83 21 100 12/26/20 03:20 89 19 100 12/26/20 03:10 72 24 95 12/26/20 03:05 70 20 93 12/26/20 03:00 103 H 20 94 12/26/20 00:50 93 H 43 H 92 12/26/20 00:45 93 H 19 96 12/26/20 00:40 93 H 23 91 12/26/20 00:35 92 H 24 96 12/26/20 00:30 98 H 16 85 L 12/26/20 00:25 90 16 87 L 12/26/20 00:20 94 H 21 100 12/26/20 00:15 96 H 18 92 12/26/20 00:10 99 H 18 89 L 12/26/20 00:05 91 H 20 98 12/26/20 00:00 91 H 17 98 12/25/20 23:55 105 H 24 85 L 12/25/20 23:50 107 H 23 92 12/25/20 23:45 103 H 94 H 17 92 12/25/20 23:40 20 12/25/20 23:35 113 H 20 12/25/20 23:30 103 H 18 12/25/20 23:25 92 H 21 12/25/20 23:20 92 H 24 12/25/20 23:16 99 H 22 149/96 H 12/25/20 23:10 94 H 17 96 12/25/20 23:05 93 H 21 96 12/25/20 23:00 93 H 31 H 92 12/25/20 22:55 95 H 18 95 12/25/20 22:50 108 H 20 85 L 12/25/20 22:45 18 12/25/20 22:41 85 L 12/25/20 22:30 94 12/25/20 22:25 93 12/25/20 22:20 89 L 12/25/20 22:16 103 H 23 122/71 88 L 12/25/20 22:10 110 H 27 H 91 12/25/20 22:05 104 H 25 H 91 12/25/20 22:00 95 H 18 94 12/25/20 21:55 94 H 17 96 12/25/20 21:50 21 96 12/25/20 21:45 26 H 94 12/25/20 21:40 22 92 12/25/20 21:35 96 H 17 95 12/25/20 21:30 95 H 20 94 12/25/20 21:25 96 H 22 90 12/25/20 21:20 100 H 26 H 92 12/25/20 21:16 101 H 25 H 138/88 99 12/25/20 21:10 96 H 24 98 12/25/20 21:05 94 H 22 94 12/25/20 21:00 95 H 21 96 12/25/20 20:55 95 H 18 96 12/25/20 20:50 101 H 24 96 12/25/20 20:45 100 H 22 94 12/25/20 20:40 109 H 28 H 92 Laboratory Results 12/26/20 12/26/20 12/26/20 Range/Units 06:42 06:14 05:47 WBC (4.8-10.8) K/uL RBC (4.7-6.1) M/uL Hgb (14.0-18.0) g/dL Hct (42-52) % MCV (80-100) fL MCH (25-34) pg MCHC (32-36) g/dL RDW Std Deviation (36.4-46.3) fL RDW Coeff of Bello (11.5-14.5) % Plt Count (130-400) K/uL MPV (7.4-10.4) fL Absolute Nucleated RBC (0-0) K/uL Nucleated RBC % (auto) % Neutrophils % (Manual) % Lymphocytes % (Manual) % Monocytes % (Manual) % Myelocytes % (Man) % Promyelocytes % (Man) % Neutrophils # (Manual) (1.4-6.5) K/uL Total Absolute Neuts (1.4-6.5) K/uL Lymphocytes # (Manual) (1.2-3.4) K/uL Total Abs Lymphocytes (1.2-3.4) K/uL Monocytes # (Manual) (0.11-0.59) K/uL Myelocytes # (Manual) (0-0) K/uL Promyelocytes # (Man) (0-0) K/uL Blood Smear Review Toxic Granulation Dohle Bodies Giant Platelets Polychromasia Sodium 139 (136-145) mmol/L Potassium 3.6 D (3.5-5.1) mmol/L Chloride 105 (98-107) mmol/L Carbon Dioxide 24 (21-32) mmol/L Anion Gap 10.0 (3-11) BUN 24 H (7-18) mg/dl Creatinine 0.91 (0.6-1.4) mg/dl Est Cr Clr Drug Dosing 61.4 ml/min Est GFR ( Amer) 88.8 ml/min Est GFR (Non-Af Amer) 76.6 ml/min BUN/Creatinine Ratio 26.1 H (10-20) Glucose 123 H (70-99) mg/dl POC Glucose 136 H (70-99) mg/dl Lactate 3.6 H* (0.4-2.0) mmol/L Calcium 8.3 L (8.5-10.1) mg/dl Phosphorus 2.7 (2.5-4.9) mg/dl Magnesium 2.3 (1.8-2.4) mg/dl Troponin I (0-0.045) ng/ml Random Cortisol mcg/dl Vancomycin Trough (See Comment) mcg/ml Blood Type Antibody Screen Crossmatch 12/26/20 12/26/20 12/26/20 Range/Units 05:47 04:08 00:19 WBC 5.95 (4.8-10.8) K/uL RBC 2.68 L (4.7-6.1) M/uL Hgb 7.7 L (14.0-18.0) g/dL Hct 24.3 L (42-52) % MCV 90.7 (80-100) fL MCH 28.7 (25-34) pg MCHC 31.7 L (32-36) g/dL RDW Std Deviation 51.3 H (36.4-46.3) fL RDW Coeff of Bello 15.6 H (11.5-14.5) % Plt Count 51 L (130-400) K/uL MPV 12.7 H (7.4-10.4) fL Absolute Nucleated RBC 0.04 H (0-0) K/uL Nucleated RBC % (auto) 0.7 % Neutrophils % (Manual) 93.1 % Lymphocytes % (Manual) 2.6 % Monocytes % (Manual) 1.7 % Myelocytes % (Man) 1.7 % Promyelocytes % (Man) 0.9 % Neutrophils # (Manual) 5.54 (1.4-6.5) K/uL Total Absolute Neuts 5.54 (1.4-6.5) K/uL Lymphocytes # (Manual) 0.15 L (1.2-3.4) K/uL Total Abs Lymphocytes 0.15 L (1.2-3.4) K/uL Monocytes # (Manual) 0.10 L (0.11-0.59) K/uL Myelocytes # (Manual) 0.10 H (0-0) K/uL Promyelocytes # (Man) 0.05 H (0-0) K/uL Blood Smear Review Toxic Granulation 1+ Dohle Bodies 1+ Giant Platelets 1+ Polychromasia 1+ Sodium (136-145) mmol/L Potassium (3.5-5.1) mmol/L Chloride (98-107) mmol/L Carbon Dioxide (21-32) mmol/L Anion Gap (3-11) BUN (7-18) mg/dl Creatinine (0.6-1.4) mg/dl Est Cr Clr Drug Dosing ml/min Est GFR ( Amer) ml/min Est GFR (Non-Af Amer) ml/min BUN/Creatinine Ratio (10-20) Glucose (70-99) mg/dl POC Glucose 144 H 169 H (70-99) mg/dl Lactate (0.4-2.0) mmol/L Calcium (8.5-10.1) mg/dl Phosphorus (2.5-4.9) mg/dl Magnesium (1.8-2.4) mg/dl Troponin I (0-0.045) ng/ml Random Cortisol mcg/dl Vancomycin Trough (See Comment) mcg/ml Blood Type Antibody Screen Crossmatch 12/25/20 12/25/20 12/25/20 Range/Units 20:48 19:57 19:44 WBC (4.8-10.8) K/uL RBC (4.7-6.1) M/uL Hgb (14.0-18.0) g/dL Hct (42-52) % MCV (80-100) fL MCH (25-34) pg MCHC (32-36) g/dL RDW Std Deviation (36.4-46.3) fL RDW Coeff of Bello (11.5-14.5) % Plt Count (130-400) K/uL MPV (7.4-10.4) fL Absolute Nucleated RBC (0-0) K/uL Nucleated RBC % (auto) % Neutrophils % (Manual) % Lymphocytes % (Manual) % Monocytes % (Manual) % Myelocytes % (Man) % Promyelocytes % (Man) % Neutrophils # (Manual) (1.4-6.5) K/uL Total Absolute Neuts (1.4-6.5) K/uL Lymphocytes # (Manual) (1.2-3.4) K/uL Total Abs Lymphocytes (1.2-3.4) K/uL Monocytes # (Manual) (0.11-0.59) K/uL Myelocytes # (Manual) (0-0) K/uL Promyelocytes # (Man) (0-0) K/uL Blood Smear Review Toxic Granulation Dohle Bodies Giant Platelets Polychromasia Sodium (136-145) mmol/L Potassium (3.5-5.1) mmol/L Chloride (98-107) mmol/L Carbon Dioxide (21-32) mmol/L Anion Gap (3-11) BUN (7-18) mg/dl Creatinine (0.6-1.4) mg/dl Est Cr Clr Drug Dosing ml/min Est GFR ( Amer) ml/min Est GFR (Non-Af Amer) ml/min BUN/Creatinine Ratio (10-20) Glucose (70-99) mg/dl POC Glucose 168 H 173 H (70-99) mg/dl Lactate (0.4-2.0) mmol/L Calcium (8.5-10.1) mg/dl Phosphorus (2.5-4.9) mg/dl Magnesium (1.8-2.4) mg/dl Troponin I (0-0.045) ng/ml Random Cortisol mcg/dl Vancomycin Trough 15.8 (See Comment) mcg/ml Blood Type Antibody Screen Crossmatch 12/25/20 12/25/20 12/25/20 Range/Units 15:26 11:16 08:27 WBC (4.8-10.8) K/uL RBC (4.7-6.1) M/uL Hgb (14.0-18.0) g/dL Hct (42-52) % MCV (80-100) fL MCH (25-34) pg MCHC (32-36) g/dL RDW Std Deviation (36.4-46.3) fL RDW Coeff of Bello (11.5-14.5) % Plt Count (130-400) K/uL MPV (7.4-10.4) fL Absolute Nucleated RBC (0-0) K/uL Nucleated RBC % (auto) % Neutrophils % (Manual) % Lymphocytes % (Manual) % Monocytes % (Manual) % Myelocytes % (Man) % Promyelocytes % (Man) % Neutrophils # (Manual) (1.4-6.5) K/uL Total Absolute Neuts (1.4-6.5) K/uL Lymphocytes # (Manual) (1.2-3.4) K/uL Total Abs Lymphocytes (1.2-3.4) K/uL Monocytes # (Manual) (0.11-0.59) K/uL Myelocytes # (Manual) (0-0) K/uL Promyelocytes # (Man) (0-0) K/uL Blood Smear Review Toxic Granulation Dohle Bodies Giant Platelets Polychromasia Sodium (136-145) mmol/L Potassium (3.5-5.1) mmol/L Chloride (98-107) mmol/L Carbon Dioxide (21-32) mmol/L Anion Gap (3-11) BUN (7-18) mg/dl Creatinine (0.6-1.4) mg/dl Est Cr Clr Drug Dosing ml/min Est GFR ( Amer) ml/min Est GFR (Non-Af Amer) ml/min BUN/Creatinine Ratio (10-20) Glucose (70-99) mg/dl POC Glucose 134 H 218 H (70-99) mg/dl Lactate (0.4-2.0) mmol/L Calcium (8.5-10.1) mg/dl Phosphorus (2.5-4.9) mg/dl Magnesium (1.8-2.4) mg/dl Troponin I (0-0.045) ng/ml Random Cortisol 64.43 mcg/dl Vancomycin Trough (See Comment) mcg/ml Blood Type Antibody Screen Crossmatch 12/25/20 12/25/20 12/24/20 Range/Units 08:08 08:08 21:38 WBC (4.8-10.8) K/uL RBC (4.7-6.1) M/uL Hgb (14.0-18.0) g/dL Hct (42-52) % MCV (80-100) fL MCH (25-34) pg MCHC (32-36) g/dL RDW Std Deviation (36.4-46.3) fL RDW Coeff of Bello (11.5-14.5) % Plt Count (130-400) K/uL MPV (7.4-10.4) fL Absolute Nucleated RBC (0-0) K/uL Nucleated RBC % (auto) % Neutrophils % (Manual) % Lymphocytes % (Manual) % Monocytes % (Manual) % Myelocytes % (Man) % Promyelocytes % (Man) % Neutrophils # (Manual) (1.4-6.5) K/uL Total Absolute Neuts (1.4-6.5) K/uL Lymphocytes # (Manual) (1.2-3.4) K/uL Total Abs Lymphocytes (1.2-3.4) K/uL Monocytes # (Manual) (0.11-0.59) K/uL Myelocytes # (Manual) (0-0) K/uL Promyelocytes # (Man) (0-0) K/uL Blood Smear Review Toxic Granulation Dohle Bodies Giant Platelets Polychromasia Sodium (136-145) mmol/L Potassium (3.5-5.1) mmol/L Chloride (98-107) mmol/L Carbon Dioxide (21-32) mmol/L Anion Gap (3-11) BUN (7-18) mg/dl Creatinine (0.6-1.4) mg/dl Est Cr Clr Drug Dosing ml/min Est GFR ( Amer) ml/min Est GFR (Non-Af Amer) ml/min BUN/Creatinine Ratio (10-20) Glucose (70-99) mg/dl POC Glucose (70-99) mg/dl Lactate 5.5 H* (0.4-2.0) mmol/L Calcium (8.5-10.1) mg/dl Phosphorus (2.5-4.9) mg/dl Magnesium (1.8-2.4) mg/dl Troponin I 1.450 H* (0-0.045) ng/ml Random Cortisol mcg/dl Vancomycin Trough (See Comment) mcg/ml Blood Type AB Positive Antibody Screen NEGATIVE Crossmatch See Detail Coding Level of Care Code 92361 Subseq Hosp Care Lvl 3 Diagnoses Septic shock A41.9; R65.21 History of abdominal aortic aneurysm (AAA) Z86.79 Pancytopenia due to antineoplastic chemotherapy D61.810; T45.1X5A Chronic respiratory failure with hypoxia J96.11 Pulmonary fibrosis, unspecified J84.10 Thrombocytopenia D69.6 Weakness R53.1 Rectal cancer C20 Lymphoma C85.90 Pneumonia J18.9
[2020-12-26] MEDS ORDERED: FAMOTIDINE 20 MG in SYRINGE 3 ML IV SCH (09:00)
--- NOTE | 2020-12-26 14:11 | Electrocardiogram Report ---
Test Reason : Blood Pressure : / mmHG Vent. Rate : 101 BPM Atrial Rate : 101 BPM P-R Int : 156 ms QRS Dur : 088 ms QT Int : 366 ms P-R-T Axes : 051 -41 -26 degrees QTc Int : 474 ms Sinus tachycardia Left axis deviation Abnormal ECG When compared with ECG of 25-DEC-2020 06:17, No significant change was found Confirmed by Ronnie Morgan ([id number]) on 12/26/2020 2:10:46 PM Referred By: REFERRED SELF Confirmed By:Ronnie Morgan
[2020-12-26] MEDS: AZITHROMYCIN 500 MG in DEXTROSE 5% 250 ML IV SCH (17:11)
[2020-12-26] MEDS ORDERED: VANCOMYCIN HCL 1,000 MG in SODIUM CHLORIDE 0.9% 250 ML IV SCH (22:00)
[2020-12-27] MEDS: INSULIN ASPART 100 UNITS/ML 3 ML PEN SC SCH ×6 (00:04→20:38)
[2020-12-27] MEDS: HYDROCORTISONE SOD 50 MG in SYRINGE 0 ML IV SCH (02:32)
[2020-12-27] MEDS: NORMOSOL-R 1,000 ML IV SCH (05:03)
[2020-12-27 06:08] LABS: Hematocrit (blood only) 34.3 % (42-52); Hemoglobin 11.1 g/dL (14.0-18.0); Mean Corpuscular Hgb Conc 32.4 g/dL (32-36); Mean Corpuscular Volume 89.6 fL (80-100); Nucleated RBC % (auto) 2.3 %; Platelet Count 79 K/uL (130-400); Red Blood Count 3.83 M/uL (4.7-6.1); White Blood Count 12.86 K/uL (4.8-10.8)
[2020-12-27 06:09] LABS: BUN Creatinine Ratio 21.3 (10-20); Calcium 8.1 mg/dl (8.5-10.1); Creatinine Clr Calc Pharmacy 55.1 ml/min; Est GFR (African American) 73.8 ml/min; Est GFR (Non-African American) 63.7 ml/min; Magnesium 2.3 mg/dl (1.8-2.4); Potassium 3.6 mmol/L (3.5-5.1)
[2020-12-27 06:14] LABS: Mean Platelet Volume 12.9 fL (7.4-10.4); RDW Standard Deviation 51.5 fL (36.4-46.3)
[2020-12-27 06:16] LABS: ALC (manual) 0.22 K/uL (1.2-3.4); ANC (manual) 11.87 K/uL (1.4-6.5); Dohle Bodies Occasional; Echinocytes 1+; Lymphocytes # (manual) 0.22 K/uL (1.2-3.4); Lymphocytes % (manual) 1.7 %; Metamyelocytes # (manual) 0.22 K/uL (0-0); Metamyelocytes % (manual) 1.7 %; Monocytes # (manual) 0.22 K/uL (0.11-0.59); Monocytes % (manual) 1.7 %; Myelocytes # (manual) 0.33 K/uL (0-0); Myelocytes % (manual) 2.6 %; Neutrophils # (manual) 11.87 K/uL (1.4-6.5); Neutrophils % (manual) 92.3 %; Platelet Estimate Decreased (Normal); Polychromasia 1+; Toxic Granulation 2+
[2020-12-27 06:26] LABS: Phosphorus 3.1 mg/dl (2.5-4.9); Troponin I 0.637 ng/ml (0-0.045)
[2020-12-27] MEDS: NICOTINE 14 MG/24 HR PATCH TD SCH (08:22)
[2020-12-27] MEDS: THIAMINE HCL 100 MG in SYRINGE 9 ML IV SCH (08:22)
[2020-12-27] MEDS: PANTOprazole 40 MG in SYRINGE 0 ML IV SCH ×2 (08:22→20:42)
[2020-12-27] MEDS: ALBUMIN 25% 12.5 GM/50 ML VIAL IV SCH ×2 (09:10→10:07)
--- NOTE | 2020-12-27 09:27 | Critical Care Progress Note ---
Date of Service December 27, 2020 Assessment & Plan (1) Septic shock: Plan: Neuro - [facility] ICU: Negative Cardiac - Hypotension: Resolved -Patient did receive stress dose steroids in the emergency department without improvement in blood pressure -Echo 12/23 with normal EF without significant valvular disease -CTA chest negative for PE Respiratory - Acute on chronic hypoxic respiratory failurepatient with history of pulmonary fibrosis and chronically on 3 L nasal cannula -CTA chest negative for PE but concerning for pneumonia with bilateral groundglass opacities -Currently on high flow nasal cannula, wean as tolerated -Continuous monitoring pulse ox -Broad-spectrum antibiotic coverage will discontinue today, de-escalate to a Zithromax GI - Restart minced and moist diet RENAL/LYTES - Creatinine stable, monitor electrolytes and replete as indicated Lactic acidosisimproved -Supplement with thiamine - Strict I's and O's ENDO - ICU hyperglycemic protocol HEME - Pancytopeniaresolved -Received 1 unit packed red blood cells ID - SepsisI am less concerned of sepsis is a more of a addisonian type crisis with recent high-dose steroid use -Blood cultures and urine culture no growth to date -De-escalate to Zithromax for 5 days Endocrine: Deferring to hospitalist team for appropriate taper LINES/IV ACCESS - Central venous port, peripheral IVs DVT PROPHYLAXIS - SCDs, Lovenox CODE STATUSDNR/DNI -Palliative care consulted no interest in comfort measures at this time Patient is stable for downgrade out of ICU. (2) History of abdominal aortic aneurysm (AAA): (3) Pancytopenia due to antineoplastic chemotherapy: (4) Chronic respiratory failure with hypoxia: (5) Pulmonary fibrosis, unspecified: (6) Thrombocytopenia: (7) Weakness: (8) Rectal cancer: (9) Lymphoma: (10) Pneumonia: Admission and Anticipated Discharge Date Admission Date: December 24, 2020 Subjective Overnight experienced increased confusion however that is resolved this morning. No complaints otherwise Physical Exam Physical Exam: General: Alert. nontoxic. Skin: Warm, dry, Head: Atraumatic Ears, nose, mouth and throat: airway patent Cardiovascular: Normal peripheral perfusion Respiratory: no respiratory distress Gastrointestinal: Non distended Musculoskeletal: No deformity Results & Data Results & Data ([facility]) Vital Signs (Past 12 Hours) Vital Signs Temp Pulse Resp BP Pulse Ox 12/27/20 08:35 97 H 24 95 12/27/20 06:48 35.5 C L 12/27/20 06:20 144/96 H 12/27/20 06:15 32 H 94 12/27/20 06:00 104 H 29 H 95 12/27/20 05:45 114 H 29 H 74 L 12/27/20 05:30 108 H 29 H 85 L 12/27/20 05:15 94 H 19 91 12/27/20 05:00 122 H 23 61 L 12/27/20 04:45 99 H 26 H 128/85 92 12/27/20 04:30 98 H 27 H 88 L 12/27/20 04:15 97 H 25 H 138/91 93 12/27/20 04:00 35.5 C L 96 H 24 92 12/27/20 03:53 157/99 H 12/27/20 03:45 98 H 28 H 91 12/27/20 03:30 100 H 32 H 90 12/27/20 03:24 142/95 H 12/27/20 03:15 98 H 27 H 95 12/27/20 03:00 102 H 22 90 12/27/20 02:54 131/94 12/27/20 02:45 95 H 26 H 93 12/27/20 02:30 95 H 28 H 98 12/27/20 02:24 35.7 C L 146/103 H 12/27/20 02:15 93 H 25 H 95 12/27/20 02:00 35.7 C L 94 H 28 H 97 12/27/20 01:53 149/98 H 12/27/20 01:45 96 H 22 94 12/27/20 01:30 103 H 25 H 84 L 12/27/20 01:24 159/100 H 12/27/20 01:15 101 H 32 H 93 12/27/20 01:00 94 H 27 H 92 12/27/20 00:53 155/99 H 12/27/20 00:45 101 H 26 H 89 L 12/27/20 00:30 97 H 24 91 12/27/20 00:24 136/101 H 12/27/20 00:15 99 H 30 H 88 L 12/27/20 00:00 95 H 26 H 91 12/26/20 23:45 97 H 28 H 90 12/26/20 23:44 143/96 H 12/26/20 23:43 36.4 C L 12/26/20 23:30 104 H 92 12/26/20 23:15 109 H 26 H 90 12/26/20 23:00 93 H 19 96 12/26/20 22:54 119/86 12/26/20 22:45 94 H 21 95 12/26/20 22:30 93 H 22 94 12/26/20 22:24 149/93 H 12/26/20 22:15 95 H 21 94 12/26/20 22:00 93 H 27 H 95 12/26/20 21:56 36.4 C L 12/26/20 21:45 96 H 26 H 92 12/26/20 21:30 103 H 21 90 Laboratory Results 12/27/20 12/27/20 12/27/20 Range/Units 07:40 05:31 05:31 WBC 12.86 H (4.8-10.8) K/uL RBC 3.83 L (4.7-6.1) M/uL Hgb 11.1 L D (14.0-18.0) g/dL Hct 34.3 L (42-52) % MCV 89.6 (80-100) fL MCH 29.0 (25-34) pg MCHC 32.4 (32-36) g/dL RDW Std Deviation Pending RDW Coeff of Bello Pending Plt Count 79 L D (130-400) K/uL MPV 12.9 H (7.4-10.4) fL Absolute Nucleated RBC 0.30 H (0-0) K/uL Nucleated RBC % (auto) 2.3 % Neutrophils % (Manual) 92.3 % Lymphocytes % (Manual) 1.7 % Monocytes % (Manual) 1.7 % Metamyelocytes % (Man) 1.7 % Myelocytes % (Man) 2.6 % Neutrophils # (Manual) 11.87 H (1.4-6.5) K/uL Total Absolute Neuts 11.87 H (1.4-6.5) K/uL Lymphocytes # (Manual) 0.22 L (1.2-3.4) K/uL Total Abs Lymphocytes 0.22 L (1.2-3.4) K/uL Monocytes # (Manual) 0.22 (0.11-0.59) K/uL Metamyelocytes # (Man) 0.22 H (0-0) K/uL Myelocytes # (Manual) 0.33 H (0-0) K/uL Toxic Granulation 2+ Dohle Bodies Occasional Platelet Estimate Decreased L (Normal) Polychromasia 1+ Echinocytes 1+ ESR (0-20) mm/hr Sodium 139 (136-145) mmol/L Potassium 3.6 (3.5-5.1) mmol/L Chloride 105 (98-107) mmol/L Carbon Dioxide 25 (21-32) mmol/L Anion Gap 9.0 (3-11) BUN 23 H (7-18) mg/dl Creatinine 1.06 (0.6-1.4) mg/dl Est Cr Clr Drug Dosing 55.1 ml/min Est GFR ( Amer) 73.8 ml/min Est GFR (Non-Af Amer) 63.7 ml/min BUN/Creatinine Ratio 21.3 H (10-20) Glucose 156 H (70-99) mg/dl POC Glucose 152 H (70-99) mg/dl Calcium 8.1 L (8.5-10.1) mg/dl Phosphorus 3.1 (2.5-4.9) mg/dl Magnesium 2.3 (1.8-2.4) mg/dl Iron 104 (35-175) mcg/dl TIBC 122 L (250-450) mcg/dl Troponin I 0.637 H* (0-0.045) ng/ml Blood Type Antibody Screen Crossmatch 12/27/20 12/27/20 12/26/20 Range/Units 05:31 04:06 23:58 WBC (4.8-10.8) K/uL RBC (4.7-6.1) M/uL Hgb (14.0-18.0) g/dL Hct (42-52) % MCV (80-100) fL MCH (25-34) pg MCHC (32-36) g/dL RDW Std Deviation RDW Coeff of Bello Plt Count (130-400) K/uL MPV (7.4-10.4) fL Absolute Nucleated RBC (0-0) K/uL Nucleated RBC % (auto) % Neutrophils % (Manual) % Lymphocytes % (Manual) % Monocytes % (Manual) % Metamyelocytes % (Man) % Myelocytes % (Man) % Neutrophils # (Manual) (1.4-6.5) K/uL Total Absolute Neuts (1.4-6.5) K/uL Lymphocytes # (Manual) (1.2-3.4) K/uL Total Abs Lymphocytes (1.2-3.4) K/uL Monocytes # (Manual) (0.11-0.59) K/uL Metamyelocytes # (Man) (0-0) K/uL Myelocytes # (Manual) (0-0) K/uL Toxic Granulation Dohle Bodies Platelet Estimate (Normal) Polychromasia Echinocytes ESR 1 (0-20) mm/hr Sodium (136-145) mmol/L Potassium (3.5-5.1) mmol/L Chloride (98-107) mmol/L Carbon Dioxide (21-32) mmol/L Anion Gap (3-11) BUN (7-18) mg/dl Creatinine (0.6-1.4) mg/dl Est Cr Clr Drug Dosing ml/min Est GFR ( Amer) ml/min Est GFR (Non-Af Amer) ml/min BUN/Creatinine Ratio (10-20) Glucose (70-99) mg/dl POC Glucose 156 H 160 H (70-99) mg/dl Calcium (8.5-10.1) mg/dl Phosphorus (2.5-4.9) mg/dl Magnesium (1.8-2.4) mg/dl Iron (35-175) mcg/dl TIBC (250-450) mcg/dl Troponin I (0-0.045) ng/ml Blood Type Antibody Screen Crossmatch 12/26/20 12/26/20 12/26/20 Range/Units 20:16 16:35 11:50 WBC (4.8-10.8) K/uL RBC (4.7-6.1) M/uL Hgb (14.0-18.0) g/dL Hct (42-52) % MCV (80-100) fL MCH (25-34) pg MCHC (32-36) g/dL RDW Std Deviation RDW Coeff of Bello Plt Count (130-400) K/uL MPV (7.4-10.4) fL Absolute Nucleated RBC (0-0) K/uL Nucleated RBC % (auto) % Neutrophils % (Manual) % Lymphocytes % (Manual) % Monocytes % (Manual) % Metamyelocytes % (Man) % Myelocytes % (Man) % Neutrophils # (Manual) (1.4-6.5) K/uL Total Absolute Neuts (1.4-6.5) K/uL Lymphocytes # (Manual) (1.2-3.4) K/uL Total Abs Lymphocytes (1.2-3.4) K/uL Monocytes # (Manual) (0.11-0.59) K/uL Metamyelocytes # (Man) (0-0) K/uL Myelocytes # (Manual) (0-0) K/uL Toxic Granulation Dohle Bodies Platelet Estimate (Normal) Polychromasia Echinocytes ESR (0-20) mm/hr Sodium (136-145) mmol/L Potassium (3.5-5.1) mmol/L Chloride (98-107) mmol/L Carbon Dioxide (21-32) mmol/L Anion Gap (3-11) BUN (7-18) mg/dl Creatinine (0.6-1.4) mg/dl Est Cr Clr Drug Dosing ml/min Est GFR ( Amer) ml/min Est GFR (Non-Af Amer) ml/min BUN/Creatinine Ratio (10-20) Glucose (70-99) mg/dl POC Glucose 160 H 143 H 140 H (70-99) mg/dl Calcium (8.5-10.1) mg/dl Phosphorus (2.5-4.9) mg/dl Magnesium (1.8-2.4) mg/dl Iron (35-175) mcg/dl TIBC (250-450) mcg/dl Troponin I (0-0.045) ng/ml Blood Type Antibody Screen Crossmatch 12/24/20 Range/Units 21:38 WBC (4.8-10.8) K/uL RBC (4.7-6.1) M/uL Hgb (14.0-18.0) g/dL Hct (42-52) % MCV (80-100) fL MCH (25-34) pg MCHC (32-36) g/dL RDW Std Deviation RDW Coeff of Bello Plt Count (130-400) K/uL MPV (7.4-10.4) fL Absolute Nucleated RBC (0-0) K/uL Nucleated RBC % (auto) % Neutrophils % (Manual) % Lymphocytes % (Manual) % Monocytes % (Manual) % Metamyelocytes % (Man) % Myelocytes % (Man) % Neutrophils # (Manual) (1.4-6.5) K/uL Total Absolute Neuts (1.4-6.5) K/uL Lymphocytes # (Manual) (1.2-3.4) K/uL Total Abs Lymphocytes (1.2-3.4) K/uL Monocytes # (Manual) (0.11-0.59) K/uL Metamyelocytes # (Man) (0-0) K/uL Myelocytes # (Manual) (0-0) K/uL Toxic Granulation Dohle Bodies Platelet Estimate (Normal) Polychromasia Echinocytes ESR (0-20) mm/hr Sodium (136-145) mmol/L Potassium (3.5-5.1) mmol/L Chloride (98-107) mmol/L Carbon Dioxide (21-32) mmol/L Anion Gap (3-11) BUN (7-18) mg/dl Creatinine (0.6-1.4) mg/dl Est Cr Clr Drug Dosing ml/min Est GFR ( Amer) ml/min Est GFR (Non-Af Amer) ml/min BUN/Creatinine Ratio (10-20) Glucose (70-99) mg/dl POC Glucose (70-99) mg/dl Calcium (8.5-10.1) mg/dl Phosphorus (2.5-4.9) mg/dl Magnesium (1.8-2.4) mg/dl Iron (35-175) mcg/dl TIBC (250-450) mcg/dl Troponin I (0-0.045) ng/ml Blood Type AB Positive Antibody Screen NEGATIVE Crossmatch See Detail Coding Level of Care Code 10964 Subseq Hosp Care Lvl 3 Diagnoses Septic shock A41.9; R65.21 History of abdominal aortic aneurysm (AAA) Z86.79 Pancytopenia due to antineoplastic chemotherapy D61.810; T45.1X5A Chronic respiratory failure with hypoxia J96.11 Pulmonary fibrosis, unspecified J84.10 Thrombocytopenia D69.6 Weakness R53.1 Rectal cancer C20 Lymphoma C85.90 Pneumonia J18.9
--- NOTE | 2020-12-27 11:15 | Progress Notes ---
HEMATOLOGY PROGRESS NOTE DATE OF SERVICE: 12/27/2020. DIAGNOSES: 1. Hypotension. 2. 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 3. Hypoxia. 4. History of diffuse large B-cell lymphoma. 5. 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 6. Hypoalbuminemia. SUBJECTIVE: Josiah was seen and examined at bedside. Very happy to see he is now off pressors. He received 2 units of blood at my request yesterday. Mr. Lovings albumin remains quite low and asked the hospitalist please add daily albumin to his medical regimen. He remains on high-flow O2, was saturating at 98% during today's encounter. Cultures continued to be negative. I would estimate his respiratory status is probably the issue that is holding him back from recovery. White cell differential reveals some immaturity, which again is not surprising after Neulasta administration. I spoke to Mr. Estrada's daughter, Myrna, last night explaining his clinical dilemma and advised her that within short time will hopefully improve to be fruitful. Mr. Estrada is not complaining of pain. He recognized me at bedside today. Nursing reported no overnight issues otherwise. OBJECTIVE: GENERAL: An 85-year-old elderly gentleman, awake, alert, appropriate, in no acute distress. VITAL SIGNS: Temperature 35.5, pulse 97, respiratory rate 24, blood pressure 144/96. SKIN: Turgor is fair. No rashes or lesions otherwise. HEENT: Limited examination, currently on nonrebreather. HEART: Tachycardic, but regular. LUNGS: Bibasilar crackles. ABDOMEN: Soft, nontender, nondistended. EXTREMITIES: No clubbing. Trace peripheral edema noted. LABORATORY DATA: WBC count 12,860, hemoglobin 11.1, platelet count 79,000, absolute neutrophil count 11,870. Sodium 139, potassium 3.6, chloride 105, carbon dioxide 25, BUN 23, creatinine 1.06. Troponin I 0.637. ASSESSMENT: 1. Hypotension. 2. Hypoxia/interstitial lung disease. 3. Hypoalbuminemia. 4. Diffuse large B-cell lymphoma. 5. Adenocarcinoma of the rectum. PLAN: It was my pleasure to see Josiah at bedside this morning. In my estimation, Mr. Estrada is making slow, but steady progress. His respiratory status is probably the most tenuous tissue at this time. Nutritional status is also concerning. I have asked the hospitalist and dowel sander operator to add daily albumin for a couple of days. Hopefully within the next 24 hours, can get Mr. Estrada to sit on a bedside chair. From a hematologic standpoint, his marrow remains in recovery and thus the reason for the emerging immaturity seen on today's differential. His hemoglobin definitely got bolstered with 2 units packed RBCs and would like to hold off on further transfusion at this point. I would like to maintain his hemoglobin minimally at 10 g/dL or better. As I explained to Myrna on phone last night, Mr. Estrada, I believe, will eventually recover, but will require considerable time to make that happen and have her and her sister appreciate the fact that this gentleman has been through two vigorous regimens in close succession and again not surprising to me Josiah is in the clinical state at the present time. That said, I would aggressively continue supportive care. Again, focusing on his respiratory status and nutrition moving forward. I could not see any evidence of residual lymphoma on any of radiographs seen, which is definitely encouraging. That said, we will continue to follow Mr. Estrada periodically. Thank you again for assisting me in the care of this very complex gentleman. Job ID: [id number] [facility]
[2020-12-27] MEDS: predniSONE 20 MG TAB PO SCH (11:57)
--- NOTE | 2020-12-27 15:57 | Hospitalist Progress Note ---
Date of Service December 27, 2020 Assessment & Plan (1) Septic shock: Plan: Septic shock-resuscitation did receive fluids and was on vasopressin and levophed, now tapered off pressors clinial feeling is that septic shock was ruled out and hemodynamic instability was from kaylie crisis, given hydrocortisone and infectious process seems less likely Broad-spectrum antibiotic coverage with vancomycin IV Zosyn IV discontinued after 48Hrs and Azithromycin continue for ground glass in lungs but this has been there chronically, azithro may have some anti inflamatory affects CTA does have acute on chronic parenchymal lung changes negative for PE negative to date blood cultures and urine culture Biofire Virus panel negative, including negative for COVID-19 (2) Anemia: Plan: Anemia from chemotherapy, did stop lovenox, did have eval of AAA and no leak on admission, no other signs of obvious blood loss, started protonix, augmented appropriately after transfusion (3) History of abdominal aortic aneurysm (AAA): Plan: aortoiliac graft stent. Appears stable on CT angiography 8.2x6.3 similar to before, suggests endoleak with contrast in the posterior aspect of the aneurysm sac (4) Pneumonia: Plan: CTA shows ground glass changes and coarse interstitium, did add atypical coverage and with immunosuppression consider antifungal if not improving. sputum culture negative (5) Hypoxia: Plan: Patient is a DNR/DNI. Presently 93% on high flow nasal cannula 30 L/min and FiO2 ratio 50 (6) Pancytopenia due to antineoplastic chemotherapy: Plan: no longer, stopping broad spectrum antibiotics chemo recently completed CHOP for diffuse large B cell lymphoma and prior to that chemo radiation for adenocarcinoma of the rectum oncology concerned for poor nutrition recommends albumin infusions (7) Pulmonary fibrosis, unspecified: Plan: previosly has seen Dr Carlos, (8) Rectal cancer: Plan: history of rectal cancer, completed chemoradiation (9) Lymphoma: Plan: recently completed his sixth and final cycle of R-CHOP chemotherapy for diffuse large B-cell lymphoma. last dose was 12/15/20, did recieve gcsf post treatement (10) Elevated troponin I level: Plan: ecg non acute, still consider demand ischemia Most recent echocardiogram at last admission showed ejection fraction of 60% Plan: Daughter peter arreola, pt was d/c and readmitted in one day on 12/24, family concerned as would be expected. Admission and Anticipated Discharge Date Admission Date: December 24, 2020 Subjective had some mild sundowning overnight otherwise is stable with regard to vs Review of Systems Review of Systems: mild distress and fatigue no headache, no visual changes loosened dentures some cough with drinking no chest pain, pressure or palpitations shortness of breath at rest and with speaking no abdominal pain, nausea or vomiting,continues with poor appetite no dysuria, hematuria or frequency no focal joint pain le swelling no back pain, CVA tenderness or radicular pain no bruising, bleeding or rashes no focal signs of weakness or numbness or altered sensation no complaints of anxiety or depression.. Physical Exam Physical Exam: The patient appeared chronically ill and weakened Vital signs as documented. Head exam is normocephalic atraumatic Neck is without JVD, thyromegaly, or carotid bruits. Lungs are decreased at the bases Cardiac exam, Rhythm is regular.. No murmurs, rubs or gallops. Abdominal exam reveals normal bowel sounds, soft non mild suprapubic tenderness Extremities are 1 edematous and both LE have skin changes of chronic venous stasis Neurologic exam is alert and orientedx2, no focal loss of strength or sensation Skin is without bruises or rashes Results & Data Results & Data ([facility]) Vital Signs (Past 12 Hours) Vital Signs Temp Pulse Resp BP BP Pulse Ox 12/27/20 15:15 106 H 12/27/20 13:00 101 H 15 94 12/27/20 12:00 101 H 27 H 144/95 H 94 12/27/20 11:00 97 H 20 94 12/27/20 10:00 89 19 96 12/27/20 09:00 101 H 27 H 142/92 H 98 12/27/20 08:35 97 H 24 95 12/27/20 08:00 103 H 29 H 146/96 H 93 12/27/20 06:48 95.9 F L 12/27/20 06:20 144/96 H 12/27/20 06:15 32 H 94 12/27/20 06:00 104 H 29 H 95 12/27/20 05:45 114 H 29 H 74 L 12/27/20 05:30 108 H 29 H 85 L 12/27/20 05:15 94 H 19 91 12/27/20 05:00 122 H 23 61 L 12/27/20 04:45 99 H 26 H 128/85 92 12/27/20 04:30 98 H 27 H 88 L 12/27/20 04:15 97 H 25 H 138/91 93 12/27/20 04:00 95.9 F L 96 H 24 92 12/27/20 03:53 157/99 H PG Care Time/CCT Total # of Minutes Spent Total Time Spent with Patient: Total time spent is greater than 50% in coordination of care (as documented) at patient's floor/unit and/or counseling patient: Coding Level of Care Code 63315 Subseq Hosp Care Lvl 3 Diagnoses Septic shock A41.9; R65.21 Anemia D64.9 History of abdominal aortic aneurysm (AAA) Z86.79 Pneumonia J18.9 Hypoxia R09.02 Pancytopenia due to antineoplastic chemotherapy D61.810; T45.1X5A Pulmonary fibrosis, unspecified J84.10 Rectal cancer C20 Lymphoma C85.90 Elevated troponin I level R77.8
[2020-12-27] MEDS: AZITHROMYCIN 500 MG in DEXTROSE 5% 250 ML IV SCH (16:42)
[2020-12-28] MEDS: INSULIN ASPART 100 UNITS/ML 3 ML PEN SC SCH ×6 (00:23→20:24)
[2020-12-28 08:23] LABS: Hemoglobin 10.6 g/dL (14.0-18.0); Mean Corpuscular Hemoglobin 29.5 pg (25-34); Mean Corpuscular Hgb Conc 32.1 g/dL (32-36); Mean Corpuscular Volume 91.9 fL (80-100); Mean Platelet Volume 12.4 fL (7.4-10.4); Nucleated RBC # (auto) 0.54 K/uL (0-0); Nucleated RBC % (auto) 3.3 %; Platelet Count 77 K/uL (130-400); RDW Standard Deviation 52.8 fL (36.4-46.3); Red Blood Count 3.59 M/uL (4.7-6.1); White Blood Count 16.25 K/uL (4.8-10.8)
[2020-12-28 08:27] LABS: ALC (manual) 0.42 K/uL (1.2-3.4); ANC (manual) 13.29 K/uL (1.4-6.5); Eosinophils # (manual) 0.15 K/uL (0-0.5); Eosinophils % (manual) 0.9 %; Lymphocytes # (manual) 0.42 K/uL (1.2-3.4); Lymphocytes % (manual) 2.6 %; Metamyelocytes # (manual) 0.85 K/uL (0-0); Metamyelocytes % (manual) 5.2 %; Monocytes # (manual) 0.42 K/uL (0.11-0.59); Monocytes % (manual) 2.6 %; Myelocytes % (manual) 4.3 %; Neutrophils # (manual) 13.29 K/uL (1.4-6.5); Neutrophils % (manual) 81.8 %; Polychromasia 1+; Promyelocytes # (manual) 0.42 K/uL (0-0); Promyelocytes % (manual) 2.6 %
[2020-12-28 08:36] LABS: Albumin Level 2.7 gm/dl (3.4-5.0); BUN Creatinine Ratio 22.7 (10-20); Calcium 8.2 mg/dl (8.5-10.1); Creatinine Clr Calc Pharmacy 59.1 ml/min; Est GFR (African American) 80.2 ml/min; Est GFR (Non-African American) 69.2 ml/min; Magnesium 2.4 mg/dl (1.8-2.4); Potassium 3.2 mmol/L (3.5-5.1)
[2020-12-28 08:38] LABS: Albumin Globulin Ratio 1.2 (0.9-2); Bilirubin,Total 1.1 mg/dl (0.2-1); Globulin 2.2 gm/dl (2.5-4.0); Total Protein 4.9 gm/dl (6.4-8.2)
[2020-12-28] MEDS: PANTOprazole 40 MG in SYRINGE 0 ML IV SCH ×2 (08:42→20:25)
[2020-12-28] MEDS: NICOTINE 14 MG/24 HR PATCH TD SCH (08:42)
[2020-12-28] MEDS: predniSONE 20 MG TAB PO SCH (08:42)
[2020-12-28] MEDS: THIAMINE HCL 100 MG in SYRINGE 9 ML IV SCH (08:44)
--- NOTE | 2020-12-28 10:06 | Hospitalist Progress Note ---
Date of Service December 28, 2020 Assessment & Plan (1) Hypotension: Plan: Initially thought it was septic shock, but negative to date blood cultures and urine culture. Abx stopped after 48 hours. BioFire/Covid all negative. - Stop azithromycin (had been ongoing for possible anti-inflammatory effects). - Ended up feeling it was Bill's crisis. -> Continue steroids, but begin taper (2) Hypoxia: Plan: Ddx includes pneumonia vs. ILD vs. pulmonary edema. - Presently 93% on 10 L/min, so improving. - Will get BNP today. Finished abx as above. (3) Pneumonia: Plan: CTA chest on 12/24 showed ground glass changes and coarse interstitium. Added atypical coverage from 12/25 to 12/27, and with immunosuppression consider antifungal if not improving. - Sputum culture negative from 12/25. (4) Anemia: Plan: Anemia from chemotherapy. No signs/symptoms of obvious blood loss. Improved appropriately after 2 units PRBCs on 12/26. - Continue Protonix (5) History of abdominal aortic aneurysm (AAA): Plan: Aortoiliac graft stent. Appeared stable on CT angiography 8.2x6.3 similar to before, suggests endoleak with contrast in the posterior aspect of the aneurysm sac. (6) Pancytopenia due to antineoplastic chemotherapy: Plan: Chemo recently completed CHOP for diffuse large B cell lymphoma and prior to that chemo radiation for adenocarcinoma of the rectum. - Oncology concerned for poor nutrition recommends albumin infusions (7) Pulmonary fibrosis, unspecified: Plan: Previosly has seen Dr Carlos in 09/2020. 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 No active management as he was working on cancer diagnosis. - Monitor (8) Rectal cancer: Plan: History of rectal cancer, completed chemoradiation. - No inpatient needs (9) Lymphoma: Plan: Recently completed his sixth and final cycle of R-CHOP chemotherapy for diffuse large B-cell lymphoma. Last dose was 12/15/20, did receive GCSF post-treatment. - Monitor blood counts (10) Elevated troponin I level: Plan: EKG was non-acute, still consider demand ischemia. Most recent echocardiogram at last admission showed ejection fraction of 60%. - No inpatient needs (11) DVT prophylaxis: Plan: Lovenox Admission and Anticipated Discharge Date Admission Date: December 24, 2020 Subjective Improving today. No real shortness of breath. Some swelling in the legs. Reports no fevers/chills, chest pain, shortness of breath, abdominal pain, nausea, or vomiting. Physical Exam Constitutional: WD/WN, vitals as above Eyes: EOM intact bilaterally; no conjunctival abnormality ENMT: external ear and nose normal, oropharynx normal Neck: trachea midline, no thyromegaly normal visual inspection Respiratory: normal respiratory effort, lungs clear to auscultation no respiratory distress Cardiovascular: Rate/Rhythm: + tachycardic and + irregularly irregular Extremities: + edema Gastrointestinal (Abdomen): Inspection/Auscultation: abdomen normal to inspection; abdomen not distended Musculoskeletal: no cyanosis or clubbing, extremities motor strength 5/5 Skin: no rashes, warm and dry Neurologic: moves all extremities and awake Psychiatric: Orientation: alert, oriented to person and cooperative Results & Data Results & Data ([facility]) Vital Signs (Past 12 Hours) Vital Signs Temp Pulse Pulse Resp BP Pulse Ox 12/28/20 04:20 36.3 C L 103 H 22 144/90 H 96 12/27/20 23:59 102 H 12/27/20 23:04 36.4 C L 107 H 24 154/102 H 94 PG Care Time/CCT Total # of Minutes Spent Total Time Spent with Patient: Total time spent is greater than 50% in coordination of care (as documented) at patient's floor/unit and/or counseling patient: Coding Level of Care Code 38549 Subseq Hosp Care Lvl 3 Diagnoses Anemia D64.9 History of abdominal aortic aneurysm (AAA) Z86.79 Pneumonia J18.9 Hypoxia R09.02 Pancytopenia due to antineoplastic chemotherapy D61.810; T45.1X5A Pulmonary fibrosis, unspecified J84.10 Rectal cancer C20 Lymphoma C85.90 Elevated troponin I level R77.8 Hypotension I95.9 DVT prophylaxis Z29.9
[2020-12-29] MEDS: INSULIN ASPART 100 UNITS/ML 3 ML PEN SC SCH ×6 (00:37→19:41)
[2020-12-29 05:46] LABS: Hematocrit (blood only) 32.8 % (42-52); Hemoglobin 10.3 g/dL (14.0-18.0); Mean Corpuscular Hemoglobin 29.2 pg (25-34); Mean Corpuscular Hgb Conc 31.4 g/dL (32-36); Mean Corpuscular Volume 92.9 fL (80-100); Nucleated RBC # (auto) 0.18 K/uL (0-0); Nucleated RBC % (auto) 1.4 %; RDW Standard Deviation 53.3 fL (36.4-46.3); Red Blood Count 3.53 M/uL (4.7-6.1)
[2020-12-29 06:03] LABS: Mean Platelet Volume 11.4 fL (7.4-10.4); Platelet Count 58 K/uL (130-400)
[2020-12-29 06:23] LABS: Albumin Level 2.5 gm/dl (3.4-5.0); Calcium 8.3 mg/dl (8.5-10.1); Creatinine Clr Calc Pharmacy 70.5 ml/min; Est GFR (Non-African American) 80.2 ml/min; Potassium 3.1 mmol/L (3.5-5.1)
[2020-12-29 06:26] LABS: Albumin Globulin Ratio 1.1 (0.9-2); Bilirubin,Total 1.1 mg/dl (0.2-1); Globulin 2.3 gm/dl (2.5-4.0); Total Protein 4.8 gm/dl (6.4-8.2)
--- NOTE | 2020-12-29 08:36 | Progress Notes ---
HEMATOLOGY FOLLOWUP NOTE DATE OF SERVICE: 12/29/2020 DIAGNOSES: 1. Hypotension (addisonian). 2. 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 3. Hypoxia. 4. Hypoalbuminemia. 5. History of diffuse large B-cell lymphoma, status post 6 cycles of R-CHOP. 6. History of adenocarcinoma of the rectum, status post chemoradiation. SUBJECTIVE: Josiah was seen and examined at bedside this morning. Much brighter mentally than when I saw him 2 days ago. He continues to make slow but steady progress in his respiratory status. Maribell sicbilly and occupational therapy are working with him. Hopefully, we can start to get him out of bed a bit more. From a hematologic perspective, his neutrophils have completely recovered. He continues to have refractory mild anemia and thrombocytopenia. Blood cultures continued to be negative. Encou raged p.o. intake, specifically protein. The patient received albumin over the past couple of days, which hopefully has bolstered his nutritional status a bit. Nursing reports no overnight difficultie s otherwise. OBJECTIVE: GENERAL: A very pleasant 85-year-old gentleman, awake, alert and appropriate, in no acute distress. VITAL SIGNS: Temperature 36.4, pulse 106, respiratory rate 19, blood pressure 148/98. SKIN: Without rash or lesion. HEENT: Buccal mucosa without erythema or ulceration. HEART: Tachycardic, but regular. LUNGS: Diffuse rhonchi heard in all young. ABDOMEN: Soft, nontender, nondistended. LOWER EXTREMITIES: Trace peripheral edema bilaterally. NEUROLOGIC: Grossly intact. LABORATORY DATA: WBC count 13,200, hemoglobin 10.3, platelet count 58,000. Sodium 145, potassium 3. 1, chloride 109, carbon dioxide 30, creatinine 0.83, BUN 18, AST 33, ALT 174. BNP greater than 35,00 0. Albumin 2.5. ASSESSMENT: 1. Hypotension (addisonian). 2. Hypoxia/interstitial lung disease. 3. Hypoalbuminemia. 4. Diffuse large B-cell lymphoma. 5. Adenocarcinoma of the rectum. 6. Elevated liver transaminases (shock liver). PLAN: Mr. Estrada finally seems to be turning the corner, much brighter mentally this morning, very talkative, recognized me when I entered the room. Encouraged p.o. intake, particularly protein. Pro bably should back off on supplemental IV fluid at this point. Maybe try to get him out of bed into ch air and start moving him around. I spoke to the hospitalist about disposition and would prefer a [facility] p-down such as [facility] or perhaps [facility] versus [facility] for Josiah. I was encouraged with h is radiographic studies done during admission with no overt evidence of residual lymphoma. Agree wit medical management otherwise. I will continue to follow Josiah closely during the hospital stay. Would avoid further transfusion at this juncture. Job ID: [id number]
[2020-12-29] MEDS: predniSONE 20 MG TAB PO SCH (08:38)
[2020-12-29] MEDS: THIAMINE HCL 100 MG in SYRINGE 9 ML IV SCH (08:39)
[2020-12-29] MEDS: PANTOprazole 40 MG in SYRINGE 0 ML IV SCH (08:39)
[2020-12-29] MEDS: NICOTINE 14 MG/24 HR PATCH TD SCH (08:39)
[2020-12-29] MEDS ORDERED: FUROSEMIDE INJ 20 MG/2 ML VIAL IV ONE (08:52)
[2020-12-29] MEDS ORDERED: POTASSIUM CHLORIDE CRTAB 20 MEQ TABCR PO STA (08:52)
--- NOTE | 2020-12-29 09:02 | Hospitalist Progress Note ---
Date of Service December 29, 2020 Assessment & Plan (1) Hypotension: Plan: Initially thought it was septic shock, but negative to date blood cultures and urine culture. Abx stopped after 48 hours. BioFire/Covid all negative. - Stopped azithromycin on 12/28. - Ended up feeling it was [place]'s crisis. -> Continue steroids, but begin taper -> Now on prednisone 20 mg PO daily. Will lower slowly. (2) Hypoxia: Plan: Ddx includes pneumonia vs. ILD vs. pulmonary edema. - Presently 93% on 10 L/min, so improving. - Finished abx as above. - BNP on 12/28 >35k with LE edema. Lasix 20 mg IV x 1 today with KCl repletion. Monitor O2 needs. (3) Tachycardia: Plan: Sinus tachy at the 100 - 120 range. Likely from acute illness and hypoxemia, poor functional status. - Will get LE dopplers to r/o DVT (4) Pneumonia: Plan: CTA chest on 12/24 showed ground glass changes and coarse interstitium. Added atypical coverage from 12/25 to 12/27, and with immunosuppression consider antifungal if not improving. - Sputum culture negative from 12/25. - Procalcitonin on 12/28 was 1.2, unchanged from priors. Monitor closely; consider abx to cover aspiration if worsening lung function. (5) Anemia: Plan: Anemia from chemotherapy. No signs/symptoms of obvious blood loss. Improved appropriately after 2 units PRBCs on 12/26. - Continue Protonix - Stable today at 10.3. (6) History of abdominal aortic aneurysm (AAA): Plan: Aortoiliac graft stent. Appeared stable on CT angiography 8.2x6.3 similar to before, suggests endoleak with contrast in the posterior aspect of the aneurysm sac. (7) Pancytopenia due to antineoplastic chemotherapy: Plan: Chemo recently completed CHOP for diffuse large B cell lymphoma and prior to that chemo radiation for adenocarcinoma of the rectum. - Oncology concerned for poor nutrition recommended albumin infusions (8) Pulmonary fibrosis, unspecified: Plan: Previosly has seen Dr Carlos in 09/2020. 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 No active management as he was working on cancer diagnosis. - Monitor (9) Rectal cancer: Plan: History of rectal cancer, completed chemoradiation. - No inpatient needs (10) Lymphoma: Plan: Recently completed his sixth and final cycle of R-CHOP chemotherapy for diffuse large B-cell lymphoma. Last dose was 12/15/20, did receive GCSF post-treatment. - Monitor blood counts (11) Elevated troponin I level: Plan: EKG was non-acute, still consider demand ischemia. Most recent echocardiogram at last admission showed ejection fraction of 60%. Troponin peaked at 1.4 on 12/25, then down. - No inpatient needs (12) DVT prophylaxis: Plan: Lovenox Admission and Anticipated Discharge Date Admission Date: December 24, 2020 Subjective Doing well today. More alert and awake. Able to discuss his medical history better. Reports no fevers/chills, chest pain, shortness of breath, abdominal pain, nausea, or vomiting. Physical Exam Constitutional: WD/WN, vitals as above Eyes: EOM intact bilaterally; no conjunctival abnormality ENMT: external ear and nose normal, oropharynx normal Neck: trachea midline, no thyromegaly normal visual inspection Respiratory: normal respiratory effort, lungs clear to auscultation no r espiratory distress Cardiovascular: Rate/Rhythm: regular rhythm and + tachycardic Extremities: + edema Gastrointestinal (Abdomen): Inspection/Auscultation: abdomen normal to inspection; abdomen not distended Musculoskeletal: no cyanosis or clubbing, extremities motor strength 5/5 Skin: no rashes, warm and dry Neurologic: moves all extremities and awake Psychiatric: Orientation: alert, oriented to person and cooperative Results & Data Results & Data ([facility]) Vital Signs (Past 12 Hours) Vital Signs Temp Pulse Pulse Resp BP Pulse Ox 12/29/20 08:52 97 12/29/20 08:51 36.5 C 123 H 20 92 12/29/20 04:08 36.4 C L 106 H 19 148/98 H 93 12/29/20 00:22 36.4 C L 105 H 21 154/115 H 91 12/28/20 23:59 116 H PG Care Time/CCT Total # of Minutes Spent Total Time Spent with Patient: Total time spent is greater than 50% in coordination of care (as documented) at patient's floor/unit and/or counseling patient: Coding Level of Care Code 83965 Subseq Hosp Care Lvl 3 Diagnoses Hypotension I95.9 Hypoxia R09.02 Pneumonia J18.9 Anemia D64.9 History of abdominal aortic aneurysm (AAA) Z86.79 Pancytopenia due to antineoplastic chemotherapy D61.810; T45.1X5A Pulmonary fibrosis, unspecified J84.10 Rectal cancer C20 Lymphoma C85.90 Elevated troponin I level R77.8 DVT prophylaxis Z29.9 Tachycardia R00.0
[2020-12-29] MEDS: POTASSIUM CHLORIDE / WTR 20 MEQ/100 ML PLCT IV SCH ×2 (09:27→12:20)
[2020-12-29] MEDS ORDERED: PIPERACILL/TAZOBAC CONSULT ACTIVE PRN (13:20)
[2020-12-29] MEDS ORDERED: PIPERACILLIN/TAZOBACTAM 4.5 GM in DEXTROSE 5% 100 ML IV ONE (14:00)
--- NOTE | 2020-12-29 14:12 | Ultrasound Report ---
BILATERAL LOWER EXTREMITY VENOUS DOPPLER HISTORY: DVT, tachycardia, cancer COMPARISON STUDY: None. FINDINGS: There is normal compressibility, flow, and augmentation within the right lower extremity de ep venous system. Occlusive thrombus within the left common femoral, superficial femoral, popliteal, anterior tibial, posterior tibial, and peroneal veins. IMPRESSION: 1. Extensive occlusive DVT within the left lower extremity. 2. No DVT within the right lower extremity. ACT 112: Negative or not required by law. Electronically signed by: Pipe Matthews M.D. 12/29/2020 2:11 PM
--- NOTE | 2020-12-29 14:25 | XRay Report ---
XR chest 1V portable CLINICAL HISTORY: Worsening hypoxemia TECHNIQUE: Single frontal radiograph of the chest was obtained. Comparison: Comparison is made to chest one view 12/25/2020 FINDINGS: Stable right portacatheter. Cardiomegaly is noted. Again noted are multifocal airspace opacities and prominence and indistinctness of the vasculature No evidence of pleural effusion or pneumothorax. IMPRESSION: Redemonstration of multifocal airspace opacities and moderate pulmonary edema. ACT 112: Negative or not required by law. Electronically signed by: Chuy Rivero M.D. 12/29/2020 2:24 PM
[2020-12-29] MEDS: Heparin IV Adult Wt-Based Standard *NO* Bolus Protocol IV SCH ×4 (15:54→17:26)
[2020-12-29] MEDS: HEPARIN SODIUM/DEXTROSE 25,000 UNITS/500 ML BAG IV SCH (17:02)
[2020-12-29] MEDS: PANTOprazole 40 MG TAB PO SCH (19:44)
[2020-12-29] MEDS: PIPERACILLIN/TAZOBACTAM 4.5 GM in DEXTROSE 5% 100 ML IV SCH (19:46)
[2020-12-29 23:26] LABS: Partial Thromboplastin Ratio 2.1
[2020-12-29 23:34] LABS: Partial Thromboplastin Time 54.5 Seconds (21.0-31.0)
[2020-12-30] MEDS: INSULIN ASPART 100 UNITS/ML 3 ML PEN SC SCH ×7 (04:00→23:22)
[2020-12-30] MEDS: PIPERACILLIN/TAZOBACTAM 4.5 GM in DEXTROSE 5% 100 ML IV SCH ×2 (04:52→12:12)
--- NOTE | 2020-12-30 05:24 | Electrocardiogram Report ---
Test Reason : Blood Pressure : / mmHG Vent. Rate : 124 BPM Atrial Rate : 124 BPM P-R Int : 146 ms QRS Dur : 098 ms QT Int : 318 ms P-R-T Axes : 046 -55 050 degrees QTc Int : 456 ms Sinus tachycardia Left axis deviation Nonspecific T wave abnormality Abnormal ECG When compared with ECG of 26-DEC-2020 06:04, No significant change was found Confirmed by Uday Velasquez ([id number]) on 12/30/2020 5:23:36 AM Referred By: REFERRED SELF Confirmed By:Uday Velasquez
[2020-12-30 05:40] LABS: Hemoglobin 10.5 g/dL (14.0-18.0); Mean Corpuscular Hemoglobin 29.6 pg (25-34); Mean Corpuscular Hgb Conc 31.8 g/dL (32-36); Nucleated RBC # (auto) 0.09 K/uL (0-0); Nucleated RBC % (auto) 0.7 %; Platelet Count 64 K/uL (130-400); RDW Coefficient of Variation 16.5 % (11.5-14.5); RDW Standard Deviation 52.9 fL (36.4-46.3); Red Blood Count 3.55 M/uL (4.7-6.1); White Blood Count 13.87 K/uL (4.8-10.8)
[2020-12-30 05:41] LABS: ALC (manual) 0.24 K/uL (1.2-3.4); ANC (manual) 12.32 K/uL (1.4-6.5); Eosinophils # (manual) 0.24 K/uL (0-0.5); Eosinophils % (manual) 1.7 %; Lymphocytes # (manual) 0.24 K/uL (1.2-3.4); Lymphocytes % (manual) 1.7 %; Metamyelocytes # (manual) 0.12 K/uL (0-0); Metamyelocytes % (manual) 0.9 %; Monocytes % (manual) 4.3 %; Myelocytes # (manual) 0.36 K/uL (0-0); Myelocytes % (manual) 2.6 %; Neutrophils # (manual) 12.32 K/uL (1.4-6.5); Neutrophils % (manual) 88.8 %; Toxic Granulation 1+
[2020-12-30 05:43] LABS: Albumin Level 2.6 gm/dl (3.4-5.0); BUN Creatinine Ratio 22.8 (10-20); Calcium 8.4 mg/dl (8.5-10.1); Creatinine Clr Calc Pharmacy 68.1 ml/min; Est GFR (African American) 91.2 ml/min; Est GFR (Non-African American) 78.7 ml/min; Magnesium 1.7 mg/dl (1.8-2.4); Potassium 3.5 mmol/L (3.5-5.1)
[2020-12-30 05:46] LABS: Bilirubin,Total 1.2 mg/dl (0.2-1); Globulin 2.5 gm/dl (2.5-4.0); Total Protein 5.1 gm/dl (6.4-8.2)
[2020-12-30 05:50] LABS: Partial Thromboplastin Ratio 2.6
[2020-12-30 05:56] LABS: Partial Thromboplastin Time 69.6 Seconds (21.0-31.0)
[2020-12-30] MEDS ORDERED: FUROSEMIDE INJ 20 MG/2 ML VIAL IV ONE (07:41)
--- NOTE | 2020-12-30 08:13 | Progress Notes ---
HEMATOLOGY/ONCOLOGY FOLLOWUP NOTE DIAGNOSES: 1. Left lower extremity deep venous thrombosis. 2. Hypotension (Addisonian crisis). 3. 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 4. Hypoxia. 5. Hypoalbuminemia. 6. History of diffuse large B-cell lymphoma, status post 6 cycles R-CHOP. 7. History of adenocarcinoma of the rectum and status post radiation therapy. SUBJECTIVE: Josiah was seen and examined at bedside this morning. He remains mentally bright, answ ered questions appropriately. His left lower extremity was markedly swollen yesterday. Doppler conf irmed extensive DVT, which again is not surprising considering his sessile state and corticosteroid t herapy, not to mention his cancer diagnoses makes for perfect storm for thromboembolic disease. That said, he was started on heparin and ultimately will convert to warfarin. He is starting to improve his nutritional status, eating better. Supplemental albumin has been helpful, albumin currently 2.6. He denies fevers, chills. No complaints of pain today. Nursing reports no overnight difficulties otherwise. OBJECTIVE: GENERAL: Very pleasant 85-year-old gentleman, awake, alert, and appropriate, in no acute distress. VITAL SIGNS: Temperature 36.4, pulse 107, respiratory rate 18, blood pressure 145/91. SKIN: Without new rash or lesion. HEENT: Oral mucosa without erythema or ulceration. HEART: Tachycardic, but regular. LUNGS: Diffuse rhonchi heard in all young. ABDOMEN: Soft, nontender, nondistended. EXTREMITIES: Again, left lower extremity a bit more swollen as compared to right. NEUROLOGIC: Grossly intact. LABORATORY DATA: WBC count 13,870, hemoglobin 10.5, platelet count 64,000. PTT 69.6 seconds on hepa rin. Sodium 145, potassium 3.5, chloride 104, carbon dioxide 37, BUN 20, creatinine 0.87, magnesium 1.7, ALT 141, total protein 5.1, albumin 2.6. ASSESSMENT: 1. Left lower extremity deep venous thrombosis. 2. Hypotension, attributable to steroid withdrawal. 3. Hypoxia. 4. Tachycardia. 5. Status post R-CHOP chemotherapy for diffuse large B-cell lymphoma. 6. History of adenocarcinoma of the rectum, status post chemoradiation. PLAN: Very pleased with Mr. Estrada's progress. Left lower extremity deep venous thrombosis, somewh at of a clinical setback; however, seems to be tolerating heparin and instructed Dr. Menjivar to go ahe ad and transition him to warfarin with goal INR of 2 before pulling heparin away. Continue to work o n his nutritional and functional status. I do not think he needs any further supplemental albumin at this point. Again, ultimately, Mr. Estrada will probably need to go to step-down unit, perhaps [facility] versus [facility]. Radiographically, it would appear diffuse large B-cell lymphoma has resolved. Need to continue monitoring hemodynamics and obviously now that he is on blood thinner, k eep an eye out for lower GI bleeding. I have nothing further to add at this point, I agree with [facility] management moving forward. Will continue to follow him periodically during hospital stay. Job ID: [id number]
[2020-12-30] MEDS: PANTOprazole 40 MG TAB PO SCH ×2 (09:22→20:02)
[2020-12-30] MEDS: predniSONE 20 MG TAB PO SCH (09:22)
[2020-12-30] MEDS: NICOTINE 14 MG/24 HR PATCH TD SCH ×2 (09:22→09:24)
[2020-12-30] MEDS: THIAMINE HCL 100 MG TAB PO SCH (09:22)
[2020-12-30] MEDS: HEPARIN SODIUM/DEXTROSE 25,000 UNITS/500 ML BAG IV SCH ×2 (09:22→13:32)
[2020-12-30] MEDS: POTASSIUM CHLORIDE / WTR 20 MEQ/100 ML PLCT IV SCH ×2 (09:23→11:03)
--- NOTE | 2020-12-30 10:30 | Hospitalist Progress Note ---
Date of Service December 30, 2020 Assessment & Plan (1) Hypotension: Plan: Initially thought it was septic shock, but negative to date blood cultures and urine culture. Abx stopped after 48 hours. BioFire/Covid all negative. - Stopped azithromycin on 12/28. - Ended up feeling it was [place] crisis. -> Continue steroids, but begin taper -> Now on prednisone 20 mg PO daily. Will lower slowly. (2) DVT (deep venous thrombosis): Plan: "Extensive occlusive DVT within the left lower extremity" found on 12/29. - Discussed with oncology -> Started heparin gtt without bolus. So far no indication of bleeding. - Begin low-dose warfarin with plan to gradually increase INR. (3) Hypoxia: Plan: Ddx includes pneumonia vs. ILD vs. pulmonary edema. - Presently 93% on 13 L/min. - Finished abx as above, but restarted on 12/29 when he had worsening O2 requirement and worsening tachycardia. - Continue Zosyn. - BNP on 12/28 >35k with LE edema. Lasix 20 mg IV x 1 on 12/29 & 12/30 with KCl repletion. Monitor O2 needs. - Pulm consult for consideration of ILD exacerbation vs. PJP pneumonia. (4) Pneumonia: Plan: CTA chest on 12/24 showed ground glass changes and coarse interstitium. Added atypical coverage from 12/25 to 12/27, and with immunosuppression consider anti fungal if not improving. - Sputum culture negative from 12/25. - Procalcitonin on 12/28 was 1.2, unchanged from priors. - Continue Zosyn for now; restarted on 12/29 with worsening oxygenation and tach ycardia. (5) Aspiration into respiratory tract: Plan: FEES with LIDAR ANALYST on 12/29/2020 - Aspiration mucus and thin liquids. - See above (6) Anemia: Plan: Anemia from chemotherapy. No signs/symptoms of obvious blood loss. Improved appropriately after 2 units PRBCs on 12/26. - Continue Protonix - Stable today at 10.5. (7) History of abdominal aortic aneurysm (AAA): Plan: Aortoiliac graft stent. Appeared stable on CT angiography 8.2x6.3 similar to before, suggests endoleak with contrast in the posterior aspect of the aneurysm sac. 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 - Oncology concerned for poor nutrition recommended albumin infusions (9) Pulmonary fibrosis, unspecified: Plan: Previosly has seen Dr Carlos in 09/2020. 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 No active management as he was working on cancer diagnosis. - Monitor (10) Rectal cancer: Plan: History of rectal cancer, completed chemoradiation. - No inpatient needs (11) Lymphoma: Plan: Recently completed his sixth and final cycle of R-CHOP chemotherapy for diffuse large B-cell lymphoma. Last dose was 12/15/20, did receive GCSF post-treatment. - Monitor blood counts (12) Elevated troponin I level: Plan: EKG was non-acute, still consider demand ischemia. Most recent echocardiogram at last admission showed ejection fraction of 60%. Troponin peaked at 1.4 on 12/25, then down. - No inpatient needs Admission and Anticipated Discharge Date Admission Date: December 24, 2020 Subjective Doing well. Reports no fevers/chills, chest pain, shortness of breath, abdominal pain, nausea, or vomiting. Physical Exam Constitutional: WD/WN, vitals as above Eyes: EOM intact bilaterally; no conjunctival abnormality ENMT: external ear and nose normal, oropharynx normal Neck: trachea midline, no thyromegaly normal visual inspection Respiratory: normal respiratory effort, lungs clear to auscultation no respiratory distress Cardiovascular: Rate/Rhythm: regular rhythm and + tachycardic Extremities: + edema Gastrointestinal (Abdomen): Inspection/Auscultation: abdomen normal to inspection; abdomen not distended Musculoskeletal: no cyanosis or clubbing, extremities motor strength 5/5 Skin: no rashes, warm and dry Neurologic: moves all extremities and awake Psychiatric: Orientation: alert, oriented to person and cooperative Results & Data Results & Data ([facility]) Vital Signs (Past 12 Hours) Vital Signs Temp Pulse Pulse Resp BP Pulse Ox 12/30/20 08:00 96 H 12/30/20 05:14 36.4 C L 107 H 18 145/91 H 96 12/30/20 00:00 36.4 C L 114 H 28 H 138/95 96 PG Care Time/CCT Total # of Minutes Spent Total Time Spent with Patient: Total time spent is greater than 50% in coordinat ion of care (as documented) at patient's floor/unit and/or counseling patient: Coding Level of Care Code 88090 Subseq Hosp Care Lvl 3 Diagnoses Hypotension I95.9 Hypoxia R09.02 Pneumonia J18.9 Anemia D64.9 History of abdominal aortic aneurysm (AAA) Z86.79 Pancytopenia due to antineoplastic chemotherapy D61.810; T45.1X5A Pulmonary fibrosis, unspecified J84.10 Rectal cancer C20 Lymphoma C85.90 Elevated troponin I level R77.8 DVT (deep venous thrombosis) I82.409 Aspiration into respiratory tract T17.908A
[2020-12-30 12:22] LABS: Partial Thromboplastin Ratio 1.7
--- NOTE | 2020-12-30 14:36 | Pulmonary Consultation ---
Date of Consultation December 30, 2020 Assessment & Plan (1) Pulmonary fibrosis, unspecified: (2) Chronic respiratory failure with hypoxia: (3) Immunocompromised: 85-year-old male with a complex past medical history including rectal carcinoma, lymphoma status post R-CHOP therapy and interstitial lung disease currently in the hospital due to hypoxemic respiratory failure and adrenal insufficiency. I had a lengthy discussion with the patient's daughter over the phone. She was frustrated with the level of uncertainty related to his diagnosis. She strongly feels that his current issues are secondary to his recent chemotherapy and she notes that this is what the oncologist has told her as well. I do agree that the significant immunosuppression from chemotherapy has likely resulted in significant deconditioning and weakness. He does appear to have increased groundglass opacities on his CT chest as compared to his CT chest from October and June of this year. The etiology of the increased groundglass opacities and hypoxemia is unclear, but can be related to an interstitial lung disease exacerbation due to chemotherapy. Other differentials include possible pneumonitis related to toxicity from chemotherapy, an opportunistic infection such as pneumocystis jirovecii pneumonia and/or diffuse alveolar hemorrhage (given his thrombocytopenia and anticoagulated state). I discussed the possibility of bronchoscopy and went over the risks and benefits. We both agreed that the risks at this time likely outweigh the benefits of bronchoscopy given his frailty and hypoxia. I have empirically started him on 40 mg IV Solu-Medrol daily to treat the possibility of pneumon itis related to chemotherapy versus an ILD flare. I do not see any clear evidence of aspiration pneumonia and would recommend discontinuation of Zosyn. Consideration can be made for empirically initiating Bactrim therapy for PCP. I have placed an order for a beta glucan, but this may be falsely elevated in patients who are on Zosyn. Pulmonary will continue to follow with you. Thank you for the consult. History of Present Illness Reason for Consultation: Acute hypoxemic respiratory failure and a history of ILD. 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 He was also recently found to have a staph aureus MRSA bacteremia. [facility] and then readmitted. It was felt that he had adrenal insufficiency. Patient has remained persistently hypoxemic during this hospitalization. He denies any shortness of breath, but he is a poor historian due to delirium. I was able to review the chart and discussed with the bedside nurse and hospitalist. The nurse notes that he has frequently been trying to get out of bed and will often try to take off his oxygen mask. When his oxygen mask was off his oxygen saturations dropped to the 60s. He is currently on 10 L of oxygen saturating 92%. He states that he knows that he is sick. He thought that he was currently in a hotel. He denies any cough. During this admission he was found to have an extensive DVT in the left lower extremity. He is currently on a heparin infusion. He is currently on Zosyn for concerns of pneumonia. Procalcitonin checked today 0.47. Echo completed 12/23 with moderate concentric LVH, right ventricular systolic pressure greater than 60 mmHg, aortic valve sclerosis and thickening of the anterior leaflet at the coaptation. LVEF 55 to 60%. Allergies Allergy/AdvReac Type Severity Reaction Status Date / Time No Known Allergies Allergy Verified 12/19/20 15:01 Home Medications Medication Instructions Recorded Confirmed Type albuterol sulfate 90 mcg/actuation 2 puff INHALATION Q4H PRN #6.7 g 03/09/20 12/24/20 Rx aerosol inhaler (Ventolin HFA) metoprolol succinate 50 mg 75 mg PO QAM #90 tab 10/23/20 12/24/20 Rx tablet,extended release 24 hr atorvastatin 40 mg tablet 40 mg PO PM #90 tab 11/24/20 12/24/20 Rx Patient History Medical History (Updated 12/30/20 @ 14:34 by Grover Duval MD) Allergic rhinitis Aspiration into respiratory tract FEES on 12/29/2020 - Aspiration mucus and thin liquids Benign prostatic hyperplasia with urinary obstruction and other lower urinary tract symptoms Carotid artery stenosis monitors annually, follows with Dr. Rapp Per 12/03/19 vascular note: right ICA 60-69% (unchanged) DVT (deep venous thrombosis) 12/29/2020 - Left femoral vein Elevated prostate specific antigen (PSA) Essential hypertension General weakness Hearing loss History of abdominal aortic aneurysm (AAA) S/p AAA repair using bifurcation graft > endoleak being monitoring by vascular with recommendation to repeat study ~09/2020 Hyperlipidemia Hypertension Hypoxemia Hypoxia IgG monoclonal gammopathy of uncertain significance Immunocompromised Impaired fasting glucose Palliative care encounter Pulmonary fibrosis, unspecified Sleep apnea 3L O2 HS Stroke 2009 Transient ischemic attack (TIA) ~2014 Surgical History Endoleak post (EVAR) endovascular aneurysm repair 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 History of cataract surgery RT/LEFT History of colonoscopy History of tonsillectomy and adenoidectomy History of tooth extraction History of vascular surgery Aortogram with embolization of internal iliac arteries S/P AAA repair S/p AAA repair using bifurcation graft PEVAR initially in 2011 S/P lymph node biopsy (05/26/20) Right Groin Excisional Lymph Node Biopsy (05/26/20): MAC at [facility] Family History Father Alzheimer disease Lung disease Brother Bone cancer Cancer Grandmother Diabetes Aunt Diabetes Mother Carotid artery disease Other No family history of adverse response to anesthesia Social History Smoking Status: Unknown if ever smoked Tobacco Type: Smokeless Tobacco (Dip or Chew) Age Quit Using Tobacco: 55; packs per day: 1; Years Smoked: 30; Second Hand Exposure: No; Hx Alcohol Use: No Hx Substance Use: No Preferred Language: Malagasy Communication Ability: Effective Hearing Ability: Use of Hearing Aid [employer] Required: No Beliefs That Will Affect Care: None marital status: / Current Living Situation: Alone current occupational status: retired Feels Safe at Home: Yes caffeine: Yes during the past year weight has: decreased > 10 lbs Physical Activity Frequency: 1-2 Times per Week Seatbelt Use: always Sunscreen Use: No Assistive Devices: Denture - Upper, Glasses and Oxygen - Continuous Review of Systems Review of Systems: Unobtainable due to cognitive status Physical Exam Physical Exam: Constitutional: Frail and cachectic appearing male in mild distress. Eyes: Pupils are equal round and reactive to light. Conjunctivae are normal. Anicteric sclera. Ears, nose, mouth and throat: Oxygen mask in place. Cyanotic lips. No obvious nasal deformities. Neck: Trachea is midline. Visual inspection is normal. Respiratory: Inspiratory Velcro crackles noted bilaterally worse in the lower lobes. Cardiovascular: Tachycardic. Regular rhythm. Edematous in the lower extremities. Gastrointestinal: Normal bowel sounds, soft, nontender and nondistended. Musculoskeletal:Patient is able to move all extremities. Weak diffusely. Skin: No rashes, warm dry and intact. Neurologic: No obvious focal neurological deficits seen. Psychiatric: Lethargic. Mildly anxious. Results & Data Results & Data ([facility]) Vital Signs (Past 12 Hours) Vital Signs Temp Pulse Pulse Resp BP Pulse Ox 12/30/20 12:37 97.7 F 115 H 20 134/89 95 12/30/20 08:00 96 H 12/30/20 05:14 97.5 F L 107 H 18 145/91 H 96 Vital signs, labs and imaging personally reviewed. PG Care Time/CCT Total # of Minutes Spent Total Time Spent with Patient: Total time spent is greater than 50% in coordination of care (as documented) at patient's floor/unit and/or counseling patient: Coding Level of Care Code 60422 Initial Inpt Care Lvl 3 Diagnoses Pulmonary fibrosis, unspecified J84.10 Chronic respiratory failure with hypoxia J96.11 Immunocompromised D84.9
[2020-12-30] MEDS ORDERED: methylPREDNISolone 40 MG in SYRINGE 0 ML IV ONE (15:00)
[2020-12-30] MEDS: WARFARIN SOD 2 MG TAB PO SCH (17:04)
[2020-12-30 20:22] LABS: Partial Thromboplastin Ratio 1.9
[2020-12-30 20:24] LABS: Partial Thromboplastin Time 50.8 Seconds (21.0-31.0)
[2020-12-31] MEDS: HEPARIN SODIUM/DEXTROSE 25,000 UNITS/500 ML BAG IV SCH ×2 (04:42→11:14)
[2020-12-31] MEDS: INSULIN ASPART 100 UNITS/ML 3 ML PEN SC SCH ×5 (04:43→21:17)
[2020-12-31 05:58] LABS: Hematocrit (blood only) 32.8 % (42-52); Hemoglobin 10.4 g/dL (14.0-18.0); Mean Corpuscular Hemoglobin 29.7 pg (25-34); Mean Corpuscular Hgb Conc 31.7 g/dL (32-36); Mean Corpuscular Volume 93.7 fL (80-100); Nucleated RBC # (auto) 0.03 K/uL (0-0); Nucleated RBC % (auto) 0.2 %; RDW Coefficient of Variation 16.8 % (11.5-14.5); White Blood Count 15.23 K/uL (4.8-10.8)
[2020-12-31 06:16] LABS: Mean Platelet Volume 11.4 fL (7.4-10.4); Platelet Count 67 K/uL (130-400)
[2020-12-31 06:18] LABS: INR 1.3 (0.9-1.1); Partial Thromboplastin Ratio 2.7; Prothrombin Time 13.3 Seconds (9.0-12.0)
[2020-12-31 06:30] LABS: Albumin Level 2.9 gm/dl (3.4-5.0); BUN Creatinine Ratio 22.8 (10-20); Calcium 8.9 mg/dl (8.5-10.1); Creatinine Clr Calc Pharmacy 57.6 ml/min; Est GFR (African American) 76.4 ml/min; Est GFR (Non-African American) 65.9 ml/min; Magnesium 1.8 mg/dl (1.8-2.4); Potassium 3.7 mmol/L (3.5-5.1)
[2020-12-31 06:33] LABS: Albumin Globulin Ratio 1.1 (0.9-2); Bilirubin,Total 1.1 mg/dl (0.2-1); Globulin 2.7 gm/dl (2.5-4.0); Phosphorus 2.9 mg/dl (2.5-4.9); Total Protein 5.6 gm/dl (6.4-8.2)
[2020-12-31 07:20] LABS: Partial Thromboplastin Time 71.5 Seconds (21.0-31.0)
[2020-12-31] MEDS: predniSONE 20 MG TAB PO SCH (08:02)
[2020-12-31] MEDS: PANTOprazole 40 MG TAB PO SCH ×2 (08:02→21:32)
[2020-12-31] MEDS: methylPREDNISolone 40 MG in SYRINGE 0 ML IV SCH (08:02)
[2020-12-31] MEDS: THIAMINE HCL 100 MG TAB PO SCH (08:02)
--- NOTE | 2020-12-31 09:42 | Progress Notes ---
HEMATOLOGY ONCOLOGY FOLLOWUP NOTE DATE OF SERVICE: 12/31/2020 DIAGNOSES: 1. Left lower extremity deep vein thromboses. 2. Hypotension (addisonian crisis). 3. 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 4. Hypoxia. 5. Hypoalbuminemia. 6. History of diffuse large B-cell lymphoma, status post 6 cycles of R-CHOP. 7. History of adenocarcinoma of the rectum, status post radiation therapy. SUBJECTIVE: Josiah was seen and examined at bedside. Nursing reports difficult night. He is a bit more confused this morning. On direct questioning, he was able to answer a few questions, but guilherme small was not oriented to place. Peripheral blood counts are showing evidence of improvement. He was converted to warfarin last night as well. He reports no pain or discomfort. His appetite seems to be improving slowly. OBJECTIVE: GENERAL: A very pleasant 85-year-old gentleman, awake, alert, and again somewhat disoriented. VITAL SIGNS: Temperature 36.5, pulse 108, respiratory rate 19, blood pressure 163/106, O2 sat is 91% on 10 liters. SKIN: Without rash or lesion. HEENT: Oral mucosa is dry. No buccal lesions or ulcerations. HEART: Tachy, but regular. LUNGS: Scattered rhonchi heard in all lung young. ABDOMEN: Soft, nontender, nondistended. EXTREMITIES: 1+ peripheral edema. NEUROLOGIC: Focally intact. DIAGNOSTIC STUDIES: WBC count 15,230, hemoglobin 10.4, platelet count 67,000. INR 1.3 seconds, PTT 71.5 seconds. Sodium 142, potassium 3.7, chloride 99, carbon dioxide 39, creatinine 1.03, BUN 24, AL T 121, albumin 2.9. ASSESSMENT: 1. Metabolic encephalopathy. 2. Left lower extremity deep vein thrombosis. 3. Hypotension, resolved. 4. 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 5. Hypoxia. 6. Hypoalbuminemia. 7. History of diffuse large B-cell lymphoma, status post 6 cycles of R-CHOP. 8. History of adenocarcinoma of the rectum, status post chemoradiation. PLAN: Mr. Estrada was seen and examined. From a hematologic standpoint, his peripheral blood counts are improving. Slowly being converted from heparin to Coumadin for a newly diagnosed DVT. Mental s tatus definitely has changed, suspect sundowning, perhaps from medications administered overnight. N o complaints of pain or discomfort. His appetite has slowly improved. Albumin is now 2.9. Discusse d his mental status with Dr. Barry Menjivar and we collectively agree Mr. Estrada might be better serv ed to get him up out of the ICU if a monitored bed is available. His respiratory status remains tenu ous, is recently started on Solu-Medrol, which hopefully will lead to some improvement in the coming days. We will continue to follow Mr. Estrada periodically during hospitalization. I have nothing to add today. Job ID: [id number]
--- NOTE | 2020-12-31 11:38 | Hospitalist Progress Note ---
Date of Service December 31, 2020 Assessment & Plan (1) Hypotension: Plan: Initially thought it was septic shock, but negative to date blood cultures and urine culture. Abx stopped after 48 hours. BioFire/Covid all negative. - Stopped azithromycin on 12/28. On Zosyn for 24 hours, but stopped on 12/30. - Ended up feeling it was [place]'s crisis. -> Continue steroids, but begin taper -> Now on prednisone 20 mg PO daily. Will lower slowly. (2) DVT (deep venous thrombosis): Plan: "Extensive occlusive DVT within the left lower extremity" found on 12/29. - Discussed with oncology -> Started heparin gtt without bolus. So far no indication of bleeding. - Continue warfarin 2 mg PO daily with plan to gradually increase INR. INR is 1.3 today. (3) Hypoxia: Plan: Ddx includes pneumonia vs. ILD vs. pulmonary edema. - Presently 91% on 10 L/min. - Finished abx as above, but restarted on 12/29 for 1 day when he had worsening O2 requirement and worsening tachycardia. - Hold all abx at this time. - BNP on 12/28 >35k with LE edema. Lasix 20 mg IV x 1 on 12/29 & 12/30 with KCl repletion. Monitor O2 needs. - Pulm consulted for consideration of ILD exacerbation vs. PJP pneumonia. -> Appreciate consult; increased steroids on 12/30 for possible ILD exacerbation. Daughter, Fabby, defers empiric treatment of PJP at this time, so no Bactrim. (4) Pneumonia: Plan: CTA chest on 12/24 showed ground glass changes and coarse interstitium. Added atypical coverage from 12/25 to 12/27, and with immunosuppression consider antifungal if not improving. - Sputum culture negative from 12/25. - Procalcitonin on 12/28 was 1.2; down to 0.5 on 12/30. - Hold abx (5) Aspiration into respiratory tract: Plan: FEES with [employer] on 12/29/2020 - Aspiration mucus and thin liquids. - See above (6) Anemia: Plan: Anemia from chemotherapy. No signs/symptoms of obvious blood loss. Improved appropriately after 2 units PRBCs on 12/26. - Continue Protonix - Stable today at 10.4. (7) History of abdominal aortic aneurysm (AAA): Plan: Aortoiliac graft stent. Appeared stable on CT angiography 8.2x6.3 similar to before, suggests endoleak with contrast in the posterior aspect of the aneurysm sac. 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 - Oncology concerned for poor nutrition recommended albumin infusions -> Cell lines slowly improving. (9) Pulmonary fibrosis, unspecified: Plan: Previously has seen Dr Carlos in 09/2020. 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 No active management as he was working on cancer diagnosis. - As above (10) Rectal cancer: Plan: History of rectal cancer, completed chemoradiation. - No inpatient needs (11) Lymphoma: Plan: Recently completed his sixth and final cycle of R-CHOP chemotherapy for diffuse large B-cell lymphoma. Last dose was 12/15/20, did receive GCSF post-treatment. - Monitor blood counts (12) Elevated troponin I level: Plan: EKG was non-acute, still consider demand ischemia. Most recent echocardiogram at last admission showed ejection fraction of 60%. Troponin peaked at 1.4 on 12/25, then down. - No inpatient needs Admission and Anticipated Discharge Date Admission Date: December 24, 2020 Subjective Stable today. Some product safety expert confusion, but appropriate with me. Reports no fevers/chills, chest pain, shortness of breath, abdominal pain, nausea, or vomiting. Physical Exam Constitutional: WD/WN, vitals as above Eyes: EOM intact bilaterally; no conjunctival abnormality ENMT: external ear and nose normal, oropharynx normal Neck: trachea midline, no thyromegaly normal visual inspection Respiratory: normal respiratory effort, lungs clear to auscultation no respiratory distress Cardiovascular: Rate/Rhythm: regular rhythm and + tachycardic Extremities: + edema Gastrointestinal (Abdomen): Inspection/Auscultation: abdomen normal to inspection; abdomen not distended Musculoskeletal: no cyanosis or clubbing, extremities motor strength 5/5 Skin: no rashes, warm and dry Neurologic: moves all extremities and awake Psychiatric: Orientation: alert, oriented to person and cooperative Results & Data Results & Data ([place]) Vital Signs (Past 12 Hours) Vital Signs Pulse Resp BP Pulse Ox 12/31/20 08:00 108 H 12/31/20 06:00 108 H 19 163/106 H 91 12/31/20 04:00 105 H 21 97 12/31/20 02:00 99 H 18 96 12/31/20 00:00 111 H 25 H 158/95 H 94 12/30/20 23:59 106 H PG Care Time/CCT Total # of Minutes Spent Total Time Spent with Patient: Total time spent is greater than 50% in coordination of care (as documented) at patient's floor/unit and/or counseling patient: Coding Level of Care Code 54971 Subseq Hosp Care Lvl 3 Diagnoses Hypotension I95.9 DVT (deep venous thrombosis) I82.409 Hypoxia R09.02 Pneumonia J18.9 Aspiration into respiratory tract T17.908A Anemia D64.9 History of abdominal aortic aneurysm (AAA) Z86.79 Pancytopenia due to antineoplastic chemotherapy D61.810; T45.1X5A Pulmonary fibrosis, unspecified J84.10 Rectal cancer C20 Lymphoma C85.90 Elevated troponin I level R77.8
[2020-12-31 15:46] LABS: Partial Thromboplastin Ratio 2.4
[2020-12-31 15:47] LABS: Partial Thromboplastin Time 62.8 Seconds (21.0-31.0)
[2020-12-31] MEDS: WARFARIN SOD 2 MG TAB PO SCH (16:30)
[2020-12-31] MEDS: MELATONIN 3 MG TAB PO SCH (21:33)
[2021-01-01] MEDS: HEPARIN SODIUM/DEXTROSE 25,000 UNITS/500 ML BAG IV SCH ×3 (00:11→21:20)
[2021-01-01] MEDS: INSULIN ASPART 100 UNITS/ML 3 ML PEN SC SCH ×7 (00:11→23:52)
[2021-01-01 06:46] LABS: Hematocrit (blood only) 35.8 % (42-52); Hemoglobin 10.9 g/dL (14.0-18.0); Mean Corpuscular Hemoglobin 29.4 pg (25-34); Mean Corpuscular Hgb Conc 30.4 g/dL (32-36); Mean Corpuscular Volume 96.5 fL (80-100); Nucleated RBC # (auto) 0.04 K/uL (0-0); Nucleated RBC % (auto) 0.3 %; RDW Coefficient of Variation 17.3 % (11.5-14.5); Red Blood Count 3.71 M/uL (4.7-6.1); White Blood Count 16.91 K/uL (4.8-10.8)
[2021-01-01 07:06] LABS: INR 1.3 (0.9-1.1); Partial Thromboplastin Ratio 2.2
[2021-01-01 07:13] LABS: Partial Thromboplastin Time 58.9 Seconds (21.0-31.0)
[2021-01-01 07:17] LABS: Mean Platelet Volume 11.6 fL (7.4-10.4); Platelet Count 76 K/uL (130-400)
[2021-01-01 07:24] LABS: Albumin Globulin Ratio 1.2 (0.9-2); Albumin Level 2.8 gm/dl (3.4-5.0); BUN Creatinine Ratio 30.1 (10-20); Bilirubin,Total 0.9 mg/dl (0.2-1); Calcium 9.1 mg/dl (8.5-10.1); Creatinine Clr Calc Pharmacy 68.5 ml/min; Est GFR (African American) 93.5 ml/min; Est GFR (Non-African American) 80.6 ml/min; Globulin 2.4 gm/dl (2.5-4.0); Magnesium 1.8 mg/dl (1.8-2.4); Total Protein 5.2 gm/dl (6.4-8.2)
[2021-01-01] MEDS: methylPREDNISolone 40 MG in SYRINGE 0 ML IV SCH (09:01)
[2021-01-01] MEDS: NICOTINE 14 MG/24 HR PATCH TD SCH (09:01)
[2021-01-01] MEDS: PANTOprazole 40 MG TAB PO SCH ×2 (09:02→21:21)
[2021-01-01] MEDS: POTASSIUM CHLORIDE / WTR 20 MEQ/100 ML PLCT IV SCH ×3 (09:02→13:54)
[2021-01-01] MEDS: predniSONE 20 MG TAB PO SCH (09:02)
[2021-01-01] MEDS: THIAMINE HCL 100 MG TAB PO SCH (09:02)
--- NOTE | 2021-01-01 10:23 | Progress Notes ---
HEMATOLOGY/ONCOLOGY FOLLOWUP NOTE DATE OF SERVICE: 01/01/2021. DIAGNOSES: 1. Left lower extremity deep vein thromboses. 2. Hypotension (Addisonian crisis). 3. 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 4. Hypoxia. 5. Hypoalbuminemia. 6. History of diffuse large B-cell lymphoma, status post 6 cycles R-CHOP. 7. History of adenocarcinoma of the rectum, status post chemoradiation. SUBJECTIVE: Josiah was seen and examined this morning at bedside. He seems to be a bit more bright today. I think change of address has helped, transferred from the ICU to telemetry overnight. He r eports no pain and noticed gravelly voice, which is probably attributable to steroid and chronic dry oxygen therapy. His oxygenation seems to be improving, believe he is now on 6 liters high flow. Nathan price is one-on-one with Josiah because he has not been sleeping over the past couple of nights, ther e again I suspect due to ing and chronic steroid therapy. That said, I was definitely katja sabillon his mentation was a bit better this morning as compared to yesterday. He is slowly transitioning from heparin to Coumadin. OBJECTIVE: GENERAL: Very pleasant 85-year-old gentleman in no acute distress. VITAL SIGNS: Temperature 36.6, pulse 99, respiratory rate 20, blood pressure 164/92. SKIN: Without rash or lesion. HEENT: Buccal mucosa is dry. No evidence of thrush. NECK: Supple. HEART: Tachycardic, but regular. LUNGS: Diffuse rhonchi heard in all young. ABDOMEN: Soft, nontender, nondistended. EXTREMITIES: Left lower extremity a bit more swollen than right. Trace to 1+ peripheral edema bilat erally. NEUROLOGIC: Again, grossly intact. LABORATORY DATA: WBC count 16,910, hemoglobin 10.9, platelet count 76,000. INR 1.3, PTT 58.9 second s. Sodium 143, potassium 3.0, carbon dioxide 39, BUN 25, creatinine 0.82, albumin 2.8. IMPRESSION: 1. Metabolic encephalopathy (slightly improved). 2. Left lower extremity deep vein thrombosis. 3. Hypotension (resolved). 4. 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 5. Hypoxia (improving). 6. Hypoalbuminemia (improving). 7. History of diffuse large B-cell lymphoma, status post 6 cycles R-CHOP. 8. History of adenocarcinoma of the rectum, status post chemoradiation. PLAN: Mr. Estrada was transferred from the ICU to telemetry overnight. I think his change in locati on has definitely helped his mentation. I would like to see physical and occupational therapy to get a bit more involved to get him moving around a little bit more now. Albumin back slid to 2.8 from 2 .9. From a hematologic standpoint, he still has a profound leukocytosis attributable to demarginatio n (corticosteroids). Respiratory status seems to be improving slightly. Hopefully, he will continue to progress. I would like to see his steroids weaned at this juncture. We will continue to follow him periodically over the weekend. I will sign Mr. Estrada out to Dr. Otero, who is covering for [facility] . I expect Mr. Estrada to be here Monday and will nut picker from there. Thank you for assisting me in the care of this very pleasant and complex gentleman. Job ID: [id number]
--- NOTE | 2021-01-01 13:44 | Hospitalist Progress Note ---
Date of Service January 01, 2021 Assessment & Plan (1) Hypoxia: Plan: Ddx includes pneumonia vs. ILD vs. pulmonary edema. - Presently 91% on 10 L/min. - Finished abx as above, but restarted on 12/29 for 1 day when he had worsening O2 requirement and worsening tachycardia. - Hold all abx at this time. - BNP on 12/28 >35k with LE edema. Lasix 20 mg IV x 1 on 12/29 & 12/30 with KCl repletion. Monitor O2 needs. - Pulm consulted for consideration of ILD exacerbation vs. PJP pneumonia. -> Appreciate consult; increased steroids on 12/30 for possible ILD exacerbation. - Improving daily. (2) Hypotension: Plan: Initially thought it was septic shock, but negative to date blood cultures and urine culture. Abx stopped after 48 hours. BioFire/Covid all negative. - Stopped azithromycin on 12/28. On Zosyn for 24 hours, but stopped on 12/30. - Ended up feeling it was [place]'s crisis. (3) DVT (deep venous thrombosis): Plan: "Extensive occlusive DVT within the left lower extremity" found on 12/29. - Discussed with oncology -> Started heparin gtt without bolus. So far no indication of bleeding. - Continue warfarin 2 mg PO daily with plan to gradually increase INR. INR is 1.3 today. (4) Pneumonia: Plan: CTA chest on 12/24 showed ground glass changes and coarse interstitium. Added atypical coverage from 12/25 to 12/27, and with immunosuppression consider antifungal if not improving. - Sputum culture negative from 12/25. - Procalcitonin on 12/28 was 1.2; down to 0.5 on 12/30. - Hold abx (5) Aspiration into respiratory tract: Plan: FEES with RAIMANN MACHINE OPERATOR on 12/29/2020 - Aspiration mucus and thin liquids. - See above (6) Anemia: Plan: Anemia from chemotherapy. No signs/symptoms of obvious blood loss. Improved appropriately after 2 units PRBCs on 12/26. - Continue Protonix - Stable today at 10.9. (7) History of abdominal aortic aneurysm (AAA): Plan: Aortoiliac graft stent. Appeared stable on CT angiography 8.2x6.3 similar to before, suggests endoleak with contrast in the posterior aspect of the aneurysm sac. 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 - Oncology concerned for poor nutrition recommended albumin infusions -> Cell lines slowly improving. (9) Pulmonary fibrosis, unspecified: Plan: Previously has seen Dr Carlos in 09/2020. 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 No active management as he was working on cancer diagnosis. - As above (10) Rectal cancer: Plan: History of rectal cancer, completed chemoradiation. - No inpatient needs (11) Lymphoma: Plan: Recently completed his sixth and final cycle of R-CHOP chemotherapy for diffuse large B-cell lymphoma. Last dose was 12/15/20, did receive GCSF post-treatment. - Monitor blood counts (12) Elevated troponin I level: Plan: EKG was non-acute, still consider demand ischemia. Most recent echocardiogram at last admission showed ejection fraction of 60%. Troponin peaked at 1.4 on 12/25, then down. - No inpatient needs Admission and Anticipated Discharge Date Admission Date: December 24, 2020 Subjective Doing better today. Reports no fevers/chills, chest pain, shortness of breath, abdominal pain, nausea, or vomiting. Physical Exam Constitutional: WD/WN, vitals as above Eyes: EOM intact bilaterally; no conjunctival abnormality ENMT: external ear and nose normal, oropharynx normal Neck: trachea midline, no thyromegaly normal visual inspection Respiratory: normal respiratory effort, lungs clear to auscultation no respiratory distress Cardiovascular: Rate/Rhythm: regular rhythm and + tachycardic Extremities: + edema Gastrointestinal (Abdomen): Inspection/Auscultation: abdomen normal to inspection; abdomen not distended Musculoskeletal: no cyanosis or clubbing, extremities motor strength 5/5 Skin: no rashes, warm and dry Neurologic: moves all extremities and awake Psychiatric: Orientation: alert, oriented to person and cooperative Results & Data Results & Data ([facility]) Vital Signs (Past 12 Hours) Vital Signs Temp Pulse Pulse Resp BP Pulse Ox 01/01/21 11:03 36.8 C 97 H 20 167/97 H 98 01/01/21 08:46 96 H 01/01/21 06:25 36.6 C 99 H 20 164/92 H 90 01/01/21 02:39 36.6 C 93 H 20 179/98 H 96 PG Care Time/CCT Total # of Minutes Spent Total Time Spent with Patient: Total time spent is greater than 50% in coordination of care (as documented) at patient's floor/unit and/or counseling patient: Coding Level of Care Code 14855 Subseq Hosp Care Lvl 2 Diagnoses Hypotension I95.9 DVT (deep venous thrombosis) I82.409 Hypoxia R09.02 Pneumonia J18.9 Aspiration into respiratory tract T17.908A Anemia D64.9 History of abdominal aortic aneurysm (AAA) Z86.79 Pancytopenia due to antineoplastic chemotherapy D61.810; T45.1X5A Pulmonary fibrosis, unspecified J84.10 Rectal cancer C20 Lymphoma C85.90 Elevated troponin I level R77.8
[2021-01-01] MEDS: WARFARIN SOD 2 MG TAB PO SCH (16:56)
[2021-01-01] MEDS: MELATONIN 3 MG TAB PO SCH (21:21)
[2021-01-02] MEDS: INSULIN ASPART 100 UNITS/ML 3 ML PEN SC SCH ×5 (03:03→20:57)
[2021-01-02] MEDS: methylPREDNISolone 40 MG in SYRINGE 0 ML IV SCH (07:54)
[2021-01-02] MEDS: PANTOprazole 40 MG TAB PO SCH ×2 (07:54→20:59)
[2021-01-02] MEDS: THIAMINE HCL 100 MG TAB PO SCH (07:54)
[2021-01-02] MEDS: NICOTINE 14 MG/24 HR PATCH TD SCH (07:55)
[2021-01-02] MEDS: predniSONE 20 MG TAB PO SCH (07:55)
[2021-01-02 09:12] LABS: Hemoglobin 10.8 g/dL (14.0-18.0); Mean Corpuscular Hemoglobin 29.6 pg (25-34); Mean Corpuscular Hgb Conc 30.9 g/dL (32-36); Mean Corpuscular Volume 95.9 fL (80-100); Mean Platelet Volume 11.3 fL (7.4-10.4); Nucleated RBC # (auto) 0.16 K/uL (0-0); Nucleated RBC % (auto) 0.7 %; Platelet Count 96 K/uL (130-400); RDW Coefficient of Variation 17.6 % (11.5-14.5); RDW Standard Deviation 58.1 fL (36.4-46.3); Red Blood Count 3.65 M/uL (4.7-6.1); White Blood Count 23.95 K/uL (4.8-10.8)
[2021-01-02 09:34] LABS: INR 1.4 (0.9-1.1); Partial Thromboplastin Ratio 5.3; Prothrombin Time 14.1 Seconds (9.0-12.0)
[2021-01-02 09:41] LABS: Calcium 8.9 mg/dl (8.5-10.1); Creatinine Clr Calc Pharmacy 66.9 ml/min; Est GFR (African American) 95.4 ml/min; Est GFR (Non-African American) 82.3 ml/min; Magnesium 1.7 mg/dl (1.8-2.4); Potassium 3.2 mmol/L (3.5-5.1)
[2021-01-02 09:52] LABS: Partial Thromboplastin Time 138.9 Seconds (21.0-31.0)
[2021-01-02] MEDS ORDERED: FUROSEMIDE INJ 20 MG/2 ML VIAL IV ONE ×2 (10:24→10:29)
[2021-01-02] MEDS: MAGNESIUM SULFATE / D5W 1 GM/100 ML BAG IV SCH ×3 (10:34→14:26)
[2021-01-02] MEDS: POTASSIUM CHLORIDE / WTR 20 MEQ/100 ML PLCT IV SCH ×3 (10:35→14:26)
[2021-01-02 10:51] LABS: Base Excess VBG 12.8 mEq/L; HCO3 VBG 38 mmol/L; PCO2 VBG 50 mmHg (38-50); PO2 VBG 27 mmHg; pH VBG 7.49 (7.36-7.41)
[2021-01-02 10:55] LABS: Oxygen Saturation VBG < 60.0 %
--- NOTE | 2021-01-02 10:59 | XRay Report ---
XR chest 1V portable HISTORY: Hypoxemia, shortness of breath COMPARISON: Chest 12/29/2020. FINDINGS: No pneumothorax. No pleural effusions. The heart remains mildly enlarged. Left subclavian P ort-A-Cath terminates in the SVC. Diffuse interstitial thickening remains unchanged. No new focal ling g consolidations. IMPRESSION: Diffuse interstitial thickening with cardiomegaly, unchanged. This may represent superimposed edema/i nfection on the background of chronic fibrotic change. ACT 112: Negative or not required by law. Electronically signed by: Pipe Matthews M.D. 01/02/2021 10:57 AM
[2021-01-02] MEDS: WARFARIN SOD 2 MG TAB PO SCH (15:49)
--- NOTE | 2021-01-02 16:58 | Hospitalist Progress Note ---
Date of Service January 02, 2021 Assessment & Plan (1) Hypoxia: Plan: Ddx includes pneumonia vs. ILD vs. pulmonary edema. - Presently 97% on 7 L/min. - Finished abx as above, but restarted on 12/29 for 1 day when he had worsening O2 requirement and worsening tachycardia. - Hold all abx at this time. - BNP on 12/28 >35k with LE edema. Lasix 20 mg IV x 1 on 12/29 & 12/30 with KCl repletion. Another dose on 01/02. Monitor O2 needs. - Pulm consulted for consideration of ILD exacerbation vs. PJP pneumonia. -> Appreciate consult; increased steroids on 12/30 for possible ILD exacerbation. - Improving daily; had a slight worsening on 01/02 with increased work of b reathing. Additional Lasix 20 mg IV given with improvement. (2) Hypotension: Plan: Initially thought it was septic shock, but negative to date blood cultures and urine culture. Abx stopped after 48 hours. BioFire/Covid all negative. - Stopped azithromycin on 12/28. On Zosyn for 24 hours, but stopped on 12/30. - Ended up feeling it was [place]'s crisis. - Steroids as above (3) DVT (deep venous thrombosis): Plan: "Extensive occlusive DVT within the left lower extremity" found on 12/29. - Discussed with oncology -> Started heparin gtt without bolus. So far no indication of bleeding. - Continue warfarin 2 mg PO daily with plan to gradually increase INR. INR is 1.4 today. (4) Pneumonia: Plan: CTA chest on 12/24 showed ground glass changes and coarse interstitium. Added atypical coverage from 12/25 to 12/27, and with immunosuppression consider antifungal if not improving. - Sputum culture negative from 12/25. - Procalcitonin on 12/28 was 1.2; down to 0.5 on 12/30. Down to 0.26 on 01/02. - Hold abx (5) Aspiration into respiratory tract: Plan: FEES with FLORIST DESIGNER on 12/29/2020 - Aspiration mucus and thin liquids. - See above (6) Anemia: Plan: Anemia from chemotherapy. No signs/symptoms of obvious blood loss. Improved appropriately after 2 units PRBCs on 12/26. - Continue Protonix - Stable today at 10.8. (7) History of abdominal aortic aneurysm (AAA): Plan: Aortoiliac graft stent. Appeared stable on CT angiography 8.2x6.3 similar to before, suggests endoleak with contrast in the posterior aspect of the aneurysm sac. 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 - Oncology concerned for poor nutrition recommended albumin infusions -> Cell lines slowly improving. (9) Pulmonary fibrosis, unspecified: Plan: Previously has seen Dr Carlos in 09/2020. 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 No active management as he was working on cancer diagnosis. - As above (10) Rectal cancer: Plan: History of rectal cancer, completed chemoradiation. - No inpatient needs (11) Lymphoma: Plan: Recently completed his sixth and final cycle of R-CHOP chemotherapy for diffuse large B-cell lymphoma. Last dose was 12/15/20, did receive GCSF post-treatment. - Monitor blood counts (12) Elevated troponin I level: Plan: EKG was non-acute, still consider demand ischemia. Most recent echocardiogram at last admission showed ejection fraction of 60%. Troponin peaked at 1.4 on 12/25, then down. - No inpatient needs Admission and Anticipated Discharge Date Admission Date: December 24, 2020 Subjective Doing a bit worse this morning. Having more shortness of breath. Gives me 2 thumbs down on how he's breathing. Otherwise, eports no fevers/chills, chest pain, abdominal pain, nausea, or vomiting. Physical Exam Constitutional: WD/WN, vitals as above Eyes: EOM intact bilaterally; no conjunctival abnormality ENMT: external ear and nose normal, oropharynx normal Neck: trachea midline, no thyromegaly normal visual inspection Respiratory: normal respiratory effort, lungs clear to auscultation no respiratory distress Cardiovascular: Rate/Rhythm: regular rhythm and + tachycardic Extremities: + edema Gastrointestinal (Abdomen): Inspection/Auscultation: abdomen normal to inspection; abdomen not distended Musculoskeletal: no cyanosis or clubbing, extremities motor strength 5/5 Skin: no rashes, warm and dry Neurologic: moves all extremities and awake Psychiatric: Orientation: alert, oriented to person and cooperative Results & Data Results & Data ([facility]) Vital Signs (Past 12 Hours) Vital Signs Temp Pulse Pulse Resp BP Pulse Ox 01/02/21 15:00 108 H 01/02/21 11:20 36.4 C L 113 H 20 144/86 H 97 01/02/21 08:00 105 H 01/02/21 07:24 36.6 C 107 H 20 165/87 H 90 PG Care Time/CCT Total # of Minutes Spent Total Time Spent with Patient: Total time spent is greater than 50% in coordination of care (as documented) at patient's floor/unit and/or counseling patient: Coding Level of Care Code 87499 Subseq Hosp Care Lvl 3 Diagnoses Hypoxia R09.02 Hypotension I95.9 DVT (deep venous thrombosis) I82.409 Pneumonia J18.9 Aspiration into respiratory tract T17.908A Anemia D64.9 History of abdominal aortic aneurysm (AAA) Z86.79 Pancytopenia due to antineoplastic chemotherapy D61.810; T45.1X5A Pulmonary fibrosis, unspecified J84.10 Rectal cancer C20 Lymphoma C85.90 Elevated troponin I level R77.8
[2021-01-02 18:30] LABS: Partial Thromboplastin Time 53.1 Seconds (21.0-31.0)
[2021-01-02] MEDS: MELATONIN 3 MG TAB PO SCH (20:56)
[2021-01-03] MEDS: INSULIN ASPART 100 UNITS/ML 3 ML PEN SC SCH ×6 (00:10→20:36)
[2021-01-03 06:53] LABS: Hematocrit (blood only) 30.1 % (42-52); Hemoglobin 9.5 g/dL (14.0-18.0); Mean Corpuscular Hemoglobin 30.3 pg (25-34); Mean Corpuscular Hgb Conc 31.6 g/dL (32-36); Mean Corpuscular Volume 95.9 fL (80-100); Nucleated RBC # (auto) 0.07 K/uL (0-0); Nucleated RBC % (auto) 0.3 %; RDW Coefficient of Variation 17.8 % (11.5-14.5); RDW Standard Deviation 58.2 fL (36.4-46.3); Red Blood Count 3.14 M/uL (4.7-6.1); White Blood Count 22.66 K/uL (4.8-10.8)
[2021-01-03 06:55] LABS: Mean Platelet Volume 11.5 fL (7.4-10.4); Platelet Count 93 K/uL (130-400)
[2021-01-03 07:17] LABS: INR 1.5 (0.9-1.1); Prothrombin Time 14.5 Seconds (9.0-12.0)
[2021-01-03 07:25] LABS: Albumin Globulin Ratio 1.2 (0.9-2); Albumin Level 2.8 gm/dl (3.4-5.0); BUN Creatinine Ratio 24.6 (10-20); Bilirubin,Total 1.4 mg/dl (0.2-1); Calcium 8.8 mg/dl (8.5-10.1); Creatinine Clr Calc Pharmacy 52.7 ml/min; Est GFR (African American) 86.5 ml/min; Est GFR (Non-African American) 74.6 ml/min; Globulin 2.3 gm/dl (2.5-4.0); Magnesium 2.3 mg/dl (1.8-2.4); Phosphorus 3.7 mg/dl (2.5-4.9); Potassium 3.8 mmol/L (3.5-5.1); Total Protein 5.1 gm/dl (6.4-8.2)
[2021-01-03 08:16] LABS: Partial Thromboplastin Ratio 2.1
[2021-01-03] MEDS: PANTOprazole 40 MG TAB PO SCH ×2 (08:37→20:38)
[2021-01-03] MEDS: predniSONE 20 MG TAB PO SCH (08:37)
[2021-01-03] MEDS: NICOTINE 14 MG/24 HR PATCH TD SCH (08:37)
[2021-01-03] MEDS: THIAMINE HCL 100 MG TAB PO SCH (08:38)
[2021-01-03] MEDS: HEPARIN SODIUM/DEXTROSE 25,000 UNITS/500 ML BAG IV SCH (11:19)
--- NOTE | 2021-01-03 14:40 | Hospitalist Progress Note ---
Date of Service January 03, 2021 Assessment & Plan (1) Hypoxia: Plan: Ddx includes pneumonia vs. ILD vs. pulmonary edema. - Presently 95% on 5 L/min. - Finished abx as above, but restarted on 12/29 for 1 day when he had worsening O2 requirement and worsening tachycardia. - Hold all abx at this time. - BNP on 12/28 >35k with LE edema. Lasix 20 mg IV x 1 on 12/29 & 12/30 with KCl repletion. Another dose on 01/02. Monitor O2 needs. - Pulm consulted for consideration of ILD exacerbation vs. PJP pneumonia. -> Appreciate consult; increased steroids on 12/30 for possible ILD exacerbation. - Improving daily; had a slight worsening on 01/02 with increased work of b reathing. Additional Lasix 20 mg IV given with improvement. -> Asked Dr. Duval re: steroid taper. Will addend note when he responds. For now, continue prednisone 40 mg PO daily. (2) Hypotension: Plan: Initially thought it was septic shock, but negative to date blood cultures and urine culture. Abx stopped after 48 hours. BioFire/Covid all negative. - Stopped azithromycin on 12/28. On Zosyn for 24 hours, but stopped on 12/30. - Ended up feeling it was Bill's crisis. - Steroids as above (3) DVT (deep venous thrombosis): Plan: "Extensive occlusive DVT within the left lower extremity" found on 12/29. - Discussed with oncology -> Started heparin gtt without bolus. So far no indication of bleeding. - Continue warfarin 2 mg PO daily with plan to gradually increase INR. INR is 1.5 today. (4) Pneumonia: Plan: CTA chest on 12/24 showed ground glass changes and coarse interstitium. Added atypical coverage from 12/25 to 12/27, and with immunosuppression consider antifungal if not improving. - Sputum culture negative from 12/25. - Procalcitonin on 12/28 was 1.2; down to 0.5 on 12/30. Down to 0.26 on 01/02. - Hold abx (5) Aspiration into respiratory tract: Plan: FEES with HORSE RACE STARTER on 12/29/2020 - Aspiration mucus and thin liquids. - See above (6) Anemia: Plan: Anemia from chemotherapy. No signs/symptoms of obvious blood loss. Improved appropriately after 2 units PRBCs on 12/26. - Continue Protonix - Dropped today (01/03) to 9.5 (from 10.8). No clear bleeding still. Recheck this afternoon. (7) History of abdominal aortic aneurysm (AAA): Plan: Aortoiliac graft stent. Appeared stable on CT angiography 8.2x6.3 similar to before, suggests endoleak with contrast in the posterior aspect of the aneurysm sac. 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 - Oncology concerned for poor nutrition recommended albumin infusions (9) Pulmonary fibrosis, unspecified: Plan: Previously has seen Dr. Carlos in 09/2020. 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 No active management as he was working on cancer diagnosis. - As above (10) Rectal cancer: Plan: History of rectal cancer, completed chemoradiation. - No inpatient needs (11) Lymphoma: Plan: Recently completed his sixth and final cycle of R-CHOP chemotherapy for diffuse large B-cell lymphoma. Last dose was 12/15/20, did receive GCSF post-treatment. (12) Elevated troponin I level: Plan: EKG was non-acute, still consider demand ischemia. Most recent echocardiogram at last admission showed ejection fraction of 60%. Troponin peaked at 1.4 on 12/25, then down. - No inpatient needs Admission and Anticipated Discharge Date Admission Date: December 24, 2020 Subjective Doing well today. Again his breathing is better today. Reports no fevers/chills, chest pain, shortness of breath, abdominal pain, nausea, or vomiting. Physical Exam Constitutional: WD/WN, vitals as above Eyes: EOM intact bilaterally; no conjunctival abnormality ENMT: external ear and nose normal, oropharynx normal Neck: trachea midline, no thyromegaly normal visual inspection Respiratory: normal respiratory effort, lungs clear to auscultation no respiratory distress Cardiovascular: Rate/Rhythm: regular rhythm and + tachycardic Extremities: + edema Gastrointestinal (Abdomen): Inspection/Auscultation: abdomen normal to inspection; abdomen not distended Musculoskeletal: no cyanosis or clubbing, extremities motor strength 5/5 Skin: no rashes, warm and dry Neurologic: moves all extremities and awake Psychiatric: Orientation: alert, oriented to person and cooperative Results & Data Results & Data ([facility]) Vital Signs (Past 12 Hours) Vital Signs Temp Pulse Pulse Resp BP BP Pulse Ox 01/03/21 11:07 36.6 C 109 H 18 124/68 95 01/03/21 08:07 99 H 01/03/21 07:02 36.3 C L 108 H 22 129/86 97 01/03/21 03:03 36.3 C L 104 H 16 146/98 H 98 PG Care Time/CCT Total # of Minutes Spent Total Time Spent with Patient: Total time spent is greater than 50% in coordination of care (as documented) at patient's floor/unit and/or counseling patient: Coding Level of Care Code 64332 Subseq Hosp Care Lvl 3 Diagnoses Hypoxia R09.02 Hypotension I95.9 DVT (deep venous thrombosis) I82.409 Pneumonia J18.9 Aspiration into respiratory tract T17.908A Anemia D64.9 History of abdominal aortic aneurysm (AAA) Z86.79 Pancytopenia due to antineoplastic chemotherapy D61.810; T45.1X5A Pulmonary fibrosis, unspecified J84.10 Rectal cancer C20 Lymphoma C85.90 Elevated troponin I level R77.8
[2021-01-03 15:12] LABS: Hematocrit (blood only) 28.6 % (42-52); Hemoglobin 8.9 g/dL (14.0-18.0); Mean Corpuscular Hemoglobin 29.7 pg (25-34); Mean Corpuscular Hgb Conc 31.1 g/dL (32-36); Mean Corpuscular Volume 95.3 fL (80-100); Nucleated RBC # (auto) 0.07 K/uL (0-0); Nucleated RBC % (auto) 0.4 %; RDW Coefficient of Variation 17.9 % (11.5-14.5); RDW Standard Deviation 58.5 fL (36.4-46.3); White Blood Count 18.03 K/uL (4.8-10.8)
[2021-01-03 15:13] LABS: Mean Platelet Volume 10.6 fL (7.4-10.4); Platelet Count 91 K/uL (130-400)
[2021-01-03] MEDS: WARFARIN SOD 2 MG TAB PO SCH (17:03)
[2021-01-03] MEDS: MELATONIN 3 MG TAB PO SCH (20:37)
[2021-01-04] MEDS: INSULIN ASPART 100 UNITS/ML 3 ML PEN SC SCH ×6 (00:28→21:01)
[2021-01-04 07:06] LABS: Hematocrit (blood only) 26.9 % (42-52); Hemoglobin 8.4 g/dL (14.0-18.0); Mean Corpuscular Hgb Conc 31.2 g/dL (32-36); Mean Corpuscular Volume 96.1 fL (80-100); Nucleated RBC # (auto) 0.03 K/uL (0-0); Nucleated RBC % (auto) 0.2 %; RDW Coefficient of Variation 18.1 % (11.5-14.5); RDW Standard Deviation 59.6 fL (36.4-46.3); White Blood Count 15.97 K/uL (4.8-10.8)
[2021-01-04 07:16] LABS: Mean Platelet Volume 10.6 fL (7.4-10.4); Platelet Count 94 K/uL (130-400)
[2021-01-04 07:31] LABS: INR 1.6 (0.9-1.1); Partial Thromboplastin Ratio 2.6; Prothrombin Time 15.5 Seconds (9.0-12.0)
[2021-01-04 07:41] LABS: Partial Thromboplastin Time 67.9 Seconds (21.0-31.0)
[2021-01-04 07:53] LABS: Albumin Level 2.7 gm/dl (3.4-5.0); BUN Creatinine Ratio 24.6 (10-20); Calcium 8.7 mg/dl (8.5-10.1); Creatinine Clr Calc Pharmacy 52.5 ml/min; Est GFR (African American) 86.5 ml/min; Est GFR (Non-African American) 74.6 ml/min; Potassium 3.4 mmol/L (3.5-5.1)
[2021-01-04 07:56] LABS: Albumin Globulin Ratio 1.2 (0.9-2); Bilirubin,Total 1.3 mg/dl (0.2-1); Globulin 2.2 gm/dl (2.5-4.0); Total Protein 4.9 gm/dl (6.4-8.2)
[2021-01-04] MEDS: HEPARIN SODIUM/DEXTROSE 25,000 UNITS/500 ML BAG IV SCH ×3 (08:11→12:12)
--- NOTE | 2021-01-04 08:23 | Progress Notes ---
HEMATOLOGY ONCOLOGY PROGRESS NOTE DATE OF SERVICE: 01/04/2021 DIAGNOSES: 1. Persistent hypoxia attributable to interstitial pneumonitis. 2. Hypotension. 3. Left lower extremity deep venous thrombosis. 4. Deconditioning. 5. Pancytopenia attributable to chemotherapy (R-CHOP). 6. History of diffuse large B-cell lymphoma. 7. Adenocarcinoma of the rectum, status post chemoradiation. SUBJECTIVE: Josiah was seen and examined at bedside. Mentally seemed brighter today, recognized me when I entered the room. He is conversant. His voice is still somewhat muffled. I was happy to se covington he is now on nasal cannula moving forward. He remains on IV heparin. His INR is 1.6 today. We wi ll need to increase his Coumadin a bit more to get him closer to 2 and liberate him from IV heparin m oving forward. Peripheral blood counts again reflect a slow recovery, hemoglobin 8.4 g/dL, his plate lets are almost 100,000, WBC is approximately 16,000. Nursing reports no issues over the weekend. Yuliana covington still has intermittent confusion. Waiting chemistries today specifically to evaluate albumin. OBJECTIVE: GENERAL: Very pleasant 85-year-old gentleman in no acute distress. VITAL SIGNS: Temperature 36.8, pulse 101, respiratory rate 24, blood pressure 128/72. SKIN: Without rash or lesion. HEENT: Buccal mucosa without erythema or ulceration. HEART: Tachy, but regular. LUNGS: Diffuse rhonchi; however, I believe his auscultative exam is improved. ABDOMEN: Soft, nontender, nondistended. EXTREMITIES: Less swelling in that left lower extremity than prior exam. NEUROLOGIC: Grossly intact. LABORATORY DATA: As per HPI, most notably INR of 1.6. IMPRESSION: 1. Refractory hypoxia, is improving now on 5 liters by nasal cannula. 2. Pancytopenia attributable to chemotherapeutic effect. 3. Deconditioning/asthenia. 4. Left lower extremity deep venous thrombosis. 5. Status post 6 cycles of R-CHOP for diffuse large B-cell lymphoma. 6. Status post chemoradiation for adenocarcinoma of the rectum. PLAN: Mr. Estrada seems to be making slow but steady progress. I encouraged the hospitalist to get Mr. Estrada out of bed, get him moving around a bit more with physical and occupational therapy. If hemoglobin falls below 8, we would recommend transfusion of 1 unit of packed RBCs. Encourage increas ed protein intake. Hopefully, Mr. Estrada is getting closer to placement, perhaps an appropriate lyndsay p-down such as [place] or [place]. No reports of pain. No other issues that I can see. I woul d like him to get converted to warfarin and perhaps double the dose of Coumadin as compared to 24 rex rs prior to get his INR over 2 and thus liberate him from heparin. I have nothing further to add. Ghazala covington will continue to follow Josiah periodically during the hospitalization. Job ID: [id number]
[2021-01-04] MEDS: PANTOprazole 40 MG TAB PO SCH ×2 (08:48→21:03)
[2021-01-04] MEDS: THIAMINE HCL 100 MG TAB PO SCH (08:48)
[2021-01-04] MEDS: predniSONE 20 MG TAB PO SCH (08:48)
[2021-01-04] MEDS: NICOTINE 14 MG/24 HR PATCH TD SCH (08:48)
[2021-01-04] MEDS ORDERED: GLUCOSE 10 TABS/TUBE PO PRN (11:15)
[2021-01-04] MEDS ORDERED: DEXTROSE 50% 50 ML SYRINGE IV PRN (11:15)
[2021-01-04] MEDS ORDERED: GLUCOSE 40% GEL 15 GM TUBE PO PRN (11:15)
[2021-01-04] MEDS ORDERED: GLUCAGON FOR INJ 1 MG VIAL IM PRN (11:15)
[2021-01-04] MEDS ORDERED: CARBOHYDRATES FOR HYPOGLYCEMIA PO PRN (11:15)
--- NOTE | 2021-01-04 14:18 | XRay Report ---
TWO VIEW CHEST CLINICAL HISTORY: Hypoxia.. FINDINGS: PA and lateral chest radiographs are compared to study dated 01/02/2021 and correlated with chest CT dated 12/24/2020. A left subclavian central venous infusion port is unchanged in position. The heart is top normal for projection noting atherosclerotic calcification of the thoracic aorta. Fi ndings of advanced emphysema and chronic interstitial lung disease are similar to previous. There is no clear radiographic evidence of superimposed airspace consolidation or large pleural effusion. Ther e is no pneumothorax. The skeletal structures are osteopenic. The bony thorax appears intact. IMPRESSION: 1. Findings advanced emphysema and chronic interstitial lung disease are similar to previous. 2. There is no clear radiographic evidence of superimposed airspace consolidation or large pleural ef fusion. Clinical correlation will be essential. ACT 112: Negative or not required by law. Electronically signed by: Neal Ashley M.D. 01/04/2021 2:16 PM
[2021-01-04 14:33] LABS: Partial Thromboplastin Ratio 2.2
[2021-01-04 14:45] LABS: Partial Thromboplastin Time 57.3 Seconds (21.0-31.0)
[2021-01-04] MEDS: WARFARIN SOD 4 MG TAB PO SCH (17:17)
[2021-01-04] MEDS: ATROPINE SULFATE 1% OP SOLN 5 ML BTL PO SCH ×2 (17:18→20:58)
[2021-01-04] MEDS: MELATONIN 3 MG TAB PO SCH (21:04)
--- NOTE | 2021-01-04 22:10 | Hospitalist Progress Note ---
Date of Service January 04, 2021 Assessment & Plan (1) Hypoxia: Plan: Ddx includes pneumonia vs. ILD vs. pulmonary edema. - Presently 95% on 5 L/min. - Finished abx as above, but restarted on 12/29 for 1 day when he had worsening O2 requirement and worsening tachycardia. - Hold all abx at this time. - BNP on 12/28 >35k with LE edema. Lasix 20 mg IV x 1 on 12/29 & 12/30 with KCl repletion. Another dose on 01/02. Monitor O2 needs. - Pulm consulted for consideration of ILD exacerbation vs. PJP pneumonia. -> Appreciate consult; increased steroids on 12/30 for possible ILD exacerbation. - Improving daily; had a slight worsening on 01/02 with increased work of b reathing. Additional Lasix 20 mg IV given with improvement. -> Asked Dr. Duval re: steroid taper. Will addend note when he responds. For now, continue prednisone 40 mg PO daily. Now on 6Liters. patient has required multiple suctions by nursing. ordered atropine for secretions chest x ray shows no consolidation. (2) Hypotension: Plan: Initially thought it was septic shock, but negative to date blood cultures and urine culture. Abx stopped after 48 hours. BioFire/Covid all negative. - Stopped azithromycin on 12/28. On Zosyn for 24 hours, but stopped on 12/30. - Ended up feeling it was Bill's crisis. - Steroids as above (3) DVT (deep venous thrombosis): Plan: "Extensive occlusive DVT within the left lower extremity" found on 12/29. - Discussed with oncology -> Started heparin gtt without bolus. So far no indication of bleeding. - Continue warfarin 2 mg PO daily with plan to gradually increase INR. INR is 1.5 today. (4) Pneumonia: Plan: CTA chest on 12/24 showed ground glass changes and coarse interstitium. Added atypical coverage from 12/25 to 12/27, and with immunosuppression consider antifungal if not improving. - Sputum culture negative from 12/25. - Procalcitonin on 12/28 was 1.2; down to 0.5 on 12/30. Down to 0.26 on 01/02. 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 - See above (6) Anemia: Plan: Anemia from chemotherapy. No signs/symptoms of obvious blood loss. Improved appropriately after 2 units PRBCs on 12/26. - Continue Protonix - Dropped today (01/03) to 9.5 (from 10.8). No clear bleeding still. Recheck this afternoon. (7) History of abdominal aortic aneurysm (AAA): Plan: Aortoiliac graft stent. Appeared stable on CT angiography 8.2x6.3 similar to bef ore, suggests endoleak with contrast in the posterior aspect of the aneurysm sac. 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 - Oncology concerned for poor nutrition recommended albumin infusions (9) Pulmonary fibrosis, unspecified: Plan: Previously has seen Dr. Carlos in 09/2020. 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 No active management as he was working on cancer diagnosis. - As above (10) Rectal cancer: Plan: History of rectal cancer, completed chemoradiation. - No inpatient needs (11) Lymphoma: Plan: Recently completed his sixth and final cycle of R-CHOP chemotherapy for diffuse large B-cell lymphoma. Last dose was 12/15/20, did receive GCSF post-treatment. (12) Elevated troponin I level: Plan: EKG was non-acute, still consider demand ischemia. Most recent echocardiogram at last admission showed ejection fraction of 60%. Troponin peaked at 1.4 on 12/25, then down. - No inpatient needs Admission and Anticipated Discharge Date Admission Date: December 24, 2020 Subjective Patient just shakes his head when answering question if he is feeling worse. Review of Systems Review of Systems: All systems reviewed & are unremarkable except as noted in HPI & below Physical Exam Physical Exam: Constitutional:J WD/WN, vitals as a johnnie Eyes: EOM intact bilater ally; no conjuncti belen abnormality ENMT: external ear and n ose normal, oropha rynx normal Neck: trachea midline, n o thyromegaly nor mal visual inspect ion Respiratory: normal respiratory effort, lungs chelita ar to auscultation no respiratory d istress Cardiovascular:J Rate/Rhythm: regul ar rhythm and + ta chycardic Extremi ties: + edema Gastrointestinal ( Abdomen): Inspection/Auscult ation: abdomen nor mal to inspection; abdomen not diste nded Musculoskeletal: no cyanosis or clu bbing, extremities motor strength 5/ 5 Skin: no rashes, warm an d dry Neurologic: moves all extremit ies and awake Psychiatric: Orientation: alert , oriented to pers on and cooperative Results & Data Results & Data ([facility]) Vital Signs (Past 12 Hours) Vital Signs Temp Pulse Pulse Resp BP BP Pulse Ox 01/04/21 19:01 36.5 C 130 H 18 106/70 100 01/04/21 16:30 104 H 01/04/21 15:53 99 H 22 113/67 100 01/04/21 10:57 36.7 C 111 H 18 134/81 97 PG Care Time/CCT Total # of Minutes Spent Total Time Spent with Patient: Total time spent is greater than 50% in coordination of care (as documented) at patient's floor/unit and/or counseling patient: Coding Level of Care Code 44953 Subseq Hosp Care Lvl 2 Diagnoses Hypoxia R09.02 Hypotension I95.9 DVT (deep venous thrombosis) I82.409 Pneumonia J18.9 Aspiration into respiratory tract T17.908A Anemia D64.9 History of abdominal aortic aneurysm (AAA) Z86.79 Pancytopenia due to antineoplastic chemotherapy D61.810; T45.1X5A Pulmonary fibrosis, unspecified J84.10 Rectal cancer C20 Lymphoma C85.90 Elevated troponin I level R77.8
[2021-01-04 22:18] LABS: Partial Thromboplastin Ratio 2.5
[2021-01-04 22:27] LABS: Partial Thromboplastin Time 66.3 Seconds (21.0-31.0)
[2021-01-05] MEDS: ATROPINE SULFATE 1% OP SOLN 5 ML BTL PO SCH ×5 (00:39→16:27)
[2021-01-05 07:10] LABS: Partial Thromboplastin Ratio 2.6
[2021-01-05 07:12] LABS: Partial Thromboplastin Time 67.4 Seconds (21.0-31.0)
[2021-01-05] MEDS: HEPARIN SODIUM/DEXTROSE 25,000 UNITS/500 ML BAG IV SCH ×2 (07:13→19:44)
[2021-01-05] MEDS: predniSONE 20 MG TAB PO SCH (08:14)
[2021-01-05] MEDS: THIAMINE HCL 100 MG TAB PO SCH (08:14)
[2021-01-05] MEDS: PANTOprazole 40 MG TAB PO SCH ×2 (08:14→19:44)
[2021-01-05] MEDS: INSULIN ASPART 100 UNITS/ML 3 ML PEN SC SCH ×4 (08:19→21:00)
[2021-01-05] MEDS: NICOTINE 14 MG/24 HR PATCH TD SCH (09:31)
[2021-01-05 13:46] LABS: Partial Thromboplastin Ratio 2.1
[2021-01-05 15:26] LABS: Hematocrit (blood only) 22.7 % (42-52); Mean Corpuscular Hgb Conc 30.8 g/dL (32-36); Mean Corpuscular Volume 94.2 fL (80-100); Nucleated RBC # (auto) 0.06 K/uL (0-0); Nucleated RBC % (auto) 0.4 %; RDW Coefficient of Variation 18.3 % (11.5-14.5); RDW Standard Deviation 59.6 fL (36.4-46.3); Red Blood Count 2.41 M/uL (4.7-6.1); White Blood Count 14.81 K/uL (4.8-10.8)
[2021-01-05 15:28] LABS: Mean Platelet Volume 10.3 fL (7.4-10.4); Platelet Count 88 K/uL (130-400)
[2021-01-05 15:29] LABS: INR 2.1 (0.9-1.1); Prothrombin Time 19.7 Seconds (9.0-12.0)
[2021-01-05] MEDS: WARFARIN SOD 4 MG TAB PO SCH (15:34)
[2021-01-05 15:36] LABS: BUN Creatinine Ratio 32.3 (10-20); Calcium 8.6 mg/dl (8.5-10.1); Est GFR (African American) 90.4 ml/min; Potassium 3.3 mmol/L (3.5-5.1)
[2021-01-05] MEDS ORDERED: SODIUM CHLORIDE 0.9% 250 ML IV PRN (16:02)
[2021-01-05 18:45] LABS: Ferritin 1492.4 ng/ml (8-388)
[2021-01-05] MEDS: MELATONIN 3 MG TAB PO SCH (19:46)
--- NOTE | 2021-01-05 21:27 | Hospitalist Progress Note ---
Date of Service January 05, 2021 Assessment & Plan (1) Hypoxia: Plan: Ddx includes pneumonia vs. ILD vs. pulmonary edema. - Presently 95% on 5 L/min. - Finished abx as above, but restarted on 12/29 for 1 day when he had worsening O2 requirement and worsening tachycardia. - Hold all abx at this time. - BNP on 12/28 >35k with LE edema. Lasix 20 mg IV x 1 on 12/29 & 12/30 with KCl repletion. Another dose on 01/02. Monitor O2 needs. - Pulm consulted for consideration of ILD exacerbation vs. PJP pneumonia. -> Appreciate consult; increased steroids on 12/30 for possible ILD exacerbation. - Improving daily; had a slight worsening on 01/02 with increased work of b reathing. Additional Lasix 20 mg IV given with improvement. -> Asked Dr. uDval re: steroid taper. Will addend note when he responds. For now, continue prednisone 40 mg PO daily. Now on 4 Liters. Patient has required less suctioning today. However, patients motuh appears dry, will hold atropine. In regards to his appetite, will need to discuss with his daughter options. Pararescue Manager has been consulted and has been working with the patient. Patient however has low weight, and appears fragile. This is likely multifactorial from deconditionling from: long hospital stay, chemo treatment, advanced age. May consider temporary artificial feeding x 3 days max to see if patient perks up. However these options also carry risk of infection. will continue to monitor patient day to day. . (2) Hypotension: Plan: Initially thought it was septic shock, but negative to date blood cultures and urine culture. Abx stopped after 48 hours. BioFire/Covid all negative. - Stopped azithromycin on 12/28. On Zosyn for 24 hours, but stopped on 12/30. - Ended up feeling it was Bill's crisis. - Steroids as above -Blood pressure appears controlled. (3) DVT (deep venous thrombosis): Plan: "Extensive occlusive DVT within the left lower extremity" found on 12/29. - Discussed with oncology -> Started heparin gtt without bolus. So far no indication of bleeding. - Continue warfarin 2 mg PO daily with plan to gradually increase INR. INR is 2.1 today. (4) Pneumonia: Plan: CTA chest on 12/24 showed ground glass changes and coarse interstitium. Added atypical coverage from 12/25 to 12/27, and with immunosuppression consider antifungal if not improving. - Sputum culture negative from 12/25. - Procalcitonin on 12/28 was 1.2; down to 0.5 on 12/30. Down to 0.26 on 01/02. 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 - See above (6) Anemia: Plan: Anemia from chemotherapy. No signs/symptoms of obvious blood loss. Improved appropriately after 2 units PRBCs on 12/26. - Continue Protonix - Dropped today 01/05, and will transfuse 2 PRBC aswould like to increase hemoglobin above 8.. (7) History of abdominal aortic aneurysm (AAA): Plan: Aortoiliac graft stent. Appeared stable on CT angiography 8.2x6.3 similar to before, suggests endoleak with contrast in the posterior aspect of the aneurysm sac. 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 - Oncology concerned for poor nutrition recommended albumin infusions (9) Pulmonary fibrosis, unspecified: Plan: Previously has seen Dr. Carlos in 09/2020. 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 No active management as he was working on cancer diagnosis. - As above (10) Rectal cancer: Plan: History of rectal cancer, completed chemoradiation. - No inpatient needs (11) Lymphoma: Plan: Recently completed his sixth and final cycle of R-CHOP chemotherapy for diffuse large B-cell lymphoma. Last dose was 12/15/20, did receive GCSF post-treatment. (12) Elevated troponin I level: Plan: EKG was non-acute, still consider demand ischemia. Most recent echocardiogram at last admission showed ejection fraction of 60%. Troponin peaked at 1.4 on 12/25, then down. - No inpatient needs Admission and Anticipated Discharge Date Admission Date: December 24, 2020 Subjective Patient reports feeling better today, however nurse reports patient has been eating very little today. It appears she only had a few bites in breakfast and lunch. Tried calling Fabby today at both numbers listed, she did not fiber picker. She was at bedside but when I arrived at 5 she had left. Will try to call again tomorrow. Review of Systems Review of Systems: All systems reviewed & are unremarkable except as noted in HPI & below Physical Exam Physical Exam: Constitutional: WD/WN, vitals as above Eyes: EOM intact bilaterally; no conjunctival abnormality ENMT: external ear and nose normal, oropharynx normal: except for dry mucosa Neck: trachea midline, no thyromegaly normal visual inspection Respiratory: normal respiratory effort, lungs clear to auscultation no respiratory distress Cardiovascular: Rate/Rhythm: regular rhythm and + tachycardic Extremities: + edema Gastrointestinal (Abdomen): Inspection/Auscultation: abdomen normal to inspection; abdomen not distended Musculoskeletal: no cyanosis or clubbing, extremities motor strength 5/5 Skin: no rashes, warm and dry Neurologic: moves all extremities and awake Psychiatric: Orientation: alert, oriented to person and cooperative Results & Data Results & Data ([facility]) Vital Signs (Past 12 Hours) Vital Signs Temp Pulse Pulse Resp BP BP Pulse Ox 01/05/21 21:02 36.6 C 117 H 20 131/83 91 01/05/21 20:02 36.2 C L 116 H 20 132/84 94 01/05/21 19:32 36.5 C 117 H 20 119/73 90 01/05/21 19:17 36.3 C L 111 H 18 120/77 92 01/05/21 19:07 36.6 C 115 H 18 112/74 91 01/05/21 18:54 36.7 C 121 H 22 107/68 91 01/05/21 10:49 37.0 C 121 H 20 109/73 93 PG Care Time/CCT Total # of Minutes Spent Total Time Spent with Patient: Total time spent is greater than 50% in coordination of care (as documented) at patient's floor/unit and/or counseling patient: Coding Level of Care Code 98214 Subseq Hosp Care Lvl 3 Diagnoses Hypoxia R09.02 Hypotension I95.9 DVT (deep venous thrombosis) I82.409 Pneumonia J18.9 Aspiration into respiratory tract T17.908A Anemia D64.9 History of abdominal aortic aneurysm (AAA) Z86.79 Pancytopenia due to antineoplastic chemotherapy D61.810; T45.1X5A Pulmonary fibrosis, unspecified J84.10 Rectal cancer C20 Lymphoma C85.90 Elevated troponin I level R77.8 Time Spent (min) 35
[2021-01-06 07:16] LABS: INR 2.4 (0.9-1.1)
[2021-01-06 07:18] LABS: Albumin Level 2.7 gm/dl (3.4-5.0); BUN Creatinine Ratio 29.7 (10-20); Bilirubin Direct 0.9 mg/dl (0-0.2); Calcium 8.7 mg/dl (8.5-10.1); Creatinine Clr Calc Pharmacy 39.3 ml/min; Est GFR (African American) 78.2 ml/min; Est GFR (Non-African American) 67.5 ml/min; Hematocrit (blood only) 34.8 % (42-52); Mean Corpuscular Hemoglobin 29.3 pg (25-34); Mean Corpuscular Hgb Conc 31.6 g/dL (32-36); Mean Corpuscular Volume 92.6 fL (80-100); Mean Platelet Volume 11.2 fL (7.4-10.4); Nucleated RBC # (auto) 0.11 K/uL (0-0); Nucleated RBC % (auto) 0.4 %; Partial Thromboplastin Time 53.5 Seconds (21.0-31.0); Platelet Count 102 K/uL (130-400); Potassium 3.1 mmol/L (3.5-5.1); RDW Coefficient of Variation 19.2 % (11.5-14.5); RDW Standard Deviation 57.9 fL (36.4-46.3); Red Blood Count 3.76 M/uL (4.7-6.1); White Blood Count 24.59 K/uL (4.8-10.8)
[2021-01-06 07:33] LABS: Bilirubin,Total 2.5 mg/dl (0.2-1); Total Protein 5.1 gm/dl (6.4-8.2)
[2021-01-06 07:45] LABS: Anisocytosis Present; Basophils # (auto) 0.06 K/uL (0-0.2); Basophils % (auto) 0.2 %; Eosinophils # (auto) 0.01 K/uL (0-0.5); Immature Granulocytes # (auto) 1.27 K/uL (0.00-0.02); Immature Granulocytes % (auto) 5.2 %; Lymphocytes # (auto) 0.58 K/uL (1.2-3.4); Lymphocytes % (auto) 2.4 %; Monocytes # (auto) 1.28 K/uL (0.11-0.59); Monocytes % (auto) 5.2 %; Neutrophils # (auto) 21.39 K/uL (1.4-6.5); Polychromasia 1+
[2021-01-06] MEDS: NICOTINE 14 MG/24 HR PATCH TD SCH (09:06)
[2021-01-06] MEDS: PANTOprazole 40 MG TAB PO SCH ×2 (09:07→20:11)
[2021-01-06] MEDS: THIAMINE HCL 100 MG TAB PO SCH (09:07)
[2021-01-06] MEDS: INSULIN ASPART 100 UNITS/ML 3 ML PEN SC SCH ×4 (09:09→20:11)
[2021-01-06] MEDS ORDERED: ATROPINE SULFATE 1% OP SOLN 5 ML BTL OP PRN (09:12)
--- NOTE | 2021-01-06 09:24 | Progress Notes ---
HEMATOLOGY AND ONCOLOGY PROGRESS NOTE DATE OF SERVICE: 01/06/2021. DIAGNOSES: Hypoxia, hypotension, left lower extremity DVT, interstitial pneumonia, pulmonary fibrosis, diffuse large B-cell lymphoma, status post 6 cycles of R-CHOP, adenocarcinoma of the rectum, status post chemoradiation. SUBJECTIVE: I visited Josiah at bedside and had a lengthy discussion with him about his current clinical status. He continues to struggle nutritionally and regaining strength. There was a question of his ability to swallow. I spoke to his daughter yesterday who stated he was able to swallow adequately during her time visiting. That said, I would like to get Josiah closer to step-down assignment for further strengthening and nutritional support. His hemoglobin dropped a bit yesterday, perhaps being on both heparin and Coumadin simultaneously. His INR is adequate and we will have nursing discontinue heparin at this juncture. Discussed the possibility of incorporating a PEG tube to assist nutritionally, but really would like to avoid if Josiah is motivated to work on his nutritional status. I think a change of environment would certainly go a long way in improving his mental outlook. As for the steroid therapy, I do not believe that it has been tremendously helpful and we are probably at therapeutic end from a respiratory standpoint. He will remain on supplemental oxygen via nasal cannula as necessary moving forward. Hemodynamically, he has remained relatively stable, particularly his blood pressure, his heart rate remain elevated, I suspect due to oxygenation issues. OBJECTIVE: GENERAL: A very pleasant 85-year-old conversant gentleman in no acute distress. VITAL SIGNS: Temperature 37, pulse 110, respiratory rate 20, blood pressure 121/77. SKIN: Without rash or lesion. HEENT: Oral mucosa, tongue has a dark hue to it, but no buccal lesions or ulcerations. No evidence of thrush. HEART: Tachycardic, but regular. LUNGS: Coarse rhonchi heard in the posterior bases. ABDOMEN: Soft, nontender, nondistended. EXTREMITIES: No clubbing, cyanosis. Trace to +1 peripheral edema, more so on the left versus right. NEUROLOGIC: Focally intact. LABORATORY DATA: WBC count 24,590, hemoglobin 11, platelet count 102,000. INR is now 2.4. Sodium 144, potassium 3.1, chloride 103, carbon dioxide 33, BUN 30, creatinine 1.01. Serum iron 26, ferritin 1492.4. TIBC 138, albumin 2.7. ASSESSMENT: 1. Hypoxia. 2. Deconditioning/generalized weakness. 3. Hypoalbuminemia. 4. Iron deficiency. 5. Status post 6 cycles of R-CHOP chemotherapy for diffuse large B-cell lymphoma. 6. Adenocarcinoma of the rectum, status post chemoradiation. PLAN: Discussed extensively with Dr. Vigil ultimately Mr. Estrada's disposition moving forward. At this point, I think we are pretty much at therapeutic end from a hospital standpoint, respiratory standpoint, etc. Rogelio will continue to require supplemental oxygen and thus need to convert him to nasal cannula moving forward. I would like his steroids to be weaned rapidly. I think the steroids have been more of a detriment than benefit overall. I took the liberty of discontinuing his heparin at bedside this morning. Rogelio underwent CT scan of the abdomen pelvis this morning and a moderate sized retroperitoneal hemorrhage was detected. Thus hospitalist contacted me and collectively have decided to hold further anticoagulation and consider [place] filter in lieu of Coumadin at this juncture. I have not recommended vitamin K reversal however we should carefully monitor H&H over the next 24 hours closely. he received 2 units of packed RBCs and hemoglobin has jumped considerably. That said, perhaps a dose of iron sucrose 300 mg today, perhaps tomorrow may be helpful.. Encouraged Mr. Estrada he needs to take charge at this point and work on his strengthening and nutritional status. Truly, I would like to avoid any artificial tubes, PEG tube, NG, etc. and certainly do not want TPN incorporated at this juncture. I will discuss further with Fabby his daughter. Mr. Estrada seemed to be engaged with today's discussion and hopefully we can plan on moving him to a [facility] or [facility] for further strengthening. If there are any questions or concerns, feel free to contact me by phone. Job ID: [id number] [facility]
--- NOTE | 2021-01-06 10:59 | CT Scan Report ---
CT chest diagnostic wo con, CT abd pelvis wo con CLINICAL HISTORY: 85 years-old Male with anemia on anticoagulation. Acute anemia. Hypoxia with right lung base consolidation. TECHNIQUE: Multiaxial CT images of the chest, abdomen and pelvis were performed without contrast. A dose lowering technique was utilized adhering to the principles of ALARA. COMPARISON: Chest radiograph 01/04/2021, CTA chest 12/24/2020, CT abdomen and pelvis 10/27/2020 FINDINGS: CT CHEST: Unremarkable thyroid. Left subclavian Xklemt-d-[id number] catheter distal tip terminates within the right a trium. Moderate cardiomegaly with trace pericardial effusion. Extensive coronary artery calcification s. Mild dilation of the ascending thoracic aorta measures up to 4.0 cm is unchanged. Atherosclerosis of the aorta. Dilated pulmonary arteries suggestive of pulmonary artery hypertension. Paratracheal ly mph nodes measure up to 10 mm, mildly decreased in size from comparison. Prominent hilar lymph nodes are redemonstrated. Small pleural effusions. Dense airspace consolidation with air bronchograms involve the majority of t he right lower lobe. Emphysema with chronic interstitial lung disease redemonstrated. Intermixed grou ndglass opacities have progressed from comparison a multilobar distribution. Mild tracheobronchial se cretions. The study is degraded by respiratory motion artifact. No acute process of the imaged upper abdomen. Unremarkable soft tissues. No acute fracture. Degenerative changes of the shoulders and spin e. CT ABDOMEN/PELVIS: No pneumatosis or pneumoperitoneum. The study is limited without the use of IV contrast and also seco ndary to respiratory motion artifact. The unenhanced spleen, moderately atrophic pancreas, adrenal gl ands and mildly contracted gallbladder appear unremarkable. Questioned gallbladder sludge. Unremarkab le liver. Cortical scarring with parenchymal thinning of the interpolar and inferior pole left kidney is again noted. 2.3 cm cyst of the inferior pole left kidney redemonstrated. No hydronephrosis. Fole y catheter is noted within a decompressed bladder. Air and the bladder lumen is likely secondary to i nstrumentation. Prostamegaly. Aneurysmal dilation of the infrarenal abdominal aorta appears stable from comparison measuring approx imately 8.2 x 6.3 cm in transverse and AP dimensions on image 200. Aortobiiliac stent graft is subopt imally dilated without the use of contrast. No evidence of aneurysm rupture. No adenopathy. Surgical clips of the right hemipelvis. Is no bowel obstruction. Mild circumferential rectal wall thickening is noted with moderate associate d fecal retention. Colonic diverticulosis without acute diverticulitis. Noninflamed appendix. There i s an acute retroperitoneal hemorrhage which predominantly involves the left psoas muscle measuring 6. 8 x 7.0 cm in AP and transverse dimensions extending for a length of approximately 27 cm. This extend s into the iliacus muscle. Trace hemorrhage is also noted along the left pericolic gutter and depende nt pelvis. Trace perihepatic free fluid. Small fat and fluid filled right inguinal hernia. Degenerati ve changes of the shoulders and spine. No acute fracture. IMPRESSION: 1. Large acute left-sided retroperitoneal hemorrhage predominantly involves the left psoas and iliacu s musculature measuring over 20 cm in length. 2. Dense airspace consolidation with air bronchograms of the right lower lobe compatible with pneumon ia. 3. Emphysema with chronic interstitial lung disease. Progressively worsened patchy bilateral groundgl ass densities are suggestive of a superimposed infectious or inflammatory pneumonitis such as viral p neumonia. Mild bibasilar mucous plugging. 4. Cardiomegaly with small pleural effusions. 5. Mild mediastinal and hilar adenopathy redemonstrated. 6. Suggested pulmonary artery hypertension. ACT 112: Negative or not required by law. Electronically signed by: Christo Arenas M.D. 01/06/2021 10:57 AM
[2021-01-06] MEDS ORDERED: predniSONE 10 MG TABLET PO ONE (11:00)
[2021-01-06] MEDS ORDERED: PIPERACILL/TAZOBAC CONSULT ACTIVE PRN (13:50)
[2021-01-06] MEDS ORDERED: PIPERACILLIN/TAZOBACTAM 3.375 GM in DEXTROSE 5% 100 ML IV ONE (14:00)
[2021-01-06] MEDS ORDERED: PIPERACILLIN/TAZOBACTAM 4.5 GM in DEXTROSE 5% 100 ML IV SCH (14:00)
[2021-01-06] MEDS ORDERED: TPN/PPN CONSULT PHARMACY STA (15:01)
--- NOTE | 2021-01-06 17:33 | Gastrointestinal Consultation ---
Date of Consultation January 06, 2021 Assessment & Plan (1) Dysphagia causing pulmonary aspiration with swallowing: (2) Aspiration into respiratory tract: (3) Aspiration pneumonia: (4) Weight loss, abnormal: (5) Malnutrition compromising bodily function: (6) Anemia: (7) General weakness: (8) Medication induced coagulopathy: (9) Retroperitoneal hemorrhage: The patient appears to be a candidate for enteral feeding via a gastrostomy tube, to reduce the aspiration risk, and to try to reverse the malnutrition, weight loss, and general debility. Tube insertion is unsafe at this time due to coagulopathy with retroperitoneal hemorrhage. Once this is corrected, enteral tube insertion can be arranged. In the meantime, agree with plan for parenteral nutrition. We will follow and assist as needed. Enteral tube feeding was discussed with the patient and daughter, and all questions answered History of Present Illness Reason for Consultation: For consideration of enteral feeding with PEG tube Attending Physician: Rachid Vigil History of Present Illness Mr. Estrada was readmitted to [facility] on 12/24/20 with hypotension , hypoxia, pneumonia, presumed sepsis, and malnutrition. Past history of rectal cancer managed with radiation and chemotherapy, then B cell lymphoma finishing chemotherapy in mid December 2020, pulmonary fibrosis, COPD, vascular disease,general debilitation and malnutrition, weight loss. In the hospital, he was noted to be aspirating at bedside swallowing evaluation, and noted to have RLL consolidation attributed to aspiration pneumonia. He was anticoagulated on Coumadin, CTAP revealed a large retroperitoneal hemorrhage. Oral intake has been inadequate. Patient and daughter emphasized that his deterioration has been recent, over the past month, and that he was functioning and caring for himself until the past few weeks. He has had AAA repair with aortoiliac bifurcation graft, and endoleak into the residual aneurysm sac was demonstrated on CTAP in October and again in mid December. No upper abdominal surgery Allergies Allergy/AdvReac Type Severity Reaction Status Date / Time No Known Allergies Allergy Verified 12/19/20 15:01 Home Medications Medication Instructions Recorded Confirmed Type albuterol sulfate 90 mcg/actuation 2 puff INHALATION Q4H PRN #6.7 g 03/09/20 12/24/20 Rx aerosol inhaler (Ventolin HFA) metoprolol succinate 50 mg 75 mg PO QAM #90 tab 10/23/20 12/24/20 Rx tablet,extended release 24 hr atorvastatin 40 mg tablet 40 mg PO PM #90 tab 11/24/20 12/24/20 Rx Patient History Medical History (Updated 01/06/21 @ 17:45 by Dillon Loomis MD) Allergic rhinitis Aspiration into respiratory tract FEES on 12/29/2020 - Aspiration mucus and thin liquids Benign prostatic hyperplasia with urinary obstruction and other lower urinary tract symptoms Carotid artery stenosis monitors annually, follows with Dr. Rapp Per 12/03/19 vascular note: right ICA 60-69% (unchanged) DVT (deep venous thrombosis) 12/29/2020 - Left femoral vein Elevated prostate specific antigen (PSA) Essential hypertension General weakness Hearing loss History of abdominal aortic aneurysm (AAA) S/p AAA repair using bifurcation graft > endoleak being monitoring by vascular with recommendation to repeat study ~09/2020 Hyperlipidemia Hypertension Hypoxemia Hypoxia IgG monoclonal gammopathy of uncertain significance Immunocompromised Impaired fasting glucose Palliative care encounter Pulmonary fibrosis, unspecified Sleep apnea 3L O2 HS Stroke 2009 Transient ischemic attack (TIA) ~2014 Surgical History Endoleak post (EVAR) endovascular aneurysm repair 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 History of cataract surgery RT/LEFT History of colonoscopy History of tonsillectomy and adenoidectomy History of tooth extraction History of vascular surgery Aortogram with embolization of internal iliac arteries S/P AAA repair S/p AAA repair using bifurcation graft PEVAR initially in 2011 S/P lymph node biopsy (05/26/20) Right Groin Excisional Lymph Node Biopsy (05/26/20): MAC at [facility] Family History Father Alzheimer disease Lung disease Brother Bone cancer Cancer Grandmother Diabetes Aunt Diabetes Mother Carotid artery disease Other No family history of adverse response to anesthesia Social History Smoking Status: Unknown if ever smoked Tobacco Type: Smokeless Tobacco (Dip or Chew) Age Quit Using Tobacco: 55; packs per day: 1; Years Smoked: 30; Second Hand Exposure: No; Hx Alcohol Use: No Hx Substance Use: No Preferred Language: Divehi Communication Ability: Effective Hearing Ability: Use of Hearing Aid 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: No Beliefs That Will Affect Care: None marital status: / Current Living Situation: Alone current occupational status: retired Feels Safe at Home: Yes caffeine: Yes during the past year weight has: decreased > 10 lbs Physical Activity Frequency: 1-2 Times per Week Seatbelt Use: always Sunscreen Use: No Assistive Devices: Oxygen - Continuous Review of Systems Review of Systems: All systems reviewed & are unremarkable except as noted in HPI & below Physical Exam Physical Exam: At the time of my visit, the patient was being fed a solid food diet by his daughter at the bedside, oral intake was limited and he was coughing, but not uncomfortable. Abdominal exam was unremarkable, no distension. The patient appeared malnourished and debilitated, short of breath at rest, some difficulty speaking and moving around in the bed. He was alert and responsive, but he did not provide extended answers to questions, which were answered by his daughter. Results & Data ([facility]) Vital Signs (Past 12 Hours) Vital Signs Temp Pulse Resp BP Pulse Ox 01/06/21 15:15 36.7 C 118 H 21 121/76 91 01/06/21 11:14 35.9 C L 116 H 18 97/59 L 94 01/06/21 10:54 87 L 01/06/21 08:00 36.2 C L 118 H 22 134/70 91 Laboratory Results Laboratory Results WBC 24.59 K/uL (4.8-10.8) H 01/06/21 06:11 RBC 3.76 M/uL (4.7-6.1) L 01/06/21 06:11 Hgb 11.0 g/dL (14.0-18.0) L D 01/06/21 06:11 POC Hgb 8.5 g/dl (14.0-18.0) L 12/24/20 21:07 Hct 34.8 % (42-52) L 01/06/21 06:11 POC Hct 25 % (42-52) L 12/24/20 21:07 MCV 92.6 fL (80-100) 01/06/21 06:11 MCH 29.3 pg (25-34) 01/06/21 06:11 MCHC 31.6 g/dL (32-36) L 01/06/21 06:11 RDW Std Deviation 57.9 fL (36.4-46.3) H 01/06/21 06:11 RDW Coeff of Bello 19.2 % (11.5-14.5) H 01/06/21 06:11 Plt Count 102 K/uL (130-400) L 01/06/21 06:11 MPV 11.2 fL (7.4-10.4) H 01/06/21 06:11 Immature Gran % (Auto) 5.2 % 01/06/21 06:11 Neut % (Auto) 87.0 % 01/06/21 06:11 Lymph % (Auto) 2.4 % 01/06/21 06:11 [place] % (Auto) 5.2 % 01/06/21 06:11 Eos % (Auto) 0.0 % 01/06/21 06:11 Baso % (Auto) 0.2 % 01/06/21 06:11 Neut # (Auto) 21.39 K/uL (1.4-6.5) H 01/06/21 06:11 Lymph # (Auto) 0.58 K/uL (1.2-3.4) L 01/06/21 06:11 [place] # (Auto) 1.28 K/uL (0.11-0.59) H 01/06/21 06:11 Eos # (Auto) 0.01 K/uL (0-0.5) 01/06/21 06:11 Baso # (Auto) 0.06 K/uL (0-0.2) 01/06/21 06:11 Immature Gran # (Auto) 1.27 K/uL (0.00-0.02) H 01/06/21 06:11 Absolute Nucleated RBC 0.11 K/uL (0-0) H 01/06/21 06:11 Nucleated RBC % (auto) 0.4 % 01/06/21 06:11 Neutrophils % (Manual) 88.8 % 12/30/20 04:54 Lymphocytes % (Manual) 1.7 % 12/30/20 04:54 Monocytes % (Manual) 4.3 % 12/30/20 04:54 Eosinophils % (Manual) 1.7 % 12/30/20 04:54 Basophils % (Manual) 0.9 % 12/24/20 20:55 Metamyelocytes % (Man) 0.9 % 12/30/20 04:54 Myelocytes % (Man) 2.6 % 12/30/20 04:54 Promyelocytes % (Man) 2.6 % 12/28/20 07:53 Neutrophils # (Manual) 12.32 K/uL (1.4-6.5) H 12/30/20 04:54 Total Absolute Neuts 12.32 K/uL (1.4-6.5) H 12/30/20 04:54 Lymphocytes # (Manual) 0.24 K/uL (1.2-3.4) L 12/30/20 04:54 Total Abs Lymphocytes 0.24 K/uL (1.2-3.4) L 12/30/20 04:54 Monocytes # (Manual) 0.60 K/uL (0.11-0.59) H 12/30/20 04:54 Eosinophils # (Manual) 0.24 K/uL (0-0.5) 12/30/20 04:54 Basophils # (Manual) 0.02 K/uL (0-0.2) 12/24/20 20:55 Metamyelocytes # (Man) 0.12 K/uL (0-0) H 12/30/20 04:54 Myelocytes # (Manual) 0.36 K/uL (0-0) H 12/30/20 04:54 Promyelocytes # (Man) 0.42 K/uL (0-0) H 12/28/20 07:53 Blood Smear Review 12/26/20 05:47 Toxic Granulation 1+ 12/30/20 04:54 Dohle Bodies Occasional 12/27/20 05:31 Platelet Estimate Decreased (Normal) L 12/27/20 05:31 Giant Platelets 1+ 12/26/20 05:47 Polychromasia 1+ 01/06/21 06:11 Anisocytosis Present 01/06/21 06:11 Echinocytes 1+ 12/27/20 05:31 ESR 1 mm/hr (0-20) 12/27/20 05:31 PT 23.0 Seconds (9.0-12.0) H 01/06/21 06:11 INR 2.4 (0.9-1.1) H 01/06/21 06:11 APTT 53.5 Seconds (21.0-31.0) H* 01/06/21 06:11 PTT Ratio 2.0 01/06/21 06:11 VBG pH 7.49 (7.36-7.41) H 01/02/21 10:34 VBG pCO2 50 mmHg (38-50) 01/02/21 10:34 VBG pO2 27 mmHg 01/02/21 10:34 VBG HCO3 38 mmol/L 01/02/21 10:34 VBG O2 Saturation < 60.0 % 01/02/21 10:34 VBG Base Excess 12.8 mEq/L 01/02/21 10:34 Barometric Pressure 721.1 mm/Hg 01/02/21 10:34 POC Sodium 137 mmol/L (135-144) 12/24/20 21:07 Sodium 144 mmol/L (136-145) 01/06/21 06:11 POC Potassium 4.3 mmol/L (3.3-5.0) 12/24/20 21:07 Potassium 3.1 mmol/L (3.5-5.1) L 01/06/21 06:11 POC Chloride 94 mmol/L (101-112) L 12/24/20 21:07 Chloride 103 mmol/L (98-107) 01/06/21 06:11 Carbon Dioxide 33 mmol/L (21-32) H 01/06/21 06:11 POC Total CO2 24 mmol/L (24-31) 12/24/20 21:07 Anion Gap 8.0 (3-11) 01/06/21 06:11 POC Anion Gap 24.0 mmol/L (16-25) 12/24/20 21:07 POC BUN 21 mg/dl (7-18) H 12/24/20 21:07 BUN 30 mg/dl (7-18) H 01/06/21 06:11 Creatinine 1.01 mg/dl (0.6-1.4) 01/06/21 06:11 POC Creatinine 1.0 mg/dl (0.6-1.3) 12/24/20 21:07 Est Cr Clr Drug Dosing 39.3 ml/min 01/06/21 06:11 Est GFR ( Amer) 78.2 ml/min 01/06/21 06:11 Est GFR (Non-Af Amer) 67.5 ml/min 01/06/21 06:11 BUN/Creatinine Ratio 29.7 (10-20) H 01/06/21 06:11 Glucose 129 mg/dl (70-99) H 01/06/21 06:11 POC Glucose 206 mg/dl (70-99) H 01/06/21 16:35 POC Glucose (other) 146 mg/dl (70-99) H 12/24/20 21:07 Lactate 3.6 mmol/L (0.4-2.0) H* 12/26/20 06:14 Calcium 8.7 mg/dl (8.5-10.1) 01/06/21 06:11 POC Ioniz Calcium Crystal 1.11 mmol/l (1.12-1.32) L 12/24/20 21:07 Phosphorus 3.7 mg/dl (2.5-4.9) 01/03/21 06:26 Magnesium 2.3 mg/dl (1.8-2.4) 01/03/21 06:26 Iron 26 mcg/dl (35-175) L 01/05/21 15:03 TIBC 138 mcg/dl (250-450) L 01/05/21 15:03 Ferritin 1492.4 ng/ml (8-388) H 01/05/21 15:03 Total Bilirubin 2.5 mg/dl (0.2-1) H D 01/06/21 06:11 Direct Bilirubin 0.9 mg/dl (0-0.2) H 01/06/21 06:11 AST 31 U/L (15-37) 01/06/21 06:11 ALT 39 U/L (12-78) 01/06/21 06:11 Alkaline Phosphatase 103 U/L (45-117) 01/06/21 06:11 Troponin I 0.637 ng/ml (0-0.045) H* 12/27/20 05:31 NT-Pro-B Natriuret Pep > 50975 pg/ml (0-1800) H 12/28/20 10:24 Total Protein 5.1 gm/dl (6.4-8.2) L 01/06/21 06:11 Albumin 2.7 gm/dl (3.4-5.0) L 01/06/21 06:11 Globulin 2.2 gm/dl (2.5-4.0) L 01/04/21 06:45 Albumin/Globulin Ratio 1.2 (0.9-2) 01/04/21 06:45 Procalcitonin 0.81 ng/ml (0-0.5) H 01/06/21 06:11 Random Cortisol 64.43 mcg/dl 12/25/20 08:27 Urine Color Dark Yellow 12/24/20 22:02 Urine Appearance Cloudy (Clear) A 12/24/20 22:02 Urine pH 5.5 (4.5-7.5) 12/24/20 22:02 Ur Specific [place] 1.023 (1.000-1.030) 12/24/20 22:02 Urine Protein 2+ (Negative) H 12/24/20 22:02 Urine Glucose (UA) Negative (Negative) 12/24/20 22:02 Urine Ketones Trace (Negative) H 12/24/20 22:02 Urine Blood Negative (Negative) 12/24/20 22:02 Urine Nitrite Negative (Negative) 12/24/20 22:02 Urine Bilirubin Negative (Negative) 12/24/20 22:02 Urine Urobilinogen Negative (Negative) 12/24/20 22:02 Ur Leukocyte Esterase Trace (Negative) H 12/24/20 22:02 Urine WBC (Auto) 5-10 /hpf (0-5) H 12/24/20 22:02 Urine RBC (Auto) 0-4 /hpf (0-4) 12/24/20 22:02 U Hyaline Cast (Auto) 1-5 /lpf (0-5) 12/24/20 22:02 U Epithel Cells (Auto) >30 /lpf (0-5) H 12/24/20 22:02 Urine Bacteria (Auto) Negative (Negative) 12/24/20 22:02 Ur Renal Epithelial Cell 0-5 /lpf (0-5) 12/24/20 22:02 Urine Yeast Not Reportable 12/24/20 22:02 Nasal Screen MRSA (PCR) Negative (Negative) 12/29/20 13:36 Vancomycin Trough 15.8 mcg/ml (See Comment) 12/25/20 19:44 Adenovirus (PCR) Not Detected (NotDetected) 12/24/20 21:12 B. pertussis DNA (PCR) Not Detected (NotDetected) 12/24/20 21:12 B.parapertussis DNA PCR Not Detected (NotDetected) 12/24/20 21:12 C. pneumoniae DNA (PCR) Not Detected (NotDetected) 12/24/20 21:12 Coronavirus OC43 (PCR) Not Detected (NotDetected) 12/24/20 21:12 Coronavirus HKU1 (PCR) Not Detected (NotDetected) 12/24/20 21:12 Coronavirus 229E (PCR) Not Detected (NotDetected) 12/24/20 21:12 COVID-19 Eval Order RESPNP at [facility] 12/24/20 21:12 SARS-CoV-2 (PCR) Not Detected (NotDetected) 12/24/20 21:12 Coronavirus NL63 (PCR) Not Detected (NotDetected) 12/24/20 21:12 Human Metapneumovir PCR Not Detected (NotDetected) 12/24/20 21:12 Influenza Type A (PCR) Not Detected (NotDetected) 12/24/20 21:12 Influenza Type B (PCR) Not Detected (NotDetected) 12/24/20 21:12 M. pneumoniae (PCR) Not Detected (NotDetected) 12/24/20 21:12 Parainfluenza 1 (PCR) Not Detected (NotDetected) 12/24/20 21:12 Parainfluenza 2 (PCR) Not Detected (NotDetected) 12/24/20 21:12 Parainfluenza 3 (PCR) Not Detected (NotDetected) 12/24/20 21:12 Parainfluenza 4 (PCR) Not Detected (NotDetected) 12/24/20 21:12 RSV (PCR) Not Detected (NotDetected) 12/24/20 21:12 Entero/Rhino (PCR) Not Detected (NotDetected) 12/24/20 21:12 Blood Type AB Positive 01/05/21 16:54 Antibody Screen NEGATIVE 01/05/21 16:54 Crossmatch See Detail 01/05/21 16:54 Impressions Abdomen/Pelvis CTA 12/24/20 21:08 CT ANGIOGRAPHY OF THE ABDOMEN AND PELVIS CLINICAL HISTORY: Hypotension. Hx AAA repair and known endoleak. COMPARISON STUDY: CTA of the abdomen and pelvis September 11, 2020. CT of the abdomen and pelvis October 27, 2020. TECHNIQUE: Helical axial images of the abdomen and pelvis were obtained during arterial phase following intravenous injection of 120 cc Optiray 320 IV. Sagittal and coronal reconstructions were viewed as well as maximal intensity projections on an independent 3-D workstation. Automated exposure control was utilized for the study. A dose lowering technique was utilized adhering to the principles of ALARA. FINDINGS: Please note that the chest CT will be reported separately. UIP pattern of pulmonary fibrosis is again noted. There are ground glass opacities within the lungs. No pneumatosis, free air or portal venous gas is present. Aortoiliac endovascular stent graft is in place. Residual aneurysm sac is unchanged since CT of October 27, 2020, measuring 8.2 x 6.3 cm. Contrast within the posterior aspect of the sac represents endoleak, better depicted on prior exam. There is no evidence for rupture. Dissection within the right external iliac artery is unchanged. The bilateral iliac limbs are patent. A small amount of fluid within the right inguinal canal is noted. There is no evidence for a bowel obstruction. Arterial phase images of the liver, spleen, adrenal glands and pancreas are unremarkable. There is multifocal left renal scarring. A cyst within the lower pole the left kidney is noted. The appendix is normal. A small amount of fluid within the pelvis is noted. Mild bladder wall thickening. No acute fracture or suspicious lesion is identified within the visualized skeletal structures. IMPRESSION: 1. No change in appearance of the aortoiliac stent graft and residual aneurysm sac which measures 8.2 x 6.3 cm. Redemonstration of an endoleak. No rupture. 2. Small amount of fluid within the pelvis and right inguinal canal. 3. No bowel obstruction. 4. Redemonstration of a dissection within the right external iliac artery. ACT 112: Negative or not required by law. Electronically signed by: Gallo Frye M.D. 12/25/2020 8:13 AM Chest CTA 12/24/20 21:08 CT ANGIOGRAM OF THE CHEST CLINICAL HISTORY: Sepsis. COMPARISON STUDY: Chest CT dated 10/27/2020. TECHNIQUE: Following the IV administration of 120 cc of Optiray 320, CT angiogram of the chest was performed from the upper abdomen to the thoracic inlet utilizing the pulmonary embolus protocol. Images are reviewed in the axial, sagittal, and coronal planes. 3-D MIPS images are created and assessed. IV contrast was administered without complication. A dose lowering technique was utilized adhering to the principles of ALARA. CT DOSE: 417.83 mGy.cm FINDINGS: Thyroid: Imaged portions of the thyroid gland are normal in size and attenuation. Thoracic aorta: There is atherosclerotic calcification of the thoracic aorta. There is mild aneurysmal dilatation of the ascending thoracic aorta which measures up to 4.1 cm in diameter. The remainder of the thoracic aorta is normal in caliber, and the arch demonstrates standard 3-vessel anatomy. No dissection is seen. Pulmonary vasculature: The pulmonary trunk is dilated, measuring 4.2 cm in diameter. This suggests pulmonary artery hypertension. There are no filling defects identified in the main, lobar, or segmental pulmonary arteries to suggest pulmonary embolus. Heart: A left subclavian central venous infusion port is in place. The heart is enlarged and without pericardial effusion. The coronary arteries are densely calcified. Lungs and pleural spaces: There is emphysema in conjunction with changes of chronic interstitial lung disease. Traction bronchiectasis and honeycombing is noted throughout the lower lobes. Mild ground glass opacities throughout both lungs have increased as compared 10/27/2020 and there is associated coarsening of interstitium. No lobar consolidation is identified. Trace left pleural effusion is noted. Mediastinum: Mediastinal lymphadenopathy is similar to previous. A precarinal node measures 1.5 cm in short axis. Keisha: There is bilateral hilar adenopathy. Hilar nodes measure up to 1.9 cm short axis. Axillae: There are mildly enlarged right axillary nodes. A node on image #64 measures 1.9 x 1.0 cm. There are subcentimeter left axillary nodes. Upper abdomen: A small hiatal hernia is noted. Partially visualized upper abdominal viscera is otherwise within normal limits. Skeletal structures: The skeletal structures are osteopenic. Degenerative change and hyperkyphosis is noted in the thoracic spine. No lytic or blastic bony lesions are seen. IMPRESSION: 1. There is no evidence of pulmonary embolus in the main, lobar, or segmental pulmonary arteries. 2. Findings of emphysema and chronic interstitial lung disease are similar to previous. 3. Numerous groundglass opacities with coarsening of interstitium have increased as compared to the eighth 2420 examination. Correlate clinically for evidence of a superimposed infectious/inflammatory pneumonitis or possibly fluid overload/edema. 4. Trace left pleural effusion. 5. Cardiomegaly. 6. Mediastinal and hilar adenopathy are unchanged and likely due to chronic lung disease. 7. Additional findings as above. ACT 112: Negative or not required by law. Electronically signed by: Neal Ashley M.D. 12/25/2020 9:[address] 12/25/20 16:59 CT head/brain wo/w con CLINICAL HISTORY: eval for metastatic TECHNIQUE: Contiguous axial CT images of the head from the base of the skull to the vertex before and after intravenous administration of IV contrast and submitted for interpretation. Automated dose lowering techniques and/or adjustment according to patient size were utilized for this examination. COMPARISON: Comparison is made to CT head 09/01/2020 FINDINGS: Areas of decreased attenuation are present in the periventricular and subcortical white matter bilaterally consistent with small vessel ischemic disease. Generalized cerebral atrophy with commensurate enlargement of the ventricles, sulci, and cisterns is also present. There is no acute intracranial hemorrhage or evidence of acute territorial infarction. No shift of the midline structures, mass effect, or extra-axial abnormalities are shown. Atherosclerotic calcifications are present in the intracranial segments of the internal carotid arteries. Imaged portions of the paranasal sinuses and mastoid air cells are clear. The orbits appear normal. There are no acute fractures of the calvaria or scalp swelling. IMPRESSION: No acute process and in particular no evidence of vasogenic edema or enhancing lesion to suggest metastatic disease. ACT 112: Negative or not required by law. Electronically signed by: Chuy Rivero M.D. 12/25/2020 6:30 PM Venous Doppler Study 12/29/20 13:30 BILATERAL LOWER EXTREMITY VENOUS DOPPLER HISTORY: DVT, tachycardia, cancer COMPARISON STUDY: None. FINDINGS: There is normal compressibility, flow, and augmentation within the right lower extremity deep venous system. Occlusive thrombus within the left common femoral, superficial femoral, popliteal, anterior tibial, posterior tibial, and peroneal veins. IMPRESSION: 1. Extensive occlusive DVT within the left lower extremity. 2. No DVT within the right lower extremity. ACT 112: Negative or not required by law. Electronically signed by: Pipe Matthews M.D. 12/29/2020 2:11 PM Chest X-Ray 01/04/21 13:42 TWO VIEW CHEST CLINICAL HISTORY: Hypoxia.. FINDINGS: PA and lateral chest radiographs are compared to study dated 01/02/2021 and correlated with chest CT dated 12/24/2020. A left subclavian central venous infusion port is unchanged in position. The heart is top normal for projection noting atherosclerotic calcification of the thoracic aorta. Findings of advanced emphysema and chronic interstitial lung disease are similar to previous. There is no clear radiographic evidence of superimposed airspace consolidation or large pleural effusion. There is no pneumothorax. The skeletal structures are osteopenic. The bony thorax appears intact. IMPRESSION: 1. Findings advanced emphysema and chronic interstitial lung disease are similar to previous. 2. There is no clear radiographic evidence of superimposed airspace consolidation or large pleural effusion. Clinical correlation will be essential. ACT 112: Negative or not required by law. Electronically signed by: Neal Ashley M.D. 01/04/2021 2:16 PM Abdomen/Pelvis CT 01/06/21 08:55 CT chest diagnostic wo con, CT abd pelvis wo con CLINICAL HISTORY: 85 years-old Male with anemia on anticoagulation. Acute anemia. Hypoxia with right lung base consolidation. TECHNIQUE: Multiaxial CT images of the chest, abdomen and pelvis were performed without contrast. A dose lowering technique was utilized adhering to the principles of ALARA. COMPARISON: Chest radiograph 01/04/2021, CTA chest 12/24/2020, CT abdomen and pelvis 10/27/2020 FINDINGS: CT CHEST: Unremarkable thyroid. Left subclavian [id number] catheter distal tip terminates within the right atrium. Moderate cardiomegaly with trace pericardial effusion. Extensive coronary artery calcifications. Mild dilation of the ascending thoracic aorta measures up to 4.0 cm is unchanged. Atherosclerosis of the aorta. Dilated pulmonary arteries suggestive of pulmonary artery hypertension. Paratracheal lymph nodes measure up to 10 mm, mildly decreased in size from comparison. Prominent hilar lymph nodes are redemonstrated. Small pleural effusions. Dense airspace consolidation with air bronchograms involve the majority of the right lower lobe. Emphysema with chronic interstitial lung disease redemonstrated. Intermixed groundglass opacities have progressed from comparison a multilobar distribution. Mild tracheobronchial secretions. The study is degraded by respiratory motion artifact. No acute process of the imaged upper abdomen. Unremarkable soft tissues. No acute fracture. Degenerative changes of the shoulders and spine. CT ABDOMEN/PELVIS: No pneumatosis or pneumoperitoneum. The study is limited without the use of IV contrast and also secondary to respiratory motion artifact. The unenhanced spleen, moderately atrophic pancreas, adrenal glands and mildly contracted gallbladder appear unremarkable. Questioned gallbladder sludge. Unremarkable liver. Cortical scarring with parenchymal thinning of the interpolar and inferior pole left kidney is again noted. 2.3 cm cyst of the inferior pole left kidney redemonstrated. No hydronephrosis. Sewell catheter is noted within a decompressed bladder. Air and the bladder lumen is likely secondary to instrumentation. Prostamegaly. Aneurysmal dilation of the infrarenal abdominal aorta appears stable from comparison measuring approximately 8.2 x 6.3 cm in transverse and AP dimensions on image 200. Aortobiiliac stent graft is suboptimally dilated without the use of contrast. No evidence of aneurysm rupture. No adenopathy. Surgical clips of the right hemipelvis. Is no bowel obstruction. Mild circumferential rectal wall thickening is noted with moderate associated fecal retention. Colonic diverticulosis without acute diverticulitis. Noninflamed appendix. There is an acute retroperitoneal hemorrhage which predominantly involves the left psoas muscle measuring 6.8 x 7.0 cm in AP and transverse dimensions extending for a length of approximately 27 cm. This extends into the iliacus muscle. Trace hemorrhage is also noted along the left pericolic gutter and dependent pelvis. Trace perihepatic free fluid. Small fat and fluid filled right inguinal hernia. Degenerative changes of the shoulders and spine. No acute fracture. IMPRESSION: 1. Large acute left-sided retroperitoneal hemorrhage predominantly involves the left psoas and iliacus musculature measuring over 20 cm in length. 2. Dense airspace consolidation with air bronchograms of the right lower lobe compatible with pneumonia. 3. Emphysema with chronic interstitial lung disease. Progressively worsened patchy bilateral groundglass densities are suggestive of a superimposed infectious or inflammatory pneumonitis such as viral pneumonia. Mild bibasilar mucous plugging. 4. Cardiomegaly with small pleural effusions. 5. Mild mediastinal and hilar adenopathy redemonstrated. 6. Suggested pulmonary artery hypertension. ACT 112: Negative or not required by law. Electronically signed by: Christo Arenas M.D. 01/06/2021 10:[address] 01/06/21 08:55 CT chest diagnostic wo con, CT abd pelvis wo con CLINICAL HISTORY: 85 years-old Male with anemia on anticoagulation. Acute anemia. Hypoxia with right lung base consolidation. TECHNIQUE: Multiaxial CT images of the chest, abdomen and pelvis were performed without contrast. A dose lowering technique was utilized adhering to the principles of ALARA. COMPARISON: Chest radiograph 01/04/2021, CTA chest 12/24/2020, CT abdomen and pelvis 10/27/2020 FINDINGS: CT CHEST: Unremarkable thyroid. Left subclavian Zopice-i-Cnag catheter distal tip terminates within the right atrium. Moderate cardiomegaly with trace pericardial effusion. Extensive coronary artery calcifications. Mild dilation of the ascending thoracic aorta measures up to 4.0 cm is unchanged. Atherosclerosis of the aorta. Dilated pulmonary arteries suggestive of pulmonary artery hypertension. Paratracheal lymph nodes measure up to 10 mm, mildly decreased in size from comparison. Prominent hilar lymph nodes are redemonstrated. Small pleural effusions. Dense airspace consolidation with air bronchograms involve the majority of the right lower lobe. Emphysema with chronic interstitial lung disease redemonstrated. Intermixed groundglass opacities have progressed from comparison a multilobar distribution. Mild tracheobronchial secretions. The study is degraded by respiratory motion artifact. No acute process of the imaged upper abdomen. Unremarkable soft tissues. No acute fracture. Degenerative changes of the shoulders and spine. CT ABDOMEN/PELVIS: No pneumatosis or pneumoperitoneum. The study is limited without the use of IV contrast and also secondary to respiratory motion artifact. The unenhanced spleen, moderately atrophic pancreas, adrenal glands and mildly contracted gallbladder appear unremarkable. Questioned gallbladder sludge. Unremarkable liver. Cortical scarring with parenchymal thinning of the interpolar and inferior pole left kidney is again noted. 2.3 cm cyst of the inferior pole left kidney redemonstrated. No hydronephrosis. Sewell catheter is noted within a decompressed bladder. Air and the bladder lumen is likely secondary to instrumentation. Prostamegaly. Aneurysmal dilation of the infrarenal abdominal aorta appears stable from comparison measuring approximately 8.2 x 6.3 cm in transverse and AP dimensions on image 200. Aortobiiliac stent graft is suboptimally dilated without the use of contrast. No evidence of aneurysm rupture. No adenopathy. Surgical clips of the right hemipelvis. Is no bowel obstruction. Mild circumferential rectal wall thickening is noted with moderate associated fecal retention. Colonic diverticulosis without acute diverticulitis. Noninflamed appendix. There is an acute retroperitoneal hemorrhage which predominantly involves the left psoas muscle measuring 6.8 x 7.0 cm in AP and transverse dimensions extending for a length of approximately 27 cm. This extends into the iliacus muscle. Trace hemorrhage is also noted along the left pericolic gutter and dependent pelvis. Trace perihepatic free fluid. Small fat and fluid filled right inguinal hernia. Degenerative changes of the shoulders and spine. No acute fracture. IMPRESSION: 1. Large acute left-sided retroperitoneal hemorrhage predominantly involves the left psoas and iliacus musculature measuring over 20 cm in length. 2. Dense airspace consolidation with air bronchograms of the right lower lobe compatible with pneumonia. 3. Emphysema with chronic interstitial lung disease. Progressively worsened patchy bilateral groundglass densities are suggestive of a superimposed infecti ous or inflammatory pneumonitis such as viral pneumonia. Mild bibasilar mucous plugging. 4. Cardiomegaly with small pleural effusions. 5. Mild mediastinal and hilar adenopathy redemonstrated. 6. Suggested pulmonary artery hypertension. ACT 112: Negative or not required by law. Electronically signed by: Christo Arenas M.D. 01/06/2021 10:57 AM
[2021-01-06] MEDS: MELATONIN 3 MG TAB PO SCH (20:11)
[2021-01-06] MEDS: PIPERACILLIN/TAZOBACTAM 3.375 GM in DEXTROSE 5% 100 ML IV SCH (20:11)
--- NOTE | 2021-01-06 21:13 | Hospitalist Progress Note ---
Date of Service January 06, 2021 Assessment & Plan (1) Hypoxia: Plan: Ddx includes pneumonia vs. ILD vs. pulmonary edema. - Presently 95% on 5 L/min. - Finished abx as above, but restarted on 12/29 for 1 day when he had worsening O2 requirement and worsening tachycardia. - Hold all abx at this time. - BNP on 12/28 >35k with LE edema. Lasix 20 mg IV x 1 on 12/29 & 12/30 with KCl repletion. Another dose on 01/02. Monitor O2 needs. - Pulm consulted for consideration of ILD exacerbation vs. PJP pneumonia. -> Appreciate consult; increased steroids on 12/30 for possible ILD exacerbation. - Improving daily; had a slight worsening on 01/02 with increased work of b reathing. Additional Lasix 20 mg IV given with improvement. -> Asked Dr. Duval re: steroid taper. Will addend note when he responds. For now, continue prednisone 40 mg PO daily. Now on 7 Liters oxymask. Had extensive discussion with daughter. Patient's main issue currently is his inability to protect his airway, his dysphaia and poor eval findings from his swallow eval last week, show that patient is at risk to getting aspiration pneumonia. During hospital stay patient has received intermittent antibiotics. Patient at this point will benfit from anerobic coverage to treat aspiration pneumonia as patient has elevated procal and radiographical evidence of consolidation. Patient will continue to be on suction. Daughter is interested in PPN for 3-4 days. Unsure if she will choose peg tube placement. Given inability to protect his airway, it seems unlikely in his curent state that he can improve his echanics and participate in extensive speech therapy. Plan is to hopefully patient improves as he receives PPN. resumed atropine due to secretions. resumed antibiotic Cementing Machine Operator has been consulted and has been working with the patient. Patient however has low weight, and appears fragile. This is likely multifactorial from deconditionling from: long hospital stay, chemo treatment, advanced age, and pneumonia. May consider temporary artificial feeding x 3 days max to see if patient perks up. However these options also carry risk of infection. will continue to monitor patient day to day. . (2) Hypotension: Plan: Initially thought it was septic shock, but negative to date blood cultures and urine culture. Abx stopped after 48 hours. BioFire/Covid all negative. - Stopped azithromycin on 12/28. On Zosyn for 24 hours, but stopped on 12/30. - Ended up feeling it was G[place]t's crisis. - Steroids as above -Blood pressure appears controlled. (3) DVT (deep venous thrombosis): Plan: "Extensive occlusive DVT within the left lower extremity" found on 12/29. - Discussed with oncology -> Started heparin gtt without bolus. So far no ind ication of bleeding. - hold warfarin due to hematoma (4) Pneumonia: Plan: CTA chest on 12/24 showed ground glass changes and coarse interstitium. Added atypical coverage from 12/25 to 12/27, and with immunosuppression consider antifungal if not improving. - Sputum culture negative from 12/25. - Procalcitonin on 12/28 was 1.2; down to 0.5 on 12/30. Down to 0.26 on 01/02. - Hold abx (5) Aspiration into respiratory tract: Plan: FEES with [employer] on 12/29/2020 - Aspiration mucus and thin liquids. - See above (6) Anemia: Plan: Anemia from chemotherapy. No signs/symptoms of obvious blood loss. Improved appropriately after 2 units PRBCs on 12/26. - Continue Protonix - Dropped today 01/05, and will transfuse 2 PRBC aswould like to increase hemoglobin above 8.. Now level is 11. (7) History of abdominal aortic aneurysm (AAA): Plan: Aortoiliac graft stent. Appeared stable on CT angiography 8.2x6.3 similar to before, suggests endoleak with contrast in the posterior aspect of the aneurysm sac. 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 - Oncology concerned for poor nutrition recommended albumin infusions (9) Pulmonary fibrosis, unspecified: Plan: Previously has seen Dr. Carlos in 09/2020. 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 No active management as he was working on cancer diagnosis. - As above (10) Rectal cancer: Plan: History of rectal cancer, completed chemoradiation. - No inpatient needs (11) Lymphoma: Plan: Recently completed his sixth and final cycle of R-CHOP chemotherapy for diffuse large B-cell lymphoma. Last dose was 12/15/20, did receive GCSF post-treatment. (12) Elevated troponin I level: Plan: EKG was non-acute, still consider demand ischemia. Most recent echocardiogram at last admission showed ejection fraction of 60%. Troponin peaked at 1.4 on 12/25, then down. - No inpatient needs (13) Retroperitoneal hemorrhage: Plan: will hold anticoagulation. may require IVC filter. will hold for now. Admission and Anticipated Discharge Date Admission Date: December 24, 2020 Subjective Patient having difficutly swallowing. Nurse reports patient has been requiring frequent suctioning. Review of Systems Review of Systems: All systems reviewed & are unremarkable except as noted in HPI & below Physical Exam Physical Exam: Constitutional: WD/WN, vitals as above Eyes: EOM intact bilaterally; no conjunctival abnormality ENMT: external ear and nose normal, oropharynx normal: except for dry mucosa Neck: trachea midline, no thyromegaly normal visual inspection Respiratory: normal respiratory effort, B/L rhonchi no respiratory distress Cardiovascular: Rate/Rhythm: regular rhythm and + tachycardic Extremities: + edema Gastrointestinal (Abdomen): Inspection/Auscultation: abdomen normal to inspection; abdomen not distended Musculoskeletal: no cyanosis or clubbing, extremities motor strength 5/5 Skin: no rashes, warm and dry Neurologic: moves all extremities and awake Psychiatric: Orientation: alert, oriented to person and cooperative Results & Data Results & Data ([facility]) Vital Signs (Past 12 Hours) Vital Signs Temp Pulse Resp BP Pulse Ox 01/06/21 20:00 36.4 C L 118 H 20 125/70 95 01/06/21 15:15 36.7 C 118 H 21 121/76 91 01/06/21 11:14 35.9 C L 116 H 18 97/59 L 94 01/06/21 10:54 87 L PG Care Time/CCT Total # of Minutes Spent Total Time Spent with Patient: Total time spent is greater than 50% in coordination of care (as documented) at patient's floor/unit and/or counseling patient: Prolonged Care Time Prolonged Care Time: Yes Total Prolonged Care Time: 65 Coding Level of Care Code 17914 Subseq Hosp Care Lvl 3 (25 - SIGNIFICANT, SEPARATELY IDENTIFIABLE ) Diagnoses Hypoxia R09.02 Hypotension I95.9 DVT (deep venous thrombosis) I82.409 Pneumonia J18.9 Aspiration into respiratory tract T17.908A Anemia D64.9 History of abdominal aortic aneurysm (AAA) Z86.79 Pancytopenia due to antineoplastic chemotherapy D61.810; T45.1X5A Pulmonary fibrosis, unspecified J84.10 Rectal cancer C20 Lymphoma C85.90 Elevated troponin I level R77.8 Retroperitoneal hemorrhage R58 Additional Codes Prolonged Care Time - Prolonged Care Time: Yes ([id number]) Time Spent (min) 65 Comment 8:00 to 8:30 12:30 to 13:05
[2021-01-07] MEDS ORDERED: TPN/PPN CONSULT PHARMACY PRN (04:00)
[2021-01-07] MEDS: PIPERACILLIN/TAZOBACTAM 3.375 GM in DEXTROSE 5% 100 ML IV SCH ×3 (05:11→19:49)
[2021-01-07 07:03] LABS: Hematocrit (blood only) 33.5 % (42-52); Hemoglobin 10.3 g/dL (14.0-18.0); Mean Corpuscular Hemoglobin 29.1 pg (25-34); Mean Corpuscular Hgb Conc 30.7 g/dL (32-36); Mean Corpuscular Volume 94.6 fL (80-100); Nucleated RBC # (auto) 0.06 K/uL (0-0); Nucleated RBC % (auto) 0.3 %; RDW Coefficient of Variation 20.5 % (11.5-14.5); RDW Standard Deviation 62.6 fL (36.4-46.3); Red Blood Count 3.54 M/uL (4.7-6.1)
[2021-01-07 07:27] LABS: Partial Thromboplastin Ratio > 5.3
[2021-01-07 07:34] LABS: BUN Creatinine Ratio 33.3 (10-20); Calcium 8.7 mg/dl (8.5-10.1); Creatinine Clr Calc Pharmacy 48.7 ml/min; Est GFR (African American) 84.3 ml/min; Est GFR (Non-African American) 72.7 ml/min
[2021-01-07 07:39] LABS: Partial Thromboplastin Time > 139.0 Seconds (21.0-31.0); Phosphorus 3.3 mg/dl (2.5-4.9)
[2021-01-07 07:47] LABS: Mean Platelet Volume 11.4 fL (7.4-10.4); Platelet Count 76 K/uL (130-400); Platelet Estimate Decreased (Normal)
[2021-01-07] MEDS: INSULIN ASPART 100 UNITS/ML 3 ML PEN SC SCH ×4 (08:10→20:52)
[2021-01-07] MEDS: predniSONE 10 MG TABLET PO SCH (08:11)
[2021-01-07] MEDS: THIAMINE HCL 100 MG TAB PO SCH (08:11)
[2021-01-07] MEDS: NICOTINE 14 MG/24 HR PATCH TD SCH (08:12)
--- NOTE | 2021-01-07 08:24 | Gastroenterology Progress Note ---
Date of Service January 07, 2021 Assessment & Plan (1) Aspiration into respiratory tract: Plan: The patient appears to be a candidate for enteral feeding via a gastrostomy tube, to reduce the aspiration risk, and to try to reverse the malnutrition, weight loss, and general debility. Tube insertion is unsafe at this time due to coagulopathy with retroperitoneal hemorrhage and respiratory status. Once this is corrected, enteral tube insertion can be considered. In the meantime, agree with plan for parenteral nutrition. We will follow and assist as needed. Enteral tube feeding was discussed with the patient and daughter by Dr. Loomis 01/06/2021, and all questions answered Please refer to supervising physician addendum for further recommendations. (2) Malnutrition compromising bodily function: Plan: see above Admission and Anticipated Discharge Date Admission Date: December 24, 2020 Supervising Physician Co-Signing Physician Notes I have seen and examined the patient. I agree with note above by ALEKSANDRA Sosa except as noted below. HPI Pt denies abd pain. PE Abdomen pos bs, soft, no guarding nor rebound. A/P aspiration---the patient at present is high risk for sedation for EGD/PEG. Will sign off for now. When paitient is optimized as much as he can be then call us back and we can reassess. Subjective The patient is sleeping and not awakening with verbal stimuli. He did have a startle reflex when touching him for examination. Calmed easily. Nursing reports that he has not been doing well. He has had heavy breathing noted at rest. He is wearing a oxygen mask. Bowel sounds are very hypoactive. Ecchymotic area on abdomen. Critical PTT this morning. His daughter comes in in the afternoon around 5 PM Review of Systems Respiratory: + dyspnea Physical Exam Constitutional: + ill appearing Respiratory: + labored breathing Gastrointestinal (Abdomen): Inspection/Auscultation: + hypoactive bowel sounds Results & Data ([facility]) Vital Signs (Past 12 Hours) Vital Signs Temp Pulse Pulse Resp BP Pulse Ox 01/07/21 06:59 36.6 C 110 H 16 136/88 92 01/07/21 04:06 36.8 C 109 H 19 141/69 H 94 01/06/21 23:59 110 H 01/06/21 23:54 36.7 C 110 H 20 148/96 H 90 Laboratory Results Laboratory Results - last 24 hr 01/06/21 01/06/21 01/06/21 10:50 16:35 20:09 WBC RBC Hgb Hct MCV MCH MCHC RDW Std Deviation RDW Coeff of Bello Plt Count MPV Absolute Nucleated RBC Nucleated RBC % (auto) Platelet Estimate APTT PTT Ratio Sodium Potassium Chloride Carbon Dioxide Anion Gap BUN Creatinine Est Cr Clr Drug Dosing Est GFR ( Amer) Est GFR (Non-Af Amer) BUN/Creatinine Ratio Glucose POC Glucose 150 H 206 H 170 H Calcium Phosphorus Magnesium NT-Pro-B Natriuret Pep 01/07/21 01/07/21 01/07/21 06:26 06:26 06:26 WBC 22.10 H RBC 3.54 L Hgb 10.3 L Hct 33.5 L MCV 94.6 MCH 29.1 MCHC 30.7 L RDW Std Deviation 62.6 H RDW Coeff of Bello 20.5 H Plt Count 76 L MPV 11.4 H Absolute Nucleated RBC 0.06 H Nucleated RBC % (auto) 0.3 Platelet Estimate Decreased L APTT > 139.0 H* PTT Ratio > 5.3 Sodium 144 Potassium 3.0 L Chloride 103 Carbon Dioxide 36 H Anion Gap 5.0 BUN 32 H Creatinine 0.95 Est Cr Clr Drug Dosing 48.7 Est GFR ( Amer) 84.3 Est GFR (Non-Af Amer) 72.7 BUN/Creatinine Ratio 33.3 H Glucose 156 H POC Glucose Calcium 8.7 Phosphorus 3.3 Magnesium 2.0 NT-Pro-B Natriuret Pep 77319 H 01/07/21 07:03 WBC RBC Hgb Hct MCV MCH MCHC RDW Std Deviation RDW Coeff of Bello Plt Count MPV Absolute Nucleated RBC Nucleated RBC % (auto) Platelet Estimate APTT PTT Ratio Sodium Potassium Chloride Carbon Dioxide Anion Gap BUN Creatinine Est Cr Clr Drug Dosing Est GFR ( Amer) Est GFR (Non-Af Amer) BUN/Creatinine Ratio Glucose POC Glucose 176 H Calcium Phosphorus Magnesium NT-Pro-B Natriuret Pep
--- NOTE | 2021-01-07 09:19 | Pharmacy Report ---
Pharmacy PN Initial Consult - Date of Service January 07, 2021 - Scope Pharmacy has been consulted to manage parenteral nutrition orders and order appropriate labs. As part of the Nutrition Support Team guidelines, pharmacy will work in conjunction with dietary when determining the patients caloric needs. - Subjective The patient is a 85 year old M admitted on 12/24/20 23:34 for SEPTIC SHOCK NO CONTAST*. Patient is to receive parenteral nutrition for prolonged NPO, aspiration, unable to place PEG tube at this time. . - Objective Height: 6 ft Weight: 60.6 kg Diet: NPO Intake & Output (Last 24Hrs): Intake & Output 01/05/21 01/06/21 01/07/21 01/08/21 06:59 06:59 06:59 06:59 Intake Total 254.433 / 849.572 6373.967 / 5156.071 3078.333 / 1085.333 Output Total 1550 / 1550 900 / 900 875 / 875 Balance -1295.567 / -1295.567 444.967 / 444.967 210.333 / 210.333 Weight 51.3 kg 52 kg 60.6 kg Laboratory Data (Last 24 Hrs):: 01/07/21 06:26 Sodium 144 Potassium 3.0 L Chloride 103 Carbon Dioxide 36 H BUN 32 H Creatinine 0.95 Glucose 156 H Calcium 8.7 Phosphorus 3.3 Magnesium 2.0 Nutrition Assessment:: Please refer to the Notes section of the EMR for the most recent rn disease management note. - Assessment * K+ low and trending downwards over the past 4 days - discussed with hospitalist; he will replete prior to initiating PPN * BSGs elevated secondary to prednisone. Will add insulin to PPN; patient also receiving SQ insulin for hyperglycemia. No A1c in chart - will order with AM labs for tomorrow. - Plan For day 1 of PN administration, the following will be ordered: Macronutrients Amino acids 75 grams/day Dextrose 125 grams/day Lipids 40 grams/day Micronutrients Sodium chloride 50 mEq {total Na+ 80 meq) Potassium phosphate 15 mMol {total K+ 42 meq} Potassium chloride 20 mEq Calcium gluconate 4.65 mEq Multivitamins 10 mL Trace Elements 10 mL Additional additives: Folic Acid 1mg, Regular insulin 15 units (Thiamine and PPI are being given PO) Total volume 1700 mL to be infused over 24 hrs will provide 1165 kcal/day Final osmolarity 894.5 mOsm/L (maximum for PPN is 900 mOsm/L) Labs to be ordered per PN order protocol Pharmacy will follow and adjust parenteral nutrition orders on a daily basis. Thank you.
[2021-01-07] MEDS: POTASSIUM CHLORIDE / WTR 10 MEQ/100 ML PLCT IV SCH ×4 (09:42→12:45)
[2021-01-07] MEDS: PANTOprazole 40 MG TAB PO SCH ×2 (09:42→20:49)
[2021-01-07 09:44] LABS: Estimated Average Glucose 120 mg/dl; Hemoglobin A1C 5.8 % (4.5-5.6)
[2021-01-07 10:06] LABS: Fibrinogen 434 mg/dl (184-400); Partial Thromboplastin Ratio 2.1; Prothrombin Time 27.6 Seconds (9.0-12.0)
[2021-01-07 10:11] LABS: D Dimer 3050 ug/L FEU (0-500)
--- NOTE | 2021-01-07 14:01 | Consultation ---
Date of Consultation January 07, 2021 Assessment & Plan (1) DVT (deep venous thrombosis): Pt with extensive LLE DVT and large retroperitoneal hematoma which developed after AC therapeutic. Pt discussed with Dr Rapp. Recommend IVC filter insertion in OR tomorrow by Dr Rapp. Pt agreeable. Also spoke to daughter, she is agreeable. History of Present Illness Reason for Consultation: DVT, retroperitoneal hemorrhage Attending Physician: Rachid Newmanbiggjakub History of Present Illness 85 yo M with hx of rectal ca and lymphoma, on chemotherapy, AAA s/p PEVAR, admitted with pneumonia, seen in consultation today for possible IVC filter insertion. Pt known to Dr Rapp's vascular surgery practice for PEVAR and is ev al every 6 months. Pt currently with extensive LLE DVT, was started on AC, but developed large retroperitoneal hematoma and AC was stopped. Pt denies any complaints currently aside from fatigue. Allergies Allergy/AdvReac Type Severity Reaction Status Date / Time No Known Allergies Allergy Verified 12/19/20 15:01 Home Medications Medication Instructions Recorded Confirmed Type albuterol sulfate 90 mcg/actuation 2 puff INHALATION Q4H PRN #6.7 g 03/09/20 12/24/20 Rx aerosol inhaler (Ventolin HFA) metoprolol succinate 50 mg 75 mg PO QAM #90 tab 10/23/20 12/24/20 Rx tablet,extended release 24 hr atorvastatin 40 mg tablet 40 mg PO PM #90 tab 11/24/20 12/24/20 Rx Patient History Medical History Allergic rhinitis Aspiration into respiratory tract FEES on 12/29/2020 - Aspiration mucus and thin liquids Benign prostatic hyperplasia with urinary obstruction and other lower urinary tract symptoms Carotid artery stenosis monitors annually, follows with Dr. Rapp Per 12/03/19 vascular note: right ICA 60-69% (unchanged) DVT (deep venous thrombosis) 12/29/2020 - Left femoral vein Elevated prostate specific antigen (PSA) Essential hypertension General weakness Hearing loss History of abdominal aortic aneurysm (AAA) S/p AAA repair using bifurcation graft > endoleak being monitoring by vascular with recommendation to repeat study ~09/2020 Hyperlipidemia Hypertension Hypoxemia Hypoxia IgG monoclonal gammopathy of uncertain significance Immunocompromised Impaired fasting glucose Palliative care encounter Pulmonary fibrosis, unspecified Sleep apnea 3L O2 HS Stroke 2009 Transient ischemic attack (TIA) ~2014 Surgical History Endoleak post (EVAR) endovascular aneurysm repair 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 History of cataract surgery RT/LEFT History of colonoscopy History of tonsillectomy and adenoidectomy History of tooth extraction History of vascular surgery Aortogram with embolization of internal iliac arteries S/P AAA repair S/p AAA repair using bifurcation graft PEVAR initially in 2011 S/P lymph node biopsy (05/26/20) Right Groin Excisional Lymph Node Biopsy (05/26/20): MAC at [facility] Family History Father Alzheimer disease Lung disease Brother Bone cancer Cancer Grandmother Diabetes Aunt Diabetes Mother Carotid artery disease Other No family history of adverse response to anesthesia Social History Smoking Status: Unknown if ever smoked Tobacco Type: Smokeless Tobacco (Dip or Chew) Age Quit Using Tobacco: 55; packs per day: 1; Years Smoked: 30; Second Hand Exposure: No; Hx Alcohol Use: No Hx Substance Use: No Preferred Language: Mongolian Communication Ability: Effective Hearing Ability: Use of Hearing Aid Chemical Dependency Attendant Required: No Beliefs That Will Affect Care: None marital status: / Current Living Situation: Alone current occupational status: retired Feels Safe at Home: Yes caffeine: Yes during the past year weight has: decreased > 10 lbs Physical Activity Frequency: 1-2 Times per Week Seatbelt Use: always Sunscreen Use: No Assistive Devices: Denture - Upper, Denture - Lower and Glasses Review of Systems Review of Systems: 14 systems reviewed and negative aside from HPI Physical Exam Constitutional: + ill appearing, + thin, comfortable and + malnourished; not in distress Respiratory: normal respiratory effort and + cough Auscultation: + rales, + rhonchi and + wheezes Cardiovascular: Rate/Rhythm: regular rate and regular rhythm Vessels: femoral pulses present, dorsalis pedis pulses present and radial pulses present Extremities: normal capillary refill and + edema (LLE) Gastrointestinal (Abdomen): Percussion/Palpation: abdomen soft; abdomen nontender Musculoskeletal: no cyanosis or clubbing, extremities motor strength 5/5 Skin: no rashes, warm and dry Neurologic: + confused (mildly); no focal motor deficits Psychiatric: Orientation: oriented to person; + not alert (sleepy) Results & Data ([facility]) Vital Signs (Past 12 Hours) Vital Signs Temp Pulse Resp BP Pulse Ox 01/07/21 11:21 36.5 C 111 H 20 132/95 96 01/07/21 06:59 36.6 C 110 H 16 136/88 92 01/07/21 04:06 36.8 C 109 H 19 141/69 H 94
[2021-01-07] MEDS ORDERED: TPN IV SCH (16:00)
[2021-01-07] MEDS ORDERED: DEXTROSE 10% 1,000 ML IV PRN (16:00)
[2021-01-07] MEDS ORDERED: PERIPHERAL PN IV SCH (16:00)
[2021-01-07] MEDS: MELATONIN 3 MG TAB PO SCH (20:49)
--- NOTE | 2021-01-07 22:06 | Hospitalist Progress Note ---
Date of Service January 07, 2021 Assessment & Plan (1) Hypoxia: Plan: Ddx includes pneumonia vs. ILD vs. pulmonary edema. - Presently 95% on 5 L/min. - Finished abx as above, but restarted on 12/29 for 1 day when he had worsening O2 requirement and worsening tachycardia. - Hold all abx at this time. - BNP on 12/28 >35k with LE edema. Lasix 20 mg IV x 1 on 12/29 & 12/30 with KCl repletion. Another dose on 01/02. Monitor O2 needs. - Pulm consulted for consideration of ILD exacerbation vs. PJP pneumonia. -> Appreciate consult; increased steroids on 12/30 for possible ILD exacerbation. - Improving daily; had a slight worsening on 01/02 with increased work of b reathing. Additional Lasix 20 mg IV given with improvement. -> Asked Dr. Duval re: steroid taper. Will addend note when he responds. For now, continue prednisone 40 mg PO daily. Now on 7 Liters oxymask. Had extensive discussion with daughter on 01/06 Patient's main issue currently is his inability to protect his airway, his dysphaia and poor eval findings from his swallow eval last week, show that patient is at risk for aspiration pneumonia. During hospital stay patient has received intermittent antibiotics. Antibiotics resumed to treat aspiration pneumonia as patient has elevated procal and radiographic evidence of consolidation. Patient will continue to be on oral phayngeal suction. Daughter is interested in PPN for 3-4 days. Unsure if she will choose peg tube placement. Given inability to protect his airway, it seems unlikely in his current state that he can improve his mechanics and participate in extensive speech therapy. Plan is that hopefully patient will improve as he receives PPN resumed atropine due to secretions. resumed antibiotic Lead [employer] Software Developer has been consulted and has been working with the patient. Patient however has low weight, and appears fragile. This is likely multifactorial from deconditionling from: long hospital stay, chemo treatment, advanced age, and pneumonia. May consider temporary artificial feeding x 3 days max to see if patient perks up. However these options also carry risk of infection. will continue to monitor patient day to day. . (2) Hypotension: Plan: Initially thought it was septic shock, but negative to date blood cultures and urine culture. Abx stopped after 48 hours. BioFire/Covid all negative. - Stopped azithromycin on 12/28. On Zosyn for 24 hours, but stopped on 12/30. - Ended up feeling it was [place]'s crisis. - Steroids as above -Blood pressure appears controlled. (3) DVT (deep venous thrombosis): Plan: "Extensive occlusive DVT within the left lower extremity" found on 12/29. - Discussed with oncology -> Started heparin gtt without bolus. So far no indication of bleeding. - hold warfarin due to hematoma (4) Pneumonia: Plan: CTA chest on 12/24 showed ground glass changes and coarse interstitium. Added atypical coverage from 12/25 to 12/27, and with immunosuppression consider antifungal if not improving. - Sputum culture negative from 12/25. - Procalcitonin on 12/28 was 1.2; down to 0.5 on 12/30. Down to 0.26 on 01/02. 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 - See above (6) Anemia: Plan: Anemia from chemotherapy. No signs/symptoms of obvious blood loss. Improved appropriately after 2 units PRBCs on 12/26. - Continue Protonix - Dropped today 01/05, and will transfuse 2 PRBC aswould like to increase hemoglobin above 8.. Now level is 10. (7) History of abdominal aortic aneurysm (AAA): Plan: Aortoiliac graft stent. Appeared stable on CT angiography 8.2x6.3 similar to before, suggests endoleak with contrast in the posterior aspect of the aneurysm sac. 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 - Oncology concerned for poor nutrition recommended albumin infusions (9) Pulmonary fibrosis, unspecified: Plan: Previously has seen Dr. Carlos in 09/2020. 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 No active management as he was working on cancer diagnosis. - As above (10) Rectal cancer: Plan: History of rectal cancer, completed chemoradiation. - No inpatient needs (11) Lymphoma: Plan: Recently completed his sixth and final cycle of R-CHOP chemotherapy for diffuse large B-cell lymphoma. Last dose was 12/15/20, did receive GCSF post-treatment. (12) Elevated troponin I level: Plan: EKG was non-acute, still consider demand ischemia. Most recent echocardiogram at last admission showed ejection fraction of 60%. Troponin peaked at 1.4 on 12/25, then down. - No inpatient needs (13) Retroperitoneal hemorrhage: Plan: will hold anticoagulation. may require IVC filter. will hold for now. Admission and Anticipated Discharge Date Admission Date: December 24, 2020 Subjective Patient is more awake. Had about 50% of breakfast. Review of Systems Review of Systems: All systems reviewed & are unremarkable except as noted in HPI & below Physical Exam Physical Exam: Constitutional: WD/WN, vitals as above Eyes: EOM intact bilaterally; no conjunctival abnormality ENMT: external ear and nose normal, oropharynx normal: except for dry mucosa Neck: trachea midline, no thyromegaly normal visual inspection Respiratory: normal respiratory effort, B/L rhonchi no respiratory distress Cardiovascular: Rate/Rhythm: regular rhythm and + tachycardic Extremities: + edema Gastrointestinal (Abdomen): Inspection/Auscultation: abdomen normal to inspection; abdomen not distended Musculoskeletal: no cyanosis or clubbing, extremities motor strength 5/5 Skin: no rashes, warm and dry Neurologic: moves all extremities and awake Psychiatric: Orientation: alert, oriented to person and cooperative Results & Data Results & Data ([facility]) Vital Signs (Past 12 Hours) Vital Signs Temp Pulse Pulse Resp BP BP Pulse Ox 01/07/21 19:03 36.8 C 109 H 20 141/69 H 94 01/07/21 16:28 115 H 01/07/21 14:42 36.7 C 70 19 114/73 92 01/07/21 11:21 36.5 C 111 H 20 132/95 96 PG Care Time/CCT Total # of Minutes Spent Total Time Spent with Patient: Total time spent is greater than 50% in coordination of care (as documented) at patient's floor/unit and/or counseling patient: Coding Level of Care Code 53669 Subseq Hosp Care Lvl 3 Diagnoses Hypoxia R09.02 Hypotension I95.9 DVT (deep venous thrombosis) I82.409 Pneumonia J18.9 Aspiration into respiratory tract T17.908A Anemia D64.9 History of abdominal aortic aneurysm (AAA) Z86.79 Pancytopenia due to antineoplastic chemotherapy D61.810; T45.1X5A Pulmonary fibrosis, unspecified J84.10 Rectal cancer C20 Lymphoma C85.90 Elevated troponin I level R77.8 Retroperitoneal hemorrhage R58 Time Spent (min) 35
[2021-01-08] MEDS: PIPERACILLIN/TAZOBACTAM 3.375 GM in DEXTROSE 5% 100 ML IV SCH ×3 (03:03→19:51)
[2021-01-08 07:10] LABS: Hematocrit (blood only) 30.7 % (42-52); Hemoglobin 9.4 g/dL (14.0-18.0); Mean Corpuscular Hemoglobin 29.7 pg (25-34); Mean Corpuscular Hgb Conc 30.6 g/dL (32-36); Mean Corpuscular Volume 96.8 fL (80-100); Nucleated RBC # (auto) 0.02 K/uL (0-0); Nucleated RBC % (auto) 0.2 %; RDW Coefficient of Variation 19.7 % (11.5-14.5); RDW Standard Deviation 65.5 fL (36.4-46.3); Red Blood Count 3.17 M/uL (4.7-6.1); White Blood Count 15.75 K/uL (4.8-10.8)
[2021-01-08 07:37] LABS: INR 2.4 (0.9-1.1); Partial Thromboplastin Ratio 3.4
[2021-01-08 07:40] LABS: Partial Thromboplastin Time 88.8 Seconds (21.0-31.0)
[2021-01-08 07:48] LABS: BUN Creatinine Ratio 46.3 (10-20); Calcium 8.3 mg/dl (8.5-10.1); Creatinine Clr Calc Pharmacy 57.4 ml/min; Est GFR (African American) 95.4 ml/min; Est GFR (Non-African American) 82.3 ml/min
[2021-01-08 07:59] LABS: Mean Platelet Volume 10.9 fL (7.4-10.4); Platelet Count 65 K/uL (130-400)
[2021-01-08] MEDS: INSULIN ASPART 100 UNITS/ML 3 ML PEN SC SCH ×4 (08:00→19:51)
[2021-01-08 08:14] LABS: Bilirubin,Total 1.2 mg/dl (0.2-1); Phosphorus 2.7 mg/dl (2.5-4.9)
[2021-01-08] MEDS: predniSONE 10 MG TABLET PO SCH (08:53)
[2021-01-08] MEDS: THIAMINE HCL 100 MG TAB PO SCH (08:53)
[2021-01-08] MEDS: PANTOprazole 40 MG TAB PO SCH ×2 (08:53→19:52)
[2021-01-08] MEDS: NICOTINE 14 MG/24 HR PATCH TD SCH (08:53)
--- NOTE | 2021-01-08 08:53 | History & Physical Bridge Note ---
Date of Service January 08, 2021 History & Physical Bridge Note Insertion of vena cava filter was recommended. This was discussed with the patient's daughter who is agreeable. She understood the risks options benefits and agreed to go ahead with this procedure. I have examined the patient, reviewed the History & Physical and in the interval since the performance of the History & Physical I have noted the following changes of clinical significance: no changes noted
[2021-01-08 09:20] LABS: Partial Thromboplastin Ratio 2.2
--- NOTE | 2021-01-08 09:20 | Pharmacy Report ---
PHA: Parenteral Nutrition Con - Date of Service January 08, 2021 - Scope Pharmacy was consulted on 01/07 to manage parenteral nutrition orders for this patient. - Subjective The patient is currently on day # 2 of peripheral parenteral nutrition for poor PO intake/aspiration risk/unable to place peg. - Objective Height: 6 ft Weight: 58.6 kg Diet: NPO Intake & Output (24hrs):: Intake & Output 01/06/21 01/07/21 01/08/21 01/09/21 06:59 06:59 06:59 06:59 Intake Total 1344.967 / 9754.481 5624.333 / 1085.333 935 / 935 115 / 115 Output Total 900 / 900 875 / 875 1425 / 1425 Balance 444.967 / 444.967 210.333 / 210.333 -490 / -490 115 / 115 Weight 52 kg 60.6 kg 58.6 kg Laboratory Data (Last 24 Hr):: 01/08/21 06:37 Sodium 146 H Potassium 3.0 L Chloride 105 Carbon Dioxide 39 H BUN 36 H Creatinine 0.78 Glucose 185 H Calcium 8.3 L Phosphorus 2.7 Magnesium 2.0 Total Bilirubin 1.2 H AST 18 ALT 24 Alkaline Phosphatase 81 Triglycerides 85 Nutrition Assessment:: Please refer to the Notes section of the EMR for the most recent first breaker feeder note. - Assessment * Na+ high, 80meq Na+ in PPN yesterday, will decrease to ~ 50 meq today. * BSGs still elevated, last day of prednisone 30mg today; will increase insulin from 15 to 25 units in PPN. BSGs should improve slightly tomorrow when prednisone is decreased to 20mg daily. A1c 5.8% so likely insulin needs will significantly decrease with each step down in steroid dosing. * K+ still low at 3 mmol/L despite 40meq riders + 42 meq in PPN; will double K+ in PPN to 82 meq. Provider also repeated K riders 40meq IV * Will increase macros slightly (just AA & Lipids since BSGs elevated will hold off on increasing dextrose) * Pt ate a good lunch yesterday. NPO today for IVC filter placement. - Plan For day # 2 of PN administration, the following will be ordered: Macronutrients Amino acids 80 grams/day Dextrose 125 grams/day Lipids 45 grams/day Micronutrients Sodium phosphate 15 MMol Potassium phosphate 15 mMol Potassium chloride 60 mEq Calcium gluconate 4.65 mEq Multivitamins 10 mL Trace Elements 1 mL Additional additives: Folic Acid {thiamine being given PO} + 25 units of regular insulin Total volume 1765 mL to be infused over 24 hrs will provide 1240 kcal/day Final osmolarity 896 mOsm/L (maximum for PPN is 900 mOsm/L) Labs, as indicated, will be ordered per protocol Pharmacy will continue to follow and adjust parenteral nutrition orders on a daily basis. Thank you for allowing us to participate in the care of this patient.
[2021-01-08 09:22] LABS: Partial Thromboplastin Time 58.5 Seconds (21.0-31.0)
--- NOTE | 2021-01-08 09:34 | Progress Notes ---
HEMATOLOGY ONCOLOGY PROGRESS NOTE DATE OF SERVICE: 01/08/2021 DIAGNOSES: 1. Hypoxia/interstitial pneumonia. 2. Hypotension. 3. Left lower extremity deep venous thrombosis. 4. Pancytopenia attributable to chemotherapeutic effect. 5. Diffuse large B-cell lymphoma by history. 6. Adenocarcinoma of the rectum by history, status post chemoradiation. 7. Protein malnutrition. SUBJECTIVE: Josiah was seen and examined at bedside. He was quite lethargic, sleeping heavily when I approached him this morning. His breath sounds are rhonchorous, excessive secretions are obvious. TPN was started recently. Josiah will have a Sunshine filter placed as unfortunately he develop ed a retroperitoneal bleed on anticoagulation that subsequently needed to discontinue. Coags remain elevated, which most likely suggests an underlying vitamin K deficiency, perhaps a low dose vitamin K can be introduced. Without evidence of active bleeding, I would not rapidly reverse him. Hemoglobin continues to drop steadily, presently 9.4. Unfortunately, today does not appear to be a good day fo r Mr. Estrada. We will discuss further with Dr. Vigil on the management issues after he has a [facility] later on this morning. Nursing reports no overnight difficulties otherwise. OBJECTIVE: GENERAL: A lethargic 85-year-old gentleman in no acute distress. VITAL SIGNS: Temperature 36.4, pulse 77, respiratory rate 18, blood pressure 158/97. SKIN: Turgor is poor. No rashes or lesions otherwise. HEENT: Oral mucosa is dry. HEART: Regular rate and rhythm. LUNGS: Diffuse rhonchi heard in all young. ABDOMEN: Soft, nontender, nondistended. EXTREMITIES: Trace peripheral edema bilaterally, left greater than right. NEUROLOGIC: Grossly intact. LABORATORY DATA: WBC count 15,750, hemoglobin 9.4, platelet count 65,000. PT 23, INR 2.4, PTT 88.8 seconds. Fibrinogen 434, D-dimer 3050. Sodium 146, potassium 3, chloride 105, carbon dioxide 39, BUN 36, creatinine 0.78. RADIOGRAPHIC DATA: CT scan of the chest, abdomen and pelvis: Large acute left-sided retroperitoneal hemorrhage involves the left psoas and iliac musculature measuring over 20 cm. Dense airspace conso lidation with air bronchograms, emphysema with chronic interstitial lung disease, cardiomegaly, mild mediastinal and hilar lymphadenopathy redemonstrated. IMPRESSION: 1. Hypoxia. 2. Protein malnutrition. 3. Residual coagulopathy. 4. Cytopenias attributable to chemotherapeutic effect. 5. Retroperitoneal hemorrhage. 6. Electrolyte dysfunction. 7. Metabolic alkalosis. PLAN: Mr. Estrada, I think, has taken a bit of a turn for the worse over the past 24 hours. TPN was started yesterday. Anticoagulation was appropriately discontinued with the presence of a retroperito dane hemorrhage, which I suspect continues to ooze based on his hemoglobin levels. We will advocate vitamin K administration to reverse coagulopathy, but we would prefer to do that once Pepe is p laced. Electrolytes need to be addressed today. His sodium is inching upward and suspect he may req uire some free water at some point. BUN is going up, which makes a question perhaps he may be battli ng with gastropathy from prolonged hospitalization. Again, we will discuss these issues with Dr. Paty blakely. Frankly, I am a little less optimistic with Mr. Estrada as he presents today. We will discuss further with his daughters over the weekend. Thank you very much for allowing me to participate in his care. Job ID: [id number]
[2021-01-08] MEDS: POTASSIUM CHLORIDE / WTR 10 MEQ/100 ML PLCT IV SCH ×4 (09:54→13:39)
--- NOTE | 2021-01-08 11:01 | Anesthesiology Consultation ---
Date of Service January 08, 2021 Assessment & Plan Chart Review Chart Review: Acceptable Risk for Surgery and Patient NOT seen in Pre Admission Testing Consults Requested none ASA [id number] Proposed Anesthesia Anesthesia Type: MAC Risk / Benefits Reviewed With: PT / POA / Parent / Guardian, Accepts Plan and Informed Consent Obtained Additional Comments: covid test neg. History Surgery Operation Date: 01/08/21 12:20 Proposed Procedures p Insertion IVC Filter - Reese Rapp MD Height/Weight Height: 6 ft Weight: 58.6 kg Allergies Allergy/AdvReac Type Severity Reaction Status Date / Time No Known Allergies Allergy Verified 12/19/20 15:01 Medications Home Medications Medication Instructions Recorded Confirmed Last Taken albuterol sulfate 90 mcg/actuation 2 puff INHALATION Q4H PRN #6.7 g 03/09/20 12/24/20 12/19/20 aerosol inhaler (Ventolin HFA) metoprolol succinate 50 mg 75 mg PO QAM #90 tab 10/23/20 12/24/20 12/24/20 tablet,extended release 24 hr atorvastatin 40 mg tablet 40 mg PO PM #90 tab 11/24/20 12/24/20 12/23/20 Active Medications Generic Name Dose Route Start Last Admin Trade Name Freq PRN Reason Stop Dose Admin Atropine Sulfate 1 drops 01/06/21 09:12 01/06/21 10:21 Atropine Sulfate 1% Op Soln 5 Ml Btl OP 02/05/21 09:14 1 drops Q4H PRN Administration secretions Piperacillin Sod/Tazobactam 115 mls @ 28.75 mls/hr 01/06/21 20:00 01/08/21 07:39 Sod 3.375 gm/ Dextrose IV 01/13/21 19:59 Infused Q8H JESSICA Infusion Protocol Nutrition (Parenteral) 1,700 1,700 mls @ 70.83 mls/hr 01/07/21 16:00 01/07/21 15:53 ml/ TPN BAG IV 01/08/21 15:59 70.8 mls/hr .Q24H JESSICA Administration Protocol Potassium Chloride 10 meq in 100 mls @ 100 mls/hr 01/08/21 09:15 01/08/21 09 :54 K Selvin / Wtr IV 01/08/21 13:14 100 mls/hr Q1H JESSICA Administration Insulin Aspart 0 units 01/04/21 11:30 01/08/21 08:00 Insulin Aspart 100 Units/Ml 3 Ml Pen SC 02/03/21 11:29 2 units ACHS JESSICA Administration Melatonin 3 mg 12/31/20 21:00 01/07/21 20:49 Melatonin 3 Mg Tab PO 01/30/21 20:59 3 mg HS JESSICA Administration Miscellaneous 1 ea 12/26/20 08:59 01/08/21 08:52 Remove Nicoderm Patch N/A 01/25/21 08:58 1 ea [id number] JESSICA Administration Nicotine 14 mg 12/26/20 09:00 01/08/21 08:53 Nicotine 14 Mg/24 Hr Patch TD 01/25/21 08:59 14 mg QAM JESSICA Administration Pantoprazole Sodium 40 mg 12/29/20 21:00 01/08/21 08:53 Pantoprazole 40 Mg Tab PO 01/28/21 20:59 40 mg BID JESSICA Administration Prednisone 30 mg 01/07/21 09:00 01/08/21 08:53 Prednisone 10 Mg Tablet PO 01/15/21 08:59 30 mg DAILY JESSICA Administration Taper Thiamine HCl 100 mg 12/30/20 09:00 01/08/21 08:53 Thiamine Hcl 100 Mg Tab PO 01/29/21 08:59 100 mg QAM JESSICA Administration NPO Date Last Intake of Fluids: 01/01/21 Time Last Intake of Fluids: 21:00 Date Last Intake of Solids: 01/01/21 Time Last Intake of Solids: 21:00 Past Medical History Medical History Allergic rhinitis Aspiration into respiratory tract FEES on 12/29/2020 - Aspiration mucus and thin liquids Benign prostatic hyperplasia with urinary obstruction and other lower urinary tract symptoms Carotid artery stenosis monitors annually, follows with Dr. Rapp Per 12/03/19 vascular note: right ICA 60-69% (unchanged) DVT (deep venous thrombosis) 12/29/2020 - Left femoral vein Elevated prostate specific antigen (PSA) Essential hypertension General weakness Hearing loss History of abdominal aortic aneurysm (AAA) S/p AAA repair using bifurcation graft > endoleak being monitoring by vascular with recommendation to repeat study ~09/2020 Hyperlipidemia Hypertension Hypoxemia Hypoxia IgG monoclonal gammopathy of uncertain significance Immunocompromised Impaired fasting glucose Palliative care encounter Pulmonary fibrosis, unspecified Sleep apnea 3L O2 HS Stroke 2009 Transient ischemic attack (TIA) ~2015 Exercise / Class Metabolic Activity IV < 2 Limit ADL/Bedbound Past Family History Family History Father Alzheimer disease Lung disease Brother Bone cancer Cancer Grandmother Diabetes Aunt Diabetes Mother Carotid artery disease Other No family history of adverse response to anesthesia Past Surgical History Surgical History Endoleak post (EVAR) endovascular aneurysm repair 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 History of cataract surgery RT/LEFT History of colonoscopy History of tonsillectomy and adenoidectomy History of tooth extraction History of vascular surgery Aortogram with embolization of internal iliac arteries S/P AAA repair S/p AAA repair using bifurcation graft PEVAR initially in 2011 S/P lymph node biopsy (05/26/20) Right Groin Excisional Lymph Node Biopsy (05/26/20): MAC at [facility] Past Anesthesia History No Hx of Anesthesia Complications and No Family Hx of Anesthesia Complications History of PONV No Hx of PONV and No Hx of Motion Sickness Social History Smoking Status: Unknown if ever smoked tobacco type: smokeless tobacco Hx Alcohol Use: No alcohol intake frequency: 0-2 drinks per day Hx Substance Use: No substance use type: does not use Physical Exam Vital Signs Last Vital Signs Temp 36.1 C L 01/08/21 10:47 Pulse 79 01/08/21 10:47 Resp 18 01/08/21 10:47 BP 172/100 H 01/08/21 10:47 Pulse Ox 91 01/08/21 10:47 Constitutional + cachectic ENMT Mouth: + dentition abnormality, + edentulous and + poor dentition Thyromental Distance: > or= 3.5 Finger Breadths Mallampati Class: II Neck normal visual inspection and trachea midline; neck extension not limited Respiratory + uses accessory muscles Auscultation: + diminished lung sounds and + crackles Cardiovascular Rate/Rhythm: regular rate and regular rhythm Heart Sounds: no murmur Vessels: no carotid bruit Chest (Breasts) Chest: + vascular access device or port (Left chest) Musculoskeletal Spine: normal cervical ROM Extremities: extremities normal to inspection Neurologic moves all extremities Motor/Sensory: no sensory deficit Psychiatric Orientation: alert (Obtunded) and oriented x 3 (obtunded) Testing Laboratory Results 01/08/21 06:37 01/08/21 06:37 PT 23.0 Seconds (9.0-12.0) H 01/08/21 06:37 INR 2.4 (0.9-1.1) H 01/08/21 06:37 APTT 58.5 Seconds (21.0-31.0) H* 01/08/21 08:42 Hemoglobin A1c 5.8 % (4.5-5.6) H 01/07/21 06:26 Urine Color Dark Yellow 12/24/20 22:02 Urine Appearance Cloudy (Clear) A 12/24/20 22:02 Urine pH 5.5 (4.5-7.5) 12/24/20 22:02 Ur Specific Butler 1.023 (1.000-1.030) 12/24/20 22:02 Urine Protein 2+ (Negative) H 12/24/20 22:02 Urine Glucose (UA) Negative (Negative) 12/24/20 22:02 Urine Ketones Trace (Negative) H 12/24/20 22:02 Urine Nitrite Negative (Negative) 12/24/20 22:02 Ur Leukocyte Esterase Trace (Negative) H 12/24/20 22:02 Urine WBC (Auto) 5-10 /hpf (0-5) H 12/24/20 22:02 Urine RBC (Auto) 0-4 /hpf (0-4) 12/24/20 22:02 U Hyaline Cast (Auto) 1-5 /lpf (0-5) 12/24/20 22:02 U Epithel Cells (Auto) >30 /lpf (0-5) H 12/24/20 22:02 Urine Bacteria (Auto) Negative (Negative) 12/24/20 22:02 Blood Type AB Positive 01/05/21 16:54 Antibody Screen NEGATIVE 01/05/21 16:54 01/07/21 Unknown Fungal Smear - Final Mouth 12/24/20 20:55 Aerobic Blood Culture - Final Blood No growth in Aerobic bottle after 5 days. Anaerobic Blood Culture - Final No growth in Anaerobic bottle after 5 days. 12/24/20 21:00 Aerobic Blood Culture - Final Blood No growth in Aerobic bottle after 5 days. Anaerobic Blood Culture - Final No growth in Anaerobic bottle after 5 days. 12/25/20 16:00 Gram Stain - Final Sputum, Expectorated Sputum Culture - Final Light normal paul. 12/24/20 22:02 Urine Culture - Final Urine,Clean Catch No growth - less than 1,000 colonies/mL. 01/08/21 07:20 POC Glucose 184 H Electrocardiogram Date: 12/29/20 Findings: + NSST changes and + ST @ (at 124;LAD) Chest X-Ray Date: 01/04/21 Findings: + atherosclerosis of thoracic aorta and + other (advanced emphysema and chronic Interstitial lung dis.;Left IV port) Echocardiogram Date: 12/23/20 EF: 65% LV Function: normal Other Findings: + LVH Valvular Disease: + pertinent finding (RV systolic pressure > 60 Torr)
--- NOTE | 2021-01-08 11:35 | Operative Report ---
Post Operative Report Pre & Post Diagnosis Operation Date: 01/08/21 12:20 Pre-Op Diagnosis: deep vein thrombosis due to contraindication to anticoagulation Post-Op Diagnosis: deep vein thrombosis due to contraindication to anticoagulation I identified the patient and participated in the time-out.: Yes Procedure Operation Date: 01/08/21 12:20 Actual Procedures p Insertion of vena cava filter, right femoral approach, ultrasound localization of right internal femoral veing, fluroscopy for positioning(Right) - Reese Rapp MD Surgeon Reese Rapp MD Table Operator None Estimated Blood Loss 0 Findings Consistent with Post-Op Diagnosis Specimens None Anesthesia Type MAC Disposition Accompanied Patient To Recovery: No Disposition: Recovery Room Indications This patient is a 85-year-old gentleman who has a acute deep venous thrombosis of the left lower extremity. He had a large significant retroperitoneal bleed. He has a contraindication for anticoagulation at this point in time. Filter was recommended. I have discussed the risks options and benefits of the procedure with the patient's daughter. The patient's daughter understands the risks options and benefits and agrees to the procedure. Description of Procedure The patient was brought to the angio suite and placed in the supine position. The patient was identified and a timeout performed. The right groin was prepped and draped in the usual fashion. The right common femoral vein was located with ultrasound. It was patent, compressed easily, and had no filling defects. The vein was then punctured under ultrasound visualization. A guidewire was then passed centrally into the inferior vena cava under fluoroscopic guidance. The puncture site was then dilated and the filter sheath inserted. It was passed to the infra renal vena cava. A venacavagram was done which showed no cava clot and an acceptable size. The renal veins were identified. The filter was then passed through the sheath and deployed in the infra renal vena cava in an upright position. Satisfied with the positioning of the filter, the sheath was removed. Pressure was applied to the puncture site. Adequate hemostasis was obtained and a sterile dressing was applied. The patient left the operation room in satisfactory condition and tolerated the procedure well. All needle and sponge counts were correct at the end of the procedure. I attest to the content of the Intraoperative Record and any orders documented therein. Any exceptions are noted below.
[2021-01-08] MEDS ORDERED: VISIPAQUE IV PRN (11:38)
[2021-01-08] MEDS ORDERED: LIDOCAINE 1% LOCAL 20 ML VIAL INJ ONE (11:38)
[2021-01-08] MEDS ORDERED: PHYTONADIONE 5 MG TAB PO STA (12:29)
--- NOTE | 2021-01-08 12:32 | Anesthesiology Progress Note ---
Date of Service January 08, 2021 Anesthesia Post Procedure Vital Signs Vital Signs: Temp Pulse Pulse Resp BP BP Pulse Ox 01/08/21 12:05 76 20 150/95 H 100 01/08/21 11:53 36.5 C 84 22 153/89 H 100 01/08/21 10:47 36.1 C L 79 18 172/100 H 91 01/08/21 08:14 36.3 C L 73 16 154/80 H 95 01/08/21 07:22 77 01/08/21 03:04 36.4 C L 85 18 158/97 H 94 01/07/21 22:37 36.8 C 109 H 22 141/69 H 94 01/07/21 19:03 36.8 C 109 H 20 141/69 H 94 01/07/21 16:28 115 H 01/07/21 14:42 36.7 C 70 19 114/73 92 Transfer of Care Handoff Completed per policy Notes Mental Status: alert / awake / arousable and participated in evaluation Patient Amnestic to Procedure: Yes Nausea / Vomiting: adequately controlled Pain: adequately controlled Airway Patency, RR, SpO2: stable & adequate BP & HR: stable & adequate Hydration State: stable & adequate Anesthetic Complications: no major complications apparent and Pt Satisfied with anesthetic care
[2021-01-08] MEDS ORDERED: TPN IV SCH (16:00)
[2021-01-08] MEDS ORDERED: PERIPHERAL PN IV SCH (16:00)
[2021-01-08] MEDS: MELATONIN 3 MG TAB PO SCH (19:56)
--- NOTE | 2021-01-08 21:52 | Hospitalist Progress Note ---
Date of Service January 08, 2021 Assessment & Plan (1) Hypoxia: Plan: Ddx includes pneumonia vs. ILD vs. pulmonary edema. - Presently 95% on 5 L/min. - Finished abx as above, but restarted on 12/29 for 1 day when he had worsening O2 requirement and worsening tachycardia. - Hold all abx at this time. - BNP on 12/28 >35k with LE edema. Lasix 20 mg IV x 1 on 12/29 & 12/30 with KCl repletion. Another dose on 01/02. Monitor O2 needs. - Pulm consulted for consideration of ILD exacerbation vs. PJP pneumonia. -> Appreciate consult; increased steroids on 12/30 for possible ILD exacerbation. - Improving daily; had a slight worsening on 01/02 with increased work of b reathing. Additional Lasix 20 mg IV given with improvement. -> Asked Dr. Duval re: steroid taper. Will addend note when he responds. For now, continue prednisone 40 mg PO daily. Now on 5 Liters oxymask. Had extensive discussion with daughter on 01/06 Patient's main issue currently is his inability to protect his airway, his dysphaia and poor eval findings from his swallow eval last week, show that patient is at risk for aspiration pneumonia. Antibiotics resumed to treat aspiration pneumonia as patient has elevated procal and radiographic evidence of consolidation. Blood work has shown improvement. Patient will continue to be on oral phayngeal suction. Daughter is interested in PPN for 3-4 days. Unsure if she will choose peg tube placement. Given inability to protect his airway, it seems unlikely in his current state that he can improve his mechanics and participate in extensive speech therapy. Plan is that hopefully patient will improve as he receives PPN resumed atropine due to secretions. Concrete Paver has been consulted and has been working with the patient. Patient however has low weight, and appears fragile. This is likely multifactorial from deconditionling from: long hospital stay, chemo treatment, advanced age, and pneumonia. will continue to monitor patient day to day. At this point, PEG tube placement should be based on patient's wishes. will reassess on Monday. . (2) Hypotension: Plan: Initially thought it was septic shock, but negative to date blood cultures and urine culture. Abx stopped after 48 hours. BioFire/Covid all negative. - Stopped azithromycin on 12/28. On Zosyn for 24 hours, but stopped on 12/30. - Ended up feeling it was Oglesby's crisis. - Steroids as above -Blood pressure appears controlled. (3) DVT (deep venous thrombosis): Plan: "Extensive occlusive DVT within the left lower extremity" found on 12/29. - Discussed with oncology -> IVC filter placed due to retroperitoneal hematoma. vit k placed. (4) Pneumonia: Plan: CTA chest on 12/24 showed ground glass changes and coarse interstitium. Added atypical coverage from 12/25 to 12/27, and with immunosuppression consider antifungal if not improving. - Sputum culture negative from 12/25. - Procalcitonin on 12/28 was 1.2; down to 0.5 on 12/30. Down to 0.26 on 01/02. - resumed antibiotic (5) Aspiration into respiratory tract: Plan: FEES with SENIOR TECHNICAL TRAINER on 12/29/2020 - Aspiration mucus and thin liquids. - See above (6) Anemia: Plan: Anemia from chemotherapy. No signs/symptoms of obvious blood loss. Improved appropriately after 2 units PRBCs on 12/26. - Continue Protonix - Dropped today 01/05, and will transfuse 2 PRBC aswould like to increase hemoglobin above 8.. Now level is 10. (7) History of abdominal aortic aneurysm (AAA): Plan: Aortoiliac graft stent. Appeared stable on CT angiography 8.2x6.3 similar to before, suggests endoleak with contrast in the posterior aspect of the aneurysm sac. 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 - Oncology concerned for poor nutrition recommended albumin infusions (9) Pulmonary fibrosis, unspecified: Plan: Previously has seen Dr. Carols in 09/2020. 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 No active management as he was working on cancer diagnosis. - As above (10) Rectal cancer: Plan: History of rectal cancer, completed chemoradiation. - No inpatient needs (11) Lymphoma: Plan: Recently completed his sixth and final cycle of R-CHOP chemotherapy for diffuse large B-cell lymphoma. Last dose was 12/15/20, did receive GCSF post-treatment. (12) Elevated troponin I level: Plan: EKG was non-acute, still consider demand ischemia. Most recent echocardiogram at last admission showed ejection fraction of 60%. Troponin peaked at 1.4 on 12/25, then down. - No inpatient needs (13) Retroperitoneal hemorrhage: Plan: will hold anticoagulation. may require IVC filter. will hold for now. Admission and Anticipated Discharge Date Admission Date: December 24, 2020 Subjective Patient lethargic this AM. Review of Systems Review of Systems: Unobtainable due to cognitive status Physical Exam Physical Exam: Constitutional: WD/WN, vitals as above Eyes: EOM intact bilaterally; no conjunctival abnormality ENMT: external ear and nose normal, oropharynx normal: except for dry mucosa Neck: trachea midline, no thyromegaly normal visual inspection Respiratory: normal respiratory effort, B/L rhonchi no respiratory distress Cardiovascular: Rate/Rhythm: regular rhythm and + tachycardic Extremities: + edema Gastrointestinal (Abdomen): Inspection/Auscultation: abdomen normal to inspection; abdomen not distended Musculoskeletal: no cyanosis or clubbing, extremities motor strength 5/5 Skin: no rashes, warm and dry Neurologic: moves all extremities and awake Psychiatric: Orientation: lethargic Results & Data Results & Data ([facility]) Vital Signs (Past 12 Hours) Vital Signs Temp Pulse Pulse Pulse Resp BP BP 01/08/21 19:08 36.3 C L 94 H 16 130/83 01/08/21 16:29 86 01/08/21 15:54 36.5 C 91 H 18 147/83 H 01/08/21 13:58 98 H 22 146/88 H 01/08/21 13:20 60 20 142/68 H 01/08/21 12:50 71 20 148/96 H 01/08/21 12:35 82 22 142/80 H 01/08/21 12:20 85 22 148/96 H 01/08/21 12:05 76 20 150/95 H 01/08/21 11:53 36.5 C 84 22 153/89 H 01/08/21 10:47 36.1 C L 79 18 172/100 H Pulse Ox 01/08/21 19:08 98 01/08/21 16:29 01/08/21 15:54 98 01/08/21 13:58 92 01/08/21 13:20 96 01/08/21 12:50 95 11/05/21 12:35 97 01/08/21 12:20 97 01/08/21 12:05 100 01/08/21 11:53 100 01/08/21 10:47 91 PG Care Time/CCT Total # of Minutes Spent Total Time Spent with Patient: Total time spent is greater than 50% in coordination of care (as documented) at patient's floor/unit and/or counseling patient: Coding Level of Care Code 78728 Subseq Hosp Care Lvl 3 Diagnoses Hypoxia R09.02 Hypotension I95.9 DVT (deep venous thrombosis) I82.409 Pneumonia J18.9 Aspiration into respiratory tract T17.908A Anemia D64.9 History of abdominal aortic aneurysm (AAA) Z86.79 Pancytopenia due to antineoplastic chemotherapy D61.810; T45.1X5A Pulmonary fibrosis, unspecified J84.10 Rectal cancer C20 Lymphoma C85.90 Elevated troponin I level R77.8 Retroperitoneal hemorrhage R58
[2021-01-09] MEDS: PIPERACILLIN/TAZOBACTAM 3.375 GM in DEXTROSE 5% 100 ML IV SCH ×3 (03:53→20:02)
[2021-01-09 06:39] LABS: Hematocrit (blood only) 31.4 % (42-52); Hemoglobin 9.6 g/dL (14.0-18.0); Mean Corpuscular Hemoglobin 29.4 pg (25-34); Mean Corpuscular Hgb Conc 30.6 g/dL (32-36); RDW Coefficient of Variation 19.3 % (11.5-14.5); RDW Standard Deviation 64.7 fL (36.4-46.3); Red Blood Count 3.27 M/uL (4.7-6.1); White Blood Count 13.78 K/uL (4.8-10.8)
[2021-01-09 06:43] LABS: Mean Platelet Volume 11.4 fL (7.4-10.4); Platelet Count 67 K/uL (130-400)
[2021-01-09 07:26] LABS: Albumin Globulin Ratio 0.7 (0.9-2); Albumin Level 1.8 gm/dl (3.4-5.0); BUN Creatinine Ratio 54.1 (10-20); Calcium 8.2 mg/dl (8.5-10.1); Creatinine Clr Calc Pharmacy 78.4 ml/min; Est GFR (African American) 106.3 ml/min; Est GFR (Non-African American) 91.7 ml/min; Globulin 2.5 gm/dl (2.5-4.0); Magnesium 1.7 mg/dl (1.8-2.4); Potassium 3.7 mmol/L (3.5-5.1); Total Protein 4.3 gm/dl (6.4-8.2)
[2021-01-09] MEDS: PANTOprazole 40 MG TAB PO SCH ×2 (08:39→20:07)
[2021-01-09] MEDS: NICOTINE 14 MG/24 HR PATCH TD SCH (08:39)
[2021-01-09] MEDS: predniSONE 10 MG TABLET PO SCH (08:39)
[2021-01-09] MEDS: THIAMINE HCL 100 MG TAB PO SCH (08:39)
[2021-01-09] MEDS: INSULIN ASPART 100 UNITS/ML 3 ML PEN SC SCH ×4 (08:40→21:10)
[2021-01-09] MEDS: MAGNESIUM SULFATE / D5W 1 GM/100 ML BAG IV SCH ×4 (09:21→19:33)
[2021-01-09 10:02] LABS: INR 1.6 (0.9-1.1); Partial Thromboplastin Ratio 1.5; Partial Thromboplastin Time 39.1 Seconds (21.0-31.0); Prothrombin Time 15.8 Seconds (9.0-12.0)
--- NOTE | 2021-01-09 12:13 | Progress Notes ---
HEMATOLOGY/ONCOLOGY PROGRESS NOTE DATE OF SERVICE: 01/09/2021. DIAGNOSES: 1. Hypoxia/interstitial pneumonia. 2. Hypotension. 3. Left lower extremity deep vein thromboses. 4. Cytopenias attributable to chemotherapeutic effect. 5. Retroperitoneal hemorrhage. 6. Diffuse large B-cell lymphoma by history. 7. Adenocarcinoma of the rectum by history, status post chemoradiation. 8. Protein malnutrition. SUBJECTIVE: Josiah was seen and examined at bedside. A [place] filter was placed yesterday without incident. I was impressed with his presentation again this morning. He is awake, alert, conversant, cognitive and answered all questions appropriately. He is trying his very best to improve his p.o. intake. He continues TPN. I asked the hospitalist to administer vitamin K yesterday and repeat coags are pending at the time of dictation. No complaints of pain or discomfort. He remains on high-flow oxygen. Nursing reports no overnight difficulties otherwise. OBJECTIVE: GENERAL: Very pleasant 85-year-old gentleman, awake, alert, and appropriate, no acute distress. VITAL SIGNS: Temperature 36.6, pulse 89, respiratory rate 16, blood pressure 148/83. SKIN: Without rash or lesion. HEENT: Oral mucosa without erythema or ulceration. No evidence of thrush. HEART: Regular rate and rhythm. LUNGS: Diffuse rhonchi scattered in all young. ABDOMEN: Soft, nontender, nondistended. EXTREMITIES: 1+ peripheral edema bilaterally. NEUROLOGIC: Grossly intact. LABORATORY DATA: WBC count 13,780, hemoglobin 9.6, platelet count 67,000. Sodium 144, potassium 3.7, chloride 105, carbon dioxide 39, BUN 32, creatinine 0.6. Magnesium decreased to 1.7, albumin 1.8. IMPRESSION: 1. Hypoxia. 2. Protein malnutrition. 3. Residual coagulopathy. 4. Cytopenias attributable to chemotherapeutic effect. 5. Retroperitoneal hemorrhage. 6. Status post [place] filter placement. 7. Electrolyte dysfunction. 8. Metabolic alkalosis. PLAN: First and foremost, I would like the albumin repeated. Clearly his albumin has been improving and today we have a result th below 2. Additionally, I would like his coags repeated today if not already done so, post vitamin K to reassess. Hemoglobin seems to be holding steady at 9.4 g/dL. I was very impressed with Mr. Estrada's mental status today and hopefully the trend continues in a positive way. Replace electrolytes as appropriate. He will continue TPN for now, but certainly would consider PEG tube placement if there is still a question of oropharyngeal compromise. Continue weaning steroids as I believe his mentation is finally improving and hopefully we can string together a couple of consecutive days of good cognitive function. I do not plan to round tomorrow, but certainly will be back in the office on Monday. I have nothing further to add today. Thank you for again assisting me in the care of this very pleasant gentleman. Job ID: [id number] LISA
[2021-01-09] MEDS ORDERED: Custom Peripheral Pn 1,800 ML in TPN BAG 0 ML IV SCH (16:00)
[2021-01-09] MEDS: MELATONIN 3 MG TAB PO SCH (20:07)
--- NOTE | 2021-01-09 21:56 | Hospitalist Progress Note ---
Date of Service January 09, 2021 Assessment & Plan (1) Hypoxia: Plan: Ddx includes pneumonia vs. ILD vs. pulmonary edema. - Presently 95% on 5 L/min. - Finished abx as above, but restarted on 12/29 for 1 day when he had worsening O2 requirement and worsening tachycardia. - Hold all abx at this time. - BNP on 12/28 >35k with LE edema. Lasix 20 mg IV x 1 on 12/29 & 12/30 with KCl repletion. Another dose on 01/02. Monitor O2 needs. - Pulm consulted for consideration of ILD exacerbation vs. PJP pneumonia. -> Appreciate consult; increased steroids on 12/30 for possible ILD exacerbation. - Improving daily; had a slight worsening on 01/02 with increased work of b reathing. Additional Lasix 20 mg IV given with improvement. -> Asked Dr. Duval re: steroid taper. Will addend note when he responds. For now, continue prednisone 40 mg PO daily. Patient is more awake, Had extensive discussion with daughter. Patient is interested in eating more solid foods, explained that risk of aspiration, this could be done for comfort. But this will carry risk. Now on 5 Liters oxymask. Had extensive discussion with daughter on 01/06 Patient's main issue currently is his inability to protect his airway, his dysphaia and poor eval findings from his swallow eval last week, show that patient is at risk for aspiration pneumonia. Antibiotics resumed to treat aspiration pneumonia as patient has elevated procal and radiographic evidence of consolidation. Blood work has shown improvement. Patient will continue to be on oral phayngeal suction. Daughter is interested in PPN for 3-4 days. Unsure if she will choose peg tube placement, but given his improvement, this appears unlikely. Given inability to protect his airway, it seems unlikely in his current state that he can improve his mechanics and participate in extensive speech therapy. Plan is that hopefully patient will improve as he receives PPN resumed atropine due to secretions. Remote Broadcast Technician has been consulted and has been working with the patient. Patient however has low weight, and appears fragile. This is likely multifactorial from deconditionling from: long hospital stay, chemo treatment, advanced age, and pneumonia. will continue to monitor patient day to day. Daughter prefers if Dr. Richardson discusses goals of care with patient. . (2) Hypotension: Plan: Initially thought it was septic shock, but negative to date blood cultures and urine culture. Abx stopped after 48 hours. BioFire/Covid all negative. - Stopped azithromycin on 12/28. On Zosyn for 24 hours, but stopped on 12/30. - Ended up feeling it was Bill's crisis. - Steroids as above -Blood pressure appears controlled. (3) DVT (deep venous thrombosis): Plan: "Extensive occlusive DVT within the left lower extremity" found on 12/29. - Discussed with oncology -> IVC filter placed due to retroperitoneal hematoma. vit k placed. (4) Pneumonia: Plan: CTA chest on 12/24 showed ground glass changes and coarse interstitium. Added atypical coverage from 12/25 to 12/27, and with immunosuppression consider antifungal if not improving. - Sputum culture negative from 12/25. - Procalcitonin on 12/28 was 1.2; down to 0.5 on 12/30. Down to 0.26 on 01/02. - resumed antibiotic (5) Aspiration into respiratory tract: Plan: FEES with SNOW SHOVELER on 12/29/2020 - Aspiration mucus and thin liquids. - See above (6) Anemia: Plan: Anemia from chemotherapy. No signs/symptoms of obvious blood loss. Improved appropriately after 2 units PRBCs on 12/26. - Continue Protonix - Dropped today 01/05, and will transfuse 2 PRBC aswould like to increase hemoglobin above 8.. Now level is 10. (7) History of abdominal aortic aneurysm (AAA): Plan: Aortoiliac graft stent. Appeared stable on CT angiography 8.2x6.3 similar to before, suggests endoleak with contrast in the posterior aspect of the aneurysm sac. 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 - Oncology concerned for poor nutrition recommended albumin infusions (9) Pulmonary fibrosis, unspecified: Plan: Previously has seen Dr. Carlos in 09/2020. 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 No active management as he was working on cancer diagnosis. - As above (10) Rectal cancer: Plan: History of rectal cancer, completed chemoradiation. - No inpatient needs (11) Lymphoma: Plan: Recently completed his sixth and final cycle of R-CHOP chemotherapy for diffuse large B-cell lymphoma. Last dose was 12/15/20, did receive GCSF post-treatment. (12) Elevated troponin I level: Plan: EKG was non-acute, still consider demand ischemia. Most recent echocardiogram at last admission showed ejection fraction of 60%. Troponin peaked at 1.4 on 12/25, then down. - No inpatient needs (13) Retroperitoneal hemorrhage: Plan: will hold anticoagulation. IVC filter placed. Admission and Anticipated Discharge Date Admission Date: December 24, 2020 Subjective Patient reports feeling better. He states he is bored with his food and would like more consistency to his meals. Review of Systems Review of Systems: All systems reviewed & are unremarkable except as noted in HPI & below Physical Exam Physical Exam: Constitutional: WD/WN, vitals as above Eyes: EOM intact bilaterally; no conjunctival abnormality ENMT: external ear and nose normal, oropharynx normal: except for dry mucosa Neck: trachea midline, no thyromegaly normal visual inspection Respiratory: normal respiratory effort, B/L rhonchi no respiratory distress Cardiovascular: Rate/Rhythm: regular rhythm and + tachycardic Extremities: + edema Gastrointestinal (Abdomen): Inspection/Auscultation: abdomen normal to inspection; abdomen not distended Musculoskeletal: no cyanosis or clubbing, extremities motor strength 5/5 Skin: no rashes, warm and dry Neurologic: moves all extremities and awake Psychiatric: Orientation: lethargic Results & Data Results & Data ([facility]) Vital Signs (Past 12 Hours) Vital Signs Temp Pulse Pulse Resp BP Pulse Ox 01/09/21 19:13 36.5 C 103 H 16 130/85 99 01/09/21 18:09 98 H 01/09/21 15:58 36.6 C 98 H 19 134/86 98 01/09/21 11:44 36.5 C 97 H 20 152/93 H 99 PG Care Time/CCT Total # of Minutes Spent Total Time Spent with Patient: Total time spent is greater than 50% in coordination of care (as documented) at patient's floor/unit and/or counseling patient: Coding Level of Care Code 36013 Subseq Hosp Care Lvl 2 Diagnoses Hypoxia R09.02 Hypotension I95.9 DVT (deep venous thrombosis) I82.409 Pneumonia J18.9 Aspiration into respiratory tract T17.908A Anemia D64.9 History of abdominal aortic aneurysm (AAA) Z86.79 Pancytopenia due to antineoplastic chemotherapy D61.810; T45.1X5A Pulmonary fibrosis, unspecified J84.10 Rectal cancer C20 Lymphoma C85.90 Elevated troponin I level R77.8 Retroperitoneal hemorrhage R58 Time Spent (min) 25
[2021-01-10] MEDS: PIPERACILLIN/TAZOBACTAM 3.375 GM in DEXTROSE 5% 100 ML IV SCH ×3 (03:55→20:56)
[2021-01-10 07:26] LABS: BUN Creatinine Ratio 53.4 (10-20); Calcium 8.5 mg/dl (8.5-10.1); Creatinine Clr Calc Pharmacy 73.6 ml/min; Est GFR (African American) 102.2 ml/min; Est GFR (Non-African American) 88.2 ml/min; Magnesium 2.4 mg/dl (1.8-2.4); Phosphorus 2.9 mg/dl (2.5-4.9)
[2021-01-10] MEDS: PANTOprazole 40 MG TAB PO SCH ×2 (08:02→20:56)
[2021-01-10] MEDS: NICOTINE 14 MG/24 HR PATCH TD SCH (08:02)
[2021-01-10] MEDS: predniSONE 10 MG TABLET PO SCH (08:03)
[2021-01-10] MEDS: THIAMINE HCL 100 MG TAB PO SCH (08:03)
[2021-01-10] MEDS: INSULIN ASPART 100 UNITS/ML 3 ML PEN SC SCH ×4 (08:03→20:58)
[2021-01-10 08:19] LABS: Potassium 4.3 mmol/L (3.5-5.1)
[2021-01-10] MEDS ORDERED: Custom Peripheral Pn 1,800 ML in TPN BAG 0 ML IV SCH (16:00)
[2021-01-10] MEDS: MELATONIN 3 MG TAB PO SCH (20:58)
--- NOTE | 2021-01-10 21:25 | Hospitalist Progress Note ---
Date of Service January 10, 2021 Assessment & Plan (1) Hypoxia: Plan: Ddx includes pneumonia vs. ILD vs. pulmonary edema. - Presently 95% on 5 L/min. - Finished abx as above, but restarted on 12/29 for 1 day when he had worsening O2 requirement and worsening tachycardia. - Hold all abx at this time. - BNP on 12/28 >35k with LE edema. Lasix 20 mg IV x 1 on 12/29 & 12/30 with KCl repletion. Another dose on 01/02. Monitor O2 needs. - Pulm consulted for consideration of ILD exacerbation vs. PJP pneumonia. -> Appreciate consult; increased steroids on 12/30 for possible ILD exacerbation. - Improving daily; had a slight worsening on 01/02 with increased work of b reathing. Additional Lasix 20 mg IV given with improvement. -> Asked Dr. Duval re: steroid taper. Will addend note when he responds. For now, continue prednisone 20 mg PO daily. Patient has shown some improvement over the course of these past 7 days. Patient's main issue currently is his inability to protect his airway, his dysphaia and poor eval findings from his swallow eval last week, show that patient is at risk for aspiration pneumonia. Antibiotics resumed to treat aspiration pneumonia as patient has elevated procal and radiographic evidence of consolidation. Patient has been getting PPN for past 3 days as well. Had extensive discussion with daughter on 01/09. Patient is interested in eating more solid foods, explained that risk of aspiration, this could be done for comfort. But this will carry risk. Now on 5 Liters oxymask. Blood work has shown improvement. Patient will continue to be on oral phayngeal suction. Daughter is interested in PPN for 3-4 days, will need to discuss goals of care with patient. Daughter prefers Dr. Richardson has this discussion as they have rapport with each other. Given improvement with mentation, perhaps patient can participate in extensive speech therapy. Plan is that hopefully patient will improve as he receives PPN resumed atropine due to secretions. [employer] has been consulted and has been working with the patient. Patient however has low weight, and appears fragile. This is likely multifactorial from deconditioniing from: long hospital stay, chemo treatment, advanced age, and pneumonia. will continue to monitor patient day to day. Daughter prefers if Dr. Richardson discusses goals of care with patient. . (2) Hypotension: Plan: Initially thought it was septic shock, but negative to date blood cultures and urine culture. Abx stopped after 48 hours. BioFire/Covid all negative. - Stopped azithromycin on 12/28. On Zosyn for 24 hours, but stopped on 12/30. - Ended up feeling it was Bill's crisis. - Steroids: PREDNISONE 20 MG, WILL CONTINUE TO SLOWLY TAPER Q 3days -Blood pressure appears controlled. (3) DVT (deep venous thrombosis): Plan: "Extensive occlusive DVT within the left lower extremity" found on 12/29. - Discussed with oncology -> IVC filter placed due to retroperitoneal hematoma. vit k placed. INR normalized. (4) Pneumonia: Plan: CTA chest on 12/24 showed ground glass changes and coarse interstitium. Added atypical coverage from 12/25 to 12/27, and with immunosuppression consider antifungal if not improving. - Sputum culture negative from 12/25. - Procalcitonin on 12/28 was 1.2; down to 0.5 on 12/30. Down to 0.26 on 01/02. - resumed antibiotic (5) Aspiration into respiratory tract: Plan: FEES with [employer] on 12/29/2020 - Aspiration mucus and thin liquids. - See above (6) Anemia: Plan: Anemia from chemotherapy. No signs/symptoms of obvious blood loss. Improved appropriately after 2 units PRBCs on 12/26. - Continue Protonix -On 01/05, hemoglobin dropped, and required transfusion of 2 PRBC aswould like to increase hemoglobin above 8.. Now level is 9.6. Hemoglobin appears stable. (7) History of abdominal aortic aneurysm (AAA): Plan: Aortoiliac graft stent. Appeared stable on CT angiography 8.2x6.3 similar to before, suggests endoleak with contrast in the posterior aspect of the aneurysm sac. 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 - Oncology concerned for poor nutrition recommended albumin infusions (9) Pulmonary fibrosis, unspecified: Plan: Previously has seen Dr. Carlos in 09/2020. 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 No active management as he was working on cancer diagnosis. - As above (10) Rectal cancer: Plan: History of rectal cancer, completed chemoradiation. - No inpatient needs (11) Lymphoma: Plan: Recently completed his sixth and final cycle of R-CHOP chemotherapy for diffuse large B-cell lymphoma. Last dose was 12/15/20, did receive GCSF post-treatment. (12) Elevated troponin I level: Plan: EKG was non-acute, still consider demand ischemia. Most recent echocardiogram at last admission showed ejection fraction of 60%. Troponin peaked at 1.4 on 12/25, then down. - No inpatient needs (13) Retroperitoneal hemorrhage: Plan: will hold anticoagulation. IVC filter placed. Admission and Anticipated Discharge Date Admission Date: December 24, 2020 Subjective Patient has been eating more of his meals today. He is interested in comfort meals and understands risk of aspiration. He states he does not know if he wants to continue to fight and reports he will talk to his daughter. Review of Systems Review of Systems: All systems reviewed & are unremarkable except as noted in HPI & below Physical Exam Physical Exam: Constitutional: WD/WN, vitals as above Eyes: EOM intact bilaterally; no conjunctival abnormality ENMT: external ear and nose normal, oropharynx normal: except for dry mucosa Neck: trachea midline, no thyromegaly normal visual inspection Respiratory: normal respiratory effort, B/L rhonchi no respiratory distress Cardiovascular: Rate/Rhythm: regular rhythm and + tachycardic Extremities: + edema Gastrointestinal (Abdomen): Inspection/Auscultation: abdomen normal to inspection; abdomen not distended Musculoskeletal: no cyanosis or clubbing, extremities motor strength 5/5 Skin: no rashes, warm and dry Neurologic: moves all extremities and awake Psychiatric: Orientation: awake, oriented to person, place, time Results & Data Results & Data ([facility]) Vital Signs (Past 12 Hours) Vital Signs Temp Pulse Pulse Resp BP Pulse Ox 01/10/21 19:20 36.6 C 108 H 17 146/96 H 98 01/10/21 16:47 70 01/10/21 15:47 37.0 C 103 H 18 122/80 96 01/10/21 12:18 36.7 C 122 H 24 126/84 89 L 01/10/21 09:26 91 H PG Care Time/CCT Total # of Minutes Spent Total Time Spent with Patient: Total time spent is greater than 50% in coordination of care (as documented) at patient's floor/unit and/or counseling patient: Coding Level of Care Code 60444 Subseq Hosp Care Lvl 3 Diagnoses Hypoxia R09.02 Hypotension I95.9 DVT (deep venous thrombosis) I82.409 Pneumonia J18.9 Aspiration into respiratory tract T17.908A Anemia D64.9 History of abdominal aortic aneurysm (AAA) Z86.79 Pancytopenia due to antineoplastic chemotherapy D61.810; T45.1X5A Pulmonary fibrosis, unspecified J84.10 Rectal cancer C20 Lymphoma C85.90 Elevated troponin I level R77.8 Retroperitoneal hemorrhage R58 Time Spent (min) 35
[2021-01-11] MEDS: PIPERACILLIN/TAZOBACTAM 3.375 GM in DEXTROSE 5% 100 ML IV SCH ×3 (04:59→19:50)
[2021-01-11 06:53] LABS: Hematocrit (blood only) 37.5 % (42-52); Hemoglobin 11.7 g/dL (14.0-18.0); Mean Corpuscular Hemoglobin 29.2 pg (25-34); Mean Corpuscular Hgb Conc 31.2 g/dL (32-36); Mean Corpuscular Volume 93.5 fL (80-100); RDW Coefficient of Variation 18.5 % (11.5-14.5); RDW Standard Deviation 61.4 fL (36.4-46.3); Red Blood Count 4.01 M/uL (4.7-6.1); White Blood Count 16.02 K/uL (4.8-10.8)
[2021-01-11 07:08] LABS: Mean Platelet Volume 11.4 fL (7.4-10.4); Platelet Count 67 K/uL (130-400)
[2021-01-11 07:12] LABS: INR 1.2 (0.9-1.1); Prothrombin Time 12.1 Seconds (9.0-12.0)
[2021-01-11 07:37] LABS: BUN Creatinine Ratio 62.7 (10-20); Calcium 8.6 mg/dl (8.5-10.1); Creatinine Clr Calc Pharmacy 74.7 ml/min; Est GFR (African American) 102.8 ml/min; Est GFR (Non-African American) 88.7 ml/min; Magnesium 2.2 mg/dl (1.8-2.4); Potassium 3.7 mmol/L (3.5-5.1)
[2021-01-11] MEDS: INSULIN ASPART 100 UNITS/ML 3 ML PEN SC SCH ×4 (08:31→20:49)
[2021-01-11] MEDS: NICOTINE 14 MG/24 HR PATCH TD SCH (08:32)
[2021-01-11] MEDS: THIAMINE HCL 100 MG TAB PO SCH (08:33)
[2021-01-11] MEDS: PANTOprazole 40 MG TAB PO SCH ×2 (08:33→20:50)
[2021-01-11] MEDS: predniSONE 10 MG TABLET PO SCH (08:33)
[2021-01-11] MEDS ORDERED: Custom Peripheral Pn 1,800 ML in TPN BAG 0 ML IV SCH (16:00)
--- NOTE | 2021-01-11 17:51 | Hospitalist Progress Note ---
Date of Service January 11, 2021 Assessment & Plan (1) Hypoxia: Plan: Josiah is a 85-year-old male with a past medical history of recurrent aspiration, dysphagia, pancytopenia 2/2 chemotherapy, colorectal cancer, AAA, and DVT with filter placement who presented to the hospital with pneumonia versus ILD causing hypoxia. His course has been complicated by severe dysphagia and malnutrition, course moving forward is pending goals of care discussion and decision on whether to pursue PEG placement, rehab, and aggressive treatment. Patient is well-known to oncology service, and family would prefer their provider be present goals of care discussions. Ddx includes pneumonia vs. ILD vs. pulmonary edema. - Presently 5 L/min. - Finished abx as above, but restarted on 12/29 for 1 day when he had worsening O2 requirement and worsening tachycardia. - BNP on 12/28 >35k with LE edema. Lasix 20 mg IV x 1 on 12/29 & 12/30 with KCl repletion. Another dose on 01/02. Monitor O2 needs. - Pulm consulted for consideration of ILD exacerbation vs. PJP pneumonia. -> Appreciate consult; increased steroids on 12/30 for possible ILD exacerbation. - Improving daily; had a slight worsening on 01/02 with increased work of breathing. Additional Lasix 20 mg IV given with improvement. For now, continue prednisone 20 mg PO daily. -Patient has shown some improvement over the course of these past 7 days. -Patient's main issue currently is his inability to protect his airway, his dysphaia and poor eval findings from his swallow eval last week, show that patient is at risk for aspiration pneumonia. -01/11 patient appears the best he has over the course of his hospitalization per daughter, she would like a speech reevaluation for swallow mechanics as she feels this was done when the patient was in a period of severe acute illness and that this will help inform decision regarding a PEG tube moving forward. Discussed -that patient also was having difficulty with nutrition independent of his dysphagia reporting early satiety and feeling that he had to force himself to keep up with nutrition that likely would not change regardless of his swallow function, but she was to like to have this to inform the decision.- -Antibiotics resumed to treat aspiration pneumonia as patient has elevated procal and radiographic evidence of consolidation. -Patient is interested in eating more solid foods, explained that risk of aspiration, this could be done for comfort. - Now on 5 Liters oxymask. - Blood work has shown improvement. - Patient will continue to be on oral phayngeal suction. - Family would like to revisit course and goals of care with Dr. Richardson present tomorrow - Overall likely multifactorial from deconditioniing from: long hospital stay, chemo treatment, advanced age, and pneumonia. will continue to monitor patient day to day. -No large changes today, patient slowly improving but anticipate broad goals of care discussion and decision on PEG tube tomorrow (2) Hypotension: Plan: Initially thought it was septic shock, but negative to date blood cultures and urine culture. Abx stopped after 48 hours. BioFire/Covid all negative. - Stopped azithromycin on 12/28. On Zosyn for 24 hours, but stopped on 12/30. - Ended up feeling it was Hollenberg's crisis. - Steroids: PREDNISONE 20 MG, WILL CONTINUE TO SLOWLY TAPER Q 3days -Blood pressure appears controlled. (3) DVT (deep venous thrombosis): Plan: "Extensive occlusive DVT within the left lower extremity" found on 12/29. - Discussed with oncology -> IVC filter placed due to retroperitoneal hematoma. vit k placed. INR normalized. (4) Pneumonia: Plan: CTA chest on 12/24 showed ground glass changes and coarse interstitium. Added atypical coverage from 12/25 to 12/27, and with immunosuppression consider antifungal if not improving. - Sputum culture negative from 12/25. - Procalcitonin on 12/28 was 1.2; down to 0.5 on 12/30. Down to 0.26 on 01/02. - resumed antibiotic (5) Aspiration into respiratory tract: Plan: FEES with [employer] on 12/29/2020 - Aspiration mucus and thin liquids. - See above (6) Anemia: Plan: Anemia from chemotherapy. No signs/symptoms of obvious blood loss. Improved appropriately after 2 units PRBCs on 12/26. - Continue Protonix -On 01/05, hemoglobin dropped, and required transfusion of 2 PRBC aswould like to increase hemoglobin above 8.. Hemoglobin appears stable. (7) History of abdominal aortic aneurysm (AAA): Plan: Aortoiliac graft stent. Appeared stable on CT angiography 8.2x6.3 similar to before, suggests endoleak with contrast in the posterior aspect of the aneurysm sac. 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 - Oncology concerned for poor nutrition recommended albumin infusions (9) Pulmonary fibrosis, unspecified: Plan: Previously has seen Dr. Carlos in 09/2020. 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 No active management as he was working on cancer diagnosis. - As above (10) Rectal cancer: Plan: History of rectal cancer, completed chemoradiation. - No inpatient needs (11) Lymphoma: Plan: Recently completed his sixth and final cycle of R-CHOP chemotherapy for diffuse large B-cell lymphoma. Last dose was 12/15/20, did receive GCSF post-treatment. (12) Elevated troponin I level: Plan: EKG was non-acute, still consider demand ischemia. Most recent echocardiogram at last admission showed ejection fraction of 60%. Troponin peaked at 1.4 on 12/25, then down. - No inpatient needs (13) Retroperitoneal hemorrhage: Plan: will hold anticoagulation. IVC filter placed. Admission and Anticipated Discharge Date Admission Date: December 24, 2020 Subjective Seen at the bedside, patient is alert and follows 1 and two-step commands. Alert to name, month, year, and place. In the afternoon he is seen at the bedside with his daughter. Reviewed his case and progression extensively, discussed potential options moving forward. He reports she continues to have hoarse voice, but denies shortness of breath/difficulty breathing/cough/aspiration today. He continues to feel globally weak. He and his daughter state that his goals would be to get stronger, and would like to consider a PEG tube to help do so as he has had trouble with both early satiety and dysphagia prior to admission. Review of Systems Review of Systems: All systems reviewed & are unremarkable except as noted in Subjective Physical Exam Physical Exam: General: A&Ox3. NAD. Cooperative. HEENT: Atraumatic, normocephalic. Pupils equal and reactive to light and accommodation. Vision and hearing grossly intact, somewhat hard of hearing. Pulm: Diminished without overt -wheezes, -rales, -rhonchi but globally poor air movement symmetrical chest rise. No increase work of breathing. No respiratory distress. Cardiac: Regular, tachycardic,, -mrg. Radial pulses intact and symmetrical. Abdominal: Nontender, nondistended, soft. BS present. Extremities: Bilateral lower extremity edema, sensation intact bilaterally, booking officer strength and ankle dorsiflexion/plantarflexion grossly intact and symmetrical. Results & Data Results & Data ([facility]) Vital Signs (Past 12 Hours) Vital Signs Temp Pulse Resp BP BP Pulse Ox 01/11/21 16:35 36.7 C 94 H 18 145/89 H 98 01/11/21 12:06 36.6 C 95 H 18 136/87 100 01/11/21 08:58 36.8 C 101 H 18 152/91 H 100 01/11/21 05:56 36.7 C 106 H 16 132/86 95 PG Care Time/CCT Total # of Minutes Spent Total Time Spent with Patient: Total time spent is greater than 50% in coordination of care (as documented) at patient's floor/unit and/or counseling patient: Coding Level of Care Code 01239 Subseq Hosp Care Lvl 3 Diagnoses Hypoxia R09.02 Hypotension I95.9 DVT (deep venous thrombosis) I82.409 Pneumonia J18.9 Aspiration into respiratory tract T17.908A Anemia D64.9 History of abdominal aortic aneurysm (AAA) Z86.79 Pancytopenia due to antineoplastic chemotherapy D61.810; T45.1X5A Pulmonary fibrosis, unspecified J84.10 Rectal cancer C20 Lymphoma C85.90 Elevated troponin I level R77.8 Retroperitoneal hemorrhage R58
[2021-01-11] MEDS: MELATONIN 3 MG TAB PO SCH (20:50)
[2021-01-12] MEDS: PIPERACILLIN/TAZOBACTAM 3.375 GM in DEXTROSE 5% 100 ML IV SCH ×2 (05:03→12:46)
[2021-01-12] MEDS: INSULIN ASPART 100 UNITS/ML 3 ML PEN SC SCH ×4 (08:12→20:49)
[2021-01-12 08:15] LABS: BUN Creatinine Ratio 62.8 (10-20); Calcium 8.2 mg/dl (8.5-10.1); Creatinine Clr Calc Pharmacy 79.6 ml/min; Est GFR (African American) 105.5 ml/min; Est GFR (Non-African American) 91.1 ml/min; Magnesium 2.2 mg/dl (1.8-2.4); Potassium 4.1 mmol/L (3.5-5.1)
[2021-01-12] MEDS: NICOTINE 14 MG/24 HR PATCH TD SCH (08:15)
[2021-01-12] MEDS: THIAMINE HCL 100 MG TAB PO SCH (08:18)
[2021-01-12] MEDS: predniSONE 10 MG TABLET PO SCH (08:19)
[2021-01-12 08:27] LABS: Phosphorus 3.7 mg/dl (2.5-4.9)
[2021-01-12] MEDS: PANTOprazole 40 MG TAB PO SCH ×2 (09:05→21:43)
--- NOTE | 2021-01-12 11:28 | Progress Notes ---
HEMATOLOGY ONCOLOGY PROGRESS NOTE DATE OF SERVICE: 01/12/2021 DIAGNOSES: 1. Hypoxia. 2. Hypotension. 3. Left lower extremity deep venous thrombosis. 4. Status post [place] filter placement. 5. Dysphagia. 6. Non-Hodgkin's lymphoma, status post 6 cycles of R-CHOP. 7. Adenocarcinoma of the rectum, status post chemoradiation. 8. Asthenia. SUBJECTIVE: Mr. Estrada was seen and examined at bedside today. I have to say honestly, he has look ed as good as he has since being admitted to the hospital. I was encouraged when I saw him on d ay as well. Continues to have difficulties with deconditioning, specifically the question of being a ble to adequately swallow. I spoke to the managing hospitalist today about pursuing a swallowing shyam dy to determine if indeed a PEG tube would be helpful at this juncture. He has been on TPN over the past several days and would like to discontinue if at all possible. From a hematologic standpoint, sonia covington seems to be holding his hemoglobin. He had developed a retroperitoneal hemorrhage from anticoagula tion, which had to be discontinued. I also had them administer vitamin K to correct his coagulopathy . No complaint of pain or discomfort. His voice continues to be diminished but recognized me when I visited with him this morning. I am cautiously optimistic moving forward. OBJECTIVE: GENERAL: A very pleasant 85-year-old gentleman, in no acute distress. VITAL SIGNS: Temperature 36.5, pulse 89, respiratory rate 19, blood pressure 145/87. SKIN: Without rash or lesion. HEENT: No buccal lesions or ulcerations. HEART: Regular rate and rhythm. LUNGS: Diffuse rhonchi heard in all young. ABDOMEN: Soft, nontender, nondistended. EXTREMITIES: Trace peripheral edema bilaterally, marked improvement. NEUROLOGIC: Grossly intact. LABORATORY DATA: Sodium 140, potassium 4.1, chloride 104, BUN 39, creatinine 0.61. IMPRESSION: 1. Hypoxia/interstitial pneumonitis. 2. Retroperitoneal hemorrhage attributable to anticoagulation. 3. Left lower extremity deep venous thrombosis. 4. Dysphagia. 5. Deconditioning/asthenia. 6. Status post 6 cycles of R-CHOP chemotherapy for non-Hodgkin's lymphoma. 7. Status post chemoradiation for adenocarcinoma of the rectum. PLAN: It was my pleasure to visit with Josiah this morning. Again, I believe he is showing signs o f improvement. He was definitely more lucid, answered questions appropriately, recognized me as soon as I walked in the door. There is still a question of his nutritional status and whether we should proceed with a PEG tube. Dr. Avelar will have Josiah undergo swallowing study today. I believe at this point, working to get him [id number] to new environment, perhaps [facility] or [facility] go a long way in having him continue this trend of improvement. I think remaining in hospital is going to be counterproductive and need to make a decision one way or another on which way to go from a nutritional standpoint, which is of paramount importance for Mr. Estrada to regain his strength an d ability to ambulate. He seems to be doing pretty well with a [place] filter so far. His oxygen ation is actually improved a bit as well. I spoke to Dr. Avelar directly about Mr. Estrada and hope fully we can work together with a goal of getting him to the appropriate step-down prior to this week end. We will continue to follow periodically during his hospital stay. Job ID: [id number]
[2021-01-12] MEDS ORDERED: Custom Peripheral Pn 1,900 ML in TPN BAG 0 ML IV SCH (16:00)
[2021-01-12] MEDS ORDERED: CHLORHEXIDINE GLUCONATE 0.12% 480 ML MT PRN (17:44)
--- NOTE | 2021-01-12 18:17 | Hospitalist Progress Note ---
Date of Service January 12, 2021 Assessment & Plan (1) Hypoxia: Plan: Josiah is a 85-year-old male with a past medical history of recurrent aspiration, dysphagia, pancytopenia 2/2 chemotherapy, colorectal cancer, AAA, and DVT with filter placement who presented to the hospital with pneumonia versus ILD causing hypoxia. His course has been complicated by severe dysphagia and malnutrition, course moving forward is pending goals of care discussion and decision on whether to pursue PEG placement, rehab, and aggressive treatment. Patient is well-known to oncology service, and family would prefer their provider be present goals of care discussions. GOALS OF CARE: 01/12: Patient seen at the bedside with his daughter. Discussed clinical progression, and his speech reevaluation. Discussed that he is still an aspiration risk, and will likely always be even with speech therapy. Patient, daughter, and family had discussed PEG tube options and would not like to pursue this at this time. Understand that he is at risk for aspiration, but would like to defer PEG and pursue oral feeding as tolerated with maximization of caloric intake and nutrition with the acceptance of aspiration risk. Will minimize risk with oral hygiene, soft bite-size/minced and moist diet and nectar thick liquids. Will discontinue TPN tomorrow, and pursue outpatient rehab services at this time. Goal would be discharged by Monday, discussed with Dr. Richardson as well. Patient and family understand that he may not meet caloric goals, he may aspirate and clinically worsen, or fail to thrive. Hypoxia Ddx includes pneumonia vs. ILD vs. pulmonary edema. - Presently 5 L/min. - Finished abx as above, but restarted on 12/29 for 1 day when he had worsening O2 requirement and worsening tachycardia. - BNP on 12/28 >35k with LE edema. Lasix 20 mg IV x 1 on 12/29 & 12/30 with KCl repletion. Another dose on 01/02. Monitor O2 needs. - Pulm consulted for consideration of ILD exacerbation vs. PJP pneumonia. -> Appreciate consult; increased steroids on 12/30 for possible ILD exacerbation. Patient treated intermittently with Lasix throughout admission. - Prednisone 10mg daily 01/12-01/14, then d/c -Patient has shown some improvement, but appears frail -Patient's main issue currently is his inability to protect his airway, his dysphaia and poor eval findings from his swallow eval last week, show that patient is at risk for aspiration pneumonia. -01/11 patient appears the best he has over the course of his hospitalization per daughter, she would like a speech reevaluation for swallow mechanics as she feels this was done when the patient was in a period of severe acute illness and that this will help inform decision regarding a PEG tube moving forward. Discussed -that patient also was having difficulty with nutrition independent of his dysphagia reporting early satiety and feeling that he had to force himself to keep up with nutrition that likely would not change regardless of his swallow function, but she was to like to have this to inform the decision.- - Overall likely multifactorial from deconditioniing from: long hospital stay, chemo treatment, advanced age, and pneumonia. will continue to monitor patient day to day. Zosyn narrowed to Augmentin, continue for 7-10 day course (likely through 01/17) (2) Hypotension: Plan: Initially thought it was septic shock, but negative to date blood cultures and urine culture. Abx stopped after 48 hours. BioFire/Covid all negative. - Stopped azithromycin on 12/28. On Zosyn for 24 hours, but stopped on 12/30. - Ended up feeling it was Bill's crisis. - Steroids: Prednisone 10 mg, taper every 3 days (3) DVT (deep venous thrombosis): Plan: "Extensive occlusive DVT within the left lower extremity" found on 12/29. - Discussed with oncology -> IVC filter placed due to retroperitoneal hematoma. vit k placed. INR normalized. (4) Pneumonia: Plan: CTA chest on 12/24 showed ground glass changes and coarse interstitium. Added atypical coverage from 12/25 to 12/27, and with immunosuppression consider antifungal if not improving. - Sputum culture negative from 12/25. - Procalcitonin on 12/28 was 1.2; down to 0.5 on 12/30. Down to 0.26 on 01/02. -Antibiotics narrowed to Augmentin, will complete 7-10-day course (5) Aspiration into respiratory tract: Plan: FEES with ASSOCIATE OF SCIENCE IN NURSING on 12/29/2020 - Aspiration mucus and thin liquids. - See above (6) Anemia: Plan: Anemia from chemotherapy. No signs/symptoms of obvious blood loss. Improved appropriately after 2 units PRBCs on 12/26. - Continue Protonix -On 01/05, hemoglobin dropped, and required transfusion of 2 PRBC aswould like to increase hemoglobin above 8.. Hemoglobin appears stable. (7) History of abdominal aortic aneurysm (AAA): Plan: Aortoiliac graft stent. Appeared stable on CT angiography 8.2x6.3 similar to before, suggests endoleak with contrast in the posterior aspect of the aneurysm sac. 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 - Oncology concerned for poor nutrition recommended albumin infusions (9) Pulmonary fibrosis, unspecified: Plan: Previously has seen Dr. Carlos in 09/2020. 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 No active management as he was working on cancer diagnosis. - As above (10) Rectal cancer: Plan: History of rectal cancer, completed chemoradiation. - No inpatient needs (11) Lymphoma: Plan: Recently completed his sixth and final cycle of R-CHOP chemotherapy for diffuse large B-cell lymphoma. Last dose was 12/15/20, did receive GCSF post-treatment. (12) Elevated troponin I level: Plan: EKG was non-acute, still consider demand ischemia. Most recent echocardiogram at last admission showed ejection fraction of 60%. Troponin peaked at 1.4 on 12/25, then down. - No inpatient needs (13) Retroperitoneal hemorrhage: Plan: will hold anticoagulation. IVC filter placed. Admission and Anticipated Discharge Date Admission Date: December 24, 2020 Subjective Patient seen at the bedside with his daughter. Discussed clinical progression, and his speech reevaluation. Discussed that he is still an aspiration risk, and will likely always be even with speech therapy. Patient, daughter, and family had discussed PEG tube options and would not like to pursue this at this time. Understand that he is at risk for aspiration, but would like to defer PEG and pursue oral feeding as tolerated with maximization of caloric intake and nutrition with the acceptance of aspiration risk. Will minimize risk with oral hygiene, soft bite-size/minced and moist diet and nectar thick liquids. Will discontinue TPN tomorrow, and pursue outpatient rehab services at this time. Goal would be discharged by Monday, discussed with Dr. Richardson as well. Patient and family understand that he may not meet caloric goals, he may aspirate and clinically worsen, or fail to thrive. No additional questions or concerns at time of bedside assessment, patient overall well in no distress and endorses hoarse voice. Review of Systems Review of Systems: All systems reviewed & are unremarkable except as noted in Subjective Results & Data Results & Data ([facility]) Vital Signs (Past 12 Hours) Vital Signs Temp Pulse Pulse Resp BP BP Pulse Ox 01/12/21 16:27 100 H 01/12/21 15:41 36.4 C L 96 H 19 145/85 H 94 01/12/21 12:00 36.5 C 67 22 155/78 H 91 01/12/21 10:02 89 01/12/21 08:05 36.5 C 98 H 19 145/87 H 98 PG Care Time/CCT Total # of Minutes Spent Total Time Spent with Patient: Total time spent is greater than 50% in coordination of care (as documented) at patient's floor/unit and/or counseling patient: Coding Level of Care Code 05740 Subseq Hosp Care Lvl 3 Diagnoses Hypoxia R09.02 Hypotension I95.9 DVT (deep venous thrombosis) I82.409 Pneumonia J18.9 Aspiration into respiratory tract T17.908A Anemia D64.9 History of abdominal aortic aneurysm (AAA) Z86.79 Pancytopenia due to antineoplastic chemotherapy D61.810; T45.1X5A Pulmonary fibrosis, unspecified J84.10 Rectal cancer C20 Lymphoma C85.90 Elevated troponin I level R77.8 Retroperitoneal hemorrhage R58
[2021-01-12] MEDS: AMOXICILLIN/CLAVULANATE 875 MG TAB PO SCH (21:43)
[2021-01-12] MEDS: MELATONIN 3 MG TAB PO SCH (21:43)
[2021-01-13 06:56] VITALS: TEMP 97.5
[2021-01-13 07:15] LABS: BUN Creatinine Ratio 66.8 (10-20); Calcium 8.2 mg/dl (8.5-10.1); Creatinine Clr Calc Pharmacy 86.8 ml/min; Est GFR (African American) 109.3 ml/min; Est GFR (Non-African American) 94.3 ml/min; Magnesium 2.1 mg/dl (1.8-2.4); Phosphorus 3.3 mg/dl (2.5-4.9); Potassium 4.3 mmol/L (3.5-5.1)
[2021-01-13 07:34] VITALS: BP 146/93
[2021-01-13] MEDS: THIAMINE HCL 100 MG TAB PO SCH (08:05)
[2021-01-13] MEDS: predniSONE 10 MG TABLET PO SCH (08:05)
[2021-01-13] MEDS: AMOXICILLIN/CLAVULANATE 875 MG TAB PO SCH (08:05)
[2021-01-13] MEDS: PANTOprazole 40 MG TAB PO SCH (08:05)
[2021-01-13] MEDS: NICOTINE 14 MG/24 HR PATCH TD SCH (08:12)
[2021-01-13 08:38] VITALS: O2SAT 96
[2021-01-13] MEDS ORDERED: LIDOCAINE VISCOUS 2% 15 ML UDC MT PRN (09:41)
[2021-01-13] MEDS: INSULIN ASPART 100 UNITS/ML 3 ML PEN SC SCH (10:06)
[2021-01-13 10:14] VITALS: PULSE 85
--- NOTE | 2021-01-13 10:20 | Discharge Summary ---
Date of Service January 13, 2021 Admission HPI Per Admitting Provider The patient is an 85-year-old male with a past medical history of pancytopenia due to antineoplastic chemotherapy, bacteremia, chronic respiratory failure with hypoxia, pulmonary fibrosis, thrombocytopenia, weakness, hypertension, rectal cancer and lymphoma. He was most recently admitted to [facility] from 12/19- 12/24. His family reports that when he got home he quickly declined, and was brought back into the ED with the above symptoms. In the emergency department he was found to be in sepsis with low blood pressure. He responded partially to IV fluid rehydration, was placed on Levophed, and will be admitted to the ICU. The patient is a DNR/DNI. In addition in the ED he was administered vancomycin IV and cefepime IV Admission Exam Per Admitting Provider Constitutional: well developed and + frail appearing; no acute distress Eyes: PERRL, conjunctivae normal, anicteric sclerae Neck: trachea midline, no thyromegaly Respiratory: normal respiratory effort Auscultation: + crackles (fine throughout, loudest bases); no diminished lung sounds, no rhonchi and no wheezes Cardiovascular: Rate/Rhythm: regular rate and regular rhythm Heart Sounds: normal S1 and normal S2 Vessels: posterior tibial pulses present, dorsalis pedis pulses present and radial pulses present; no JVD Extremities: + edema (2+ b/l equal to knees) Gastrointestinal (Abdomen): normal bowel sounds, soft, nontender, no hepatosplenomegaly Musculoskeletal: Extremities: + clubbing; full ROM of extremities, no cyanosis and no petechiae Skin: no rashes, warm and dry (no areas of cellulitis) Neurologic: moves all extremities and awake; no focal motor deficits and not confused Psychiatric: A+Ox3, euthymic affect Genitourinary: no CVA tenderness Lymphatic: no cervical or axillary lymphadenopathy Principal Diagnosis Acute hypoxic respiratory failure 2/2 aspiration pneumonia, pulmonary fibrosis/interstitial lung disease Deconditioning/failure to thrive with medical frailty multifactorial including history of chemotherapy Discharge Exam General: A&Ox3. NAD. Cooperative. Appears chronically ill/frail, nontoxic HEENT: Atraumatic, normocephalic. Pupils equal and reactive to light. Vision and hearing grossly intact, somewhat hard of hearing. Pulm: Diminished without overt -wheezes, -rales, -rhonchi. No increased work of breathing. No respiratory distress. Cardiac: RRR -mrg. Radial pulses intact and symmetrical. Abdominal: Nontender, nondistended, soft. BS present. Extremities: Bilateral lower extremity edema, sensation intact bilaterally, character actor strength and ankle dorsiflexion/plantarflexion grossly intact and symmetrica Discharge Data Allergies Allergy/AdvReac Type Severity Reaction Status Date / Time No Known Allergies Allergy Verified 12/19/20 15:01 Consultations 12/24/20 22:59 ED Decision to Admit Stat 12/24/20 23:12 ED Decision to Admit Stat 12/25/20 00:11 Consult Fence Supervisor Routine 12/25/20 00:59 Consult Palliative Care Routine 12/25/20 08:02 Consult Oncology Routine 12/30/20 10:31 Consult Pulmonology Routine 01/06/21 08:54 Consult Gastroenterology Routine 01/06/21 11:42 Consult Vascular Surgery Routine Procedures Performed Operation Date: 01/08/21 12:20 Actual Procedures p Insertion of vena cava filter, right femoral approach, ultrasound localization of right femoral vein, fluroscopy for positioning(Right) - Reese Rapp MD Ordered Studies 12/24/20 20:50 US point of care ultrasound Stat 12/24/20 21:08 CT angio abdomen pelvis w con Urgent CT angio chest PE protocol Urgent 12/25/20 16:59 CT head/brain wo/w con Routine 12/29/20 13:30 US venous doppler LE BI Urgent 01/06/21 08:55 CT abd pelvis wo con Routine CT chest diagnostic wo con Routine 01/08/21 07:36 EV IVC filter placement Routine Hospital Course (1) Hypoxia: Josiah is a 85-year-old male with a past medical history of recurrent aspiration, dysphagia, pancytopenia 2/2 chemotherapy, colorectal cancer, AAA, and DVT with filter placement who presented to the hospital with pneumonia versus ILD causing hypoxia. GOALS OF CARE: Patient seen at the bedside with his daughter. Discussed clinical progression, and his speech evaluations. Discussed that he is still an aspiration risk, and will likely always be even with speech therapy. Patient, daughter, and family had discussed PEG tube options and would not like to pursue this at this time. Understand that he is at risk for aspiration, but would like to defer PEG and pursue oral feeding as tolerated with maximization of caloric intake and nutrition with the acceptance of aspiration risk. Will minimize risk with oral hygiene, soft bite-size/minced and moist diet and nectar thick liquids, chlorhex idine mouthwash. Patient and family understand that he may not meet caloric goals, he may aspirate and clinically worsen, or fail to thrive. With his overall presentation family would like to move forward with aggressive discharge to SNF so that patient may attempt to resume a normal diet, engage with rehab services as able, and attempt to move back towards baseline. Understanding that he may do well, may not aspirate but still be limited by caloric needs with progressive weakness, or may have an acute event including aspiration which may require hospitalization and which would likely require revisitation of overall goals of care. Patient and family had seen palliative care during admission, do not wish to follow-up with their services at this time. To do as outpatient: 1. Continued nutrition assessments 2. Complete prednisone taper, 10 mg for an additional 2 days followed by 5 mg for 3 days then DC 3. Outpatient follow-up with PCP and oncologist 4. Rehab to max capacity at [facility] 5. Complete 4 additional days of Augmentin for potential aspiration pneumonia 6. CBC/BMP in 1 week for stability of hemoglobin and electrolytes Acute on chronic hypoxia Multifactorial including pneumonia vs. ILD vs. pulmonary edema. - Presently 2-3 L/min. -On admission patient was treated with empiric antibiotics, finished course of antibiotics, but worsened on 12/29 and was restarted. - BNP on 12/28 >35k with LE edema. Lasix 20 mg IV x 1 on 12/29 & 12/30 with KCl repletion. Another dose on 01/02. Monitor O2 needs. - Pulm consulted for consideration of ILD exacerbation vs. PJP pneumonia. increased steroids on 12/30 for possible ILD exacerbation. Patient treated intermittently with Lasix throughout admission. - Prednisone 10mg daily 01/12-01/14, then d/c -Patient with abnormal swallow mechanics on speech therapy eval x2, discussed PEG treatment. Patient and family would like to defer this, see goals of care as above. - Overall likely multifactorial from deconditioniing from: long hospital stay, chemo treatment, advanced age, and pneumonia. will continue to monitor patient day to day. Zosyn narrowed to Augmentin, continue until 01/17 (2) Hypotension: Initially thought it was septic shock, but negative to date blood cultures and urine culture. Abx stopped after 48 hours. BioFire/Covid all negative. - Stopped azithromycin on 12/28. On Zosyn for 24 hours, but stopped on 12/30. - Ended up feeling it was Bill's crisis. - Steroids: Prednisone 10 mg, taper every 3 days as noted above (3) DVT (deep venous thrombosis): "Extensive occlusive DVT within the left lower extremity" found on 12/29. - Discussed with oncology -> IVC filter placed due to retroperitoneal hematoma. vit k placed. INR normalized. (4) Pneumonia: CTA chest on 12/24 showed ground glass changes and coarse interstitium. Added atypical coverage from 12/25 to 12/27, and with immunosuppression consider antifungal if not improving. - Sputum culture negative from 12/25. - Procalcitonin on 12/28 was 1.2; down to 0.5 on 12/30. Down to 0.26 on 01/02. -Antibiotics narrowed to Augmentin, will complete 7-10-day course (5) Aspiration into respiratory tract: FEES with DATA STORAGE SPECIALIST on 12/29/2020 - Aspiration mucus and thin liquids.. Repeat eval once well 01/12 with similar findings. - See above (6) Anemia: Anemia from chemotherapy. No signs/symptoms of obvious blood loss. Impro rolf appropriately after 2 units PRBCs on 12/26. - Continue Protonix -On 01/05, hemoglobin dropped, and required transfusion of 2 PRBC aswould like to increase hemoglobin above 8.. Hemoglobin appears stable. Check CBC/BMP in 1 week as outpatient (7) History of abdominal aortic aneurysm (AAA): Aortoiliac graft stent. Appeared stable on CT angiography 8.2x6.3 similar to before, suggests endoleak with contrast in the posterior aspect of the aneurysm sac. 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 - Oncology concerned for poor nutrition recommended albumin infusions (9) Pulmonary fibrosis, unspecified: Previously has seen Dr. Carlos in 09/2020. 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 No active management as he was working on cancer diagnosis. - As above (10) Rectal cancer: History of rectal cancer, completed chemoradiation. - No inpatient needs (11) Lymphoma: Recently completed his sixth and final cycle of R-CHOP chemotherapy for diffuse large B-cell lymphoma. Last dose was 12/15/20, did receive GCSF post- treatment. (12) Elevated troponin I level: EKG was non-acute, still consider demand ischemia. Most recent echocardiogram at last admission showed ejection fraction of 60%. Troponin peaked at 1.4 on 12/25, then down. - No inpatient needs (13) Retroperitoneal hemorrhage: will hold anticoagulation. IVC filter placed. Total Time Total Time Spent Total Time Spent (In Minutes): Total time spent on day of discharge including direct patient care, coordination of care, review labs and images, and documentation 25 minutes. Discharge Plan Discharge Items Patient Disposition: Transfer Care Home Fac Reason For Visit: SEPTIC SHOCK NO CONTAST* Discharge Diagnosis: Hypoxic respiratory failure, multifactorial due to pneumonia/interstitial lung disease Failure to thrive Aspiration Activity: As commented below Non-emergency contact: Primary Care Provider and Oncologist Call non-emergency contact if: you have any medication questions, your symptoms worsen, your pain is not controlled, your pain is worsening and your pain is concerning for you Follow-up/Referrals: Kiley Azul CRNP [Primary Care Provider] - Efra Richardson DO [Physician] - Diet: Regular Diet Texture: Dental soft (bite-sized) Liquid Consistency: [place] thick Addtl Attending Provider Instructions: You were seen in the hospital for acute hypoxic respiratory failure due to a combination of pneumonia, aspiration, and underlying interstitial lung disease. You are treated with antibiotics during admission, and have been discharged to complete 4 additional days of antibiotics with Augmentin as noted below. During admission your chronic baseline medical condition with some frailty due to anemia and weakness due to chemotherapy was discussed. You have also had difficulty with appetite and swallowing limiting your oral intake. You clinically improved with treatment of your infection and hypoxia, but speech therapy evaluation both during your acute illness and when you had recovered showed abnormal swallow mechanics placing you at risk of aspiration. The potential for a PEG tube, stomach feeding tube, was discussed with you, your family, your oncologist, and the primary medicine team. On risk/benefits discussion you preferred to defer this at this time and attempt to maximize oral nutrition and rehab goals. You expressed an understanding that your swallow mechanics are not, and are not likely to be, normal placing you at risk of aspiration. To minimize this risk you have been recommended for a soft, moist, bite-size diet with nectar thick liquids. In addition oral hygiene including teeth brushing and chlorhexidine mouth rinses were discussed, this can help decrease the risk of aspiration pneumonia. You have been prescribed an antibiotic, Augmentin. Please complete 4 additional days of Augmentin 875/125 mg twice daily on discharge. You have been prescribed a mouthwash, chlorhexidine gluconate. Please swish with chlorhexidine gluconate 15 mL for 15 to 30 seconds and then spit it out into the sink twice daily in addition to routine toothbrushing. You have been prescribed an antiacid medication to help prevent stomach ulcers/bleeding. Please take Protonix 40 mg twice daily by mouth for 1 month. Please discuss whether to continue/extend this medication with your primary care physician at your next follow-up appointment. You were treated with a steroid taper while in the hospital. Please take 2 additional days of prednisone 10mg by mouth daily, then 3 days of prednisone 5 mg by mouth daily, then stop taking prednisone. You have been prescribed a vitamin, thiamine. Please continue to take thiamine 100 mg by mouth daily. Follow-up appointments are being scheduled for you with your primary care provider and oncologist as noted above. You should be seen by your primary care provider within 1 to 2 weeks and by your oncologist whom you are well known to within 1 month. If you do not hear regarding these appointments, please contact their office at the numbers above. If you develop any new or worsening symptoms including fever, chills, sweats, chest pain, chest pressure, difficulty breathing, uncontrolled nausea/vomiting, rash, wheezing, passing out or nearly passing out, bleeding, black/bloody bowel movements, or other new or concerning symptoms please call your primary care physician, or call 911 for re-evaluation in the emergency department if you are very concerned. Pending Studies at Discharge: No Stand-Alone Forms: My [facility] Skilled Items Patient informed of condition?: Yes DNR: Yes Discharge Level of Care: Skilled Communicable Disease: No Discharge Prognosis: Stable Lines: None Urinary Catheter: No Medications and DC Order Prescriptions: New amoxicillin-pot clavulanate [Augmentin] 875-125 mg Tablet 1 tab PO BIDM 4 Days Qty: 8 RF: 0 chlorhexidine gluconate 0.12 % Mouthwash 15 ml MT BID PRN (Reason: oral care) Qty: 1500 RF: 0 pantoprazole 40 mg Tablet,Delayed Release (Dr/Ec) 40 mg PO BID 30 Days Qty: 60 RF: 0 prednisone 10 mg Tablet See Rx Instructions .ROUTE .COMPLEX Qty: 4 RF: 0 thiamine HCl (vitamin B1) [Vitamin B-1] 100 mg Tablet 100 mg PO QAM 30 Days Qty: 30 RF: 0 Continued albuterol sulfate [Ventolin HFA] 90 mcg/actuation HFA aerosol inhaler 2 puff INHALATION Q4H PRN (Reason: Shortness Of Breath Or Wheezing) Qty: 6.7 RF: 5 metoprolol succinate 50 mg tablet extended release 24 hr 75 mg PO QAM Qty: 90 RF: 3 atorvastatin 40 mg tablet 40 mg PO PM Qty: 90 RF: 3 Discharge Orders: Discharge Order (Routine); Ordered 01/13/21 Ordered By: Geovany Avelar Admission Data Admit Date/Time: 12/24/20 23:34 Attending Provider: Geovany Avelar Admit Provider: Jesus Alberto Smith Primary Care Provider: Kiley Azul Other Providers: Barry Menjivar ; [facility] [place] ; [place] ; Jesus Alberto Smith ; Erwin Neri ; Yancy Trujillo ; Efra Richardson V. ; Grover Duval ; Dillon Loomis ; Reese Rapp Other Interventions: Discharge Summary Assessment (RN) Last Done: 01/13/21 10:07 Coding Level of Care Code D/C DAY MANAGEMENT <30 MINS Diagnoses Hypoxia R09.02 Hypotension I95.9 DVT (deep venous thrombosis) I82.409 Pneumonia J18.9 Aspiration into respiratory tract T17.908A Anemia D64.9 History of abdominal aortic aneurysm (AAA) Z86.79 Pancytopenia due to antineoplastic chemotherapy D61.810; T45.1X5A Pulmonary fibrosis, unspecified J84.10 Rectal cancer C20 Lymphoma C85.90 Elevated troponin I level R77.8 Retroperitoneal hemorrhage R58
== END 2021-01-13 11:32 | DRG 871 ==
LOC: ED 20:31 → SUATTDRO 23:34 → 1E 23:34 → 2S 12-31 20:55

== ENCOUNTER 2021-01-30 23:17 | Inpatient (IN) ==
--- NOTE | 2021-01-30 23:41 | Emergency Department Note ---
History of Present Illness General Chief complaint: Altered Mental Status Stated complaint: HALLEUCINATION, PULLING OUT IVS Time Seen by Provider: 01/30/21 23:25 Source: patient and EMS Mode of arrival: EMS Limitations: no limitations History of Present Illness Provider complaint: Hallucinations, pulled out IV, hypoxia This is an 85-year-old brought in by EMS from [facility] due to their concern for hallucinations, hypoxia despite use of nasal cannula and patient pulling out an IV. Patient here admits to taking out his IV and states they have tried to "poke him several times". Patient denies any concern for pain. He denies any trouble breathing. He states he does have lung problems. Patient able to answer questions of orientation appropriately. He states other than taking out his IV that he gets medication through he does not know why he is here. Pt seen during a time of high acuity and national emergency pandemic while wearing PPE. Home Medications Medication Instructions Recorded Confirmed Type albuterol sulfate 90 mcg/actuation 2 puff INHALATION Q4H PRN #6.7 g 03/09/20 01/31/21 Rx aerosol inhaler (Ventolin HFA) metoprolol succinate 50 mg 75 mg PO QAM #90 tab 10/23/20 01/31/21 Rx tablet,extended release 24 hr atorvastatin 40 mg tablet 40 mg PO PM #90 tab 11/24/20 01/31/21 Rx thiamine HCl (vitamin B1) 100 mg 100 mg PO QAM 30 Days #30 tab 01/13/21 01/31/21 Rx tablet (Vitamin B-1) B [id number] tablet 1 tab PO DAILY 01/31/21 01/31/21 History acetaminophen 325 mg tablet 650 mg PO Q4H PRN 01/31/21 01/31/21 History (Tylenol) chlorhexidine gluconate 0.12 % 15 ml MT Q12H PRN 01/31/21 01/31/21 History mouthwash collagenase clostridium histo. 250 1 applic TOPICAL QPM 01/31/21 01/31/21 History unit/gram topical ointment (Santyl) mirtazapine 30 mg tablet 30 mg PO HS 01/31/21 01/31/21 History tramadol 50 mg tablet 50 mg PO Q4H PRN 01/31/21 01/31/21 History Allergies Allergy/AdvReac Type Severity Reaction Status Date / Time No Known Allergies Allergy Verified 01/31/21 00:42 Past Med/Surg History Medical History (Updated 01/31/21 @ 09:03 by Yancy Pineda DO) Allergic rhinitis Benign prostatic hyperplasia with urinary obstruction and other lower urinary tract symptoms Carotid artery stenosis monitors annually, follows with Dr. 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 Impaired fasting glucose Palliative care encounter Pulmonary fibrosis, unspecified Septic shock Sleep apnea 3L O2 HS Stroke 2009 Transient ischemic attack (TIA) ~2014 Surgical History Endoleak post (EVAR) endovascular aneurysm repair 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 History of cataract surgery RT/LEFT History of colonoscopy History of tonsillectomy and adenoidectomy History of tooth extraction History of vascular surgery Aortogram with embolization of internal iliac arteries S/P AAA repair S/p AAA repair using bifurcation graft PEVAR initially in 2011 S/P lymph node biopsy (05/26/20) Right Groin Excisional Lymph Node Biopsy (05/26/20): MAC at [facility] Family History Father Alzheimer disease Lung disease Brother Bone cancer Cancer Grandmother Diabetes Aunt Diabetes Mother Carotid artery disease Other No family history of adverse response to anesthesia Social History Smoking Status: Unknown if ever smoked Tobacco Type: Smokeless Tobacco (Dip or Chew) Age Quit Using Tobacco: 55; packs per day: 1; Years Smoked: 30; Second Hand Exposure: No; Hx Alcohol Use: No Hx Substance Use: No Preferred Language: Montenegrin Communication Ability: Impaired Hearing Ability: Use of Hearing Aid 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 Required: No Beliefs That Will Affect Care: None marital status: / Current Living Situation: [facility] current occupational status: retired How many Children do You have: 2 Feels Safe at Home: Yes caffeine: Yes during the past year weight has: decreased > 10 lbs Physical Activity Frequency: 1-2 Times per Week Seatbelt Use: always Sunscreen Use: No Assistive Devices: Denture - Lower, Glasses and Oxygen - Continuous Review of Systems A total of 10 systems reviewed and were otherwise negative All systems reviewed & are unremarkable except as noted in HPI & below Physical Exam Vital Signs Vital Signs - 24 hr 01/30/21 23:57 01/31/21 00:40 01/31/21 01:04 Temperature 35.4 C L Temperature Source Temporal Artery Scan Pulse Rate 88 Pulse Rate [Finger] 82 Respiratory Rate 14 Respiratory Effort / Characteristics Respiratory Depth Normal Blood Pressure 123/81 Blood Pressure [Left Arm] 111/85 Blood Pressure Mean 95 Blood Pressure Mean [Left Arm] 93 Blood Pressure Position [Left Arm] Sitting Pulse Oximetry 95 91 Oxygen Delivery Method Nasal Cannula Nasal Cannula Nasal Cannula Oxygen Flow Rate 4 4 4 Sepsis Recent Fever Within 48 Hours No Sepsis New/Unexplained Change in Mental Status N/A Sepsis Action Taken by Nursing No Action Required 01/31/21 03:14 01/31/21 05:41 01/31/21 07:00 Temperature Temperature Source Pulse Rate Pulse Rate [Finger] 81 83 80 Respiratory Rate 20 Respiratory Effort / Characteristics Respiratory Depth Normal Blood Pressure Blood Pressure [Left Arm] 116/75 111/71 111/61 Blood Pressure Mean Blood Pressure Mean [Left Arm] 88 84 77 Blood Pressure Position [Left Arm] Lying Pulse Oximetry 96 91 94 Oxygen Delivery Method Nasal Cannula Nasal Cannula Nasal Cannula Oxygen Flow Rate 3 3 2 Sepsis Recent Fever Within 48 Hours Sepsis New/Unexplained Change in Mental Status Sepsis Action Taken by Nursing 01/31/21 07:12 01/31/21 08:24 Temperature Temperature Source Pulse Rate 85 Pulse Rate [Finger] 81 Respiratory Rate 22 18 Respiratory Effort / Characteristics Spontaneous Respiratory Depth Blood Pressure Blood Pressure [Left Arm] Blood Pressure Mean Blood Pressure Mean [Left Arm] Blood Pressure Position [Left Arm] Pulse Oximetry 96 96 Oxygen Delivery Method Nasal Cannula Nasal Cannula Oxygen Flow Rate 4 Sepsis Recent Fever Within 48 Hours Sepsis New/Unexplained Change in Mental Status Sepsis Action Taken by Nursing GENERAL: alert, ill appearing, well nourished, no distress, non-toxic, [place], nasa l cannula in place EYE EXAM: normal conjunctiva, PERRL and EOM's grossly intact OROPHARYNX: no exudate, no erythema, lips, buccal mucosa, and tongue normal and mucous membranes are moist NECK: supple, no nuchal rigidity, no adenopathy, non-tender LUNGS: Decreased b/l to auscultation. Normal chest wall mechanics, no w/r/r HEART: no murmurs, S1 normal and S2 normal, port noted left anterior superior chest wall ABDOMEN: abdomen soft, non-tender, normo-active bowel sounds, no masses, no rebound or guarding. BACK: Back is symmetrical on inspection and there is no deformity, no midline tenderness, no CVA tenderness. SKIN: no rashes and no bruising UPPER EXTREMITIES: upper extremities are grossly normal. FROM, nml pulses b/l. Bandage noted over medial aspect of left upper extremity just superior to left AC, patient states this was the site of the IV that he removed. LOWER EXTREMITIES: No pitting edema. FROM, nml pulses b/l. NEURO EXAM: Normal sensorium, cranial nerves II-XII grossly intact, normal speech, no gross weakness of arms, no gross weakness of legs. Gross sensation intact. Course Course 2342: Discussed with nurse at [facility]. She states patient pulled out a midline IV that had been placed earlier today. Patient has midline in order to receive IV fluids. She states he supposed to get half-normal saline at 50 mL's per hour in order to help correct his creatinine and sodium. She states as of yesterday his creatinine was down to 1.2 however his sodium was still in the 150s. She also states they were concerned that he was not oxygenating appropriately. She states he is written to wear 3 L of oxygen at all times however his sats when they checked were 80-89. They would like him to get more IVF in the ER. 2349: Patient in agreement with plan to access port to give additional IV fluids. 0500: Discussed with daughter Fabby. Abnormal behavior is new. No prior history of dementia or psychosis. She states he was delirious when he was admitted in the ICU last time. She is concerned about him getting admitted because he had a "bad experience last time". When discussing possible pulmonary etiology or evolving infection she is comfortable with patient being given antibiotics but does not want him given steroids. She felt that the last time he was admitted with pneumonia the steroids had adverse effects on him. She is concerned about his dehydration and was aware of the elevated sodium levels but does not recall ever being explained why it was high. She feels his overall health has deteriorated ever since his last admission. Administered Medications Collagenase (Collagenase Oint 30 Gm Tube) 1 appln TOP QPM [facility] Stop: 03/02/21 20:59 Last Admin: 02/01/21 20:40 Dose: 1 appln Documented by: [id number] Admin: 01/31/21 21:56 Dose: 1 appln Documented by: [id number] Admin: 01/31/21 12:43 Dose: 1 appln Documented by: [id number] Heparin Sodium (Porcine) (Heparin 100 Unit/Ml 5ml Flush) 5 ml FLUSH PRN PRN PRN Reason: Flush Stop: 03/03/21 01:00 Last Admin: 02/01/21 22:18 Dose: 5 ml Documented by: [id number] Thiamine HCl 200 mg/ Sodium (Chloride) 52 mls @ 208 mls/hr IV QAM [facility] Stop: 03/02/21 10:59 Last Infusion: 02/01/21 09:28 Dose: 0 mls/hr Documented by: [id number] Admin: 02/01/21 09:13 Dose: 208 mls/hr Documented by: [id number] Infusion: 01/31/21 13:04 Dose: 0 mls/hr Documented by: [id number] Admin: 01/31/21 12:41 Dose: 208 mls/hr Documented by: [id number] Folic Acid 1 mg/ Syringe 10 mls @ 5 mls/min IV QAM [facility] Stop: 03/02/21 10:59 Last Admin: 02/01/21 09:09 Dose: 5 mls/min Documented by: [id number] Admin: 01/31/21 12:41 Dose: 5 mls/min Documented by: [id number] Piperacillin Sod/Tazobactam (Sod 3.375 gm/ Dextrose) 115 mls @ 28.75 mls/hr IV Q8H [facility]; Protocol Stop: 02/07/21 10:29 Last Infusion: 02/01/21 22:09 Dose: 0 mls/hr Documented by: [id number] Admin: 02/01/21 18:09 Dose: 28.8 mls/hr Documented by: [id number] Infusion: 02/01/21 15:31 Dose: 0 mls/hr Documented by: [id number] Admin: 02/01/21 11:24 Dose: 28.8 mls/hr Documented by: [id number] Infusion: 02/01/21 06:59 Dose: 0 mls/hr Documented by: [id number] Admin: 02/01/21 02:59 Dose: 28.8 mls/hr Documented by: [id number] Infusion: 01/31/21 23:57 Dose: 0 mls/hr Documented by: [id number] Admin: 01/31/21 19:57 Dose: 28.8 mls/hr Documented by: [id number] Infusion: 01/31/21 17:07 Dose: 0 mls/hr Documented by: [id number] Admin: 01/31/21 12:41 Dose: 28.8 mls/hr Documented by: [id number] Metoprolol Succinate (Metoprolol Succ 25mg Ext Rel Tab) 75 mg PO QAM [facility] Stop: 03/02/21 10:11 Last Admin: 02/01/21 09:03 Dose: 75 mg Documented by: [id number] Admin: 01/31/21 12:55 Dose: Not Given Documented by: [id number] Mirtazapine (Mirtazapine Tab 15 Mg Tab) 30 mg PO HS [facility]ESSICA Stop: 03/02/21 20:59 Last Admin: 02/01/21 20:40 Dose: 30 mg Documented by: [id number] Admin: 01/31/21 21:47 Dose: 30 mg Documented by: [id number] Vitamin B Complex (Vitamin B Complex Tab) 1 tab PO DAILY [facility]ESS[facility] Stop: 03/02/21 10:59 Last Admin: 02/01/21 09:05 Dose: 1 tab Documented by: [id number] Admin: 01/31/21 12:55 Dose: Not Given Documented by: [id number] Discontinued Medications Albuterol (Albut/Ipratrop 3mg/0.5mg Neb 3 Ml Vial) 3 ml NEB QIDR JESSICA Stop: 03/02/21 06:59 Last Admin: 01/31/21 07:14 Dose: 3 ml Documented by: [id number] Albuterol (Albut/Ipratrop 3mg/0.5mg Neb 3 Ml Vial) Confirm Administered Dose 3 ml .ROUTE .STK-MED ONE Stop: 01/31/21 07:08 Last Admin: 01/31/21 10:14 Dose: Not Given Documented by: [id number] Heparin Sodium (Porcine) (Heparin Sod 5,000 Unit/0.5 Ml Vial) 5,000 units SQ Q12 [facility]ESS[facility] Stop: 03/02/21 10:59 Last Admin: 01/31/21 13:04 Dose: Not Given Documented by: [id number] Sodium Chloride (1/2 Nss) 1,000 mls @ 80 mls/hr IV .[id number] JESSICA Stop: 03/02/21 00:44 Last Infusion: 01/31/21 07:01 Dose: 0 mls/hr Documented by: [id number] Infusion: 01/31/21 06:06 Dose: 0 mls/hr Documented by: [id number] Admin: 01/31/21 01:22 Dose: 80 mls/hr Documented by: [id number] Piperacillin Sod/Tazobactam Sod (Zosyn) 4.5 gm in 120 mls @ 240 mls/hr IV NOW ONE Stop: 01/31/21 05:34 Last Infusion: 01/31/21 06:07 Dose: 0 mls/hr Documented by: [id number] Admin: 01/31/21 05:39 Dose: 240 mls/hr Documented by: [id number] Dextrose (D5w) 1,000 mls @ 60 mls/hr IV .[id number] [facility] Stop: 02/01/21 15:04 Last Infusion: 02/01/21 15:31 Dose: 0 mls/hr Documented by: [id number] Admin: 01/31/21 22:38 Dose: 60 mls/hr Documented by: [id number] Infusion: 01/31/21 22:38 Dose: 60 mls/hr Documented by: [id number] Admin: 01/31/21 06:06 Dose: 60 mls/hr Documented by: [id number] Potassium Chloride (K Selvin / Wtr) 10 meq in 100 mls @ 100 mls/hr IV Q1H JESSICA Stop: 01/31/21 07:52 Last Infusion: 01/31/21 08:15 Dose: 0 mls/hr Documented by: [id number] Admin: 01/31/21 07:16 Dose: 100 mls/hr Documented by: [id number] Infusion: 01/31/21 07:14 Dose: 100 mls/hr Documented by: [id number] Admin: 01/31/21 06:14 Dose: 100 mls/hr Documented by: [id number] Magnesium Sulfate/Dextrose (Magnesium Sulfate / D5w) 1 gm in 100 mls @ 50 mls/hr IV Q2H [facility]ESSICA Stop: 01/31/21 10:11 Last Infusion: 01/31/21 09:24 Dose: 0 mls/hr Documented by: [id number] Admin: 01/31/21 08:15 Dose: 50 mls/hr Documented by: [id number] Infusion: 01/31/21 08:15 Dose: 50 mls/hr Documented by: [id number] Admin: 01/31/21 07:01 Dose: 50 mls/hr Documented by: [id number] Albumin Human (Albumin 25% 100 Ml) 25 gm in 100 mls @ 50 mls/hr IV Q2H [facility]ESSICA Stop: 01/31/21 10:29 Last Admin: 01/31/21 10:13 Dose: Not Given Documented by: [id number] Admin: 01/31/21 10:13 Dose: Not Given Documented by: [id number] Medical Decision Making Differential Diagnosis Differential diagnoses includes but is not limited to toxic, metabolic, infectious, traumatic, cardiac, neurologic, hematologic, psychiatric and inflammatory etiologies. Medical Records Attestation: I reviewed the patient's medical records. Home Medications Current Medication List: was personally reviewed by me Laboratory Data Attestation: I reviewed the patient's lab results. Result diagrams: 02/01/21 08:01 02/01/21 08:01 Lab Results 01/31/21 01/31/21 01/31/21 Range/Units 01:00 01:00 01:00 WBC 6.99 (4.8-10.8) K/uL RBC 3.20 L (4.7-6.1) M/uL Hgb 9.3 L (14.0-18.0) g/dL Hct 30.4 L (42-52) % MCV 95.0 (80-100) fL MCH 29.1 (25-34) pg MCHC 30.6 L (32-36) g/dL RDW Std Deviation 63.9 H (36.4-46.3) fL RDW Coeff of Bello 18.4 H (11.5-14.5) % Plt Count 42 L (130-400) K/uL MPV 10.9 H (7.4-10.4) fL Platelet Estimate Decreased L (Normal) Sodium 152 H (136-145) mmol/L Potassium 3.2 L (3.5-5.1) mmol/L Chloride 117 H (98-107) mmol/L Carbon Dioxide 28 (21-32) mmol/L Anion Gap 7.0 (3-11) BUN 41 H (7-18) mg/dl Creatinine 0.95 (0.6-1.4) mg/dl Est Cr Clr Drug Dosing 48.8 ml/min Est GFR ( Amer) 84.3 ml/min Est GFR (Non-Af Amer) 72.7 ml/min BUN/Creatinine Ratio 42.8 H (10-20) Glucose 139 H (70-99) mg/dl POC Glucose (70-99) mg/dl Calcium 8.1 L (8.5-10.1) mg/dl Phosphorus 2.6 (2.5-4.9) mg/dl Magnesium 1.7 L (1.8-2.4) mg/dl Total Bilirubin 1.7 H (0.2-1) mg/dl AST 20 (15-37) U/L ALT 19 (12-78) U/L Alkaline Phosphatase 93 (45-117) U/L Total Protein 4.2 L (6.4-8.2) gm/dl Albumin 1.9 L (3.4-5.0) gm/dl Globulin 2.3 L (2.5-4.0) gm/dl Albumin/Globulin Ratio 0.8 L (0.9-2) Procalcitonin (0-0.5) ng/ml Urine Color Dark Yellow Urine Appearance Clear (Clear) Urine pH 5.0 (4.5-7.5) Ur Specific [place] 1.019 (1.000-1.030) Urine Protein Negative (Negative) Urine Glucose (UA) Negative (Negative) Urine Ketones Negative (Negative) Urine Blood Negative (Negative) Urine Nitrite Negative (Negative) Urine Bilirubin Negative (Negative) Urine Urobilinogen Negative (Negative) Ur Leukocyte Esterase Negative (Negative) SARS-CoV-2 (PCR) (Negative) 01/31/21 01/31/21 01/31/21 Range/Units 01:00 01:37 05:18 WBC (4.8-10.8) K/uL RBC (4.7-6.1) M/uL Hgb (14.0-18.0) g/dL Hct (42-52) % MCV (80-100) fL MCH (25-34) pg MCHC (32-36) g/dL RDW Std Deviation (36.4-46.3) fL RDW Coeff of Bello (11.5-14.5) % Plt Count (130-400) K/uL MPV (7.4-10.4) fL Platelet Estimate (Normal) Sodium (136-145) mmol/L Potassium (3.5-5.1) mmol/L Chloride (98-107) mmol/L Carbon Dioxide (21-32) mmol/L Anion Gap (3-11) BUN (7-18) mg/dl Creatinine (0.6-1.4) mg/dl Est Cr Clr Drug Dosing ml/min Est GFR ( Amer) ml/min Est GFR (Non-Af Amer) ml/min BUN/Creatinine Ratio (10-20) Glucose (70-99) mg/dl POC Glucose 121 H (70-99) mg/dl Calcium (8.5-10.1) mg/dl Phosphorus (2.5-4.9) mg/dl Magnesium (1.8-2.4) mg/dl Total Bilirubin (0.2-1) mg/dl AST (15-37) U/L ALT (12-78) U/L Alkaline Phosphatase (45-117) U/L Total Protein (6.4-8.2) gm/dl Albumin (3.4-5.0) gm/dl Globulin (2.5-4.0) gm/dl Albumin/Globulin Ratio (0.9-2) Procalcitonin 0.54 H (0-0.5) ng/ml Urine Color Urine Appearance (Clear) Urine pH (4.5-7.5) Ur Specific [place] (1.000-1.030) Urine Protein (Negative) Urine Glucose (UA) (Negative) Urine Ketones (Negative) Urine Blood (Negative) Urine Nitrite (Negative) Urine Bilirubin (Negative) Urine Urobilinogen (Negative) Ur Leukocyte Esterase (Negative) SARS-CoV-2 (PCR) NEGATIVE (Negative) Imaging Data My Impression: X-ray: I interpreted the following studies. Chest: A single view study of the chest was reviewed and was negative for cardiomegaly, effusion, pulmonary edema, or wide mediastinum. B/L chronic appearing changes, possible infiltrate on right. Radiologist's Impression: Chest X-Ray 01/31/21 00:45 XR chest 1V portable CLINICAL HISTORY: mild hypoxia per [facility] staff. COMPARISON STUDY: 01/04/2021 TECHNIQUE: 1 view of the chest FINDINGS: Single frontal view of the chest demonstrates the cardiomediastinal silhouette to be within normal limits. Compared to previous examination, emphysematous changes and interstitial fibrosis are again seen. However, there is increased interstitial and alveolar opacities bilaterally superimposed over interstitial fibrosis. The presence of a superimposed viral type pneumonitis cannot be excluded. Covid 19 pneumonia should be excluded. There is no evidence for pleural effusion. There is no evidence for vascular congestion. There is no acute osseous pathology. IMPRESSION: Interval development of interstitial and alveolar opacities superimposed over the patient's interstitial fibrosis. The presence of a viral type pneumonitis cannot be excluded and early Covid pneumonia should be evaluated for. ACT 112: Negative or not required by law. Electronically signed by: Parmjit Howe M.D. 01/31/2021 8:08 AM ECG Data Attestation: I personally reviewed and interpreted this ECG as follows: Indication: + altered mental status Rate (beats per minute): 88 Rhythm: + normal sinus ECG Intervals/blocks: + Normal QRS and + Prolonged QT ECG [place]: + Normal ECG ST segments: + Nonspecific ST abnormalities ECG Findings: + PVCs Additional Comments: Poor quality tracing with significant artifact due to patient movement MDM Narrative This is an elderly male sent from [facility] for AMS/hallucinations and concern for need for IVF. I did discuss condition with nurse at [facility] facility. Patient answered questions of orientation here but then would appear delusional an be "knitting" with his hands as he explained it. He was in agreement with check of his Cr and Na which he knew were abnormal recently and use of his port as he was angry about having other IV's placed. Patient started on 1/2NSS as per prior inst ructions while awaiting labs. Given elevated Na and hallucinations, CT head and CXR added also. Patient does have hx of malignancy. On review of EMR and review of last admission, there was also concern for aspiration and pt is on modified diet. Given this risk and abnormal CXR, IV antibiotics were started for possible aspiration pna. Patient with hx of pulm fibrosis. Patient also requiring more oxygen to maintain sats compared to prior. Lengthy discussion with daughter regarding condition and results. Case discussed with hospitalist for additional evaluation. An order was placed for continuous cardiac monitoring. The monitor shows a rate of _80_ with _normal sinus_ rhythm. Impression & Plan AMS (altered mental status), Hypernatremia, Pneumonia Discharge Plan Visit Data Chief Complaint: Altered Mental Status Stated Complaint: HALLEUCINATION, PULLING OUT IVS ED Provider: Yancy Pineda Discharge Problem: AMS (altered mental status), Hypernatremia, Pneumonia Patient Disposition: Admitted As Inpatient Discharge Instructions Interventions: ED Discharge Assessment Last Done: 01/31/21 08:24
[2021-01-31] MEDS ORDERED: SODIUM CHLORIDE 0.45 % 1,000 ML IV SCH (00:45)
[2021-01-31 01:11] LABS: Hematocrit (blood only) 30.4 % (42-52); Hemoglobin 9.3 g/dL (14.0-18.0); Mean Corpuscular Hemoglobin 29.1 pg (25-34); Mean Corpuscular Hgb Conc 30.6 g/dL (32-36); RDW Coefficient of Variation 18.4 % (11.5-14.5); RDW Standard Deviation 63.9 fL (36.4-46.3); White Blood Count 6.99 K/uL (4.8-10.8)
[2021-01-31 01:29] LABS: Appearance Urine Clear (Clear); Bilirubin Urine Negative (Negative); Blood Urine Negative (Negative); Color Urine Dark Yellow; Glucose Urine UA Negative (Negative); Ketones Urine Negative (Negative); Leukocyte Esterase Urine Negative (Negative); Nitrite Urine Negative (Negative); Protein Urine Negative (Negative); Specific Gravity Urine 1.019 (1.000-1.030); Urobilinogen Urine Negative (Negative)
[2021-01-31 01:42] LABS: Mean Platelet Volume 10.9 fL (7.4-10.4); Platelet Count 42 K/uL (130-400)
[2021-01-31 01:43] LABS: Platelet Estimate Decreased (Normal)
[2021-01-31 02:06] LABS: Albumin Level 1.9 gm/dl (3.4-5.0); BUN Creatinine Ratio 42.8 (10-20); Calcium 8.1 mg/dl (8.5-10.1); Creatinine Clr Calc Pharmacy 48.8 ml/min; Est GFR (African American) 84.3 ml/min; Est GFR (Non-African American) 72.7 ml/min; Potassium 3.2 mmol/L (3.5-5.1)
[2021-01-31 02:09] LABS: Albumin Globulin Ratio 0.8 (0.9-2); Bilirubin,Total 1.7 mg/dl (0.2-1); Globulin 2.3 gm/dl (2.5-4.0); Total Protein 4.2 gm/dl (6.4-8.2)
[2021-01-31] MEDS ORDERED: PIPERACILL/TAZOBAC CONSULT ACTIVE PRN ×2 (05:05→10:12)
[2021-01-31] MEDS ORDERED: PIPERACILLIN/TAZOBACTAM 4.5 GM/120 ML BAG IV ONE (05:05)
--- NOTE | 2021-01-31 05:53 | History & Physical Report ---
Date of Service January 31, 2021 Assessment & Plan (1) Aspiration pneumonia: Plan: Aspiration pneumonia/pulmonary fibrosis- Chest x-ray significantly worse right upper and right lower lobes Continue Zosyn 4.5 g IV every 8 hours begun in ED Duonebs every 4 hours while awake and every 2 hours when necessary. (2) Malnutrition compromising bodily function: Plan: Albumin 1.9 [place] type state Give albumin 50 g IV x1 (3) Hypokalemia: Plan: Give 2K riders for potassium 3.2 Repeat laboratories daily (4) Hypernatremia: Plan: Hypernatremia/acute dehydration Sodium 150 upon admission, with severe dehydration. Placed on D5 W at 60 mils per hour Repeat labs labs daily (5) Hypertension: Plan: Hold metoprolol succinate due to low normal blood pressure (6) Acute dehydration: Plan: See above (7) Rectal cancer: (8) Lymphoma: (9) Pulmonary fibrosis, unspecified: Plan: See above History of Present Illness Chief Complaint: The patient is referred to the emergency department by Roxy Putnam due to altered mental status, pulling out IVs and reported hallucinations. Primary Care Provider: Roxy Putnam at [place] The patient is an 85-year-old male with a past medical history including recurrent aspiration, malnutrition, abnormal weight loss, anemia, generalized weakness, immunocompromised, AAA, history of pancytopenia due to antineoplastic chemotherapy, hypokalemia, bacteremia, chronic respiratory hypoxia, pulmonary fibrosis, thrombocytopenia, hypertension, rectal cancer and lymphoma. The most recent admissions to [facility] were from 12/19-12/24, and 12/24-01/13. The admission from 12/19-12/24 was due to weakness, leukocytosis on chemotherapy, and was treated empirically with vancomycin and cefepime IV. When discharged from the hospital on 12/24, the patient's family reported that he declined very quickly when he went home, and was brought back in the same day, and readmitted with septic shock on Levophed to the ICU. Upon 01/13, patient was discharged to Roxy Putnam, with normal laboratories including a sodium 139 potassium 4.3. Laboratories upon arrival to the emergency department this evening include a sodium 152 and potassium of 3.2. Albumin continues to be low at 1.9. Allergies Allergy/AdvReac Type Severity Reaction Status Date / Time No Known Allergies Allergy Verified 01/31/21 00:42 Home Medications Medication Instructions Recorded Confirmed Type albuterol sulfate 90 mcg/actuation 2 puff INHALATION Q4H PRN #6.7 g 03/09/20 01/31/21 Rx aerosol inhaler (Ventolin HFA) metoprolol succinate 50 mg 75 mg PO QAM #90 tab 10/23/20 01/31/21 Rx tablet,extended release 24 hr atorvastatin 40 mg tablet 40 mg PO PM #90 tab 11/24/20 01/31/21 Rx thiamine HCl (vitamin B1) 100 mg 100 mg PO QAM 30 Days #30 tab 01/13/21 01/31/21 Rx tablet (Vitamin B-1) B [id number] tablet 1 tab PO DAILY 01/31/21 01/31/21 History acetaminophen 325 mg tablet 650 mg PO Q4H PRN 01/31/21 01/31/21 History (Tylenol) chlorhexidine gluconate 0.12 % 15 ml MT Q12H PRN 01/31/21 01/31/21 History mouthwash collagenase clostridium histo. 250 1 applic TOPICAL QPM 01/31/21 01/31/21 History unit/gram topical ointment (Santyl) mirtazapine 30 mg tablet 30 mg PO HS 01/31/21 01/31/21 History tramadol 50 mg tablet 50 mg PO Q4H PRN 01/31/21 01/31/21 History Past Med/Surg History Medical History (Updated 01/31/21 @ 06:13 by Jesus Alberto Smith MD) Allergic rhinitis Benign prostatic hyperplasia with urinary obstruction and other lower urinary tract symptoms Carotid artery stenosis monitors annually, follows with Dr. 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 Impaired fasting glucose Palliative care encounter Pulmonary fibrosis, unspecified Septic shock Sleep apnea 3L O2 HS Stroke 2008 Transient ischemic attack (TIA) ~2014 Surgical History Endoleak post (EVAR) endovascular aneurysm repair 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 History of cataract surgery RT/LEFT History of colonoscopy History of tonsillectomy and adenoidectomy History of tooth extraction History of vascular surgery Aortogram with embolization of internal iliac arteries S/P AAA repair S/p AAA repair using bifurcation graft PEVAR initially in 2011 S/P lymph node biopsy (05/26/20) Right Groin Excisional Lymph Node Biopsy (05/26/20): MAC at [facility] Family History Father Alzheimer disease Lung disease Brother Bone cancer Cancer Grandmother Diabetes Aunt Diabetes Mother Carotid artery disease Other No family history of adverse response to anesthesia Social History Smoking Status: Never smoker Tobacco Type: Smokeless Tobacco (Dip or Chew) Age Quit Using Tobacco: 55; packs per day: 1; Years Smoked: 30; Second Hand Exposure: No; Hx Alcohol Use: No Hx Substance Use: No Preferred Language: Occitan Communication Ability: Effective Hearing Ability: Use of Hearing Aid Change Director Required: No Beliefs That Will Affect Care: None marital status: / Current Living Situation: Alone current occupational status: retired Feels Safe at Home: Yes caffeine: Yes during the past year weight has: decreased > 10 lbs Physical Activity Frequency: 1-2 Times per Week Seatbelt Use: always Sunscreen Use: No Assistive Devices: Oxygen - Continuous Review of Systems Review of Systems: Unobtainable due to patient's mental status Physical Exam Physical Exam: The patient is awake and confused, appears malnourished, and atraumatic, lying in bed and in no acute distress. HEENT--PERRL, EOMI, mucous membranes and oropharynx very dry. Neck--supple. No JVD. No bruits. Thyroid normal, trachea midline, no adenopathy. Heart--normal S1 and S2. No murmurs, rubs or gallops. Lungs--clear bilaterally, no respiratory distress, no accessory muscle use. Abdomen--normal bowel sounds and soft. Nontender. Nondistended Extremities--no cyanosis or clubbing. No edema. Dermatologic--skin is very dry Neurologic--cranial nerves II through XII grossly intact. Rheumatologic--normal range of motion. Psychiatric--confused Results & Data Results & Data ([facility]) Vital Signs (Past 12 Hours) Vital Signs Temp Pulse Pulse Resp BP BP Pulse Ox 01/31/21 05:41 83 111/71 91 01/31/21 03:14 81 116/75 96 01/31/21 01:04 82 111/85 91 01/30/21 23:57 35.4 C L 88 14 123/81 95 Laboratory Results Laboratory Results WBC 6.99 K/uL (4.8-10.8) 01/31/21 01:00 RBC 3.20 M/uL (4.7-6.1) L 01/31/21 01:00 Hgb 9.3 g/dL (14.0-18.0) L 01/31/21 01:00 Hct 30.4 % (42-52) L 01/31/21 01:00 MCV 95.0 fL (80-100) 01/31/21 01:00 MCH 29.1 pg (25-34) 01/31/21 01:00 MCHC 30.6 g/dL (32-36) L 01/31/21 01:00 RDW Std Deviation 63.9 fL (36.4-46.3) H 01/31/21 01:00 RDW Coeff of Bello 18.4 % (11.5-14.5) H 01/31/21 01:00 Plt Count 42 K/uL (130-400) L 01/31/21 01:00 MPV 10.9 fL (7.4-10.4) H 01/31/21 01:00 Platelet Estimate Decreased (Normal) L 01/31/21 01:00 Sodium 152 mmol/L (136-145) H 01/31/21 01:00 Potassium 3.2 mmol/L (3.5-5.1) L 01/31/21 01:00 Chloride 117 mmol/L (98-107) H 01/31/21 01:00 Carbon Dioxide 28 mmol/L (21-32) 01/31/21 01:00 Anion Gap 7.0 (3-11) 01/31/21 01:00 BUN 41 mg/dl (7-18) H 01/31/21 01:00 Creatinine 0.95 mg/dl (0.6-1.4) 01/31/21 01:00 Est Cr Clr Drug Dosing 48.8 ml/min 01/31/21 01:00 Est GFR ( Amer) 84.3 ml/min 01/31/21 01:00 Est GFR (Non-Af Amer) 72.7 ml/min 01/31/21 01:00 BUN/Creatinine Ratio 42.8 (10-20) H 01/31/21 01:00 Glucose 139 mg/dl (70-99) H 01/31/21 01:00 POC Glucose 121 mg/dl (70-99) H 01/31/21 01:37 Calcium 8.1 mg/dl (8.5-10.1) L 01/31/21 01:00 Total Bilirubin 1.7 mg/dl (0.2-1) H 01/31/21 01:00 AST 20 U/L (15-37) 01/31/21 01:00 ALT 19 U/L (12-78) 01/31/21 01:00 Alkaline Phosphatase 93 U/L (45-117) 01/31/21 01:00 Total Protein 4.2 gm/dl (6.4-8.2) L 01/31/21 01:00 Albumin 1.9 gm/dl (3.4-5.0) L 01/31/21 01:00 Globulin 2.3 gm/dl (2.5-4.0) L 01/31/21 01:00 Albumin/Globulin Ratio 0.8 (0.9-2) L 01/31/21 01:00 Procalcitonin 0.54 ng/ml (0-0.5) H 01/31/21 01:00 Urine Color Dark Yellow 01/31/21 01:00 Urine Appearance Clear (Clear) 01/31/21 01:00 Urine pH 5.0 (4.5-7.5) 01/31/21 01:00 Ur Specific [place] 1.019 (1.000-1.030) 01/31/21 01:00 Urine Protein Negative (Negative) 01/31/21 01:00 Urine Glucose (UA) Negative (Negative) 01/31/21 01:00 Urine Ketones Negative (Negative) 01/31/21 01:00 Urine Blood Negative (Negative) 01/31/21 01:00 Urine Nitrite Negative (Negative) 01/31/21 01:00 Urine Bilirubin Negative (Negative) 01/31/21 01:00 Urine Urobilinogen Negative (Negative) 01/31/21 01:00 Ur Leukocyte Esterase Negative (Negative) 01/31/21 01:00 Diagnostic Findings [facility] Patient: RITESH INTERIANO (Male) : 35 Status: ER Date: 01/31/21 02:36 Room #: History: [facility] Slices: 66 Priors: Tech: Krys Kirk @ [phone] Exams: CT HEAD Contrast: Accession Numbers: [id number] Referring Physician: KYLAH GARNER Preliminary Findings Only See Final Report For Complete Findings CT HEAD: No intracranial hemorrhage. No significant mass effect or midline shift. No evidence for cortical infarct or significant alteration from the examination dated 12/25/2020. Incidental underlying stable appearing parenchymal involutional changes and extensive deep white matter hypodense changes noted. The paranasal sinuses and mastoid air cells are well-aerated. Radiologist: Diego An MD Study ready at 02:41 and initial results transmitted at 03:45 *This report constitutes a preliminary interpretation only. Non-acute findings felt to be unrelated to the clinical presentation may not be discussed in this report. The study will be interpreted and a final report will be generated by the local Radiologist the following shift. To reach the hospital radiology department call [phone]. If a discrepancy is found between the preliminary and final interpretations of this study, please notify us via our Client Portal at [email or web address], under QA Exams. You can also fax this report with a description of the discrepancy, or include the final report, to our daytime fax number [phone]. If faxing, please indicate the severity of discrepancy using one of the following categories: [ ] 1 - Agree/Informational [ ] 2 - Unlikely to Affect Management [ ] 3 - Possible Eventual Change of Management [ ] 4 - Probable Immediate Change of Management For all other patient related information, please fax us at [phone]. [id number] Code Status & VTE Plan Code Status DNR/DNI VTE Prophylaxis Plan VTE Prophylaxis will be ordered: Yes PG Care Time/CCT Total # of Minutes Spent Total Time Spent with Patient: Total time spent is greater than 50% in coordination of care (as documented) at patient's floor/unit and/or counseling patient: Coding Level of Care Code 14785 Initial Inpt Care Lvl 3 Diagnoses Aspiration pneumonia J69.0 Malnutrition compromising bodily function E46 Hypokalemia E87.6 Hypernatremia E87.0 Hypertension I10 Rectal cancer C20 Lymphoma C85.90 Pulmonary fibrosis, unspecified J84.10 Acute dehydration E86.0
[2021-01-31 06:06] LABS: Magnesium 1.7 mg/dl (1.8-2.4); Phosphorus 2.6 mg/dl (2.5-4.9)
[2021-01-31] MEDS: DEXTROSE 5% 1,000 ML IV SCH ×2 (06:06→22:38)
[2021-01-31] MEDS: POTASSIUM CHLORIDE / WTR 10 MEQ/100 ML PLCT IV SCH ×2 (06:14→07:16)
[2021-01-31] MEDS ORDERED: ALBUT/IPRATROP 3MG/0.5MG NEB 3 ML VIAL NEB SCH (07:00)
[2021-01-31] MEDS: MAGNESIUM SULFATE / D5W 1 GM/100 ML BAG IV SCH ×2 (07:01→08:15)
[2021-01-31] MEDS ORDERED: ALBUT/IPRATROP 3MG/0.5MG NEB 3 ML VIAL ONE (07:07)
--- NOTE | 2021-01-31 07:22 | Electrocardiogram Report ---
Test Reason : Blood Pressure : / mmHG Vent. Rate : 088 BPM Atrial Rate : 058 BPM P-R Int : 000 ms QRS Dur : 100 ms QT Int : 426 ms P-R-T Axes : 000 -29 080 degrees QTc Int : 515 ms Poor data quality, interpretation may be adversely affected Undetermined atrial rhythm due to significant artifact Premature ventricular complexes Nonspecific T wave abnormality Abnormal ECG Confirmed by Ye Kaye ([id number]) on 01/31/2021 7:22:13 AM Referred By: Jersey sanchez [facility] Confirmed By:Gustabo Kaye
--- NOTE | 2021-01-31 08:10 | XRay Report ---
XR chest 1V portable CLINICAL HISTORY: mild hypoxia per NH staff. COMPARISON STUDY: 01/04/2021 TECHNIQUE: 1 view of the chest FINDINGS: Single frontal view of the chest demonstrates the cardiomediastinal silhouette to be within normal li mits. Compared to previous examination, emphysematous changes and interstitial fibrosis are again see n. However, there is increased interstitial and alveolar opacities bilaterally superimposed over inte rstitial fibrosis. The presence of a superimposed viral type pneumonitis cannot be excluded. Covid 19 pneumonia should be excluded. There is no evidence for pleural effusion. There is no evidence for va scular congestion. There is no acute osseous pathology. IMPRESSION: Interval development of interstitial and alveolar opacities superimposed over the patient 's interstitial fibrosis. The presence of a viral type pneumonitis cannot be excluded and early Covid pneumonia should be evaluated for. ACT 112: Negative or not required by law. Electronically signed by: Parmjit Howe M.D. 01/31/2021 8:08 AM
[2021-01-31] MEDS ORDERED: ACETAMINOPHEN 325 MG TAB PO PRN (10:12)
[2021-01-31] MEDS ORDERED: ONDANSETRON INJ 2 MG/ML 2 ML VIAL IV PRN (10:12)
[2021-01-31] MEDS: ALBUMIN 25% 100 mL 25 GM/100 ML VIAL IV SCH (10:13)
--- NOTE | 2021-01-31 10:23 | CT Scan Report ---
CT head/brain wo con CLINICAL HISTORY: ams COMPARISON STUDY: 12/25/2020 CT DOSE: 1400.53 mGy.cm TECHNIQUE: Standard CT of the Brain was performed without IV contrast. A dose lowering technique was utilized adhering to the principles of ALARA. FINDINGS: Extraaxial space: There is no evidence for subdural hematoma. There are no extra-axial fluid collecti ons. Ventricles and cisterns: The ventricles are again mildly dilated bilaterally. There is no evidence f or midline shift or mass effect. Parenchyma: There is no subarachnoid or intraparenchymal hemorrhage. There is no evidence for an acu te infarct or cerebral edema. There is mild cerebral cortical atrophy and decreased attenuation in th e periventricular white matter representing remote small vessel disease. There are no gross mass lesi ons. Osseous structures: There is no evidence for an acute fracture. The visualized paranasal sinuses are clear. The mastoid air cells are clear bilaterally. Soft tissues: There is no evidence for focal soft tissue swelling. IMPRESSION: No acute intracerebral pathology. Cerebral cortical atrophy and extensive remote small ve ssel disease are again seen. ACT 112: Negative or not required by law. Electronically signed by: Parmjit Howe M.D. 01/31/2021 10:22 AM
[2021-01-31] MEDS ORDERED: ALBUT/IPRATROP 3MG/0.5MG NEB 3 ML VIAL NEB PRN (10:38)
[2021-01-31] MEDS ORDERED: HEPARIN SOD 5,000 UNIT/0.5 ML VIAL SQ SCH (11:00)
[2021-01-31] MEDS: FOLIC ACID 1 MG in SYRINGE 9.8 ML IV SCH (12:41)
[2021-01-31] MEDS: PIPERACILLIN/TAZOBACTAM 3.375 GM in DEXTROSE 5% 100 ML IV SCH ×2 (12:41→19:57)
[2021-01-31] MEDS: THIAMINE HCL 200 MG in SODIUM CHLORIDE 0.9% 50 ML IV SCH (12:41)
--- NOTE | 2021-01-31 12:41 | History & Physical Bridge Note ---
Date of Service January 31, 2021 History & Physical Bridge Note I have examined the patient, reviewed the History & Physical and in the interval since the performance of the History & Physical I have noted the following changes of clinical significance: 85yo M w/ hx of multiple cancers and treatment who presents from his SNF with hallucinations and altered mental status. The patient has unfortunately been declining since his last [facility] chemotherapy with increasing respiratory issues. This AM, he is still hallucinating and can give no real history. Vitals notable for hypothermia and hypoxemia. Labs were notable for hypernatremia and acute kidney failure. 1) Will warm patient with blankets and Aman hugger. 2) Will continue D5 IV fluids and monitor electrolytes closely. 3) Will treat for aspiration as he has upper respiratory sounds and new CXR findings. Will get MRSA swab to ensure no need for vancomycin.
[2021-01-31] MEDS: VITAMIN B COMPLEX TAB PO SCH ×2 (12:43→12:55)
[2021-01-31] MEDS: METOPROLOL SUCC 25MG EXT REL TAB PO SCH ×2 (12:43→12:55)
[2021-01-31] MEDS: COLLAGENASE OINT 30 GM TUBE TOP SCH ×2 (12:43→21:56)
[2021-01-31 15:01] LABS: BUN Creatinine Ratio 36.8 (10-20); Calcium 8.4 mg/dl (8.5-10.1); Creatinine Clr Calc Pharmacy 45.9 ml/min; Est GFR (African American) 79.2 ml/min; Est GFR (Non-African American) 68.3 ml/min; Magnesium 2.3 mg/dl (1.8-2.4)
[2021-01-31 20:14] LABS: Potassium 3.8 mmol/L (3.5-5.1)
[2021-01-31] MEDS: MIRTAZAPINE TAB 15 MG TAB PO SCH (21:47)
[2021-02-01] MEDS: PIPERACILLIN/TAZOBACTAM 3.375 GM in DEXTROSE 5% 100 ML IV SCH ×3 (02:59→18:09)
[2021-02-01 09:02] LABS: Albumin Globulin Ratio 0.7 (0.9-2); Albumin Level 1.7 gm/dl (3.4-5.0); BUN Creatinine Ratio 31.2 (10-20); Bilirubin,Total 2.3 mg/dl (0.2-1); Calcium 8.3 mg/dl (8.5-10.1); Creatinine Clr Calc Pharmacy 43.7 ml/min; Est GFR (African American) 74.7 ml/min; Est GFR (Non-African American) 64.4 ml/min; Globulin 2.6 gm/dl (2.5-4.0); Magnesium 1.9 mg/dl (1.8-2.4); Potassium 3.2 mmol/L (3.5-5.1); Total Protein 4.3 gm/dl (6.4-8.2)
[2021-02-01] MEDS: METOPROLOL SUCC 25MG EXT REL TAB PO SCH (09:03)
[2021-02-01] MEDS: VITAMIN B COMPLEX TAB PO SCH (09:05)
[2021-02-01] MEDS: FOLIC ACID 1 MG in SYRINGE 9.8 ML IV SCH (09:09)
[2021-02-01 09:10] LABS: Basophils # (auto) 0.02 K/uL (0-0.2); Basophils % (auto) 0.4 %; Echinocytes 1+; Eosinophils # (auto) 0.22 K/uL (0-0.5); Eosinophils % (auto) 4.2 %; Hemoglobin 9.1 g/dL (14.0-18.0); Immature Granulocytes # (auto) 0.22 K/uL (0.00-0.02); Immature Granulocytes % (auto) 4.2 %; Lymphocytes # (auto) 0.84 K/uL (1.2-3.4); Lymphocytes % (auto) 15.9 %; Mean Corpuscular Hemoglobin 29.4 pg (25-34); Mean Corpuscular Hgb Conc 31.4 g/dL (32-36); Mean Corpuscular Volume 93.9 fL (80-100); Mean Platelet Volume 11.3 fL (7.4-10.4); Monocytes # (auto) 0.24 K/uL (0.11-0.59); Monocytes % (auto) 4.5 %; Neutrophils # (auto) 3.75 K/uL (1.4-6.5); Neutrophils % (auto) 70.8 %; Platelet Count 24 K/uL (130-400); Platelet Estimate SIGNIFIC DECREASED (Normal); RDW Coefficient of Variation 18.6 % (11.5-14.5); RDW Standard Deviation 63.7 fL (36.4-46.3); Red Blood Count 3.09 M/uL (4.7-6.1); White Blood Count 5.29 K/uL (4.8-10.8)
[2021-02-01] MEDS: THIAMINE HCL 200 MG in SODIUM CHLORIDE 0.9% 50 ML IV SCH (09:13)
[2021-02-01] MEDS: COLLAGENASE OINT 30 GM TUBE TOP SCH (20:40)
[2021-02-01] MEDS: MIRTAZAPINE TAB 15 MG TAB PO SCH (20:40)
[2021-02-01] MEDS ORDERED: Influenza Vaccine-High Dose (Fluzone-HD) PF 65+ 0.7 ML SYR IM ONE (21:15)
[2021-02-01] MEDS: HEPARIN 100 UNIT/ML 5ML FLUSH FLUSH PRN (22:18)
--- NOTE | 2021-02-01 22:47 | Hospitalist Progress Note ---
Date of Service February 01, 2021 Assessment & Plan (1) Aspiration pneumonia: Plan: Aspiration pneumonia/pulmonary fibrosis- Had extensive discussion with daughters Myrna and Fabby. It appears patient has not improved when he went to [facility]. He returns to the hospital now hyernatremic, more confused with further weight loss. This points towards likely severe malnutrition. A concern is patient's inability to protect his airway when swallowing. If patient cannot safely swallow, his overall prognosis is poor. Explained that patient likely grew weaker from his chemo, which then may have lead to his dysphagia, infection which caused a downward spiral to his health. Despite the care he received in his previous admission, PPN, antibiotics which led to his temporary improvement. Patient however could not sustain this during his time at [facility] as he is now having severe electrolyte abnormalities, weight loss, and is now more confused. Given that patient has severe dysphagia and he is ot able to follow commands for PT of his swallowing and the fact that he failed during his time at [facility], pallliative care consult was ordered. Daughter Fabby was agreeable. D/W Fabby that patient did not want a Peg tube during previous admission. Chest x-ray significantly worse right upper and right lower lobes Continue Zosyn 4.5 g IV every 8 hours begun in ED Duonebs every 4 hours while awake and every 2 hours when necessary. (2) Malnutrition compromising bodily function: Plan: Albumin 1.9 [place] type state Give albumin 50 g IV x1 (3) Hypokalemia: Plan: Give 2K riders for potassium 3.2 Repeat laboratories daily (4) Hypernatremia: Plan: Hypernatremia/acute dehydration Sodium 150 upon admission, with severe dehydration. Placed on D5 W at 60 mils per hour Repeat labs labs daily (5) Hypertension: Plan: Hold metoprolol succinate due to low normal blood pressure (6) Acute dehydration: Plan: See above (7) Rectal cancer: (8) Lymphoma: (9) Pulmonary fibrosis, unspecified: Plan: See above Admission and Anticipated Discharge Date Admission Date: January 31, 2021 Subjective Patient is confused and is a poor historian. Had extensive discussion with both daughters. Review of Systems Review of Systems: All systems reviewed & are unremarkable except as noted in HPI & below Physical Exam Physical Exam: The patient is awake and confused, appears malnourished, and atraumatic, lying in bed and in no acute distress. HEENT--PERRL, EOMI, mucous membranes and oropharynx very dry. Neck--supple. No JVD. No bruits. Thyroid normal, trachea midline, no adenopathy. Heart--normal S1 and S2. No murmurs, rubs or gallops. Lungs--clear bilaterally, no respiratory distress, no accessory muscle use. Abdomen--normal bowel sounds and soft. Nontender. Nondistended Extremities--no cyanosis or clubbing. No edema. Dermatologic--skin is very dry Neurologic--cranial nerves II through XII grossly intact. Rheumatologic--normal range of motion. Psychiatric--confused Results & Data Results & Data ([facility]) Vital Signs (Past 12 Hours) Vital Signs Pulse Resp BP Pulse Ox 02/01/21 15:03 81 18 116/71 99 PG Care Time/CCT Total # of Minutes Spent Total Time Spent with Patient: Total time spent is greater than 50% in coordination of care (as documented) at patient's floor/unit and/or counseling patient: Prolonged Care Time Prolonged Care Time: Yes 65 9:55 to 11:00 Coding Level of Care Code 86508 Subseq Hosp Care Lvl 3 (25 - SIGNIFICANT, SEPARATELY IDENTIFIABLE ) Diagnoses Aspiration pneumonia J69.0 Malnutrition compromising bodily function E46 Hypokalemia E87.6 Hypernatremia E87.0 Hypertension I10 Acute dehydration E86.0 Rectal cancer C20 Lymphoma C85.90 Pulmonary fibrosis, unspecified J84.10 Additional Codes Prolonged Care Time - Prolonged Care Time: Yes ([id number]) Time Spent (min) 65
[2021-02-02] MEDS: PIPERACILLIN/TAZOBACTAM 3.375 GM in DEXTROSE 5% 100 ML IV SCH ×2 (02:56→11:29)
[2021-02-02 05:37] LABS: Albumin Level 1.7 gm/dl (3.4-5.0); BUN Creatinine Ratio 34.7 (10-20); Calcium 8.5 mg/dl (8.5-10.1); Creatinine Clr Calc Pharmacy 45.9 ml/min; Est GFR (African American) 79.2 ml/min; Est GFR (Non-African American) 68.3 ml/min; Potassium 3.1 mmol/L (3.5-5.1)
[2021-02-02 05:39] LABS: Albumin Globulin Ratio 0.7 (0.9-2); Bilirubin,Total 2.1 mg/dl (0.2-1); Globulin 2.4 gm/dl (2.5-4.0); Total Protein 4.1 gm/dl (6.4-8.2)
[2021-02-02 05:47] LABS: Hematocrit (blood only) 29.1 % (42-52); Hemoglobin 8.9 g/dL (14.0-18.0); Mean Corpuscular Hgb Conc 30.6 g/dL (32-36); Mean Corpuscular Volume 94.8 fL (80-100); Mean Platelet Volume 11.3 fL (7.4-10.4); Platelet Count 20 K/uL (130-400); RDW Coefficient of Variation 18.8 % (11.5-14.5); RDW Standard Deviation 63.8 fL (36.4-46.3); Red Blood Count 3.07 M/uL (4.7-6.1); White Blood Count 4.87 K/uL (4.8-10.8)
[2021-02-02 05:52] LABS: Basophils # (auto) 0.01 K/uL (0-0.2); Basophils % (auto) 0.2 %; Echinocytes 1+; Eosinophils # (auto) 0.06 K/uL (0-0.5); Eosinophils % (auto) 1.2 %; Immature Granulocytes # (auto) 0.26 K/uL (0.00-0.02); Immature Granulocytes % (auto) 5.3 %; Lymphocytes # (auto) 0.64 K/uL (1.2-3.4); Lymphocytes % (auto) 13.1 %; Monocytes # (auto) 0.19 K/uL (0.11-0.59); Monocytes % (auto) 3.9 %; Neutrophils # (auto) 3.71 K/uL (1.4-6.5); Neutrophils % (auto) 76.3 %; Platelet Estimate SIGNIFIC DECREASED (Normal)
[2021-02-02] MEDS: HEPARIN 100 UNIT/ML 5ML FLUSH FLUSH PRN ×2 (07:02→08:21)
[2021-02-02 07:11] VITALS: BP 104/74; PULSE 72; TEMP 96.1; O2SAT 100
[2021-02-02] MEDS: METOPROLOL SUCC 25MG EXT REL TAB PO SCH (07:47)
[2021-02-02] MEDS: VITAMIN B COMPLEX TAB PO SCH (07:47)
[2021-02-02] MEDS: FOLIC ACID 1 MG in SYRINGE 9.8 ML IV SCH (07:48)
[2021-02-02] MEDS: THIAMINE HCL 200 MG in SODIUM CHLORIDE 0.9% 50 ML IV SCH (07:48)
--- NOTE | 2021-02-02 10:09 | Palliative Care Consultation ---
Date of Consultation February 02, 2021 Assessment & Plan (1) Palliative care encounter: Mr. Estrada is an 85 year old male who was admitted to the [facility] from 12/19-12/24, and 12/24-01/13. The admission from 12/19-12/24 was due to weakness, leukocytosis on chemotherapy, and was treated empirically with vancomycin and cefepime IV. When discharged from the hospital on 12/24, the patient's family reported that he declined very quickly when he went home, and was brought back in the same day, and readmitted with septic shock on Levophed to the ICU. He has an unfortunate medical history that includes chronic respiratory failure, pulmonary fibrosis, thrombocytopenia, hypertension, lymphoma and rectal cancer. He is a patient of Dr. Haque and received his last chemotherapy on December 15. It is suspected that this individual has adrenal insufficiency related to the steroids that he has recently received and also immunocompromised secondary to chemotherapy agents. He has been started on broad-spectrum antibiotics Zosyn and vancomycin. Thrombocytopenia also likely secondary to chemotherapeutic agents. Due to his hypotension and increased O2 needs, he was admitted in the ICU and is on two vasoactive medications and hi- flow O2. The patient is an established DNR/DNI. Palliative Medicine has been consulted to assist with establishing goals of care. I met with the patient in room 303. He was obtunded when I entered the room and did not respond to verbal or tactile stimulation. He did have audible secretions and accessory muscle use with his breathing pattern. I was able to talk with Josiah sonia Norris and flo Sequeira on the phone separately. I do think that their father is entering his dying time and discussed with them a transition to full comfort measures. We discussed their recent visit where he had moments of clarity, but ultimately, a big decline has been noted. We discussed permissive aspiration at end of life as well, which we will pursue. For now, full transition to comfort measures taking place. All non essential medications discontinued and comfort meds in place. I did order routine Robinul for secretions. Likely life expectancy is a few days. Should he live past a few days, will readdress possibility of other options outside of hospital for end of life. Per Jennyfer the patient is a big [employer] and Renard Seager fan, which I said we surely could play in his room. 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 (2) Hypoxia: (3) AMS (altered mental status): (4) Weakness: History of Present Illness Reason for Consultation: Goals of care Requesting Physician: Dr. Vigil Attending Physician: Rachid Vigil History of Present Illness Mr. Estrada is an 85 year old male who was admitted to the [facility] from 12/19-12/24, and 12/24-01/13. The admission from 12/19-12/24 was due to weakness, leukocytosis on chemotherapy, and was treated empirically with vancomycin and cefepime IV. When discharged from the hospital on 12/24, the patient's family reported that he declined very quickly when he went home, and was brought back in the same day, and readmitted with septic shock on Levophed to the ICU. He has an unfortunate medical history that includes chronic respiratory failure, pulmonary fibrosis, thrombocytopenia, hypertension, lymphoma and rectal cancer. He is a patient of Dr. Haque and received his last chemotherapy on December 15. It is suspected that this individual has adrenal insufficiency related to the steroids that he has recently received and also immunocompromised secondary to chemotherapy agents. He has been started on broad-spectrum antibiotics Zosyn and vancomycin. Thrombocytopenia also likely secondary to chemotherapeutic agents. Due to his hypotension and increased O2 needs, he was admitted in the ICU and is on two vasoactive medications and hi- flow O2. The patient is an established DNR/DNI. Palliative Medicine has been consulted to assist with establishing goals of care. Thanks for re-involving palliative medicine with this patient. Allergies Allergy/AdvReac Type Severity Reaction Status Date / Time No Known Allergies Allergy Verified 01/31/21 00:42 Home Medications Medication Instructions Recorded Confirmed Type albuterol sulfate 90 mcg/actuation 2 puff INHALATION Q4H PRN #6.7 g 03/09/20 01/31/21 Rx aerosol inhaler (Ventolin HFA) metoprolol succinate 50 mg 75 mg PO QAM #90 tab 10/23/20 01/31/21 Rx tablet,extended release 24 hr atorvastatin 40 mg tablet 40 mg PO PM #90 tab 11/24/20 01/31/21 Rx thiamine HCl (vitamin B1) 100 mg 100 mg PO QAM 30 Days #30 tab 01/13/21 01/31/21 Rx tablet (Vitamin B-1) B [id number] tablet 1 tab PO DAILY 01/31/21 01/31/21 History acetaminophen 325 mg tablet 650 mg PO Q4H PRN 01/31/21 01/31/21 History (Tylenol) chlorhexidine gluconate 0.12 % 15 ml MT Q12H PRN 01/31/21 01/31/21 History mouthwash collagenase clostridium histo. 250 1 applic TOPICAL QPM 01/31/21 01/31/21 History unit/gram topical ointment (Santyl) mirtazapine 30 mg tablet 30 mg PO HS 01/31/21 01/31/21 History tramadol 50 mg tablet 50 mg PO Q4H PRN 01/31/21 01/31/21 History Patient History Medical History (Updated 02/02/21 @ 10:56 by ALEKSANDRA Mcallister) Allergic rhinitis Benign prostatic hyperplasia with urinary obstruction and other lower urinary tract symptoms Carotid artery stenosis monitors annually, follows with Dr. 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 Impaired fasting glucose Palliative care encounter Pulmonary fibrosis, unspecified Septic shock Sleep apnea 3L O2 HS Stroke 2008 Transient ischemic attack (TIA) ~2014 Weakness Surgical History Endoleak post (EVAR) endovascular aneurysm repair 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 History of cataract surgery RT/LEFT History of colonoscopy History of tonsillectomy and adenoidectomy History of tooth extraction History of vascular surgery Aortogram with embolization of internal iliac arteries S/P AAA repair S/p AAA repair using bifurcation graft PEVAR initially in 2011 S/P lymph node biopsy (05/26/20) Right Groin Excisional Lymph Node Biopsy (05/26/20): MAC at [facility] Family History Father Alzheimer disease Lung disease Brother Bone cancer Cancer Grandmother Diabetes Aunt Diabetes Mother Carotid artery disease Other No family history of adverse response to anesthesia Social History Smoking Status: Unknown if ever smoked Tobacco Type: Smokeless Tobacco (Dip or Chew) Age Quit Using Tobacco: 55; packs per day: 1; Years Smoked: 30; Second Hand Exposure: No; Hx Alcohol Use: No Hx Substance Use: No Preferred Language: Greek Communication Ability: Impaired Hearing Ability: Use of Hearing Aid 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: No Beliefs That Will Affect Care: None marital status: / Current Living Situation: [facility] current occupational status: retired How many Children do You have: 2 Feels Safe at Home: Yes caffeine: Yes during the past year weight has: decreased > 10 lbs Physical Activity Frequency: 1-2 Times per Week Seatbelt Use: always Sunscreen Use: No Assistive Devices: Denture - Lower, Glasses and Oxygen - Continuous Review of Systems Review of Systems: [place] System Assessment Scale: By observation Pain: 0/3 Anxiety: 0/3 SOB: 1/3 Palliative Performance Scale: 20% Physical Exam Constitutional: + ill appearing and + frail appearing ENMT: Mouth: + dry oral mucous membranes Respiratory: + uses accessory muscles and + cough Auscultation: + diminished lung sounds and + rhonchi Cardiovascular: Rate/Rhythm: regular rate and regular rhythm Heart Sounds: normal S1 and normal S2 Extremities: normal capillary refill Gastrointestinal (Abdomen): Inspection/Auscultation: abdomen normal to inspection Percussion/Palpation: abdomen soft Skin: + pallor Psychiatric: Orientation: alert Results & Data ([facility]) Vital Signs (Past 12 Hours) Vital Signs Temp Pulse Resp BP Pulse Ox 02/02/21 07:07 35.6 C L 72 16 104/74 100 02/02/21 04:52 77 24 99 02/01/21 23:12 83 24 108/76 99 PG Care Time/CCT Total # of Minutes Spent Total Time Spent with Patient: Total time spent is greater than 50% in coordination of care (as documented) at patient's floor/unit and/or counseling patient: 100 minutes with > 50% of that time spent assessing the patient, discussing goals of care with the family, addressing symptom management needs, and collaborating with IDT Coding Level of Care Code 94413 Inpt Consult Level 3 Diagnoses Palliative care encounter Z51.5 Hypoxia R09.02 AMS (altered mental status) R41.82 Weakness R53.1 Time Spent (min) 100
[2021-02-02] MEDS ORDERED: LORazepam 1 MG/2 ML VIAL IV PRN (11:12)
[2021-02-02] MEDS: GLYCOPYRROLATE 0.2 MG/ML VIAL IV SCH ×3 (11:47→23:10)
[2021-02-02] MEDS: MoRPHine SULFATE 5 MG/0.25 ML UDP PO PRN (12:08)
--- NOTE | 2021-02-02 22:34 | Hospitalist Progress Note ---
Date of Service February 02, 2021 Assessment & Plan (1) Aspiration pneumonia: Plan: Aspiration pneumonia/pulmonary fibrosis- Had extensive discussion with daughters Myrna and Fabby. It appears patient has not improved when he went to [facility]. He returns to the hospital now hyernatremic, more confused with further weight loss. This points towards likely severe malnutrition. A concern is patient's inability to protect his airway when swallowing. If patient cannot safely swallow, his overall prognosis is poor. Explained that patient likely grew weaker from his chemo, which then may have lead to his dysphagia, infection which caused a downward spiral to his health. Despite the care he received in his previous admission, PPN, antibiotics which led to his temporary improvement. Patient however could not sustain this during his time at [facility] as he is now having severe electrolyte abnormalities, weight loss, and is now more confused. Given that patient has severe dysphagia and he is ot able to follow commands for PT of his swallowing and the fact that he failed during his time at [facility], pallliative care consult was ordered. Daughter Fabby was agreeable. D/W Fabby that patient did not want a Peg tube during previous admission. Chest x-ray significantly worse right upper and right lower lobes Continue Zosyn 4.5 g IV every 8 hours begun in ED Duonebs every 4 hours while awake and every 2 hours when necessary. Awaiting input from palliative care. UPDATE: Daughters agreeable to palliative care. will dtransition to [employer]. (2) Malnutrition compromising bodily function: Plan: Albumin 1.9 [place] type state Give albumin 50 g IV x1 (3) Hypokalemia: Plan: Give 2K riders for potassium 3.2 Repeat laboratories daily (4) Hypernatremia: Plan: Hypernatremia/acute dehydration Sodium 150 upon admission, with severe dehydration. Placed on D5 W at 60 mils per hour Repeat labs labs daily (5) Hypertension: Plan: Hold metoprolol succinate due to low normal blood pressure (6) Acute dehydration: Plan: See above (7) Rectal cancer: (8) Lymphoma: (9) Pulmonary fibrosis, unspecified: Plan: See above Admission and Anticipated Discharge Date Admission Date: January 31, 2021 Subjective Patient is nonverbal Review of Systems Review of Systems: Unobtainable due to cognitive status Physical Exam Physical Exam: The patient is lethargic.. HEENT--PERRL, EOMI, mucous membranes and oropharynx very dry. Neck--supple. No JVD. No bruits. Thyroid normal, trachea midline, no adenopathy. Heart--normal S1 and S2. No murmurs, rubs or gallops. Lungs--clear bilaterally, no respiratory distress, no accessory muscle use. Abdomen--normal bowel sounds and soft. Nontender. Nondistended Extremities--no cyanosis or clubbing. No edema. Dermatologic--skin is very dry Psychiatric--confused PG Care Time/CCT Total # of Minutes Spent Total Time Spent with Patient: Total time spent is greater than 50% in coordination of care (as documented) at patient's floor/unit and/or counseling patient: Coding Level of Care Code 26372 Subseq Hosp Care Lvl 2 Diagnoses Aspiration pneumonia J69.0 Malnutrition compromising bodily function E46 Hypokalemia E87.6 Hypernatremia E87.0 Hypertension I10 Acute dehydration E86.0 Rectal cancer C20 Lymphoma C85.90 Pulmonary fibrosis, unspecified J84.10
[2021-02-03] MEDS: GLYCOPYRROLATE 0.2 MG/ML VIAL IV SCH ×3 (05:15→18:10)
[2021-02-03 06:54] LABS: Hematocrit (blood only) 30.7 % (42-52); Hemoglobin 9.3 g/dL (14.0-18.0); Mean Corpuscular Hemoglobin 28.9 pg (25-34); Mean Corpuscular Hgb Conc 30.3 g/dL (32-36); Mean Corpuscular Volume 95.3 fL (80-100); RDW Coefficient of Variation 19.4 % (11.5-14.5); RDW Standard Deviation 65.8 fL (36.4-46.3); Red Blood Count 3.22 M/uL (4.7-6.1); White Blood Count 6.51 K/uL (4.8-10.8)
[2021-02-03 06:57] LABS: Basophils # (auto) 0.01 K/uL (0-0.2); Basophils % (auto) 0.2 %; Echinocytes 1+; Eosinophils # (auto) 0.06 K/uL (0-0.5); Eosinophils % (auto) 0.9 %; Immature Granulocytes # (auto) 0.41 K/uL (0.00-0.02); Immature Granulocytes % (auto) 6.3 %; Lymphocytes # (auto) 0.95 K/uL (1.2-3.4); Lymphocytes % (auto) 14.6 %; Microcytosis Present; Monocytes # (auto) 0.31 K/uL (0.11-0.59); Monocytes % (auto) 4.8 %; Neutrophils # (auto) 4.77 K/uL (1.4-6.5); Neutrophils % (auto) 73.2 %; Platelet Count 24 K/uL (130-400); Toxic Granulation 1+
[2021-02-03 08:02] LABS: Albumin Globulin Ratio 0.6 (0.9-2); Albumin Level 1.6 gm/dl (3.4-5.0); BUN Creatinine Ratio 28.2 (10-20); Bilirubin,Total 1.6 mg/dl (0.2-1); Calcium 8.3 mg/dl (8.5-10.1); Creatinine Clr Calc Pharmacy 31.4 ml/min; Est GFR (African American) 50.1 ml/min; Est GFR (Non-African American) 43.2 ml/min; Globulin 2.5 gm/dl (2.5-4.0); Magnesium 2.1 mg/dl (1.8-2.4); Potassium 3.4 mmol/L (3.5-5.1); Total Protein 4.1 gm/dl (6.4-8.2)
[2021-02-03] MEDS: MoRPHine SULFATE 5 MG/0.25 ML UDP PO PRN (11:31)
[2021-02-03] MEDS: MoRPHine SULFATE 5 MG/0.25 ML UDP PO SCH ×2 (15:36→18:10)
--- NOTE | 2021-02-03 15:43 | Palliative Care Progress Note ---
Date of Service February 03, 2021 Assessment & Plan (1) Palliative care encounter: Plan: Does not appear comfortable. Pain vs terminal agitation. Per RN, he was resting earlier after morphine given. Will order routine morphine for consistent analgesia and monitor. May need lorazepam as well. Daughters are agreeable and want him to have whatever he needs to be comfortable. Admission and Anticipated Discharge Date Admission Date: January 31, 2021 Subjective Restless, trying to sit up, furrowed brow. Does not respond to conversation. Review of Systems Review of Systems: Unobtainable due to reduced consciousness Constitutional: [place] Symptom Assessment Scale Pain 2/3 by observation Dyspnea 0/3 by observation Palliative Performance Score 10% Physical Exam Constitutional: + thin and + frail appearing; + uncomfortable ENMT: Mouth: + dry oral mucous membranes Respiratory: normal respiratory effort; no labored breathing no audible secretions Cardiovascular: regular Musculoskeletal: Extremities: + muscle atrophy Neurologic: + obtunded PG Care Time/CCT Total # of Minutes Spent Total Time Spent with Patient: Total time spent is greater than 50% in coordination of care (as documented) at patient's floor/unit and/or counseling patient: Coding Level of Care Code 85748 Subseq Hosp Care Lvl 2 Diagnoses Palliative care encounter Z51.5
--- NOTE | 2021-02-03 20:05 | Death Pronouncement Note ---
Date of Service February 03, 2021 Pronouncement Note Admission Date Admission Date: January 31, 2021 Date and Time of Date of : 02/03/21 Time of : 20:01 Contributing Factors (1) Palliative care encounter: Summary Additional details: Notified by nursing that patient had ceased to breathe. Patient's 2 daughters present at bedside. Patient without pulse, respirations, heart sounds, pupils fixed and dilated. Patient pronounced at 20:01 on 02/03/21 Additional Data Confirmation of : no pulse, no respirations, no heart sounds and pupils fixed and dilated Family: at bedside Attending/PCP notified?: No Attending physician: Rachid Vigil Was code activated?: No Autopsy requested?: No letter of credit document examiner notified?: No Organ bank notified?: No Advance directives: No Resident Activity Tracking Resident Involvement: Resident Care Provided and Crystal Inspector Coverage Note Care Provided: Adult Hospital Medicine
--- NOTE | 2021-02-05 11:06 | Discharge Summary ---
Date of Service February 03, 2021 Admission HPI Per Admitting Provider The patient is an 85-year-old male with a past medical history including recurrent aspiration, malnutrition, abnormal weight loss, anemia, generalized weakness, immunocompromised, AAA, history of pancytopenia due to antineoplastic chemotherapy, hypokalemia, bacteremia, chronic respiratory hypoxia, pulmonary fibrosis, thrombocytopenia, hypertension, rectal cancer and lymphoma. The most recent admissions to [facility] were from 12/19-12/24, and 12/24-01/13. The admission from 12/19-12/24 was due to weakness, leukocytosis on chemotherapy, and was treated empirically with vancomycin and cefepime IV. When discharged from the hospital on 12/24, the patient's family reported that he declined very quickly when he went home, and was brought back in the same day, and readmitted with septic shock on Levophed to the ICU. Upon 01/13, patient was discharged to [facility], with normal laboratories including a sodium 139 potassium 4.3. Laboratories upon arrival to the emergency department this evening include a so dium 152 and potassium of 3.2. Albumin continues to be low at 1.9. Principal Diagnosis ASPIRATION PNEUMONIA Discharge Exam The patient is lethargic.. HEENT--PERRL, EOMI, mucous membranes and oropharynx very dry. Neck--supple. No JVD. No bruits. Thyroid normal, trachea midline, no adenopathy. Heart--normal S1 and S2. No murmurs, rubs or gallops. Lungs--clear bilaterally, no respiratory distress, no accessory muscle use. Abdomen--normal bowel sounds and soft. Nontender. Nondistended Extremities--no cyanosis or clubbing. No edema. Dermatologic--skin is very dry Psychiatric--confused Discharge Data Allergies Allergy/AdvReac Type Severity Reaction Status Date / Time No Known Allergies Allergy Verified 01/31/21 00:42 Consultations 01/31/21 06:34 ED Decision to Admit Stat 02/01/21 11:08 Consult Palliative Care Routine Ordered Studies 01/31/21 02:00 CT head/brain wo con Urgent Hospital Course (1) Aspiration pneumonia: Aspiration pneumonia/pulmonary fibrosis- Had extensive discussion with daughters Myrna and Fabby. It appears patient has not improved when he went to [facility]. He returns to the hospital now hyernatremic, more confused with further weight loss. This points towards likely severe malnutrition. A concern is patient's inability to protect his airway when swallowing. If patient cannot safely swallow, his overall prognosis is poor. Explained that patient likely grew weaker from his chemo, which then may have lead to his dysphagia, infection which caused a downward spiral to his health. Despite the care he received in his previous admission, PPN, antibiotics which led to his temporary improvement. Patient however could not sustain this during his time at [facility] as he is now having severe electrolyte abnormalities, weight loss, and is now more confused. Given that patient has severe dysphagia and he is ot able to follow commands for PT of his swallowing and the fact that he failed during his time at [facility], pallliative care consult was ordered. Daughter Fabby was agreeable. D/W Fabby that patient did not want a Peg tube during previous admission. Chest x-ray significantly worse right upper and right lower lobes Continue Zosyn 4.5 g IV every 8 hours begun in ED Duonebs every 4 hours while awake and every 2 hours when necessary. Daughters agreeable to palliative care. Patient on 02/03/21 AT 20:01 (2) Malnutrition compromising bodily function: Albumin 1.9 [place] type state (3) Hypokalemia: Give 2K riders for potassium 3.2 Repeat laboratories daily (4) Hypernatremia: Hypernatremia/acute dehydration Sodium 150 upon admission, with severe dehydration. Placed on D5 W at 60 mils per hour Repeat labs labs daily (5) Hypertension: Hold metoprolol succinate due to low normal blood pressure (6) Acute dehydration: See above (7) Rectal cancer: (8) Lymphoma: (9) Pulmonary fibrosis, unspecified: See above Total Time Total Time Spent Total Time Spent (In Minutes): 20 Discharge Plan Discharge Items Patient Disposition: Discharge Diagnosis: Addtl Attending Provider Instructions: at 20:01 02/03/21 see summary for details Other Date/Time: 02/03/21 20:01 Coding Level of Care Code D/C DAY MANAGEMENT <30 MINS Diagnoses Aspiration pneumonia J69.0 Malnutrition compromising bodily function E46 Hypokalemia E87.6 Hypernatremia E87.0 Hypertension I10 Acute dehydration E86.0 Rectal cancer C20 Lymphoma C85.90 Pulmonary fibrosis, unspecified J84.10
== END 2021-02-03 22:00 | disposition expired | DRG 177 ==
LOC: ED 23:17 → 3E 01-31 08:24 → SUATTDRO 01-31 09:45 → 3E 01-31 09:45
DX: E87.6 Hypokalemia; C20 Malignant neoplasm of rectum; R68.0 Hypothermia, not associated with low environmental temperature; C85.90 Non-Hodgkin lymphoma, unspecified, unspecified site; Z68.1 Body mass index [BMI] 19.9 or less, adult; N17.9 Acute kidney failure, unspecified; J69.0 Pneumonitis due to inhalation of food and vomit; R44.3 Hallucinations, unspecified; E87.0 Hyperosmolality and hypernatremia; J96.11 Chronic respiratory failure with hypoxia; Z51.5 Encounter for palliative care; Z66 Do not resuscitate; G93.41 Metabolic encephalopathy; J84.10 Pulmonary fibrosis, unspecified; E40 Kwashiorkor; E86.0 Dehydration; Z20.822 Contact with and (suspected) exposure to COVID-19; E43 Unspecified severe protein-calorie malnutrition; D84.9 Immunodeficiency, unspecified; I10 Essential (primary) hypertension; R13.10 Dysphagia, unspecified; Z86.73 Personal history of transient ischemic attack (TIA), and cerebral infarction without residual deficits